=== PATIENT | male | born 1965 | race Caucasian/White ===

== ENCOUNTER 2020-01-21 08:07 | Outpatient (RCR) | payer BC, OTHER, SELFPAY | END 2020-02-27 13:03 | disposition home or self-care (01) | LOC: HO.WCC 08:07 | PROVIDERS: PCP Emergency Medicine; Visit Provider Physician Assistant Surgical | DX: E11.621 Type 2 diabetes mellitus with foot ulcer (principal); L97.525 Non-pressure chronic ulcer of other part of left foot with muscle involvement without evidence of necrosis | CPT/HCPCS: 11042; 99212 ==

== ENCOUNTER 2020-04-28 10:30 | Outpatient (REF) | payer BC, OTHER, SELFPAY ==
[2020-04-29 07:32] LABS: HBS Num1 9.38 mIU/mL (0-7.99)
[2020-04-29 09:02] LABS: Rubella IgG Antibody 4.78 Index; Rubeola IgG (Measles) >300.00 AU/mL
[2020-04-29 09:52] LABS: HBS Num2 9.52 mIU/mL (0-7.99); HBS Num3 8.88 mIU/mL (0-7.99)
[2020-04-29 09:53] LABS: ~Hepatitis B Surface Antibody GRAYZONE (Nonreactive)
[2020-05-01 20:47] LABS: TS Negative Control Passed; TS Panel A 0; TS Panel B 0; TS Positive Control Passed; TSpotTB Negative (SeeBelow)
[2020-05-03 06:46] LABS: Tetanus Antitoxiod Antibody 0.85 IU/mL
== END 2020-04-28 10:31 | disposition home or self-care (01) ==
LOC: HO.LAB 10:30
PROVIDERS: PCP Internal Medicine Medical Oncology; Visit Provider Internal Medicine Medical Oncology
DX: Z78.9 Other specified health status (principal)
CPT/HCPCS: 36415; 86481; 86706; 86735; 86762; 86765; 86774; 86787

== ENCOUNTER 2021-11-01 07:32 | Emergency (ER) | payer BC, OTHER, SELFPAY ==
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
[2021-11-01 07:36] VITALS: BP 161/104; PULSE 88; RESP 18; TEMP 36.9; O2SAT 95; BMI 43.0
--- NOTE | 2021-11-01 09:07 | ED.EXTPRO ---
HPI - Extremity Problem General Chief complaint: Extremity Problem Stated complaint: right shoulder pain Time Seen by Provider: 11/01/21 09:07 Related Data Allergies Allergy/AdvReac Type Severity Reaction Status Date / Time erythromycin base Allergy Unknown UNKNOWN Unverified 01/02/20 16:19 [ERYTHROMYCIN BASE] Physical Exam Vital Signs: Vital Signs: Last Vital Signs Temp 98.4 F 11/01/21 07:36 Pulse 88 11/01/21 07:36 Resp 18 11/01/21 07:36 BP 161/104 H 11/01/21 07:36 Pulse Ox 95 11/01/21 07:36 O2 Del Method 11/01/21 07:36 BMI result Body Mass Index 43.0 Discharge Plan Discharge Clinical Impression: Right shoulder strain Patient Disposition: Home, Self-Care Instructions: Muscle Strain (ED), Cold Compress or Soak (ED), Rotator Cuff Injury Exercises (DC) Additional Instructions: Please call to follow up with your doctor. If you have any other concerns please return to the ED.
[2021-11-01] MEDS: Ibuprofen 400 MG TABLET PO (09:40)
== END 2021-11-01 09:44 | disposition home or self-care (01) ==
PROVIDERS: Emergency Provider Student in an Organized Health Care Education/Training Program; PCP Internal Medicine Medical Oncology
DX: S46.911A Strain of unspecified muscle, fascia and tendon at shoulder and upper arm level, right arm, initial encounter (principal); X58.XXXA Exposure to other specified factors, initial encounter; Y93.9 Activity, unspecified; Y92.9 Unspecified place or not applicable; Y99.9 Unspecified external cause status
CPT/HCPCS: 73030; 99283; 99284

== ENCOUNTER 2021-12-22 11:06 | Emergency (ER) | payer BC, OTHER, SELFPAY ==
--- NOTE | ~2021-12-22 | XR_ITS ---
EXAMINATION: XR TOES, LEFT CLINICAL INFORMATION: Left great toe wound. COMPARISON: Left foot 12/10/2019 TECHNIQUE: 3 views of the left toes were obtained. FINDINGS: there is no gas or foreign body seen in the left great toe. Minimal soft tissue swelling. No bony erosive changes. There is mild left foot dorsal and plantar soft tissue swelling. Punctate calcifications suspected along first 3 digits. There is mild loss of first MTP joint space with periarticular spurring. No visible acute fracture or dislocation seen. XR/XR toe LT min 2V IMPRESSION: Mild soft tissue swelling along the plantar and dorsal distal foot. No foreign body, fracture or bony erosive changes involving the left great toe. Suspect scattered vascular calcifications along the first 3 digits Mild degenerative changes first MTP joint.
[2021-12-22 14:32] VITALS: BP 145/98; PULSE 82; RESP 16; TEMP 36.6; O2SAT 98; BMI 45.1
--- NOTE | 2021-12-22 20:05 | ED_ITS ---
HPI - Wound/Laceration General Chief Complaint: Wound/Laceration Stated Complaint: L toe wound Time Seen by Provider: 12/22/21 19:58 Source: patient Mode of arrival: ambulatory Limitations: no limitations History of Present Illness HPI narrative: 56-year-old male with no pertinent past medical history presenting today with complaint of left great toe wound. patient states that he had a large callus on the bottom of his great toe, which peeled off and bled when he took his shoes off after work yesterday. 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 Patient reports he put Neosporin on the wound and wrapped it. 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 Reports he can feel pressure when applied to his feet however no sensation of pain. denies any fever, chills, headache, dizziness nausea, vomiting, diarrhea, shortness of breath, chest pain. Patient has been seen by wound clinic in the past for same issue. Onset (ago): day(s) Extremity Location: left: foot Related Data Previous Rx's Medication Instructions Recorded amoxicillin 875 mg-potassium 1 tab PO BID #14 tabs 12/22/21 clavulanate 125 mg tablet Allergies Allergy/AdvReac Type Severity Reaction Status Date / Time erythromycin base Allergy Unknown UNKNOWN Verified 12/22/21 14:31 [ERYTHROMYCIN BASE] Review of Systems Review of Systems: Constitutional: No Fever, No Chills ENT/Mouth: No sore throat, No Rhinorrhea, No Swallowing Difficulty Eyes: No Eye Pain, No Swelling, No Redness Cardiovascular: No Chest Pain, No SOB, No Orthopnea, No Edema Respiratory: No Cough, No Sputum, No Wheezing, No dyspnea Gastrointestinal: No Nausea, No Vomiting, No Diarrhea, No abdominal Pain, No Hematochezia, No Melena Genitourinary: No Dysuria, No Urinary Frequency, No Hematuria Musculoskeletal: No joint pain, No Myalgias Skin: + Skin Lesion bottom of left great toe, No rash Neuro: No Weakness, + Numbness bilateral lower legs, No Dizziness, No Headache Psych: No Anxiety/Panic, No Depression Heme/Lymph: No Bruising, No Lymphadenopathy Endocrine: No Polyuria, No Polydipsia PMFSH Social History Social History Advance Directives: No Advance Directives Information Provided: No Physical Exam Vital Signs: Vital Signs: Last Vital Signs Temp 98 F 12/22/21 14:32 Pulse 82 12/22/21 14:32 Resp 16 12/22/21 14:32 BP 145/98 H 12/22/21 14:32 Pulse Ox 98 12/22/21 14:32 O2 Del Method 12/22/21 14:32 BMI result Body Mass Index 45.1 Const: Other: Appearance: Alert. Oriented X3. No acute distress. HEENT: normal inspection CVS: Normal heart rate and rhythm. Pulses normal. Respiratory: No respiratory distress. Skin: + circular wound on plantar aspect of great toe 3 cm in diameter, surrounded by macerated skin. Callus on plantar aspect of 2nd left metatarsal. Skin pink and warm Extremities: decreased sensation of bilateral lower extremities, mild swelling of left foot Neuro: Oriented X 3. No motor deficit. No sensory deficit. Course Course Course Narrative: 56-year-old male presenting with wound on his left great toe after a callus was accidentally removed yesterday. Patient has nondiabetic peripheral neuropathy at baseline and does not have sensation to the area. On exam, large circular a wound approximately 3 cm in diameter to the plantar aspect of the left great toe, surrounded by macerated skin. No drainage. no systemic signs of infection. Patient to be referred to wound care and started on empiric antibiotics. XR toe left min and 2V Impression: Mild soft tissue swelling along the plantar and dorsal distal foot. No foreign body, fracture, or bony erosive changes involving the great toe. Suspect scattered vascular calcifications along the first 3 digits. Discharge Plan Discharge Clinical Impression: Open toe wound Patient Disposition: Home, Self-Care Instructions: Acute Wounds (ED) Additional Instructions: Keep wound clean and dry. Wash area gently with antimicrobial soap and warm water daily, air dry the area. If you need to wear closed toe shoe, wear cotton sock. Please take antibiotics as prescribed. Please follow-up with wound care for further management. If you develop new or worsening symptoms call 911 or come back to the ER for further evaluation. Prescriptions: New amoxicillin-pot clavulanate 875-125 mg tablet 1 tab PO BID Qty: 14 0RF Referrals: [facility] [Provider Group]
== END 2021-12-22 20:51 | disposition home or self-care (01) ==
PROVIDERS: Emergency Provider Emergency Medicine; PCP Internal Medicine Medical Oncology
DX: L84 Corns and callosities (principal); S91.102A Unspecified open wound of left great toe without damage to nail, initial encounter; X58.XXXA Exposure to other specified factors, initial encounter; Y93.9 Activity, unspecified; Y92.9 Unspecified place or not applicable; Y99.9 Unspecified external cause status
CPT/HCPCS: 73660; 99282; 99283

== ENCOUNTER 2022-01-04 14:00 | Outpatient (RCR) | payer BC, OTHER, SELFPAY | END 2022-04-05 11:51 | disposition home or self-care (01) | LOC: HO.WCC 14:00 | PROVIDERS: PCP Internal Medicine Medical Oncology; Visit Provider Physician Assistant | DX: Z09 Encounter for follow-up examination after completed treatment for conditions other than malignant neoplasm (principal); L84 Corns and callosities; R73.03 Prediabetes; G60.8 Other hereditary and idiopathic neuropathies; I10 Essential (primary) hypertension; Z87.2 Personal history of diseases of the skin and subcutaneous tissue | CPT/HCPCS: 11042; 11055; 29445; 99212 ==

== ENCOUNTER 2022-09-20 09:17 | Outpatient (RCR) | payer BC, OTHER, SELFPAY ==
--- NOTE | ~2022-09-20 | XR_ITS ---
EXAMINATION: XR FOOT, RIGHT CLINICAL INFORMATION: Nonhealing wound right great toe COMPARISON: Previous x-ray May 2019 aortic MRI from 2018 TECHNIQUE: AP, lateral, and oblique views of the right foot. FINDINGS: Bone alignment is normal. No acute fracture or dislocation. Old deformity of the second metatarsal head unchanged. 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 Mild arthritis at the IP joint of the great toe. Adjacent soft tissue swelling. No x-ray evidence of osteomyelitis. Mild degenerative changes of the midfoot. Small calcaneal spurs. No abnormal air collection or soft tissue foreign body seen. XR/XR foot RT min 3V IMPRESSION: Soft tissue swelling of the great toe. No x-ray evidence of osteomyelitis.
--- NOTE | ~2022-09-20 | XR_ITS ---
EXAMINATION: XR FOOT, LEFT CLINICAL INFORMATION: Nonhealing wound, attention left great toe COMPARISON: Left great toe 12/22/2021 TECHNIQUE: AP, lateral, and oblique views of the left foot. FINDINGS: There is marked soft tissue swelling of the forefoot. There is no evidence of bony erosions. No fracture. Alignment is anatomic. There is moderate degenerative change of the first metatarsophalangeal joint with marginal osteophytes including a dorsal osteophyte. Posterior plantar calcaneal spur and Achilles enthesophyte are noted. There is partially imaged deformity of the distal tibia. XR/XR foot LT min 3V IMPRESSION: No acute bony abnormality.
[2022-09-20 11:33] LABS: MANUAL DIFF FLAG NO
[2022-09-20 12:09] LABS: Basophils Percent Auto 0.5 % (0-2); Eosinophils Absolute Auto 0.2 X10*3/uL (0.0-0.4); Eosinophils Percent Auto 2.4 % (0-4); Hematocrit 43.8 % (42.0-52.0); Hemoglobin 14.9 g/dl (14.0-18.0); Imm Gran Abs Auto 0.07 X10*3/uL (0.00-0.03); Imm Gran Pct Auto 0.9 % (0.0-0.4); Lymphocytes Absolute Auto 1.8 X10*3/uL (1.2-4.9); Lymphocytes Percent Auto 21.9 % (20-40); Mean Corpuscular Hemoglobin 30.2 pg (27.0-33.0); Mean Corpuscular Volume 88.7 fL (80.0-98.0); Mean Platelet Volume 9.4 fL (9.4-12.4); Monocytes Absolute Auto 0.9 X10*3/uL (0.1-1.2); Monocytes Percent Auto 10.8 % (2-11); Neutrophils Absolute Auto 5.1 x10*3/uL (2.0-8.3); Neutrophils Percent Auto 63.5 % (45-73); Platelet Count 284 X10*3/uL (160-400); Red Blood Count 4.94 X10*6/uL (4.60-5.80); Red Cell Distribution Width 13.2 % (11.0-16.0); White Blood Count 8.1 X10*3/uL (4.8-10.8)
[2022-09-20 12:26] LABS: Estimated Average Glucose 237 mg/dL; Hemoglobin A1c % 9.9 %
[2022-09-20 12:31] LABS: Anion Gap 12 (12-20); Blood Urea Nitrogen 14 mg/dL (9-16); C Reactive Protein 1.87 mg/dL (< or = 0.50); Calcium 9.6 mg/dL (8.4-10.2); Carbon Dioxide 27 mmol/L (22-29); Chloride 103 mmol/L (96-108); Estimated Glomerular Filt Rate > 60; Glucose Random 257 mg/dL (60-115); Potassium 4.4 mmol/L (3.3-5.1); Sodium 138 mmol/L (135-145)
[2022-09-20 12:48] LABS: Erythrocyte Sedimentation Rate 14 MM/HR (0-15)
== END 2023-07-24 12:04 | disposition home or self-care (01) ==
LOC: HO.WCC 09:17
PROVIDERS: PCP Internal Medicine Medical Oncology; Visit Provider Physician Assistant
DX: L97.522 Non-pressure chronic ulcer of other part of left foot with fat layer exposed (principal); L84 Corns and callosities; Z79.2 Long term (current) use of antibiotics; Z79.899 Other long term (current) drug therapy
CPT/HCPCS: 11042; 11044; 36415; 73630; 80048; 83036; 84134; 85025; 85652; 86140; 97597; 99213

== ENCOUNTER 2022-10-16 08:08 | Emergency (ER) | payer BC, OTHER, SELFPAY ==
[2022-10-16 08:11] VITALS: BP 145/110; PULSE 99; RESP 18; TEMP 36.7; O2SAT 99; BMI 47.2
--- NOTE | 2022-10-16 09:02 | ED.GENADULT ---
HPI - General Adult General Chief complaint: Extremity Injury, Lower Stated complaint: L toe callous Time Seen by Provider: 10/16/22 09:00 Source: patient Mode of arrival: ambulatory Limitations: no limitations History of Present Illness HPI narrative: Patient is a 57-year-old male with history of nondiabetic peripheral neuropathy and chronic great toe calluses presenting to the emergency department with blood blister adjacent to callus of left great toe since yesterday. Patient states that he is seen regularly by the [facility] for debridement of his chronic calluses. Does not typically developed blood blisters. Yesterday noted bright red blood under the blister adjacent to the callus on his left great toe. Today noted that the blood was darker in color in became concerned. Denies pain. Denies any numbness or tingling. Denies recent fevers. Denies any drainage of blood from the area. complaint: blood blister of toe Onset (ago): day(s) Location: lower extremity Radiation: non-radiation Associated symptoms: denies other symptoms Treatments prior to arrival: none Related Data Previous Rx's Medication Instructions Recorded amoxicillin 875 mg-potassium 1 tab PO BID #14 tabs 12/22/21 clavulanate 125 mg tablet Allergies Allergy/AdvReac Type Severity Reaction Status Date / Time erythromycin base Allergy Unknown UNKNOWN Verified 10/16/22 08:11 [ERYTHROMYCIN BASE] Review of Systems Review of Systems: As per HPI. Yes all other systems are reviewed and are negative Constitutional: Constitutional: Reports as per HPI Physical Exam ED Vital Signs: Vital Signs - 24 hr 10/16/22 08:11 Temperature 98.1 F Pulse Rate 99 Respiratory Rate 18 Blood Pressure 145/110 H Pulse Oximetry 99 Oxygen Delivery Method Room Air BMI result Body Mass Index 47.2 Vital signs have been reviewed and appear to be correct. Blood pressure elevated. Heart rate normal. Respiratory rate normal. Temperature normal. Oxygen saturation normal. Const General: cooperative and no acute distress Orientation/consciousness: oriented to person, oriented to place, oriented to time and patient oriented x3 Limitations: no limitations HENMT Head: Yes normocephalic and Yes atraumatic Ears: external ears normal General nose exam: Normal external nose present Face and sinus: Yes face symmetric Mouth: oropharynx normal and moist mucous membranes Throat: Yes uvula midline Eyes Pupils: Equal, round and reactive pupils present Neck Neck: Yes normal visual inspection and Yes supple Resp Effort & Inspection: normal respiratory effort and able to speak in complete sentences Auscultation: clear to auscultation bilaterally Cardio Rate: regular rate Rhythm: regular rhythm Heart sounds: S1 normal heart sound present and S2 normal heart sound present GI Palpation (GI): Soft to palpation and nontender Auscultation: normoactive bowel sounds General: Yes no CVA tenderness Back/Spine/Pelvis Back: no CVA tenderness Skin General skin exam: elasticity normal and turgor normal Neuro General: oriented to person, oriented to place, oriented to time, patient oriented x3, moves all extremities, no focal motor deficits and CN's II-XI intact bilaterally Cranial nerves: Yes Equal, round and reactive pupils present Cognition (Neuro): normal cognition Extrem General: Yes full ROM, Yes no pedal edema and Yes no calf tenderness Left lower extremity: foot Details: normal capillary refill, toes with normal ROM, vascular exam Details: dorsalis pedis pulse present, posterior tibial pulse present and normal capillary refill and other (callous to volar aspect of great toe with adjacent blood blister 1x1.5cm, no fluctuance, no surrounding erythema or calor); no tenderness Psych Mental Status: mental status grossly normal Affect: normal affect Thought process: Normal thought process present Medical Decision Making Medical Decision Making MDM Narrative: Patient is a 57-year-old male with history of nondiabetic peripheral neuropathy and chronic great toe calluses presenting to the emergency department with blood blister adjacent to callus of left great toe since yesterday. On exam patient is awake, A+Ox3, VS WNL except for mildly elevated BP, afebrile, normal neurological exam without focal deficits, callous to volar aspect of left great toe with adjacent blood blister without fluctuance, without surrounding erythema or calor, no discharge or drainage. Given reported symptoms and physical exam findings, differential includes blood blister, cellulitis, abscess. Low suspicion for osteomyelitis as patient is afebrile, has full ROM, and no erythema or calor. Feel patient is stable for discharge home with follow-up at wound care clinic later this week. Do not feel drainage is indicated at this time as area is not fluctuant. Patient states he has already called to request a sooner appointment with wound care. Instructed patient to return for any new erythema, swelling, warmth, purulent drainage or fevers. Patient verbalized understanding of and agreement with plan. Differential Diagnosis Differential Diagnoses: The differential diagnosis associated with the presentation includes As above. External Record Review External record reviewed: Inpatient record, Office record and Outpatient record Chronic Conditions Patient?s care impacted by: Other (Peripheral neuropathy) Discharge Plan Discharge Clinical Impression: Callus of toe, Blood blister Patient Disposition: Home, Self-Care Additional Instructions: You were evaluated in the emergency department today for blood blister adjacent to a chronic callous of your left great toe. You evaluation did not reveal any conditions requiring emergent treatment at this time. Please keep your appointment with the wound clinic for later this week. Please assess the area daily for any new changes. Return if you develop new redness, swelling, uncontrolled bleeding, fever 100.4 or greater, or any other concerning symptoms. Prescriptions: No Action amoxicillin-pot clavulanate 875-125 mg tablet 1 tab PO BID Qty: 14 0RF
== END 2022-10-16 09:36 | disposition home or self-care (01) ==
PROVIDERS: Emergency Provider Emergency Medicine Emergency Medical Services; PCP Internal Medicine Medical Oncology
DX: L84 Corns and callosities (principal); G62.9 Polyneuropathy, unspecified; S90.422A Blister (nonthermal), left great toe, initial encounter; X58.XXXA Exposure to other specified factors, initial encounter; Y93.9 Activity, unspecified; Y92.9 Unspecified place or not applicable
CPT/HCPCS: 99282; 99283

== ENCOUNTER 2023-02-08 09:05 | Emergency (ER) | payer OTHER, SELFPAY ==
--- NOTE | 2023-02-08 | ECG_ITS ---
Test Reason : neuro symptoms Blood Pressure : / mmHG Vent. Rate : 086 BPM Atrial Rate : 086 BPM P-R Int : 162 ms QRS Dur : 088 ms QT Int : 344 ms P-R-T Axes : 047 -48 028 degrees QTc Int : 411 ms Normal sinus rhythm Left anterior fascicular block Possible Anterior infarct , age undetermined Abnormal ECG No previous ECGs available Referred By: Generic ED Physician Electronically Signed By:KORINA ZAVALA MD
--- NOTE | ~2023-02-08 | CT_ITS ---
EXAMINATION: CT HEAD WITHOUT CONTRAST CLINICAL INFORMATION: Right leg numbness. COMPARISON: None available. TECHNIQUE: Contiguous axial imaging was performed from the skull base to vertex without intravenous administration of contrast. This CT examination was performed using dose optimization techniques as appropriate, variously including the following: *Automated exposure control *Adjustment of mA and/or kV according to patient size (this includes techniques or standardized protocols for targeted exams where dose is matched to indication/reason for exam; i.e. extremities or head) *Use of iterative reconstruction technique DLP: 849 mGy-cm FINDINGS: There is no acute intra-axial, extra-axial bleed, masses or midline shift. There is no acute infarction evolution. There is no edema the pandey to white matter differentiation is maintained normal. The lateral ventricles are symmetrical in size and configuration without enlargement. Bone windows reveal no calvarial abnormality. Bilateral paranasal sinuses and mastoid air cells are well-aerated. No scalp soft tissue swelling. CT/CT head/brain wo IV con IMPRESSION: No acute intracranial process seen.
[2023-02-08 10:01] VITALS: BP 138/89; PULSE 87; RESP 18; TEMP 37.1; O2SAT 97; BMI 45.7
[2023-02-08 10:35] LABS: MANUAL DIFF FLAG NO
[2023-02-08 10:37] LABS: Basophils Percent Auto 0.6 % (0-2); Eosinophils Absolute Auto 0.1 X10*3/uL (0.0-0.4); Eosinophils Percent Auto 0.7 % (0-4); Hematocrit 40.8 % (42.0-52.0); Hemoglobin 14.1 g/dl (14.0-18.0); Imm Gran Abs Auto 0.02 X10*3/uL (0.00-0.03); Imm Gran Pct Auto 0.3 % (0.0-0.4); Lymphocytes Absolute Auto 1.1 X10*3/uL (1.2-4.9); Lymphocytes Percent Auto 15.4 % (20-40); Mean Corpuscular HGB Conc 34.6 g/dl (31.0-36.0); Mean Corpuscular Hemoglobin 29.7 pg (27.0-33.0); Mean Corpuscular Volume 86.1 fL (80.0-98.0); Mean Platelet Volume 8.6 fL (9.4-12.4); Monocytes Percent Auto 14.5 % (2-11); Neutrophils Absolute Auto 4.9 x10*3/uL (2.0-8.3); Neutrophils Percent Auto 68.5 % (45-73); Platelet Count 200 X10*3/uL (160-400); Red Blood Count 4.74 X10*6/uL (4.60-5.80); Red Cell Distribution Width 13.8 % (11.0-16.0); White Blood Count 7.1 X10*3/uL (4.8-10.8)
[2023-02-08 10:55] LABS: Alanine Aminotransferase 24 U/L (0-40); Alkaline Phosphatase 63 U/L (39-117); Anion Gap 11 (12-20); Aspartate Amino Transferase 19 U/L (5-37); Blood Urea Nitrogen 10 mg/dL (9-16); Calcium 9.2 mg/dL (8.4-10.2); Carbon Dioxide 26 mmol/L (22-29); Chloride 104 mmol/L (96-108); Creatinine Clr Calc Pharmacy 87.4; Estimated Glomerular Filt Rate > 60; Glucose Random 196 mg/dL (60-115); Potassium 3.9 mmol/L (3.3-5.1); Sodium 137 mmol/L (135-145); Total Protein 7.1 g/dL (6.5-8.0)
[2023-02-08 11:02] LABS: Troponin-I High Sensitivity < 2.7 ng/L (<3.5-35.0)
[2023-02-08 15:21] VITALS: BP 138/86; PULSE 85; RESP 18; TEMP 37.4; O2SAT 99
--- NOTE | 2023-02-08 15:32 | ED_ITS ---
HPI - Neuro Symptoms/Deficit General Chief Complaint: Neuro Symptoms/Deficit Stated Complaint: R Side Numbness Time Seen by Provider: 02/08/23 16:45 Source: patient Mode of arrival: ambulatory Limitations: no limitations History of Present Illness HPI Narrative: Patient 57 years old with history of nondiabetic peripheral neuropathy comes here for increased numbness in the right leg and right arm started last night after waking for work at 23:00 patient feels this is different than his usual neuropathy feels tingling sensations which is constant ambulatory no weakness no headache NIHSS score was 0 at the time of triage as per the neuropathy patient does have sensory never had full workup done in the past does have fluctuating blood sugar but not been diagnosed as diabetic today POC was 196 Related Data Previous Rx's Medication Instructions Recorded amoxicillin 875 mg-potassium 1 tab PO BID #14 tabs 12/22/21 clavulanate 125 mg tablet gabapentin 300 mg capsule 300 mg PO BID #60 caps 02/08/23 Allergies Allergy/AdvReac Type Severity Reaction Status Date / Time erythromycin base Allergy Unknown UNKNOWN Verified 02/08/23 10:00 [ERYTHROMYCIN BASE] Review of Systems 2 Review of Systems: Yes all other systems are reviewed and are negative [facility] Past Medical History Medical History Hypertension Neuropathy Social History Social History Smoked in Last 30 Days: No Use of substances other than those prescribed or required for medical reasons: No Advance Directives: No Advance Directives Information Provided: No Physical Exam 2 Vital Signs: Vital Signs: Last Vital Signs Temp 98.3 F 02/08/23 19:03 Pulse 79 02/08/23 19:03 Resp 16 02/08/23 19:03 BP 130/78 02/08/23 19:03 Pulse Ox 97 02/08/23 19:03 O2 Del Method Room Air 02/08/23 19:03 BMI result Body Mass Index 45.7 Appearance: Alert. Oriented X3. No acute distress. Eyes: PERRLA, No Nystagmus ENT: Pharynx normal. Oral Mucosa moist Neck: Normal inspection. Neck supple. CVS: Normal heart rate and rhythm. Pulses normal. Respiratory: No respiratory distress. Equal air entry bilateral, no wheezing/rales/rhonchi Abdomen: Soft and nontender. Bowel sounds are present, no mass palpable, no CVA tenderness Skin: Skin warm and dry. Normal skin color. Normal skin turgor. Extremities: No lower extremity edema. No calf tenderness Neuro: Oriented X 3. No motor deficit. Decreased sensation to light touch and pin prick in lower extremity below mid felder.No cerebellar signs , cranial nerves II-XII intact Course Course Course Narrative: RME: 57 yold male presents to the ED for right leg numbness since last night. patient denies any trauma or swelling or redness. patient states no calf pain. Right lower extremity negative for swelling, pitting edema, or calf pain. pedal pulses intact. motor AND NUERO EXAM OF RIGHT LOWER EXTREMITE AND REST OF EXTREMITIES INTACT. NIH 0. patient states no back pain and still complaints of right leg numbness. no urinary/bowel incontinence. WIll order head CT scan although unlike stroke Medications Administered Discontinued Medications Generic Name Dose Route Start Last Admin Trade Name Freq PRN Reason Stop Dose Admin Gabapentin 300 mg 02/08/23 18:38 02/08/23 19:02 Gabapentin 300 Mg Capsule PO 02/08/23 18:39 300 mg ONCE ONE Administration Medical Decision Making Medical Decision Making [facility] Narrative: Patient with tingling sensation the right side likely worsening of his neuropathy CT scan is negative labs are stable patient started on gabapentin advised to follow with neurologist Differential Diagnosis Differential Diagnoses: The differential diagnosis associated with the presentation includes Peripheral neuropathy/CVA Admission/Observation Consideration of admission/observation: Escalation of care including admission/observation considered Lab Data [facility] Lab Attestation statement: I reviewed the patient's lab results. 02/08/23 10:29 02/08/23 10:29 Labs: Lab Results 02/08/23 Range/Units 10:29 WBC 7.1 (4.8-10.8) X10*3/uL RBC 4.74 (4.60-5.80) X10*6/uL Hgb 14.1 (14.0-18.0) g/dl Hct 40.8 L (42.0-52.0) % MCV 86.1 (80.0-98.0) fL MCH 29.7 (27.0-33.0) pg MCHC 34.6 (31.0-36.0) g/dl RDW 13.8 (11.0-16.0) % Plt Count 200 D (160-400) X10*3/uL MPV 8.6 L (9.4-12.4) fL Immature Gran % (Auto) 0.3 (0.0-0.4) % Neut % (Auto) 68.5 (45-73) % Lymph % (Auto) 15.4 L (20-40) % Beaufort % (Auto) 14.5 H (2-11) % Eos % (Auto) 0.7 (0-4) % Baso % (Auto) 0.6 (0-2) % Lymph # (Auto) 1.1 L (1.2-4.9) X10*3/uL [place] # (Auto) 1.0 (0.1-1.2) X10*3/uL Eos # (Auto) 0.1 (0.0-0.4) X10*3/uL Baso # (Auto) 0.0 (0.0-0.2) X10*3/uL Abs Immat Gran (auto) 0.02 (0.00-0.03) X10*3/uL Absolute Neuts (auto) 4.9 (2.0-8.3) x10*3/uL Absolute Nucleated RBC 0.000 (0.0-0.012) X10*3/uL Nucleated RBC % (auto) 0.0 (0.0-0.2) /100WBC Sodium 137 (135-145) mmol/L Potassium 3.9 (3.3-5.1) mmol/L Chloride 104 (96-108) mmol/L Carbon Dioxide 26 (22-29) mmol/L Anion Gap 11 L (12-20) BUN 10 (9-16) mg/dL Creatinine 1.17 (0.5-1.4) mg/dL Estim Creat Clear Calc 87.4 Estimated GFR > 60 Random Glucose 196 H (60-115) mg/dL Estimat Average Glucose 194 mg/dL Hemoglobin A1c % 8.4 H (<6.0) % Calcium 9.2 (8.4-10.2) mg/dL Magnesium 2.1 (1.6-2.6) mg/dL Total Bilirubin 1.0 (0.0-1.0) mg/dL AST 19 (5-37) U/L ALT 24 (0-40) U/L Alkaline Phosphatase 63 (39-117) U/L Troponin I High Sens < 2.7 (<3.5-35.0) ng/L Total Protein 7.1 (6.5-8.0) g/dL Albumin 4.0 (3.5-5.0) g/dL Radiology Impression Discussion of test interpretation with radiology: I have reviewed the radiologist's reading. Discharge Plan Discharge Clinical Impression: Peripheral neuropathy Patient Disposition: Home, Self-Care Instructions: Peripheral Neuropathy (ED) Additional Instructions: Follow-up with neurologist who need further workup for diagnosis and treatment Meanwhile start taking gabapentin 300 mg twice daily Prescriptions: New gabapentin 300 mg capsule 300 mg PO BID Qty: 60 0RF No Action amoxicillin-pot clavulanate 875-125 mg tablet 1 tab PO BID Qty: 14 0RF Referrals: Fiona Agustin MD [Physician] - 1 week Interventions: ED Discharge Assessment Last Done: 02/08/23 19:06 Discharge Date/Time: 02/08/23 19:07
[2023-02-08 16:38] VITALS: BP 134/80; PULSE 89; RESP 18; TEMP 36.8; O2SAT 96
[2023-02-08 18:03] LABS: Magnesium 2.1 mg/dL (1.6-2.6)
[2023-02-08 18:20] LABS: Estimated Average Glucose 194 mg/dL; Hemoglobin A1c % 8.4 % (<6.0)
[2023-02-08] MEDS: Gabapentin 300 MG CAPSULE PO (19:02)
[2023-02-08 19:03] VITALS: BP 130/78; PULSE 79; RESP 16; TEMP 36.8; O2SAT 97
== END 2023-02-08 19:07 | disposition home or self-care (01) ==
PROVIDERS: Emergency Provider Internal Medicine; PCP Internal Medicine Medical Oncology
DX: G62.9 Polyneuropathy, unspecified (principal); R73.9 Hyperglycemia, unspecified; I10 Essential (primary) hypertension
CPT/HCPCS: 36415; 70450; 80053; 83036; 83735; 84484; 85025; 93005; 99284

== ENCOUNTER 2024-07-26 08:42 | Outpatient (RCR) | payer OTHER, SELFPAY ==
--- NOTE | ~2024-07-26 | XR_ITS ---
EXAMINATION: XR FOOT, LEFT CLINICAL INFORMATION: Great toe. COMPARISON: None available. TECHNIQUE: AP, lateral, and oblique views of the left foot. FINDINGS: Bony alignment and mineralization are normal. No fracture, dislocation or joint effusion is seen. Boehler's angle is normal. There are moderately large posterior and plantar calcaneal spurs. There is moderate bunion formation. There is mild osteoarthritic change of the first metatarsophalangeal joint. A small exostosis is seen arising from the medial margin of the base of the distal phalanx of the left great toe. There is adjacent soft tissue ulceration, without gas or foreign body. No periosteal thickening is seen. XR/XR foot LT min 3V IMPRESSION: 1. No fracture, dislocation left ankle joint effusion is seen. 2. There are calcaneal spurs. 3. There is moderate bunion formation. 4. There is mild osteoarthritic change of the first and third metatarsophalangeal joints. 5. A soft tissue wound is seen of the medial aspect of the left great toe, without underlying bone erosion or periosteal thickening. No soft tissue gas is seen. Electronically signed by: Isaias Real MD 01/08/2024 08:48 PM EDT
== END 2024-09-04 14:13 | disposition home or self-care (01) ==
LOC: HO.WCC 08:42
PROVIDERS: PCP Internal Medicine Medical Oncology; Visit Provider Surgery
DX: E11.621 Type 2 diabetes mellitus with foot ulcer (principal); L97.522 Non-pressure chronic ulcer of other part of left foot with fat layer exposed; E11.42 Type 2 diabetes mellitus with diabetic polyneuropathy
CPT/HCPCS: 11042; 11043; 73630; 97597; 99211; 99213

== ENCOUNTER 2024-10-14 10:51 | Emergency (ER) | payer OTHER, SELFPAY ==
--- OUTSIDE RECORDS SUMMARY | 2024-02-08 05:25 | XMS_ITS ---
Author Organization Eugene Stover III, MD Address [address] [place] [address] Care Team Providers Care Grouter Helper Name Role Phone Eugene Stover Primary Care Provider REASON FOR VISIT 3 week Supply Linisopril Medications Medication SIG (Take, Route, Fr equency, Duration) Notes Start Date End Date Status Lisinopril 10 MG 1 tablet Orally Once a day for 30 days Active Social History Sex Assigned At : Social History Observation Description Sex Assigned At Male Encounters Encounter Location Date Provider Diagnosis Eugene Stover III, MD [address] [place] [address] [place] [address] 02/08/2024 Eugene Stover Plan Of Treatment Medication Medication Name Sig Start Date Stop Date Notes Lisinopril 10 MG 1 tablet Orally Once a day for 30 days Next Appt Details Provider Name:Eugene Stover, 02/25/2025 09:30:00 AM, [address] [place] [address] [place], [address], Progress Notes * Sachin CARDOSODOB:1965 ( 58 yo M)Acc No.[id number]:02/08/2024 Patient: Sachin PINTO :1965 A ge:58 Y S ex:Male Address:[address] [place] [address], [address] , [place] [address] * Refills Refill Lisinopril Tablet, 10 MG, Orally, 30, 1 tablet, Once a day, 30 days, Refills=0 * true * Date: Generated for Printi ng/Carline/Shay on: 0 10/14/2024 02:33 PM EDT
--- NOTE | ~2024-10-14 | XR_ITS ---
EXAMINATION: XR FOOT 3 OR MORE VIEWS RIGHT HISTORY: pain, concern for osteo COMPARISON: Comparison is made with the prior examination dated 09/20/2022. FINDINGS: Three views of the right foot are submitted. Osseous mineralization is normal. There is no fracture or dislocation. There is a chronic deformity of the head of the 2nd metatarsal with associated degenerative change of the MTP joint. There is mild to moderate narrowing of the interphalangeal joint of the great toe. The soft tissues are unremarkable. XR/XR foot RT min 3V IMPRESSION: No plain film evidence of osteomyelitis. If this remains a clinical concern, three-phase bone scan or MRI could be performed. Electronically signed by: Eugene Cross MD 10/14/2024 12:17 PM EDT
--- NOTE | 2024-10-14 11:47 | ED.GENADULT ---
HPI - General Adult General Chief complaint: General Medical Stated complaint: toe issues Time Seen by Provider: 10/14/24 13:20 History of Present Illness ED Provider: arias HPI narrative: 59-year-old male with chronic diabetes poorly controlled. New right medial big toe ulceration no weeping or discharge some redness of the foot. No injury. Denies subjective fever or swelling of the ankle or leg. Related Data Previous Rx's ?Medication ?Instructions ?Recorded amoxicillin 875 mg-potassium 1 tab PO BID #14 tabs 12/22/21 clavulanate 125 mg tablet gabapentin 300 mg capsule 300 mg PO BID #60 caps 02/08/23 cefadroxil 500 mg capsule 500 mg PO BID 7 days #14 caps 10/14/24 Allergies Allergy/AdvReac Type Severity Reaction Status Date / Time erythromycin base Allergy Unknown UNKNOWN Verified 10/14/24 11:54 (ERYTHROMYCIN BASE) [facility] Past Medical History Medical History Hypertension Neuropathy Social History Social History Advance Directives: No Advance Directives Information Provided: Yes Do you have a plan to hurt others: No Plan Physical Exam ED Vital Signs: Vital Signs - 24 hr 10/14/24 11:48 10/14/24 13:26 10/14/24 14:47 Temperature 98.7 F 98.5 F 98.5 F Pulse Rate 108 H 103 H 103 H Respiratory Rate 16 16 16 Blood Pressure 128/92 H 136/86 136/86 Pulse Oximetry 96 97 97 Oxygen Delivery Method Room Air Room Air Room Air BMI result Body Mass Index 41.5 Const Other: Above. First photo is of new Right medial great toe Second photo below is chronic L great toe ulcer. .. GENERAL: Well appearing. No apparent distress. Alert. HEAD/NECK: No visual trauma. EYES: Normal to inspection. No conjunctival erythema. No discharge. ENMT: Hearing grossly normal. External nose normal. RESPIRATORY: Respiratory effort normal. CARDIOVASCULAR: Additional details (Grossly well perfused). SKIN: No jaundice. See above NEUROLOGICAL: Alert. Moving all extremities x4. Additional details (No gross motor deficits. Normal tone. ). PSYCHIATRIC: Alert. Appearance appropriate for situation. Course Course Course Narrative: RME performed by Elizabeth Weber PA-C. Patient is a 59 year old assigned male at presenting to the emergency department with right toe issues. Patient states he has had a couple blisters rupture on his right foot. Patient states that he is a PRE-diabetic but not diabetic. Detailed physical exam and review of systems are deferred to the primary care nurse practitioner. Labs and imaging ordered. Patient placed back in the waiting room pending room availability and results. Medications Administered Discontinued Medications Generic Name Dose Route Start Last Admin Trade Name Freq PRN Reason Stop Dose Admin Cephalexin HCl 500 mg 10/14/24 14:05 10/14/24 14:46 Cephalexin 500 Mg Capsule PO 10/14/24 14:06 500 mg ONCE ONE Administration Medical Decision Making Medical Decision Making MDM Narrative: 59-year-old male with diabetes. Acute likely mild or stage II diabetic ulcer. Some mild erythema of the foot and toe no bony injury no signs of osteomyelitis. Lab Data 10/14/24 12:50 10/14/24 12:50 Labs: Lab Results 10/14/24 10/14/24 Range/Units 12:50 14:23 WBC 9.7 (4.8-10.8) X10*3/uL RBC 4.72 (4.60-5.80) X10*6/uL Hgb 13.9 L (14.0-18.0) g/dl Hct 39.9 L (42.0-52.0) % MCV 84.5 (80.0-98.0) fL MCH 29.4 (27.0-33.0) pg MCHC 34.8 (31.0-36.0) g/dl RDW 13.7 (11.0-16.0) % Plt Count 253 D (160-400) X10*3/uL MPV 9.2 L (9.4-12.4) fL Immature Gran % (Auto) 0.8 H (0.0-0.4) % Neut % (Auto) 74.1 H (45-73) % Lymph % (Auto) 11.4 L (20-40) % Yell % (Auto) 11.1 H (2-11) % Eos % (Auto) 2.3 (0-4) % Baso % (Auto) 0.3 (0-2) % Lymph # (Auto) 1.1 L (1.2-4.9) X10*3/uL Yell # (Auto) 1.1 (0.1-1.2) X10*3/uL Eos # (Auto) 0.2 (0.0-0.4) X10*3/uL Baso # (Auto) 0.0 (0.0-0.2) X10*3/uL Abs Immat Gran (auto) 0.08 H (0.00-0.03) X10*3/uL Absolute Neuts (auto) 7.2 (2.0-8.3) x10*3/uL Absolute Nucleated RBC 0.000 (0.0-0.012) X10*3/uL Nucleated RBC % (auto) 0.0 (0.0-0.2) /100WBC ESR 67 H (0-15) MM/HR Sodium 135 (135-145) mmol/L Potassium 4.1 (3.3-5.1) mmol/L Chloride 99 (96-108) mmol/L Carbon Dioxide 25 (22-29) mmol/L Anion Gap 15 (12-20) BUN 9 (9-16) mg/dL Creatinine 1.04 (0.5-1.4) mg/dL Estim Creat Clear Calc 94.1 Estimated GFR > 60 Random Glucose 364 H* (60-115) mg/dL Estimat Average Glucose 275 mg/dL Hemoglobin A1c % 11.2 H (<6.0) % Calcium 9.2 (8.4-10.2) mg/dL Total Bilirubin 0.7 (0.0-1.0) mg/dL AST 35 (5-37) U/L ALT 40 (0-40) U/L Alkaline Phosphatase 98 (39-117) U/L C-Reactive Protein 13.28 H (< or = 0.50) mg/dL Total Protein 7.3 (6.5-8.0) g/dL Albumin 4.1 (3.5-5.0) g/dL Discharge Plan Discharge Clinical Impression: Diabetic foot, Diabetic foot ulcer Patient Disposition: Home, Self-Care Instructions: Diabetes and Your Skin (ED), Chronic Wounds (ED) Additional Instructions: DISCHARGE DIAGNOSES: Diabetic ulcer HISTORY OF PRESENTATION: ?several days worsening L medial foot ulcer EMERGENCY DEPARTMENT COURSE,TESTS, TREATMENTS: While in the ED today you had labs, xray without severe signs of deep bone infection. you had a first dose of cephalexin antibiotic. DISCHARGE MEDICATIONS: ?[We have made no changes to your regular medication regimen] We added antibiotics. FOLLOW-UP: ?Call your primary or general physician soon as possible to discuss your symptoms, your ED visit and to discuss follow up plans Call the wound center. They are aware of your visit and will get you into the clinic soon INSTRUCTIONS ?& RETURN PRECAUTIONS: If any symptoms change first call your primary physician, if it is after-hours your primary doctors office should have a provider licensed nuclear control room operator you can speak with. If the symptoms are severe or very concerning to you then call 911 or return to the ED. Sang Echavarria MD Emergency Physician [facility] Prescriptions: New cefadroxil 500 mg capsule 500 mg PO BID 7 Days Qty: 14 0RF No Action amoxicillin-pot clavulanate 875-125 mg tablet 1 tab PO BID Qty: 14 0RF gabapentin 300 mg capsule 300 mg PO BID Qty: 60 0RF Interventions: ED Discharge Assessment Last Done: 10/14/24 14:47 Discharge Date/Time: 10/14/24 14:47 Print Language: Dutch
[2024-10-14 11:48] VITALS: BP 128/92; PULSE 108; RESP 16; TEMP 37.1; O2SAT 96; BMI 41.5
[2024-10-14 13:02] LABS: MANUAL DIFF FLAG NO
[2024-10-14 13:04] LABS: Basophils Percent Auto 0.3 % (0-2); Eosinophils Absolute Auto 0.2 X10*3/uL (0.0-0.4); Eosinophils Percent Auto 2.3 % (0-4); Hematocrit 39.9 % (42.0-52.0); Hemoglobin 13.9 g/dl (14.0-18.0); Imm Gran Abs Auto 0.08 X10*3/uL (0.00-0.03); Imm Gran Pct Auto 0.8 % (0.0-0.4); Lymphocytes Absolute Auto 1.1 X10*3/uL (1.2-4.9); Lymphocytes Percent Auto 11.4 % (20-40); Mean Corpuscular HGB Conc 34.8 g/dl (31.0-36.0); Mean Corpuscular Hemoglobin 29.4 pg (27.0-33.0); Mean Corpuscular Volume 84.5 fL (80.0-98.0); Mean Platelet Volume 9.2 fL (9.4-12.4); Monocytes Absolute Auto 1.1 X10*3/uL (0.1-1.2); Monocytes Percent Auto 11.1 % (2-11); Neutrophils Absolute Auto 7.2 x10*3/uL (2.0-8.3); Neutrophils Percent Auto 74.1 % (45-73); Platelet Count 253 X10*3/uL (160-400); Red Blood Count 4.72 X10*6/uL (4.60-5.80); Red Cell Distribution Width 13.7 % (11.0-16.0); White Blood Count 9.7 X10*3/uL (4.8-10.8)
[2024-10-14 13:24] LABS: Alanine Aminotransferase 40 U/L (0-40); Albumin Level 4.1 g/dL (3.5-5.0); Alkaline Phosphatase 98 U/L (39-117); Anion Gap 15 (12-20); Aspartate Amino Transferase 35 U/L (5-37); Bilirubin Total 0.7 mg/dL (0.0-1.0); Blood Urea Nitrogen 9 mg/dL (9-16); C Reactive Protein 13.28 mg/dL (< or = 0.50); Calcium 9.2 mg/dL (8.4-10.2); Carbon Dioxide 25 mmol/L (22-29); Chloride 99 mmol/L (96-108); Creatinine Clr Calc Pharmacy 94.1; Estimated Glomerular Filt Rate > 60; Glucose Random 364 mg/dL (60-115); Potassium 4.1 mmol/L (3.3-5.1); Sodium 135 mmol/L (135-145); Total Protein 7.3 g/dL (6.5-8.0)
[2024-10-14 13:26] VITALS: BP 136/86; PULSE 103; RESP 16; TEMP 36.9; O2SAT 97
[2024-10-14 13:52] LABS: Erythrocyte Sedimentation Rate 67 MM/HR (0-15)
--- OUTSIDE RECORDS SUMMARY | 2024-10-14 14:33 | XMS_ITS | Patient Health Record ---
[facility] Address [address] [place] [address] Care Team Providers Care Farm Equipment Operator Name Role Phone Eugene Stover MD Primary Care Provider Kasi Sood Unavailable [phone] Allergies Allergen (clinical drug ingredient) Drug/Non Drug Allergy documented on EMR Reaction Allergy Type Onset Date Status erythromycin Erythromycin Unknown Drug Allergy A ctive Reason For Referral No Information Medications Medication SIG (Take, Route, Frequency, Duration) Notes Start Date End Date Status Lisinopril Active Social History Tobacco Use: Social History Observation Description Date Details (start date - stop date) Never Smoker NA - NA Tobacco Use/Smoking Question Answer Notes Are you a: nonsmoker Additional Findings: Tobacco Non-User Current no n-smoker Alcohol Screen Question Answer Notes Did you have a drink containing alcohol in the p ast year? No Points 0 Interpretation Negative Tobacco use other than smoking: Question Answer Notes Are you an other tobacco user? No Problems Problem Type SNOMED Code ICD Code Onset Dates Problem Status W/U Status Risk Notes Problem Tinea unguium (B35.1) Active confirmed Problem Neuropathy (299244850) Neuropathy (G62.9) Active confirmed Plan Of Treatment Pending Test Test Name Order Date [id number] NAIL, 6 OR MORE 12/29/2017 [id number] NAIL, 6 OR MORE 08/17/2018 [id number] SKIN LESIONS, 2 TO 4 08/18/19 19 Insurance Providers Payer Name Payer Address Payer Phone Subscriber Number Group Number Insured Name Patient Relationship to Insured Coverage Start Date Coverage End Date [facility] All Others [address] [place] [address] [phone] [id number] Self - patient is the insured Medical (General) History Medical History History ICD Code Numbness - unknown origin HTN Surgical History Surgery Date(Month/Year) kidney stones x3 toe surgery Hospitalization History Reason Date(Month/Year) [facility]
--- OUTSIDE RECORDS SUMMARY | 2024-10-14 14:33 | XMS_ITS | Clinical Summary ---
Author Organization [facility] Address [address] [place] [address] Phone Care Team Providers Care Abrasive Water Jet Cutter Operator Name Role Phone Eugene Stover MD Primary Care Provider [phone] Allergies Active Allergy Reactions Criticality Noted Date Comments Erythromycin 03/04/2024 Medications No known medications Encounters Date Type Department Care Team Description 09/11/2024 1:15 PM EDT Office Visit Orthopedic Surgery [facility] [address] [facility] [address] [place] [address] Sung De La Paz, FRANKO Poorly controlled type 2 diabetes mellitus with neuropathy (CMS/HCC V24, CMS/HCC V28) (Primary Dx); Arthritis of both feet; Ulcer of toe of left foot, with necrosis of muscle (CMS/HCC V24, CMS/HCC V28); Lumbosacral radiculopathy; 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, left, with fat layer exposed (CMS/[facility] V24, CMS/[facility] V28) from Last 3 Months Social History Tobacco Use Types Packs/Day Years Used Date Smoking Tobacco: Never Assessed Sex and Gender Information Value Date Recorded Sex Assigned at Not on file Legal Sex Male 4:01 PM EST Gender Identity Not on file Sexual Orientation Not on file Last Filed Vital Signs Vital Sign Reading Time Taken Comments Blood Pressure 138/84 03/05/2024 12:16 AM EST Pulse 95 03/05/2024 12:16 AM EST Temperature 37 C (98.6 F) 03/05/2024 12:16 AM EST Respiratory Rate 18 03/05/2024 12:16 AM EST Oxygen Saturation 95% 03/05/2024 12:16 AM EST Inhaled Oxygen Concentration - - Weight 122 kg (270 lb) 05/21/2024 9:15 AM EST Height 170.2 cm (5' 7.01 ) 05/21/2024 9:15 AM ES T Body Mass Index 42.28 05/21/2024 9:15 AM EST Plan of Treatment Upcoming Encounters Date Type Department Care Team (Late st Contact Info) Description 11/12/2024 9:00 AM EDT Office Visit Orthopedic Surgery - [address] [facility] [address] [place] [id number] Sung De La Paz, FRANKO [address] [place] [address] Health Maintenance Due Date Last Done Comments Diabetes: Annual Foot Exam 1977 Diabetes: Annual Retina Eye Exam 1977 Pneumococcal Vaccine: 50+ Years (1 of 2 - PCV) 1986 Pneumococcal Vaccine: Pediatrics (0 to 5 Years) and At-Risk Patients (6 to 64 Years) (1 of 2 - PCV) 1986 Zoster Vaccines (1 of 2) 2017 Hepatitis B Vaccines (2 of 3 - 19+ 3-dose series) 06/09/2020 05/12/2020 Cholesterol Screening (Lipid Panel) 05/16/2023 Colorectal Cancer Screening: Colonoscopy 05/16/2023 Depression Screening 05/16/2023 HIV Screening 05/16/2023 Hepatitis C Screening 05/16/2023 Social Influencers of Health Screening 05/16/2023 COVID-19 Vaccine (2023-2 5 season) 2023 10/07/2020, 09/09/2020, 04/28/2020 Diabetes: Annual Urine Albumin-Creatinine Ratio (uACR) 09/11/2024 Diabetes: Blood Sugar Contro l Test (HGBA1C) 09/11/2024 Influenza Vaccine (Season Ended) 2024 05/12/2020 Diabetes: Annual GFR (Glomerular Filtration Rate) 03/04/2025 03/04/2024 Hypertension/CHF/CAD Annual BMP Blood Test 03/04/2025 03/04/2024 DTaP,Tdap,and Td Vaccines (2 - Td or Tdap) 05/12/2030 05/12/2020 HIB Vaccines Aged Out No longer eligi ble based on patient's age to complete this topic HPV Vaccines Aged Out No longer eligi ble based on patient's age to complete this topic Hepatitis A Vaccines Aged Out No long er eligible based on patient's age to complete this topic IPV Vaccines Aged Out No longer eligi ble based on patient's age to complete this topic MMR Vaccines Aged Out No longer eligi ble based on patient's age to complete this topic Meningococcal ACWY Vaccine Aged Out N o longer eligible based on patient's age to complete this topic Meningococcal B Vaccine Aged Out No l onger eligible based on patient's age to complete this topic RSV Immunization Patients Under 20 months Aged Out No longer eligible b ased on patient's age to complete this topic Varicella Vaccines Aged Out No longer eligible based on patient's age to complete this topic Procedures Procedure Name Priority Date/Time Associated Diagnosis Comments COMPREHENSIVE METABOLIC PANEL STAT 03/04/2024 8:27 PM EST from Last 3 Months or Most Recently Relevant to Health Maintenance Results * (ABNORMAL) Comprehensive metabolic panel (03/04/2024 8:27 PM EST) Sodium 132(L) 133 - 145 mmol/L LAB CHEMISTRY METHOD 03/04/2024 9:18 PM [facility] Potassium 4.7 3.5 - 5.5 mmol/L LAB CHEMISTRY METHOD 03/04/2024 9:18 PM [facility] Chloride 99 96 - 110 mmol/L LAB CHEMISTRY METHOD 03/04/2024 9:18 PM [facility] CO2 25 21 - 32 mmol/L LAB CHEMISTRY METHOD 03/04/2024 9:18 PM [facility] Anion Gap 8 3 - 11 LAB CHEMISTRY METHOD 03/04/2024 9:18 PM [facility] Glucose 475(HH) 70 - 100 mg/dL LAB CHEMISTRY METHOD 03/04/2024 9:18 PM [facility] BUN 16 5 - 25 mg/dL LAB CHEMISTRY METHOD 03/04/2024 9:18 PM [facility] Creatinine 1.43(H) 0.70 - 1.30 mg/dL LAB CHEMISTRY METHOD 03/04/2024 9:18 PM [facility] eGFR 58(L) >=60 mL/min/1. 73m2 LAB CHEMISTRY METHOD 03/04/2024 9:18 PM [facility] Comment:Calculation based on the Chronic Kidney Disease Epidemiology Collaboration (CKD-EPI) equation refit without adjustment for race. BUN/Creatinine Ratio 11.2 LAB CHEMISTRY METHOD 03/04/2024 9:18 PM [facility] Calcium 9.0 8.5 - 10.5 mg/dL LAB CHEMISTRY METHOD 03/04/2024 9:18 PM [facility] AST (SGOT) 26 10 - 42 unit/L LAB CHEMISTRY METHOD 03/04/2024 9:18 PM [facility] ALT (SGPT) 44 10 - 60 unit/L LAB CHEMISTRY METHOD 03/04/2024 9:18 PM [facility] Alkaline Phosphatase 153(H) 42 - 121 unit/L LAB CHEMISTRY METHOD 03/04/2024 9:18 PM [facility] Total Protein 7.0 6.0 - 8.0 g/dL LAB CHEMISTRY METHOD 03/04/2024 9:18 PM [facility] Albumin 3.7 3.2 - 5.0 g/dL LAB CHEMISTRY METHOD 03/04/2024 9:18 PM [facility] Total Bilirubin 0.4 0.0 - 1.4 mg/dL LAB CHEMISTRY METHOD 03/04/2024 9:18 PM [facility] Blood Venous blood specimen / Unknown 03/04/2024 8:27 PM EST 03/04/2024 8:35 PM EST us Klever Martin MD LAB BLOOD ORDERABLES Maddy mendez Result [facility] [address] [place] [address], from Last 3 Months or Most Recently Relevant to Health Maintenance Insurance [address] [place] [address] [employer] MD [place] [id number] Care Teams Abrasive Water Jet Cutter Operator Relationship Specialty Start Date End Date Eugene Stover MD [address] [address] PCP - General Oncology 08/10/17
[2024-10-14 14:36] LABS: Estimated Average Glucose 275 mg/dL; Hemoglobin A1c % 11.2 % (<6.0)
[2024-10-14] MEDS: cephALEXin 500 MG CAPSULE PO (14:46)
[2024-10-14 14:47] VITALS: BP 136/86; PULSE 103; RESP 16; TEMP 36.9; O2SAT 97
== END 2024-10-14 14:47 | disposition home or self-care (01) ==
PROVIDERS: Physician Assistant Medical; Emergency Provider Emergency Medicine; PCP Internal Medicine Medical Oncology
DX: E11.621 Type 2 diabetes mellitus with foot ulcer (principal); I10 Essential (primary) hypertension; Z79.899 Other long term (current) drug therapy
CPT/HCPCS: 36415; 73630; 80053; 83036; 85025; 85652; 86140; 99283

== ENCOUNTER → 2024-10-14 11:51 | Outpatient (BNV) | payer OTHER, SELFPAY | PROVIDERS: PCP Internal Medicine Medical Oncology; Visit Provider Radiology Diagnostic Radiology | DX: M79.671 Pain in right foot (principal) | CPT/HCPCS: 73630 ==

== ENCOUNTER 2024-12-12 15:57 | Inpatient (IN) | payer MEDICAID, SELFPAY ==
--- OUTSIDE RECORDS SUMMARY | 2024-02-23 05:15 | XMS_ITS ---
Author Organization Eugene Stover III, MD Address [address] [facility] [place] [address] Care Team Providers Care Worship Director Name Role Phone Eugene Stover Primary Care Provider [phone] Allergies Allergen (clinical drug ingredient) Drug/Non Drug [...] patient and left a message to contact [facility], Ivett Camarena 08/29/2024 [...] Date Provider Diagnosis Eugene Stover III, MD [address] [place] [address] [place] [address] 02/23/2024 Eugene Stover Hyperlipidemia E78.5 ; Type [...] on compliance. He was referred to a sergeant of corrections. He was referred to an furniture decals inspector. I recommended a statin drug. He will [...] wound Provider Name:Eugene Stover, 12/27/2024 02:30:00 PM, [address] [place] [address] [address], [address], [place], [address], Provider Name:Eugene Stover, 02/25/2025 09:30:00 AM, [address] [place] [address] [address], [place], [address], Progress Notes * Sachin CARDOSODOB:1965 ( 58 yo M)Acc No.[id number]:02/23/2024 Progress Notes Patient: Sachin PINTO Provider: Carey Stover MD :1965 A ge:58 Y S ex:Male Date:02/23/2024 Address:[address] [place] [address], [address] , [id number] Subjective: * Chief Complaints: * A nnual [...] some time and has been seeing a sergeant of corrections for treatment. The patient is scheduled to [...] He has an appointment next week at [facility] for his visual acuity and glasses. We have referred him to an furniture decals inspector for routine diabetic care. He has been referreed to a sergeant of corrections routine diabetic foot care as the sergeant of corrections to which he was going has retired. [...] dilation, right flexible ureteroscopy, right ureteral stent [id number] history * Hospitalization/Major Diagno stic Procedure: N [...] H popeye is single and lives in [place]. He is working. 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 He lives in a two-person condo with [...] on compliance. He was referred to a sergeant of corrections. He was referred to an furniture decals inspector. I recommended a statin drug. He will [...] needed, Inhalation, every 4 hrs. ? Referral To:[facility] Unknown Reason:Consult and Treat [...] 04/24/2023 Generated for Printi ng/Faamyg/eTransmitting on: 0 12/12/2024 08:53 PM EDT History and Physical Notes * [...]
--- OUTSIDE RECORDS SUMMARY | 2024-05-27 05:30 | XMS_ITS ---
Author Organization Eugene Stover III, MD Address [address] [place] [address] [place] [address] Care Team Providers Care Funeral Service Practitioner/Embalmer Name Role Phone Eugene Stover Primary Care Provider [phone] Allergies Allergen (clinical drug ingredient) Drug/Non Drug [...] Lisinopril 10 MG Take 1 tablet by once daily Active metFORMIN HCl Active Social History Tobacco Use: Social History Observation Description Date Details (start date - stop date) Never Smoker NA - NA Sex Assigned At : Social History Observation Description Sex Assigned At Male Tobacco Use/Smoking Question Answer Notes Patient is a nonsmoker Additional Findings: Tobacco Non-User Aggressive non-smoker Encounters Encounter Location Date Provider Diagnosis Eugene Stover III, MD [address] [place] [address] [place] [address] 05/27/2024 Eugene Stover Hyperlipidemia E78.5 Assessments Encounter [...] Lisinopril 10 MG Take 1 tablet by once daily metFORMIN HCl Next Appt Details Provider Name:Eugene Stover, 12/27/2024 02:30:00 PM, [address] [facility] [address], [place], [address], Provider Name:Eugene Stover, 02/25/2025 09:30:00 AM, [address] [facility] [address], [place], [address], Progress Notes * Sachin CARDOSODOB:1965 ( 59 yo M)Acc No.[id number]:05/27/2024 Progress Notes Patient: Sachin PINTO Provider: Carey Stover MD :1965 A ge:59 Y S ex:Male Date:05/27/2024 Address:[address] [place] [address], [address] , [id number] Subjective: * Chief Complaints: * 1 . [...] H popeye is single and lives in [place]. He is working. 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 He lives in a two-person condo with [...] 05/27/2024 Generated for Denny quiroga/Carline/Rudyitting on: 0 12/12/2024 08:52 PM EDT History and Physical Notes * [...]
--- OUTSIDE RECORDS SUMMARY | 2024-12-06 11:00 | XMS_ITS ---
Author Organization Eugene Stover III, MD Address [address] [place] [address] Care Team Providers Care Boots And Shoes Supervisor Name Role Phone Eugene Stover Primary Care Provider [phone] Allergies Allergen (clinical drug ingredient) Drug/Non [...] Provider Diagnosis Eugene Stover III, MD [address] [place] [address] DR N[place]ASCO, [place] [address] 12/06/2024 Eugene Stover Hyperlipidemia E78.5 ; Type [...] OV Provider Name:Eugene Stover, 12/27/2024 02:30:00 PM, [address] [place] [address] DR, [address], [place], [address], Provider Name:Eugene Stover, 02/25/2025 09:30:00 AM, [address] [place] [address] [address], [place], [address], Progress Notes * Sachin CARDOSODOB:1965 ( 59 yo M)Acc No.[id number]:12/06/2024 Progress Notes Patient: Sachin PINTO Provider: Carey Stover MD :1965 A ge:59 Y S ex:Male Date:12/06/2024 Address:[address] [place] [address], [address] , [id number] Subjective: * Chief Complaints: * D iabetic ulcer right first toeDiabetesPeripheral diabetic neuropathyUreterolithiasisSleep apneaHypertensionHyperlipidemiaObesityBenign prostatic hypertrophy * HPI: C OVID-19 Screening: Luca nye returns for medical management of diabetes and his other issues. He has been going to the wound care clinic at [facility] weekly for a large deep pressure [...] arranged. Repeat blood work was arranged. 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 * Social History: T obacco Use: T obacco Use/Smoking P atient is a n onsmoker A dditional Findings: Tobacco Non-User A ggressive non-smoker Luca nye is single and lives in [place]. He is working. 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 He lives in a two-person condo with [...] 0 12/06/2024 Generated for Denny quiroga/Carline/Magensmitting on: 12/12/2024 08:51 PM EDT History and Physical Notes * [...]
--- NOTE | ~2024-12-12 | US_ITS ---
CLINICAL HISTORY: osteomyelitis wound L + R Arterial duplex ultrasound bilateral lower extremity Comparison: None provided Findings: Peak systolic velocities of the right lower extremity range from 35 cm/sec to 103 cm/sec. Peak systolic velocities of the left lower extremity range from 32 cm/sec to 91 cm/sec. No occlusion of the imaged arteries. Mild relative increase of the bilateral posterior tibial artery is relative to popliteal arteries nonspecific and may reflect mild stenosis by ultrasound. Grayscale images demonstrate mild calcified and noncalcified plaque of the imaged arteries, particularly inferiorly. Essentially triphasic waveforms of the imaged arteries accounting for aliasing artifacts and sampling. IMPRESSION: No occlusion of the imaged arteries of the lower extremities by ultrasound. This document has been electronically signed by: Steven Llamas MD on 12/19/2024 22:42:48
--- NOTE | ~2024-12-12 | XR_ITS ---
EXAMINATION: XR FOOT, LEFT CLINICAL INFORMATION: wound, ?osteo COMPARISON: None available. TECHNIQUE: AP, lateral, and oblique views of the left foot. FINDINGS: There is aggressive destruction of the head and neck region of the fifth metatarsal with erosion in the lateral base of the proximal phalanx, extending into the metaphysis. Mild degenerative changes are present in the first MTP joint with marginal osteophytes and degenerative cystic change in the medial head and neck region of the first metatarsal. Moderate enthesophytes are present involving calcaneus. XR/XR foot LT min 3V IMPRESSION: Suspected septic arthritis with osteomyelitis involving the head and neck region of the fifth metatarsal and proximal half of the fifth proximal phalanx with aggressive bony destruction. Mild first MTP joint osteoarthritis. Electronically signed by: Erasmo Downs MD 12/12/2024 05:04 PM EDT
--- NOTE | ~2024-12-12 | MR_ITS ---
EXAM: MRI foot without and with IV contrast TECHNIQUE: Multiplanar multisequence MR imaging was performed through the left midfoot and forefoot without and with IV contrast. IV contrast: 10 mL Gadavist INDICATION: Osteomyelitis, septic arthritis involving the fifth ray PRIOR: X-ray on December 12, 2024 and January 08, 2024 FINDINGS: Lisfranc ligament: Intact Soft tissues: Edema reticulates the subcutaneous soft tissues. There is hyperenhancement of the skin to the dorsum and hyperenhancement of the deep and superficial soft tissues at the fourth webspace and fifth digit. There is also edema and mild hyperenhancement of the subcutaneous soft tissues as well as the musculature in the midfoot and forefoot. There is edema and hypoenhancement of the soft tissues plantar to the fourth and fifth metatarsals and in the soft tissues interposed between the 2 metatarsal. There is moderate to severe fatty replacement of the midfoot forefoot musculature. Metatarsophalangeal (MTP) joint and sesamoids of the great toe: There is no joint effusion. Joint capsule structures are intact. Sesamoids are intact and unremarkable aside from degenerative marrow signal in the medial sesamoid and a bipartite medial sesamoid. There are marginal osteophytes involving the MTP joint. Lesser MTP joints & Plantar plates: There is a deep soft tissue ulceration is lateral and plantar to the head and neck of the fifth metatarsal measuring 18 mm anterior-posterior extending into the fifth MTP joint. There are destructive changes noted in the metatarsal head and central and dorsal base of the proximal phalanx. There is replacement of marrow signal in the proximal phalanx, sparing the head, with decreased signal on T1 imaging, patchy increased signal on fluid sensitive sequences, and concordant enhancement after contrast. The fifth metatarsal demonstrates decreased signal on T1 imaging through the mid third and distal third diaphysis. There is minimal patchy decreased T1 signal involving the base of the fifth metatarsal. On fluid sensitive sequences, there is increased signal throughout the fifth metatarsal. With contrast, there is hyperenhancement throughout the fifth metatarsal, sparing the proximal tip of the fifth metatarsal tuberosity. There is no loculated fluid collection. Otherwise unremarkable. Bones/Marrow: Aside from changes noted above, but marrow signal is physiologic. MR/MR foot LT wo/w con IMPRESSION: Fifth MTP joint septic arthritis and osteomyelitis of the fifth proximal phalanx and metatarsal with adjacent soft tissue ulceration extending to the bone. There are erosive changes in the central and dorsal aspect of the proximal phalanx. The fifth proximal phalanx is involved with sparing the head. Extensive destructive erosive changes are present involving the head and neck of the fifth metatarsal osteomyelitis sparing the region of the fifth metatarsal tuberosity. There are changes consistent with cellulitis involving deep and superficial soft tissues of the midfoot extending into the fifth digit. There is hyperenhancement of the soft tissues plantar to the fourth and fifth metatarsals and in the soft tissues interposed between the fourth metatarsals of uncertain significance. This could be related to lack of cellulitis in this region but could also be related related to decreased blood flow to this region. Electronically signed by: Erasmo Downs MD 12/13/2024 12:54 PM EDT
[2024-12-12 16:28] VITALS: BP 156/87; PULSE 109; RESP 18; TEMP 37; O2SAT 98; BMI 38.5
--- NOTE | 2024-12-12 16:31 | ED.SKABFB ---
HPI - Skin/Abscess/Foreign Bdy General Chief complaint: Wound/Laceration Stated complaint: left foot infection Time Seen by Provider: 12/12/24 20:48 History of Present Illness ED Provider: Tamika DAVIS narrative: The patient is a 59-year-old male with a history of type 2 diabetes. He says that for a long time he has gone to the wound clinic intermittently for problems related to calluses on his big toes. He says that few weeks ago he developed blisters on the lateral aspect of the left foot. The blisters ruptured and the foot got very wet. He was seen at the wound clinic and was put on some antibiotics about 2 weeks ago. The antibiotics finished a few days ago. He says that the antibiotics were very helpful but since stopping the antibiotics he has had increasing redness to the lateral aspect of the left foot. Today he went to the Wound Care Clinic because of the worsening condition of his left foot and he was referred to the emergency room out of concern for significant diabetic foot infection. Related Data Home Medications ?Medication ?Instructions ?Recorded ?Confirmed atorvastatin 20 mg tablet 20 mg PO DAILY 12/12/24 12/12/24 collagen, hydrolyzed 1 1 tab PO BID 12/12/24 12/12/24 gram-ascorbate calcium 10 mg tablet lisinopril 10 mg tablet 10 mg PO DAILY 12/12/24 12/12/24 metformin 1,000 mg tablet 1,000 mg PO DAILY 12/12/24 12/12/24 Allergies Allergy/AdvReac Type Severity Reaction Status Date / Time erythromycin base Allergy Unknown UNKNOWN Verified 12/12/24 16:31 (ERYTHROMYCIN BASE) Review of Systems Review of Systems: Yes all other systems are reviewed and are negative [facility] Past Medical History Medical History (Updated 12/12/24 @ 22:41 by Rosa Eldridge PA-C) Class 3 obesity Type 2 diabetes mellitus Hypertension Neuropathy Social History Social History Patient Tobacco Use Status: Never used Tobacco Advance Directives: No Advance Directives Information Provided: No Nutrition Risks: No Nutritional Risk Physical Exam Vital Signs: Vital Signs: Last Vital Signs Temp 98.1 F 12/13/24 01:50 Pulse 89 12/13/24 01:50 Resp 16 12/13/24 01:50 BP 132/87 12/13/24 01:50 Pulse Ox 95 12/13/24 01:50 O2 Del Method Room Air 12/13/24 01:50 BMI result Body Mass Index 38.5 Const: Other: The patient is awake and alert, pleasant and cooperative. He does not appear in acute distress. Orientation/consciousness: patient oriented x3 HEENT: Other: The face is symmetrical. ?Mucous membranes moist. Eyes: Other: Pupils are round equal, conjunctivae are clear, extraocular movements intact Neck: Neck: Yes normal visual inspection, Yes full ROM and Yes no JVD Resp: Effort & Inspection: normal respiratory effort Auscultation: clear to auscultation bilaterally Cardio: Rate: regular rate Rhythm: regular rhythm Heart sounds: S1 normal heart sound present and S2 normal heart sound present GI: Other: Abdomen is soft and nontender Skin: Other: The patient has a large wound on the lateral aspect of the left foot at the region of the MTP joint of the 5th toe. There is a lot of tissue breakdown. There is erythema on the dorsum of the foot. There is also an ulcer on the plantar aspect of the left great toe. There is a small area of erythema to the skin of the right foot at the medial aspect of the foot near the 1st MTP joint. Neuro: General: patient oriented x3, moves all extremities, no focal motor deficits and CN's II-XI intact bilaterally Extrem: Other: There are good pulses in the feet. The patient has an impressive lesion on the lateral aspect of the left foot at the 5th MTP. There is significant skin breakdown and a large wound associated with some erythema on the dorsum of the foot. There was also an ulcer on the plantar aspect of the left great toe. On the right foot there is an area of erythema on the medial aspect of the 1st MTP. Course Course Course Narrative: This is an RME: Additional HPI, ROS, PE not included below will be deferred to primary provider. RME assessment and note performed by: Katherine Mackay PA-C This is a 89-pfem-hqf-male, with a hx of diabetes, HTN, and neuropathy, who presents to the emergency department with concerns of a left foot infection. Patient was seen at the Wound Care for routine care and was told to come to the emergency room as there is concern for worsening infection. Large wound noted along the lateral aspect with erythema and warmth, open. foul smelling. Plan: Labs, x-ray, further ER evaluation needed. Medications Administered Generic Name Dose Route Start Last Admin Trade Name Freq PRN Reason Stop Dose Admin Enoxaparin Sodium 40 mg 12/12/24 22:30 12/12/24 23:39 Enoxaparin Sodium 40 Mg/0.4 Ml Syringe SUBCUT 40 mg Q24H NELSON Administration Piperacillin Sod/Tazobactam 50 mls @ 100 mls/hr 12/13/24 03:00 12/13/24 04:01 Sod 3.375 gm/ Sodium Chloride IV Infused Q6H NELSON Infusion Sodium Chloride 3 ml 12/13/24 00:00 12/13/24 00:00 0.9 % Sodium Chloride Flush 3 Ml Syringe IVFLUSH 3 ml QSHIFT NELSON Administration Discontinued Medications Generic Name Dose Route Start Last Admin Trade Name Freq PRN Reason Stop Dose Admin Diphenhydramine HCl 25 mg 12/12/24 22:53 12/12/24 23:36 Diphenhydramine Hcl 50 Mg/Ml Vial IVPUSH 12/12/24 22:54 25 mg ONCE ONE Administration Piperacillin Sod/Tazobactam 50 mls @ 100 mls/hr 12/12/24 17:06 12/12/24 21:01 Sod 3.375 gm/ Sodium Chloride IV 12/12/24 17:35 Infused ONCE ONE Infusion Vancomycin HCl 2,000 mg in 500 mls @ 250 mls/hr 12/12/24 17:06 12/13/24 00:20 Vancomycin/Ns IV 12/12/24 19:05 Infused ONCE ONE Infusion Medical Decision Making Medical Decision Making [facility] Narrative: The patient is a type 2 diabetic with a rather severe looking diabetic foot infection associated with significant findings on x-ray with bony destruction of the distal portion of the 5th metatarsal bone. The patient was treated with IV piperacillin/tazobactam and vancomycin in the emergency department. The patient will be admitted to the hospitalist for further care. Lab Data 12/12/24 17:58 12/12/24 17:58 Labs: Lab Results 12/12/24 12/12/24 Range/Units 17:58 20:44 WBC 7.4 (4.8-10.8) X10*3/uL RBC 5.26 (4.60-5.80) X10*6/uL Hgb 14.6 (14.0-18.0) g/dl Hct 42.9 (42.0-52.0) % MCV 81.6 (80.0-98.0) fL MCH 27.8 (27.0-33.0) pg MCHC 34.0 (31.0-36.0) g/dl RDW 14.2 (11.0-16.0) % Plt Count 325 D (160-400) X10*3/uL MPV 8.4 L (9.4-12.4) fL Immature Gran % (Auto) 0.5 H (0.0-0.4) % Neut % (Auto) 65.2 (45-73) % Lymph % (Auto) 22.6 (20-40) % Mckean % (Auto) 8.6 (2-11) % Eos % (Auto) 2.6 (0-4) % Baso % (Auto) 0.5 (0-2) % Lymph # (Auto) 1.7 (1.2-4.9) X10*3/uL Mckean # (Auto) 0.6 (0.1-1.2) X10*3/uL Eos # (Auto) 0.2 (0.0-0.4) X10*3/uL Baso # (Auto) 0.0 (0.0-0.2) X10*3/uL Abs Immat Gran (auto) 0.04 H (0.00-0.03) X10*3/uL Absolute Neuts (auto) 4.8 (2.0-8.3) x10*3/uL Absolute Nucleated RBC 0.000 (0.0-0.012) X10*3/uL Nucleated RBC % (auto) 0.0 (0.0-0.2) /100WBC ESR 68 H (0-15) MM/HR Sodium 136 (135-145) mmol/L Potassium 4.4 (3.3-5.1) mmol/L Chloride 97 (96-108) mmol/L Carbon Dioxide 28 (22-29) mmol/L Anion Gap 15 (12-20) BUN 7 L (9-16) mg/dL Creatinine 0.95 (0.5-1.4) mg/dL Estim Creat Clear Calc 102.2 Estimated GFR > 60 POC Glucose 272 H (60-115) mg/dL Random Glucose 310 H (60-115) mg/dL Lactic Acid 1.5 (0.5-2.0) mmol/L Calcium 9.5 (8.4-10.2) mg/dL Total Bilirubin 0.7 (0.0-1.0) mg/dL Direct Bilirubin 0.3 (0.0-0.5) mg/dL AST 19 (5-37) U/L ALT 19 (0-40) U/L Alkaline Phosphatase 128 H (39-117) U/L C-Reactive Protein 3.09 H (< or = 0.50) mg/dL Total Protein 8.1 H (6.5-8.0) g/dL Albumin 4.1 (3.5-5.0) g/dL Discharge Plan Discharge Clinical Impression: Diabetic foot infection, Osteomyelitis of foot, left, acute Patient Disposition: Admitted As Inpatient
[2024-12-12 18:05] LABS: MANUAL DIFF FLAG NO
[2024-12-12 18:14] LABS: Hematocrit 42.9 % (42.0-52.0); Hemoglobin 14.6 g/dl (14.0-18.0); Imm Gran Abs Auto 0.04 X10*3/uL (0.00-0.03); Imm Gran Pct Auto 0.5 % (0.0-0.4); Lymphocytes Absolute Auto 1.7 X10*3/uL (1.2-4.9); Mean Corpuscular HGB Conc 34.0 g/dl (31.0-36.0); Mean Corpuscular Hemoglobin 27.8 pg (27.0-33.0); Mean Corpuscular Volume 81.6 fL (80.0-98.0); NRBC Abs Auto 0.000 X10*3/uL (0.0-0.012); NRBC Pct Auto 0.0 /100WBC (0.0-0.2); Platelet Count 325 X10*3/uL (160-400); Red Blood Count 5.26 X10*6/uL (4.60-5.80); White Blood Count 7.4 X10*3/uL (4.8-10.8)
[2024-12-12 18:20] LABS: Alanine Aminotransferase 19 U/L (0-40); Albumin Level 4.1 g/dL (3.5-5.0); Alkaline Phosphatase 128 U/L (39-117); Anion Gap 15 (12-20); Aspartate Amino Transferase 19 U/L (5-37); Blood Urea Nitrogen 7 mg/dL (9-16); Calcium 9.5 mg/dL (8.4-10.2); Carbon Dioxide 28 mmol/L (22-29); Chloride 97 mmol/L (96-108); Creatinine Clr Calc Pharmacy 102.2; Estimated Glomerular Filt Rate > 60; Potassium 4.4 mmol/L (3.3-5.1); Sodium 136 mmol/L (135-145); Total Protein 8.1 g/dL (6.5-8.0)
[2024-12-12 20:22] VITALS: BP 124/90; PULSE 101; RESP 20; TEMP 36.6; O2SAT 98
[2024-12-12 20:47] LABS: Glucose, Whole Blood 272 mg/dL (60-115)
--- OUTSIDE RECORDS SUMMARY | 2024-12-12 20:51 | XMS_ITS | Patient Health Record ---
Author Organization [facility] Address [address] [place] [address] Care Team Providers Care Cardiology Clinical Nurse Specialist Name Role Phone Eugene Stover MD Primary Care Provider Kasi Sood Unavailable [phone] Allergies Allergen (clinical drug ingredient) Drug/Non Drug [...] Tinea unguium (B35.1) Active confirmed Problem Neuropathy ([id number]) Neuropathy (G62.9) Active confirmed Plan Of Treatment Pending Test Test Name Order Date [id number] NAIL, 6 OR MORE 12/29/2017 [id number] NAIL, 6 OR MORE 08/17/2018 [id number] SKIN LESIONS, 2 TO 4 08/18/19 19 Insurance Providers Payer Name Payer Address Payer Phone Subscriber Number Group Number Insured Name Patient Relationship to Insured Coverage Start Date Coverage End Date [facility] All Others [address] [place] [address] [id number] Sachin Vides Self - patient is the insured Medical (General) History Medical History History ICD Code Numbness - unknown origin HTN Surgical History Surgery Date(Month/Year) kidney stones x3 toe surgery Hospitalization History Reason Date(Month/Year) [facility]
--- OUTSIDE RECORDS SUMMARY | 2024-12-12 20:52 | XMS_ITS | Clinical Summary ---
Author Organization [address] [facility] Address [address] [place] [address] Phone Care Team Providers Care Mobile Manager Name Role Phone Eugene Stover MD Primary Care Provider [phone] Allergies Active Allergy Reactions Criticality Noted Date Comments Erythromycin 03/04/2024 Medications No known medications Encounters Date Type Department Care Team Description 09/11/2024 1:15 PM EDT Office Visit Orthopedic Surgery [facility] [address] [facility] [place] [address] Sung De La Paz, FRANKO Poorly controlled type 2 diabetes mellitus with neuropathy (CMS/HCC V24, CMS/HCC V28) (Primary Dx); Arthritis of both feet; Ulcer of toe of left foot, with necrosis of muscle (CMS/HCC V24, CMS/HCC V28); Lumbosacral radiculopathy; 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, left, with fat layer exposed (CMS/[facility] V24, CMS/[facility] V28) from Last 3 Months Social History [...] 05/21/2024 9:15 AM EST Plan of Treatment Health Maintenance Due Date Last Done Comments Diabetes: Annual Foot Exam 1977 Diabetes: Annual Retina Eye Exam 1977 Pneumococcal Vaccine: 50+ Years (1 of 2 - PCV) 1986 Zoster Vaccines (1 of 2) 2017 Hepatitis B Vaccines (2 of 3 - 19+ 3-dose series) 06/09/2020 05/12/2020 Cholesterol Screening (Lipid Panel) 05/16/2023 Colorectal Cancer Screening: Colonoscopy 05/16/2023 HIV Screening 05/16/2023 Hepatitis C Screening 05/16/2023 Social Influencers of Health Screening 05/16/2023 COVID-19 Vaccine (4 - 2023-2 5 season) 2023 10/07/2020, 09/09/2020, 04/28/2020 Depression Screening 04/17/2024 Diabetes: Annual Urine Albumin-Creatinine Ratio (uACR) 09/11/2024 Diabetes: Blood Sugar Contro l Test (HGBA1C) 09/11/2024 Influenza Vaccine (#1) 2024 05/12/2020 Diabetes: Annual GFR (Glomerular Filtration [...] mmol/L LAB CHEMISTRY METHOD 03/04/2024 9:18 PM [facility] Potassium 4.7 3.5 - 5.5 mmol/L LAB CHEMISTRY METHOD 03/04/2024 9:18 PM [facility] Chloride 99 96 - 110 mmol/L LAB CHEMISTRY METHOD 03/04/2024 9:18 PM [facility] CO2 25 21 - 32 mmol/L LAB CHEMISTRY METHOD 03/04/2024 9:18 PM [facility] Anion Gap 8 3 - 11 LAB CHEMISTRY METHOD 03/04/2024 9:18 PM [facility] Glucose 475(HH) 70 - 100 mg/dL LAB CHEMISTRY METHOD 03/04/2024 9:18 PM [facility] BUN 16 5 - 25 mg/dL LAB CHEMISTRY METHOD 03/04/2024 9:18 PM [facility] Creatinine 1.43(H) 0.70 - 1.30 mg/dL LAB CHEMISTRY METHOD 03/04/2024 9:18 PM [facility] eGFR 58(L) >=60 mL/min/1. 73m2 LAB CHEMISTRY METHOD 03/04/2024 9:18 PM [facility] Comment:Calculation based on the Chronic Kidney Disease Epidemiology Collaboration (CKD-EPI) equation refit without adjustment for race. BUN/Creatinine Ratio 11.2 LAB CHEMISTRY METHOD 03/04/2024 9:18 PM [facility] Calcium 9.0 8.5 - 10.5 mg/dL LAB CHEMISTRY METHOD 03/04/2024 9:18 PM [facility] AST (SGOT) 26 10 - 42 unit/L LAB CHEMISTRY METHOD 03/04/2024 9:18 PM [facility] ALT (SGPT) 44 10 - 60 unit/L LAB CHEMISTRY METHOD 03/04/2024 9:18 PM [facility] Alkaline Phosphatase 153(H) 42 - 121 unit/L LAB CHEMISTRY METHOD 03/04/2024 9:18 PM [facility] Total Protein 7.0 6.0 - 8.0 g/dL LAB CHEMISTRY METHOD 03/04/2024 9:18 PM [facility] Albumin 3.7 3.2 - 5.0 g/dL LAB CHEMISTRY METHOD 03/04/2024 9:18 PM [facility] Total Bilirubin 0.4 0.0 - 1.4 mg/dL LAB CHEMISTRY METHOD 03/04/2024 9:18 PM [facility] Blood Venous blood specimen / Unknown 03/04/2024 8:27 PM EST 03/04/2024 8:35 PM EST Klever Martin MD LAB BLOOD ORDERABLES Maddy mendez Result [facility] [address] [place] [address], from Last 3 Months or Most Recently Relevant to Health Maintenance Insurance [address] [place] [address] [employer] MD TROY [id number] Care Teams Mobile Manager Relationship Specialty Start Date End Date Eugene Stoevr MD [address] [address] PCP - General Oncology 08/10/17
--- OUTSIDE RECORDS SUMMARY | 2024-12-12 20:52 | XMS_ITS | Patient Health Record ---
Author Organization Eugene Stover III, MD Address [address] [place] [address] Care Team Providers Care Security Flex Officer Name Role Phone Eugene Stover Primary Care Provider Allergies Allergen (clinical drug ingredient) Drug/Non Drug Allergy documented on EMR Reaction Allergy Type Onset Date Status No Known Drug Allergy Unknown Drug Allergy Active Results Component Value Reference Range Notes XR foot LT min 3V Reviewed date:01/10/2024 06:35:09 AM Interpretation: Performing Lab: Notes/Report: [facility] [address] [facility] [place] [address] XRay Report Signed Patient: Sachin Vides MR#: [id number] 8 : 1965 Acct:[id number] Age/Sex: 58 / M ADM Date: 11/27/23 Loc: [facility] Attending Dr: Nancy KEANE Ordering Physician: Thu Clement MD Date of Service: 01/08/24 Procedure(s): XR foot LT min 3V Accession Number(s): [id number] cc: Eugene Stover MD; Thu Clement MD EXAMINATION: XR FOOT, LEFT CLINICAL INFORMATION: Great toe. COMPARISON: None available. TECHNIQUE: AP, lateral, and oblique views of the left foot. FINDINGS: Bony alignment and mineralization are normal. No fracture, dislocation or joint effusion is seen. Boehler's angle is normal. There are moderately large posterior and plantar calcaneal spurs. There is moderate bunion formation. There is mild osteoarthritic change of the first metatarsophalangeal joint. A small exostosis is seen arising from the medial margin of the base of the distal phalanx of the left great toe. There is adjacent soft tissue ulceration, without gas or foreign body. No periosteal thickening is seen. XR/XR foot LT min 3V IMPRESSION: 1. No fracture, dislocation left ankle joint effusion is seen. 2. There are calcaneal spurs. 3. There is moderate bunion formation. 4. There is mild osteoarthritic change of the first and third metatarsophalangeal joints. 5. A soft tissue wound is seen of the medial aspect of the left great toe, without underlying bone erosion or periosteal thickening. No soft tissue gas is seen. Electronically signed by: Isaias Real MD 01/08/2024 08:48 PM EDT RP Dictated By: Isaias Real MD Signed By: <Electronically signed by Isaias Real MD in OV> 01/08/242047 DD/ 1005 TD/TT: 01/08/24 1010 Game Bird Farmer: [facility] [address] [place] [address] XRay Report Signed Patient: Sachin Vides MR#: [id number] 8 : 1965 Acct:[id number] Age/Sex: 58 / M ADM Date: 11/27/23 Loc: .[facility] Attending Dr: Susanne KEANE Ordering Physician: Thu Clement MD Date of Service: 01/08/24 Procedure(s): XR chele t LT min 3V Accession Number(s): [id number] cc: Eugene Stover MD; Thu Clement MD EXAMINATION: XR FOOT, LEFT CLINICAL INFORMATION: Great toe. COMPARISON: None available. TECHNIQUE: AP, lateral, and obl ique views of the left foot. FINDINGS: Bony alignment and mineralization are normal. No fracture, dislocation or joint effusion is seen. Boehler's angle is normal. There are moderately large posterior and plantar calcaneal spurs. There is moderate bunion formation. There is mild osteoarthritic change of the first metatarsophala ngeal joint. A small exostosis is seen arising from the medial margin of the base of the distal phalanx of the left great toe. There is adjace nt soft tissue ulceration, without gas or foreign body. No periosteal thickening is seen. X R/XR foot LT min 3V IMPRESSION: 1. No fracture, dislocation left ankle joint effusion is seen. 2. There are calcane al spurs. 3. There is moderate bunion formation. 4. There is mild osteoarthritic change of the first and third metatarsophalangeal joints. 5. A soft tissue wou nd is seen of the medial aspect of the left great toe, without underly ing bone erosion or periosteal thickening. No soft tissue gas is seen. Electronically ketan d by: Isaias Real MD 01/08/2024 08:48 PM EDT RP Dictated By: Hussain Real MD Signed By: <Electronically signed by Isaias Real MD in OV> 01/08/242047 DD/ 1005 TD/TT: 01/08/24 1010 Game Bird Farmer: JACQUIE Complete Blood Count Auto Di ff Reviewed date:10/18/2024 06:03:47 PM Interpretation: Performing Lab:[facility], [address] [place] [phone] Notes/Report: White Blood Count 9.7 4.8-10.8 X10*3/uL Red Blood Count 4.72 4.60-5.80 X10*6/uL Hemoglobin 13.9 14.0-18.0 g/dl Hematocrit 39.9 42.0-52.0 % Mean Corpuscular Volume 84.5 80.0-98.0 fL Mean Corpuscular Hemoglobin 29.4 27.0-33.0 pg Mean Corpuscular HGB Conc 34.8 31.0-36.0 g/dl Red Cell Distribution Width 13.7 11.0-16.0 % Platelet Count 253 160-400 X10*3/uL Mean Platelet Volume 9.2 9.4-12.4 fL Neutrophils Percent Auto 74.1 45-73 % Imm Gran Pct Auto 0.8 0.0-0.4 % Lymphocytes Percent Auto 11.4 20-40 % Monocytes Percent Auto 11.1 2-11 % Eosinophils Percent Auto 2.3 0-4 % Basophils Percent Auto 0.3 0-2 % NRBC Pct Auto 0.0 0.0-0.2 /100WBC Neutrophils Absolute Auto 7.2 2.0-8. 3 x10*3/uL Imm Gran Abs Auto 0.08 0.00-0.03 X10*3/uL Lymphocytes Absolute Auto 1.1 1.2-4. 9 X10*3/uL Monocytes Absolute Auto 1.1 0.1-1.2 X10*3/uL Eosinophils Absolute Auto 0.2 0.0-0. 4 X10*3/uL Basophils Absolute Auto 0.0 0.0-0.2 X10*3/uL NRBC Abs Auto 0.000 0.0-0.012 X10*3/uL Erythrocyte Sedimentation Ra te Reviewed date:10/18/2024 06:03:47 PM Interpretation: Performing Lab:[facility], [address] [place] [phone] Notes/Report: Erythrocyte Sedimentation Rate 67 0-15 MM/HR Patients with polycythemia and many hemoglobin abnormalities may have depressed sed rates whereas patients with anemia may have elevated sed rates. Comprehensive Met. Panel Reviewed date:10/18/2024 06:03:47 PM Interpretation: Performing Lab:[address] [phone] Notes/Report: Sodium 135 135-145 mmol/L Potassium 4.1 3.3-5.1 mmol/L Chloride 99 96-108 mmol/L Carbon Dioxide 25 22-29 mmol/L Anion Gap 15 12-20 Blood Urea Nitrogen 9 9-16 mg/dL Creatinine 1.04 0.5-1.4 mg/dL Creatinine Clr Calc Pharmacy 94.1 eGFR (calculated from the MDRD study equation) and eCrCl (calculated from the Cockcroft-Gault equation) are based on different parameters and may not yield comparable results. If eCrCl result is absurd, please check patient's height/weight. Estimated Glomerular Filt Rate > 60 Chronic Kidney Disease: Estimated GFR < 60 mL/min/1.73m2 Severe Kidney Disease: Estimated GFR < 15 mL/min/1.73m2 Glucose Random 364 60-115 mg/dL Critical value for GLU: Results called to and read back by:MARY Person calling: OSWALD Date: 10-14-24 Time: 1319 Calcium 9.2 8.4-10.2 mg/dL Bilirubin Total 0.7 0.0-1.0 mg/dL Aspartate Amino Transferase 35 5-37 U/L Alanine Aminotransferase 40 0-40 U/L Total Protein 7.3 6.5-8.0 g/dL Albumin Level 4.1 3.5-5.0 g/dL Alkaline Phosphatase 98 39-117 U/L C Reactive Protein Reviewed date:10/18/2024 06:03:47 PM Interpretation: Performing Lab:[facility], [address] [place] [phone] Notes/Report: C Reactive Protein 13.28 < or = 0.50 mg/dL Hemoglobin A1c Reviewed date:10/18/2024 06:03:47 PM Interpretation: Performing Lab:[facility], [address] [place] [phone] Notes/Report: Hemoglobin A1c % 11.2 <6.0 % Hemoglobin A1C Reference Range Adults: 4.8 - 6.0 % Non diabetic: < 6.0 % Goal: < 7.0 % Additional Action Suggested: > 8.0 % Note: Hemoglobin A1c results are invalid for patients with abnormal amounts of HbF. Blood transfusions may impact the HbA1c concentration in the patient sample. Estimated Average Glucose 275 eAG = Estimated average glucose which is %A1C expressed as average glucose, using the formula of the [id number] Average Glucose study (ADAG), Diabetes Care, Vol.31,#8, Nov. 2007 XR foot RT min 3V Reviewed date:10/18/2024 06:03:47 PM Interpretation: Performing Lab: Notes/Report: [address] [address] XRay Report Signed Patient: Sachin Vides MR#: [id number] 8 : 1965 Acct:[id number] Age/Sex: 59 / M ADM Date: 10/14/24 Loc: .ED Attending Dr: Ordering Physician: Elizabeth Weber Date of Service: 10/14/24 Procedure(s): XR foot RT min 3V Accession Number(s): [id number] cc: Eugene Stover MD; Elizabeth Weber EXAMINATION: XR FOOT 3 OR MORE VIEWS RIGHT HISTORY: pain, concern for osteo COMPARISON: Comparison is made with the prior examination dated 09/20/2022. FINDINGS: Three views of the right foot are submitted. Osseous mineralization is normal. There is no fracture or dislocation. There is a chronic deformity of the head of the 2nd metatarsal with associated degenerative change of the MTP joint. There is mild to moderate narrowing of the interphalangeal joint of the great toe. The soft tissues are unremarkable. XR/XR foot RT min 3V IMPRESSION: No plain film evidence of osteomyelitis. If this remains a clinical concern, three-phase bone scan or MRI could be performed. Electronically signed by: Eugene Cross MD 10/14/2024 12:17 PM EDT Dictated By: Eugene Cross MD Signed By: <Electronically signed by Eugene Cross MD in OV> 10/14/24 1217 DD/ 1150 TD/TT: 10/14/24 1207 Game Bird Farmer: [place] [address] XRay Report Signed Patient: Sachin Vides MR#: [id number] 8 : 1965 Acct:[id number] Age/Sex: 59 / M ADM Date: 10/14/24 Loc: [facility] Attending Dr: Ordering Physician: Elizabeth Weber Date of Service: 10/14/24 Procedure(s): XR chele t RT min 3V Accession Number(s): [id number] cc: Eugene Stover MD; Elizabeth Weber EXAMINATION: XR FOOT 3 OR MORE VIEWS RIGHT HISTORY: pain, martha rn for osteo COMPARISON: Comparis on is made with the prior examination dated 09/20/2022. FINDINGS: Three views of the r ight foot are submitted. Osseous mineralization is normal. There is no fracture or dislocation. There is a chronic deformity of the hea d of the 2nd metatarsal with associated degenerative change of the MTP joint. There is mild to moderate narrowing of the interphalangeal joint of the great toe. The soft tissues are unremarkable. X R/XR foot RT min 3V IMPRESSION: No plain film eviden ce of osteomyelitis. If this remains a clinical concern, three-phase bone scan or MRI could be performed. Electronically ketan d by: Eugene Cross MD 10/14/2024 12:17 PM EDT RP Dictated By: Eugene Cross MD Signed By: <Electronically signed by Eugene Cross MD in OV> 10/14/24 1217 DD/ 1150 TD/TT: 10/14/24 1207 Game Bird Farmer: Gram stain Reviewed date:12/08/2024 05:09:27 AM Interpretation: Performing Lab:[facility], [address] [place] [phone] Notes/Report: Gram stain Gram stain results: Gram stain No polys Gram stain 4+ red blood cells Gram stain 3+ Gram-positive cocci Gram stain 3+ Gram-negative rods Routine Culture Reviewed date:12/08/2024 05:09:27 AM Interpretation: Performing Lab:[facility], [address] [place] [phone] Notes/Report: Clindamycin <=0.25 Erythromycin <=0.25 Levofloxacin 0.25 Oxacillin 0.5 Penicillin-G >=0.5 Tetracycline <=1 Trimethoprim/Sulfamethoxaz ole <=10 Anaerobic Culture Reviewed date:12/08/2024 05:09:27 AM Interpretation: Performing Lab:[facility], [address] [place] [phone] Notes/Report: Anaerobic Culture Report Anaerobic Culture 4+ Mixed anaerobic missy. Anaerobic Culture No Bacteroides or Clostridium species isolated. Reason For Referral Reason Consult and Treat Diabetic Eye Exam Diagnosis 1 Type 2 diabetes jorge l itus with foot ulcer (E11.621) Referral Organization Eugene Stover III, MD Referring Provider First Name Eugene Referring Provider Last Name Jolanta Referring Provider Speciality Internal M edicine Referred Provider Eye and Sarai Holm Referred Provider Specialty Unknown General Notes Ivett Camarena 02/26/2024 12:34:38 PM > Referral faxed with progress noteNicol Amber 03/08/2024 10:08:17 AM > Office has reached out to patient numerous times. The patient is advised to reach out to office to schedule appointment., Ivett Camarena 07/25/2024 09:57:06 AM > Office has reached out to the patient numerous times with no success. Called patient and left a message to contact [facility] [place], NicolIvett 08/29/2024 02:43:21 PM > Office stated they were not able to schedule the patient and that if the patient wants to be seen a new referral would have to be sent over. Closing referral Referral Priority Routine Medications Medication SIG (Take, Route, Frequency, Duration) [...] for 30 days 12/06/2024 Active metFORMIN HCl Active Albuterol Sulfate HFA 108 (90 Base) MCG/ACT 1 puff as needed Inhalation every 4 hrs 05/30/2022 Active Lisinopril 10 MG Take 1 tablet by gloria th once daily Active Atorvastatin Calcium Active Social History Tobacco Use: Social History [...] ast year? No Points 0 Interpretation Negative Problems Problem Type SNOMED Code ICD Code Onset Dates Problem Status W/U Status Risk Notes Problem Hyperlipidemia (E78.5) Active confirmed Comprehensive blood work including a fasting lipid [...] which will be in the near future. Problem 575306134 Obesity (E66.9) Active confirmed He remains obese. He has lost 22 pounds since his last visit. His weight will be monitored carefully. Weight loss is likely partly from hyperglycemia Problem [id number] Type 2 diabetes mellitus with foot ulcer (E11.621) Active confirmed He reports he has not been taking [...] will be adjusted for aggressive glycemic control. 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 The surface is flat with brownish discoloration. No infection is noted. A new area is present on the bottom surface of the right foot close to the lateral border on the plantar surface behind the fifth and fourth toes. Problem 88046489 Ureterolithiasis (N20.1) Active confirmed He is had renal colic and no kidney stone since his last visit. He was advised to stay well hydrated. Problem Benign prostatic hyperplasia ([id number]) BPH (benign prostatic hyperplasia) (N40.0) Active confirmed He rises from sleep once or twice a night to urinate. We discussed lifestyyle modifications he could make to reduce nocturia. Problem 36729129 Essential hypertension (I10) Active confirmed His blood pressure was elevated at 144/79. We discussed his diet and sodium restriction. I recommended aggressive weight loss. He was given a follow-up appointment in the near future to check his blood pressure again. He will be treated if necessary. He will continue on the lisinopril. Problem 27091951 Obstructive slee p apnea (G47.33) Active confirmed I strongly recommend that he continue to use his CPAP. Problem 77528173 Peripheral neuropathy (G62.9) Active confirmed He continues to have a moderate diabetic neuropathy.He has a new ulcer on the volar surface of his left toe which is being treated in the wound clinic. He will have better control of his diabetes. Problem 975471049 Type 2 diabetes mellitus without complication, without long-term current use of insulin (E11.9) Active confirmed He will resu me the metformin and his medications will be adjusted after blood work is available. He was counseled on compliance. He was referred to a capping machine operator. He was referred to an ophthalmologis t. I recommended a statin drug. He will continue the lisinopril. We will try to reach a target A1c. He will have comprehensive blood work with fasting lipids, microalbumin, A1c and fasting glucose. He will be seen in the office frequently. Vital Signs Heart Rate 82 /min 12/06/2024 Temperature 98.2 degrees Fahrenheit 02/23/2024 Blood pressure diastolic 79 mm Hg 12/06/2024 Height 67 in 12/06/2024 Blood pressure systolic 139 mm Hg 12/06/2024 Weight 247 lbs 12/06/2024 BMI 38.68 kg/m2 12/06/2024 Encounters Encounter Location Date Provider Diagnosis Eugene Stover III, MD [address] [place] [address] [place] [address] 02/23/2024 Eugene Stover Hyperlipidemia E78.5 ; Type 2 diabetes mellitus without complication, without long-term current use of insulin E11.9 ; BPH (benign prostatic hyperplasia) N40.0 ; Essential hypertension I10 ; Obstructive sleep apnea G47.33 ; Ureterolithiasis N20.1 ; Peripheral neuropathy G62.9 and Ulcer of toe L97.509 Eugene Stover III, MD [address] [place] [address] [place] [address] 12/06/2024 Eugene Stover Hyperlipidemia E78.5 ; Type 2 diabetes mellitus with foot ulcer E11.621 ; Obesity E66.9 ; Peripheral neuropathy G62.9 ; Ureterolithiasis N20.1 ; Obstructive sleep apnea G47.33 ; Essential hypertension I10 ; 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 and BPH (benign prostatic hyperplasia) N40.0 Eugene Stover III, MD [address] [place] [address] [place] [address] 02/08/2024 Eugene Stover Assessments Encounter Date Diagnosis (ICD Code) Assessment [...] on compliance. He was referred to a capping machine operator. He was referred to an maintenance associate. I recommended a statin drug. He will continue the lisinopril. We will try to reach a target A1c. He will have comprehensive blood work with fasting lipids, microalbumin, A1c and fasting glucose. He will be seen in the office frequently. 12/06/2024 Hyperlipidemia (ICD- 10 - E78.5) Comprehensive [...] will be adjusted for aggressive glycemic control. 02/23/2024 BPH (benign prostati c hyperplasia) (ICD-10 - N40.0) He rises from sleep once or twice a night to urinate. We discussed lifestyyle modifications he could make to reduce nocturia. 12/06/2024 Obesity (ICD-10 - E66.9) He remains obese. He has lost 22 pounds since his last visit. His weight will be monitored carefully. Weight loss is likely partly from hyperglycemia 02/23/2024 Essential hypertensi on (ICD-10 - I10) His blood pressure was elevated at 144/79. We discussed his diet and sodium restriction. I recommended aggressive weight loss. He was given a follow-up appointment in the near future to check his blood pressure again. He will be treated if necessary. He will continue on the lisinopril. 12/06/2024 Peripheral neuropath y (ICD-10 - G62.9) He continues to have a moderate diabetic neuropathy.He has a new ulcer on the volar surface of his left toe which is being treated in the wound clinic. He will have better control of his diabetes. 02/23/2024 Obstructive sleep apnea (ICD-10 - G47.33) I strongly recommend that he continue to use his CPAP. 12/06/2024 Ureterolithiasis (ICD-10 - N20.1) He is had renal colic and no kidney stone since his last visit. He was advised to stay well hydrated. 02/23/2024 Ureterolithiasis (ICD-10 - N20.1) He is had renal colic and no kidney stone since his last visit. He was advised to stay well hydrated. 12/06/2024 Obstructive sleep apnea (ICD-10 - G47.33) I strongly recommend that he continue to use his CPAP. 02/23/2024 Peripheral neuropath y (ICD-10 - G62.9) He continues to have a moderate diabetic neuropathy.He has a new ulcer on the volar surface of his left toe which is being treated in the wound clinic. He will have better control of his diabetes. 12/06/2024 Essential hypertensi on (ICD-10 - I10) His blood pressure was elevated at 144/79. We discussed his diet and sodium restriction. I recommended aggressive weight loss. He was given a follow-up appointment in the near future to check his blood pressure again. He will be treated if necessary. He will continue on the lisinopril. 02/23/2024 Ulcer of toe (ICD-10 - L97.509) He continues to go to the wound clinic. I recommended that he exercise but avoid anything that which she reports on his foot such as climbing stairs or running. 12/06/2024 Non-pressure chronic ulcer of other part [...] make to reduce nocturia. Plan Of Treatment Pending Test Test Name Order Date PROFILE, FASTING (COMPREHENSIVE METABOLI C) 04/18/2018 PROFILE, FASTING (COMPREHENSIVE METABOLI C) 09/05/2017 PROFILE, FASTING (COMPREHENSIVE METABOLI C) 02/23/2024 PROFILE, FASTING (COMPREHENSIVE METABOLI C) 12/06/2024 LIPID PANEL 04/18/2018 LIPID PANEL 09/05/2017 PSA, TOTAL 02/23/2024 PSA, TOTAL 04/18/2018 PSA, TOTAL 09/05/2017 CBC w DIFF 12/06/2024 CBC w DIFF 04/18/2018 CBC w DIFF 09/05/2017 CBC WITH AUTO DIFF 02/23/2024 Lipid Panel 12/06/2024 Lipid Panel 02/23/2024 Microalbumin, Random 12/06/2024 Microalbumin, Random 02/23/2024 Hemoglobin A1c 12/06/2024 Hemoglobin A1c 02/23/2024 Next Appt Details Provider Name:Eugene Stover, 12/27/2024 02:30:00 PM, [address] [place] [address] [address], [place], [phone], Provider Name:Eugene Stover, 02/25/2025 09:30:00 AM, [address] [place] [address] [address], [place], [phone], Insurance Providers Payer Name Payer Address Payer Phone Subscriber Number Group Number Insured Name Patient Relationship to Insured Coverage Start Date Coverage End Date [place] Plan Administrators [place] [id number] MD [place] [id number] [id number] Sachin Vides Self - patient is the insured Medical (General) History Medical History History ICD Code diabetic ulcer right first toe ureterolithiasis obstructive sleep apnea morbid obesity peripheral neuropathy The patient has been diagnos ed as pre-diabetic, with a hemoglobin A1C of 8.4. He has neuropathy in both feet and has a recurring infection in his left big toe. He also has allergies which cause him to cough. Surgical History Surgery Date(Month/Year) Debridement diabetic pressure ulcer righ t first toe Cytoscopy, right retrograde pyelogram, rught ureteral dilation, right flexible ureteroscopy, right ureteral stent 2017-05-31 Hospitalization History Reason Date(Month/Year) No history
[2024-12-12] MEDS: vancomycin/NS 2,000 MG/500 ML PLAST..BAG 250 MG IV (20:56)
--- NOTE | 2024-12-12 21:58 | PHA.MEDREC ---
Addendum entered by Henry Lovelace PharmD 12/12/24 22:01: reviewed Original Note: Pharmacy Consult ? Medication Reconciliation Pharmacy has completed the medication reconciliation. Spoke with pt and he confirmed his medications.
[2024-12-12 22:26] VITALS: BP 119/95; PULSE 93; RESP 12; TEMP 36.6; O2SAT 97
[2024-12-12 22:35] VITALS: BP 136/81; PULSE 94; RESP 16; TEMP 36.8; O2SAT 94
--- NOTE | 2024-12-12 22:35 | PM.IMHP ---
History of Present Illness Date of Service: 12/12/24 Attending physician on admission: Silvestre Morse Chief Complaint: Left foot ulcer Patient is a 59-year-old male with a past medical history significant for type 2 diabetes on metformin with peripheral neuropathy, hypertension, class 3 obesity and hyperlipidemia, who presented to the ED by recommendation of Wound Care due to worsening wound on the left lateral foot. The patient reports that he is having with for quite awhile but has peripheral neuropathy and is unable to feel for any changes or increased pain. Consult Wound Care earlier today who suggested that there may be deeper infection, osteomyelitis, therefore he was recommended to come to the emergency department. The patient denies any pain, fever, chills, nausea or vomiting. He does report some drainage, mostly bloody but possibly purulent with a foul odor. He reports that he lives to the oral antibiotics but has not had any improvement. He recently had blisters on his feet that burst and caused his feet to get very wet. Review of Systems Constitutional: Constitutional: Denies chills, Denies fatigue, Denies fever(s) and Denies headache(s) Eyes: Eyes: Denies change in vision ENT: Denies dizziness, Denies headache(s) and Denies sore throat Cardiovascular: Cardiovascular: Denies chest pain, Denies rapid heart rate, Denies leg edema, Denies lightheadedness and Denies dyspnea Respiratory: Respiratory: Denies chest congestion, Denies cough, Denies dyspnea and Denies wheezing Gastrointestinal: Gastrointestinal: Denies abdominal pain, Denies nausea and Denies vomiting Genitourinary: Genitourinary: Denies dysuria and Denies urinary urgency Musculoskeletal: Musculoskeletal: Denies back pain Integumentary/Breasts: Skin/Breast: Reports as per HPI Neurologic: Denies confusion, Denies dizziness and Denies headache(s) Psychiatric: Psychiatric: Denies confusion Endocrine: Endocrine: Denies fatigue Hematologic/Lymphatic: Hematologic/Lymphatic: Denies easy bleeding and Denies easy bruising Allergic/Immunologic: Allergic/Immunologic: Denies wheezing [facility] Medical History (Updated 12/12/24 @ 22:41 by Rosa Eldridge PA-C) Class 3 obesity Type 2 diabetes mellitus Hypertension Neuropathy Functional capacity: independent ambulation Social History Advance Directives: No Advance Directives Information Provided: No Narrative: No smoking, alcohol or drug use Meds Allergies Allergy/AdvReac Type Severity Reaction Status Date / Time erythromycin base Allergy Unknown UNKNOWN Verified 12/12/24 16:31 (ERYTHROMYCIN BASE) Active Medications: Current Medications Acetaminophen (Acetaminophen 325 Mg Tablet) 975 mg PO Q6H PRN PRN Reason: Pain, Mild 1-3,fever,headache Atorvastatin Calcium (Atorvastatin Calcium 20 Mg Tablet) 20 mg PO DAILY [facility] Calcium Carbonate (Calcium Carbonate 750 Mg Tab.Chew) 750 mg PO Q4H PRN PRN Reason: Heartburn Dextrose (Dextrose 50 % 25 Gm/50 Ml Syringe) 25 gm IVPUSH Q15M PRN; Protocol PRN Reason: per Hypoglycemia Standing Ord. Enoxaparin Sodium (Enoxaparin Sodium 40 Mg/0.4 Ml Syringe) 40 mg SUBCUT Q24H [facility] Glucose (Glucose Gel 15 Gm Gel..Gram.) 15 gm PO Q15M PRN; Protocol PRN Reason: per Hypoglycemia Standing Ord. Piperacillin Sod/Tazobactam (Sod 3.375 gm/ Sodium Chloride) 50 mls @ 100 mls/hr IV Q6H [facility] Insulin Human Lispro (Insulin Lispro 100 Unit/Ml 3 Ml Vial) 0 unit SUBCUT QIDACHS [facility]; Protocol Magnesium Hydroxide (Milk Of Magnesia 30 Ml Oral.Susp) 30 ml PO DAILY PRN PRN Reason: Constipation Melatonin (Melatonin 3 Mg Tablet) 6 mg PO BEDTIME PRN PRN Reason: Insomnia Oxycodone HCl (Oxycodone Hcl Immed Release 5 Mg Tablet) 5 mg PO Q6H PRN PRN Reason: Pain, Severe (Pain Scale 7-10) Pharmacy Consult (Consult Rx Vancomycin Dosing) 1 each MISCELLANE DAILY PRN PRN Reason: Consult order Sodium Chloride (0.9 % Sodium Chloride Flush 3 Ml Syringe) 3 ml IVFLUSH QSHIFT [facility] Home Medications ?Medication ?Instructions ?Recorded ?Confirmed ?Last Taken ?Type atorvastatin 20 mg tablet 20 mg PO DAILY 12/12/24 12/12/24 12/12/24 History collagen, hydrolyzed 1 1 tab PO BID 12/12/24 12/12/24 12/12/24 History gram-ascorbate calcium 10 mg tablet lisinopril 10 mg tablet 10 mg PO DAILY 12/12/24 12/12/24 12/12/24 History metformin 1,000 mg tablet 1,000 mg PO DAILY 12/12/24 12/12/24 12/12/24 History Physical Exam Vital Signs and Narrative: Vital Signs: Last Vital Signs Temp 97.9 F 12/12/24 22:26 Pulse 93 12/12/24 22:26 Resp 12 12/12/24 22:26 BP 119/95 H 12/12/24 22:26 Pulse Ox 97 12/12/24 22:26 O2 Del Method Room Air 12/12/24 22:26 BMI result Body Mass Index 38.5 General: AOx3, no acute distress Resp: CTA bilaterally CVS: S1, S2, RRR GI: +BS, NT, no distention Skin: Warm, dry. wounds on bilateral feet. Deeper larger wound on left lateral foot, see ED note for photos Neuro: Cranial nerves II-XII grossly intact bilaterally. Motor grossly intact bilaterally Extremities: No LE edema Psych: Appropriate affect Const: General: No confusion Orientation/consciousness: No confusion Neuro: General: No confusion Results Labs 12/12/24 17:58 12/12/24 17:58 Labs: Laboratory Results - last 24 hr 12/12/24 12/12/24 17:58 20:44 MCV 81.6 MCH 27.8 MCHC 34.0 RDW 14.2 Plt Count 325 D MPV 8.4 L Immature Gran % (Auto) 0.5 H Neut % (Auto) 65.2 Lymph % (Auto) 22.6 [place] % (Auto) 8.6 Eos % (Auto) 2.6 Baso % (Auto) 0.5 Lymph # (Auto) 1.7 [place] # (Auto) 0.6 Eos # (Auto) 0.2 Baso # (Auto) 0.0 Abs Immat Gran (auto) 0.04 H Absolute Neuts (auto) 4.8 Absolute Nucleated RBC 0.000 Nucleated RBC % (auto) 0.0 ESR 68 H Anion Gap 15 Estim Creat Clear Calc 102.2 Estimated GFR > 60 POC Glucose 272 H Random Glucose 310 H Lactic Acid 1.5 Calcium 9.5 Total Bilirubin 0.7 Direct Bilirubin 0.3 AST 19 ALT 19 Alkaline Phosphatase 128 H C-Reactive Protein 3.09 H Total Protein 8.1 H Albumin 4.1 Imaging Radiologist's Impressions: Impressions Foot X-Ray 12/12/24 16:51 IMPRESSION: Suspected septic arthritis with osteomyelitis involving the head and neck region of the fifth metatarsal and proximal half of the fifth proximal phalanx with aggressive bony destruction. Mild first MTP joint osteoarthritis. Electronically signed by: Erasmo Downs MD 12/12/2024 05:04 PM EDT RP Assessment and Plan (1) Osteomyelitis of foot, left, acute: Status: Acute (2) Diabetic foot infection: Status: Acute (3) Type 2 diabetes mellitus: Status: Acute (4) Class 3 obesity: Status: Acute Plan Patient is a 59-year-old male with a past medical history significant for type 2 diabetes on metformin with peripheral neuropathy, hypertension, class 3 obesity and hyperlipidemia, who presented to the ED by recommendation of Wound Care due to worsening wound on the left lateral foot. Osteomyelitis left foot, possible septic arthritis, diabetic foot infection - no leukocytosis on labs, vital signs stable, lactic acid normal, blood cultures x2 pending, no sepsis - x-ray left foot with Suspected septic arthritis with osteomyelitis involving the head and neck region of the fifth metatarsal and proximal half of the fifth proximal phalanx with aggressive bony destruction. Mild first MTP joint osteoarthritis. - CRP and ESR elevated - started on vancomycin and Zosyn in ED, continue - general surgery consult and ortho - MRI ordered - wound care consult - follow CBC and BMP Type 2 diabetes - sliding scale insulin - diabetic diet - hold metformin - check A1c Hypertension - continue lisinopril Hyperlipidemia - continue statin Class 3 obesity - BMI 38.5 - weight loss encouraged Patient with acute osteomyelitis left foot with possible septic arthritis, requiring admission for at least 2 midnight stay for IV antibiotics and specialist consultation. Quality Stroke Does the patient have a stroke diagnosis?: No VTE Prior VTE?: No VTE Risk Level:: Medical - moderate - high VTE Device Contraindication: Treatment Not Indicated VTE Drug Contraindication: N/A - Med Ordered
--- NOTE | 2024-12-12 22:40 | PC.NURSE ---
pt reports itching to the back of his head and neck area at this time, pt noted to be red around the neck and face, provider Steve Lundberg made aware and at the bedside, plan to hod the vanco and restart at a lower rate
[2024-12-13] VITALS (8 sets, daily range): BP systolic 120–153; BP diastolic 70–90; PULSE 89–103; RESP 15–20; TEMP 36.1–36.8; O2SAT 91–98; BMI 38.7
--- NOTE | 2024-12-13 00:20 | PC.NURSE ---
Vanco completely infused at this time, pt denies itchiness, redness noted to dissipate from neck and head area
[2024-12-13 06:28] LABS: MANUAL DIFF FLAG NO
[2024-12-13 06:41] LABS: Hemoglobin A1C 362.3597 umol/L; Total Hemoglobin (HGBA1C) 3385.9151 umol/L
[2024-12-13 06:53] LABS: Anion Gap 12 (12-20); Blood Urea Nitrogen 9 mg/dL (9-16); Calcium 8.8 mg/dL (8.4-10.2); Carbon Dioxide 30 mmol/L (22-29); Chloride 101 mmol/L (96-108); Creatinine Clr Calc Pharmacy 101.1; Estimated Glomerular Filt Rate > 60; Potassium 4.2 mmol/L (3.3-5.1); Sodium 139 mmol/L (135-145)
[2024-12-13 07:01] LABS: Hematocrit 40.4 % (42.0-52.0); Hemoglobin 13.2 g/dl (14.0-18.0); Imm Gran Abs Auto 0.05 X10*3/uL (0.00-0.03); Imm Gran Pct Auto 0.7 % (0.0-0.4); Lymphocytes Absolute Auto 1.8 X10*3/uL (1.2-4.9); Mean Corpuscular HGB Conc 32.7 g/dl (31.0-36.0); Mean Corpuscular Hemoglobin 27.2 pg (27.0-33.0); Mean Corpuscular Volume 83.3 fL (80.0-98.0); NRBC Abs Auto 0.000 X10*3/uL (0.0-0.012); NRBC Pct Auto 0.0 /100WBC (0.0-0.2); Platelet Count 297 X10*3/uL (160-400); Red Blood Count 4.85 X10*6/uL (4.60-5.80); White Blood Count 7.0 X10*3/uL (4.8-10.8)
[2024-12-13 07:07] LABS: Glucose, Whole Blood 226 mg/dL (60-115)
[2024-12-13] MEDS: 0.9 % Sodium Chloride Flush 3 ML SYRINGE IVFLUSH ×4 (07:28→20:34)
--- NOTE | 2024-12-13 08:06 | PM.CNOR ---
History of Present Illness HPI Consult date: 12/13/24 Chief complaint: Foot ulcer Narrative: 59-year-old male with a history of type 2 diabetes with what appears to be chronic osteo on the left foot admitted to the medical service for iv abx. He says that for a long time he has gone to the wound clinic intermittently for problems related to calluses on his big toes. He says that few weeks ago he developed blisters on the lateral aspect of the left foot. The blisters ruptured and the foot got very wet. He was seen at the wound clinic and was put on some antibiotics about 2 weeks ago. The antibiotics finished a few days ago. He says that the antibiotics were very helpful but since stopping the antibiotics he has had increasing redness to the lateral aspect of the left foot. Yesterday, he was seen at the [facility] because of the worsening condition of his left foot and he was referred to the emergency room out of concern for significant diabetic foot infection. Orthopedics was consulted for concern of septic joint. Review of Systems Review of Systems: Yes all other systems are reviewed and are negative [facility] Past Medical History Medical History (Updated 12/12/24 @ 22:41 by Rosa Eldridge PA-C) Class 3 obesity Type 2 diabetes mellitus Hypertension Neuropathy Social History Social History Patient Tobacco Use Status: Never used Tobacco Smoked in Last 30 Days: No Use of substances other than those prescribed or required for medical reasons: No Advance Directives: No Advance Directives Information Provided: No Nutrition Risks: No Nutritional Risk Meds Allergies Allergy/AdvReac Type Severity Reaction Status Date / Time erythromycin base Allergy Unknown UNKNOWN Verified 12/12/24 16:31 (ERYTHROMYCIN BASE) Active Medications: Current Medications Acetaminophen (Acetaminophen 325 Mg Tablet) 975 mg PO Q6H PRN PRN Reason: Pain, Mild 1-3,fever,headache Atorvastatin Calcium (Atorvastatin Calcium 20 Mg Tablet) 20 mg PO DAILY [facility] Calcium Carbonate (Calcium Carbonate 750 Mg Tab.Chew) 750 mg PO Q4H PRN PRN Reason: Heartburn Dextrose (Dextrose 50 % 25 Gm/50 Ml Syringe) 25 gm IVPUSH Q15M PRN; Protocol PRN Reason: per Hypoglycemia Standing Ord. Enoxaparin Sodium (Enoxaparin Sodium 40 Mg/0.4 Ml Syringe) 40 mg SUBCUT Q24H [facility] Last Admin: 12/12/24 23:39 Dose: 40 mg Glucose (Glucose Gel 15 Gm Gel..Gram.) 15 gm PO Q15M PRN; Protocol PRN Reason: per Hypoglycemia Standing Ord. Piperacillin Sod/Tazobactam (Sod 3.375 gm/ Sodium Chloride) 50 mls @ 100 mls/hr IV Q6H [facility] Last Infusion: 12/13/24 04:01 Dose: Infused Vancomycin HCl 1,250 mg/ (Sodium Chloride) 250 mls @ 166.667 mls/hr IV Q12H [facility] Insulin Human Lispro (Insulin Lispro 100 Unit/Ml 3 Ml Vial) 0 unit SUBCUT QIDACHS [facility]; Protocol Last Admin: 12/13/24 07:11 Dose: 4 unit Magnesium Hydroxide (Milk Of Magnesia 30 Ml Oral.Susp) 30 ml PO DAILY PRN PRN Reason: Constipation Melatonin (Melatonin 3 Mg Tablet) 6 mg PO BEDTIME PRN PRN Reason: Insomnia Oxycodone HCl (Oxycodone Hcl Immed Release 5 Mg Tablet) 5 mg PO Q6H PRN PRN Reason: Pain, Severe (Pain Scale 7-10) Pharmacy Consult (Consult Rx Vancomycin Dosing) 1 each MISCELLANE DAILY PRN PRN Reason: Consult order Sodium Chloride (0.9 % Sodium Chloride Flush 3 Ml Syringe) 3 ml IVFLUSH QSHIFT [facility] Last Admin: 12/13/24 07:28 Dose: 3 ml Home Medications ?Medication ?Instructions ?Recorded ?Confirmed ?Last Taken ?Type atorvastatin 20 mg tablet 20 mg PO DAILY 12/12/24 12/12/24 12/12/24 History collagen, hydrolyzed 1 1 tab PO BID 12/12/24 12/12/24 12/12/24 History gram-ascorbate calcium 10 mg tablet lisinopril 10 mg tablet 10 mg PO DAILY 12/12/24 12/12/24 12/12/24 History metformin 1,000 mg tablet 1,000 mg PO DAILY 12/12/24 12/12/24 12/12/24 History Physical Exam Vital Signs: Vital Signs: Last Vital Signs Temp 98.3 F 12/13/24 07:50 Pulse 99 12/13/24 07:50 Resp 20 12/13/24 07:50 BP 120/70 12/13/24 07:50 Pulse Ox 98 12/13/24 07:58 O2 Del Method Room Air 12/13/24 07:58 BMI result Body Mass Index 38.5 Const: General: cooperative and no acute distress Orientation/consciousness: patient oriented x3 Resp: Effort & Inspection: normal respiratory effort and able to speak in complete sentences Cardio: Peripheral pulses: Peripheral pulses 2+ throughout Neuro: General: patient oriented x3 Extrem: Other: left: Patient has a wound over the lateral aspect of the base of the small toe. There is some surrounding erythema and swelling. No swelling or redness over the ankle and he has no pain with range of motion of the ankle. Results Labs 12/13/24 06:10 12/13/24 06:10 Labs: Abnormal lab results 12/12/24 12/12/24 12/13/24 Range/Units 17:58 20:44 06:10 Hgb 13.2 L (14.0-18.0) g/dl Hct 40.4 L (42.0-52.0) % MPV 8.4 L 9.1 L (9.4-12.4) fL Immature Gran % (Auto) 0.5 H 0.7 H (0.0-0.4) % [place] % (Auto) 11.2 H (2-11) % Abs Immat Gran (auto) 0.04 H 0.05 H (0.00-0.03) X10*3/uL ESR 68 H (0-15) MM/HR Carbon Dioxide 30 H (22-29) mmol/L BUN 7 L (9-16) mg/dL POC Glucose 272 H (60-115) mg/dL Random Glucose 310 H 222 H (60-115) mg/dL Hemoglobin A1c % 11.9 H (<6.0) % Alkaline Phosphatase 128 H (39-117) U/L C-Reactive Protein 3.09 H (< or = 0.50) mg/dL Total Protein 8.1 H (6.5-8.0) g/dL 12/13/24 Range/Units 06:59 Hgb (14.0-18.0) g/dl Hct (42.0-52.0) % MPV (9.4-12.4) fL Immature Gran % (Auto) (0.0-0.4) % [place] % (Auto) (2-11) % Abs Immat Gran (auto) (0.00-0.03) X10*3/uL ESR (0-15) MM/HR Carbon Dioxide (22-29) mmol/L BUN (9-16) mg/dL POC Glucose 226 H (60-115) mg/dL Random Glucose (60-115) mg/dL Hemoglobin A1c % (<6.0) % Alkaline Phosphatase (39-117) U/L C-Reactive Protein (< or = 0.50) mg/dL Total Protein (6.5-8.0) g/dL H & H 12/12/24 12/13/24 Range/Units 17:58 06:10 Hgb 14.6 13.2 L (14.0-18.0) g/dl Hct 42.9 40.4 L (42.0-52.0) % All other labs normal. Diagnostic results Ankle/Foot x-ray: image reviewed (XR foot LT min 3V IMPRESSION: Suspected septic arthritis with osteomyelitis involving the head and neck region of the fifth metatarsal and proximal half of the fifth proximal phalanx with aggressive bony destruction. Mild first MTP joint osteoarthritis.) Assessment and Plan (1) Diabetic foot infection: Status: Acute (2) Type 2 diabetes mellitus: Status: Acute Plan No evidence of septic arthritis or septic joint in the left ankle Patient does appear to have osteomyelitis of the left small toe in the setting of diabetes No orthopedic intervention warranted Procedures Date of Service Date of Service: 12/13/24
--- NOTE | 2024-12-13 08:11 | PC.NURSE ---
changed wound dressings on left foot and put on protective allevyn on right foot necrotic area on right great toe hole. MRI screening form done and faxed.
[2024-12-13 11:25] LABS: Glucose, Whole Blood 241 mg/dL (60-115)
--- NOTE | 2024-12-13 11:27 | PM.CNGS ---
History of Present Illness Consult details Consult date: 12/13/24 <Federico Amezquita PA-C - Last Filed: 12/13/24 11:51> Reason for consult: other (diabetic foot wound, osteomyelitis left fifth metatarsal) <Federico Amezquita PA-C - Last Filed: 12/13/24 11:51> Narrative: 59-year-old male with a past medical history significant for type 2 diabetes on metformin with peripheral neuropathy, hypertension, class 3 obesity and hyperlipidemia, who presented to the ED by recommendation of Wound Care due to worsening wound on the left lateral foot. Additionally there is a smaller more superficial wound on the right great toe that is also draining. Reports that the wound was healing well on most recent course of abx, however was at [facility] and the foot got wet and the wound began to get worse after. There is a good amount of purulent bloody drainage. Imaging showing suggestive septic arthritis, osteomyelitis of the left fifth metatarsal. Denies pain, he has minimal to no sensation in the foot <Federico Amezquita PA-C - Last Filed: 12/13/24 11:51> [facility] Past Medical History Medical History: Medical History Class 3 obesity Type 2 diabetes mellitus Hypertension Neuropathy <Federico Amezquita PA-C - Last Filed: 12/13/24 11:51> Social History Social History: Social History Household Members: Significant Other [facility]: [facility] Do you presently have visiting nurse or other home services: No Patient Tobacco Use Status: Never used Tobacco service: No <Federico Amezquita PA-C - Last Filed: 12/13/24 11:51> Meds Allergies/Adverse reactions: Allergies Allergy/AdvReac Type Severity Reaction Status Date / Time erythromycin base Allergy Unknown UNKNOWN Verified 12/12/24 16:31 (ERYTHROMYCIN BASE) <HAL Ley Last Filed: 12/13/24 11:51> Active Medications: Current Medications Acetaminophen (Acetaminophen 325 Mg Tablet) 975 mg PO Q6H PRN PRN Reason: Pain, Mild 1-3,fever,headache Atorvastatin Calcium (Atorvastatin Calcium 20 Mg Tablet) 20 mg PO DAILY [facility] Last Admin: 12/13/24 09:01 Dose: 20 mg Calcium Carbonate (Calcium Carbonate 750 Mg Tab.Chew) 750 mg PO Q4H PRN PRN Reason: Heartburn Dextrose (Dextrose 50 % 25 Gm/50 Ml Syringe) 25 gm IVPUSH Q15M PRN; Protocol PRN Reason: per Hypoglycemia Standing Ord. Enoxaparin Sodium (Enoxaparin Sodium 40 Mg/0.4 Ml Syringe) 40 mg SUBCUT Q24H [facility] Last Admin: 12/12/24 23:39 Dose: 40 mg Glucose (Glucose Gel 15 Gm Gel..Gram.) 15 gm PO Q15M PRN; Protocol PRN Reason: per Hypoglycemia Standing Ord. Piperacillin Sod/Tazobactam (Sod 3.375 gm/ Sodium Chloride) 50 mls @ 100 mls/hr IV Q6H [facility] Last Infusion: 12/13/24 09:28 Dose: Infused Vancomycin HCl 1,250 mg/ (Sodium Chloride) 250 mls @ 166.667 mls/hr IV Q12H [facility] Last Infusion: 12/13/24 11:03 Dose: Infused Insulin Human Lispro (Insulin Lispro 100 Unit/Ml 3 Ml Vial) 0 unit SUBCUT QIDACHS [facility]; Protocol Last Admin: 12/13/24 07:11 Dose: 4 unit Magnesium Hydroxide (Milk Of Magnesia 30 Ml Oral.Susp) 30 ml PO DAILY PRN PRN Reason: Constipation Melatonin (Melatonin 3 Mg Tablet) 6 mg PO BEDTIME PRN PRN Reason: Insomnia Oxycodone HCl (Oxycodone Hcl Immed Release 5 Mg Tablet) 5 mg PO Q6H PRN PRN Reason: Pain, Severe (Pain Scale 7-10) Pharmacy Consult (Consult Rx Vancomycin Dosing) 1 each MISCELLANE DAILY PRN PRN Reason: Consult order Sodium Chloride (0.9 % Sodium Chloride Flush 3 Ml Syringe) 3 ml IVFLUSH QSHIFT [facility] Last Admin: 12/13/24 07:28 Dose: 3 ml <Federico Amezquita PA-C - Last Filed: 12/13/24 11:51> Home medications: Home Medications ?Medication ?Instructions ?Recorded ?Confirmed ?Last Taken ?Type atorvastatin 20 mg tablet 20 mg PO DAILY 12/12/24 12/12/24 12/12/24 History collagen, hydrolyzed 1 1 tab PO BID 12/12/24 12/12/24 12/12/24 History gram-ascorbate calcium 10 mg tablet lisinopril 10 mg tablet 10 mg PO DAILY 12/12/24 12/12/24 12/12/24 History metformin 1,000 mg tablet 1,000 mg PO DAILY 12/12/24 12/12/24 12/12/24 History <Fedeirco Amezquita PA-C - Last Filed: 12/13/24 11:51> Physical Exam Vital Signs: Vital Signs: Last Vital Signs Temp 97.0 F 12/13/24 08:00 Pulse 97 12/13/24 08:00 Resp 16 12/13/24 08:00 BP 153/90 H 12/13/24 08:00 Pulse Ox 93 12/13/24 08:00 O2 Del Method Room Air 12/13/24 08:00 BMI result Body Mass Index 38.5 <Federico Amezquita PA-C - Last Filed: 12/13/24 11:51> Extrem: Other: left foot: 4x3 cm wound with about 0.8 cm of tunneling along the 5th metatarsal. moderate purulent drainage, necrotic tissue able to palpate bone right great toe: 1.5x1.5 cm wound about 0.5 cm deep without tracking, with small amounts of bloody drainage . <Federico Amezquita PA-C - Last Filed: 12/13/24 11:51> Results Labs Result diagrams: 12/15/24 06:18 12/15/24 06:18 <HAL Ley Last Filed: 12/13/24 11:51> Labs: Abnormal lab results 12/12/24 12/12/24 12/13/24 Range/Units 17:58 20:44 06:10 Hgb 13.2 L (14.0-18.0) g/dl Hct 40.4 L (42.0-52.0) % MPV 8.4 L 9.1 L (9.4-12.4) fL Immature Gran % (Auto) 0.5 H 0.7 H (0.0-0.4) % [place] % (Auto) 11.2 H (2-11) % Abs Immat Gran (auto) 0.04 H 0.05 H (0.00-0.03) X10*3/uL ESR 68 H (0-15) MM/HR Carbon Dioxide 30 H (22-29) mmol/L BUN 7 L (9-16) mg/dL POC Glucose 272 H (60-115) mg/dL Random Glucose 310 H 222 H (60-115) mg/dL Hemoglobin A1c % 11.9 H (<6.0) % Alkaline Phosphatase 128 H (39-117) U/L C-Reactive Protein 3.09 H (< or = 0.50) mg/dL Total Protein 8.1 H (6.5-8.0) g/dL 12/13/24 12/13/24 Range/Units 06:59 11:21 Hgb (14.0-18.0) g/dl Hct (42.0-52.0) % MPV (9.4-12.4) fL Immature Gran % (Auto) (0.0-0.4) % [place] % (Auto) (2-11) % Abs Immat Gran (auto) (0.00-0.03) X10*3/uL ESR (0-15) MM/HR Carbon Dioxide (22-29) mmol/L BUN (9-16) mg/dL POC Glucose 226 H 241 H (60-115) mg/dL Random Glucose (60-115) mg/dL Hemoglobin A1c % (<6.0) % Alkaline Phosphatase (39-117) U/L C-Reactive Protein (< or = 0.50) mg/dL Total Protein (6.5-8.0) g/dL Short CBC 12/12/24 12/13/24 Range/Units 17:58 06:10 WBC 7.4 7.0 (4.8-10.8) X10*3/uL Hgb 14.6 13.2 L (14.0-18.0) g/dl Hct 42.9 40.4 L (42.0-52.0) % Plt Count 325 D 297 (160-400) X10*3/uL BMP 12/12/24 12/13/24 17:58 06:10 Sodium 136 139 Potassium 4.4 4.2 Chloride 97 101 Carbon Dioxide 28 30 H BUN 7 L 9 Creatinine 0.95 0.96 Calcium 9.5 8.8 D Liver Function 12/12/24 Range/Units 17:58 Total Bilirubin 0.7 (0.0-1.0) mg/dL Direct Bilirubin 0.3 (0.0-0.5) mg/dL AST 19 (5-37) U/L ALT 19 (0-40) U/L Alkaline Phosphatase 128 H (39-117) U/L Albumin 4.1 (3.5-5.0) g/dL All other labs normal. <Federico Amezquita PA-C - Last Filed: 12/13/24 11:51> Assessment and Plan (1) Osteomyelitis of foot, left, acute: Status: Acute <Federico Amezquita PA-C - Last Filed: 12/13/24 11:51> (2) Diabetic foot infection: Status: Acute <Federico Amezquita PA-C - Last Filed: 12/13/24 11:51> 59-year-old male with a past medical history significant for type 2 diabetes on metformin with peripheral neuropathy, hypertension, class 3 obesity and hyperlipidemia, who presented to the ED by recommendation of Wound Care due to worsening wound on the left lateral foot. Additionally there is a smaller more superficial wound on the right great toe that is also draining. The wounds are as described above in the physical exam section of the note. The patient verbally consented to a bedside sharp debridement of these wounds. No local anesthetic was required due to the patients lack of sensation secondary to diabetic neuropathy. We obtained specimines of bone from the left foot wound and these were sent to culture. The wounds were sharply debrided using forceps and cayetano scissors to remove most of the necrotic tissue until there was granulation tissue. This was also performed on the right, with a curette until there was adequate granulation tissue. the wounds were packed with saline soaked gauze, covered with fluff gauze and wrapped. This patient does have a very poor hemoglobin A1C, 11.9, which will make wound healing more difficult. BID dressing changes. Starting tonight, can use dakins soaked gauze to pack the wounds, gauze, wrap. diabetic diet continue ABX per medicine, cultures pending. ID consult? for targeted abx treatment. optimize glucose control per medicine He is having MRI today to confirm osteomyelitis. <Federico Amezquita PA-C - Last Filed: 12/13/24 11:51> 59-year-old male with a past medical history significant for type 2 diabetes on metformin with peripheral neuropathy, hypertension, class 3 obesity and hyperlipidemia, who presented to the ED by recommendation of Wound Care due to worsening wound on the left lateral foot. Additionally there is a smaller more superficial wound on the right great toe that is also draining. The wounds are as described above in the physical exam section of the note. The patient verbally consented to a bedside sharp debridement of these wounds. No local anesthetic was required due to the patients lack of sensation secondary to diabetic neuropathy. We obtained specimines of bone from the left foot wound and these were sent to culture. The wounds were sharply debrided using forceps and cayetano scissors to remove most of the necrotic tissue until there was granulation tissue. This was also performed on the right, with a curette until there was adequate granulation tissue. the wounds were packed with saline soaked gauze, covered with fluff gauze and wrapped. This patient does have a very poor hemoglobin A1C, 11.9, which will make wound healing more difficult. BID dressing changes. Starting tonight, can use dakins soaked gauze to pack the wounds, gauze, wrap. diabetic diet continue ABX per medicine, cultures pending. ID consult? for targeted abx treatment. optimize glucose control per medicine He is having MRI today to confirm osteomyelitis. Patient is seen and examined independently and agree with assessment as above. Patient is well known to wound care center for repeated diabetic foot wounds and a hemoglobin A1c that is elevated up to 11.9. This is a significant problem since nothing we will heal if this blood sugar issue was not addressed and improved drastically. In the meantime wounds of significance are on his left lateral foot measuring 4.2 by 3.7 cm by 0.9 cm deep. The wound goes into fat tendon and bone with necrosis. Sample of bone material was sent for culture as clinically he does have osteomyelitis as well as radiologically. Hopefully this will help with tailoring an antibiotic regimen for 6 weeks of IV antibiotics or as per Infectious Disease. In the meantime dressing changes to be carried out with Dakin's solution. Wet-to-dry twice a day . Follow up on cultures. Right foot great toe has a clean ulcerated wound 0.9 x 0.9 and 0.3 cm deep. Nice granulation base with debridement. Plan to carry out same wet-to-dry dressing changes daily while he is here. Patient understands and agrees with the above plan <Thu Clement MD - Last Filed: 12/15/24 21:14> Procedures Date of Service Date of Service: 12/13/24 <Federico Amezquita PA-C - Last Filed: 12/13/24 11:51> 12/15/24 <Thu Clement MD - Last Filed: 12/15/24 21:14>
--- NOTE | 2024-12-13 11:43 | P.PNIM_ITS ---
Subjective Subjective Date of Service: 12/13/24 Interval History: seen and examined this morning follow up for foot infection, possible osteomyelitis no fever or chills no overnight events Review of Systems Review of Systems: Yes all other systems are reviewed and are negative Constitutional Constitutional: Denies chills and Denies fever(s) Physical Exam 2 Vital Signs: Vital Signs: Last Vital Signs Temp 97.0 F 12/13/24 08:00 Pulse 97 12/13/24 08:00 Resp 16 12/13/24 08:00 BP 153/90 H 12/13/24 08:00 Pulse Ox 93 12/13/24 08:00 O2 Del Method Room Air 12/13/24 08:00 BMI result Body Mass Index 38.5 Const: General: cooperative, comfortable, no acute distress, alert and awake Nutritional Appearance: obese Orientation/consciousness: patient oriented x3 Resp: Effort & Inspection: normal respiratory effort, able to speak in complete sentences, no respiratory distress and no use of accessory muscles Cardio: Rate: regular rate GI: Inspection: No distended Palpation (GI): Soft to palpation Skin: Other: left foot just wrapped Neuro: General: patient oriented x3, moves all extremities and CN's II-XI intact bilaterally Objective Data Active Medications Acetaminophen (Acetaminophen 325 Mg Tablet) 975 mg PO Q6H PRN PRN Reason: Pain, Mild 1-3,fever,headache Atorvastatin Calcium (Atorvastatin Calcium 20 Mg Tablet) 20 mg PO DAILY COUNTS INCLUDE 234 BEDS AT THE [facility] Last Admin: 12/13/24 09:01 Dose: 20 mg Documented By: PRAKASH Calcium Carbonate (Calcium Carbonate 750 Mg Tab.Chew) 750 mg PO Q4H PRN PRN Reason: Heartburn Dextrose (Dextrose 50 % 25 Gm/50 Ml Syringe) 25 gm IVPUSH Q15M PRN; Protocol PRN Reason: per Hypoglycemia Standing Ord. Enoxaparin Sodium (Enoxaparin Sodium 40 Mg/0.4 Ml Syringe) 40 mg SUBCUT Q24H COUNTS INCLUDE 234 BEDS AT THE [facility] Last Admin: 12/12/24 23:39 Dose: 40 mg Documented By: ELVIN Glucose (Glucose Gel 15 Gm Gel..Gram.) 15 gm PO Q15M PRN; Protocol PRN Reason: per Hypoglycemia Standing Ord. Piperacillin Sod/Tazobactam (Sod 3.375 gm/ Sodium Chloride) 50 mls @ 100 mls/hr IV Q6H COUNTS INCLUDE 234 BEDS AT THE [facility] Last Infusion: 12/13/24 09:28 Dose: Infused Documented By: ENRRIQUE Vancomycin HCl 1,250 mg/ (Sodium Chloride) 250 mls @ 166.667 mls/hr IV Q12H COUNTS INCLUDE 234 BEDS AT THE [facility] Last Infusion: 12/13/24 11:03 Dose: Infused Documented By: PRAKASH Insulin Human Lispro (Insulin Lispro 100 Unit/Ml 3 Ml Vial) 0 unit SUBCUT QIDACHS COUNTS INCLUDE 234 BEDS AT THE [facility]; Protocol Last Admin: 12/13/24 07:11 Dose: 4 unit Documented By: KOKI Magnesium Hydroxide (Milk Of Magnesia 30 Ml Oral.Susp) 30 ml PO DAILY PRN PRN Reason: Constipation Melatonin (Melatonin 3 Mg Tablet) 6 mg PO BEDTIME PRN PRN Reason: Insomnia Oxycodone HCl (Oxycodone Hcl Immed Release 5 Mg Tablet) 5 mg PO Q6H PRN PRN Reason: Pain, Severe (Pain Scale 7-10) Pharmacy Consult (Consult Rx Vancomycin Dosing) 1 each MISCELLANE DAILY PRN PRN Reason: Consult order Sodium Chloride (0.9 % Sodium Chloride Flush 3 Ml Syringe) 3 ml IVFLUSH QSHIFT COUNTS INCLUDE 234 BEDS AT THE [facility] Last Admin: 12/13/24 07:28 Dose: 3 ml Documented By: KOKI Sodium Hypochlorite (Sodium Hypochlorite 0.125% 473 Ml Solution) 1 appl TOPICAL BID COUNTS INCLUDE 234 BEDS AT THE [facility] Labs 12/13/24 06:10 12/13/24 06:10 Labs: Laboratory Results - last 24 hr 12/12/24 12/12/24 12/13/24 17:58 20:44 06:10 MCV 81.6 83.3 MCH 27.8 27.2 MCHC 34.0 32.7 RDW 14.2 14.2 Plt Count 325 D 297 MPV 8.4 L 9.1 L Immature Gran % (Auto) 0.5 H 0.7 H Neut % (Auto) 65.2 59.2 Lymph % (Auto) 22.6 25.0 Maries % (Auto) 8.6 11.2 H Eos % (Auto) 2.6 3.3 Baso % (Auto) 0.5 0.6 Lymph # (Auto) 1.7 1.8 Maries # (Auto) 0.6 0.8 Eos # (Auto) 0.2 0.2 Baso # (Auto) 0.0 0.0 Abs Immat Gran (auto) 0.04 H 0.05 H Absolute Neuts (auto) 4.8 4.2 Absolute Nucleated RBC 0.000 0.000 Nucleated RBC % (auto) 0.0 0.0 ESR 68 H Anion Gap 15 12 Estim Creat Clear Calc 102.2 101.1 Estimated GFR > 60 > 60 POC Glucose 272 H Random Glucose 310 H 222 H Estimat Average Glucose 295 Hemoglobin A1c % 11.9 H Lactic Acid 1.5 Calcium 9.5 8.8 D Total Bilirubin 0.7 Direct Bilirubin 0.3 AST 19 ALT 19 Alkaline Phosphatase 128 H C-Reactive Protein 3.09 H Total Protein 8.1 H Albumin 4.1 12/13/24 12/13/24 06:59 11:21 MCV MCH MCHC RDW Plt Count MPV Immature Gran % (Auto) Neut % (Auto) Lymph % (Auto) Maries % (Auto) Eos % (Auto) Baso % (Auto) Lymph # (Auto) Maries # (Auto) Eos # (Auto) Baso # (Auto) Abs Immat Gran (auto) Absolute Neuts (auto) Absolute Nucleated RBC Nucleated RBC % (auto) ESR Anion Gap Estim Creat Clear Calc Estimated GFR POC Glucose 226 H 241 H Random Glucose Estimat Average Glucose Hemoglobin A1c % Lactic Acid Calcium Total Bilirubin Direct Bilirubin AST ALT Alkaline Phosphatase C-Reactive Protein Total Protein Albumin Assessment and Plan (1) Diabetic foot infection: Status: Acute (2) Type 2 diabetes mellitus: Status: Acute Plan This is a 59-year-old male with a past medical history significant for type 2 diabetes on metformin with peripheral neuropathy, hypertension, class 3 obesity and hyperlipidemia, who presented to the ED by recommendation of Wound Care due to worsening wound on the left lateral foot. Diabetic foot wound with possible Osteomyelitis left foot no sepsis x-ray left foot with Suspected septic arthritis with osteomyelitis - MRI pending continue IV vancomycin and Zosyn seen by ortho - no orthopedic intervention warrented seen by general surgery - s/p bedside debridement 12/13 follow wound culture results follow blood culture results wound care consult Right diabetic foot wound general surgery following - s/p bedside debridement 12/13 follow culture results Type 2 diabetes Hba1c 11.9 - only on metformin at baseline; hba1c persistently elevated will start lantus 10U, titrate up prn hold metformin while inpatient SSI, follow POCs, continue ADA diet Hypertension continue lisinopril Hyperlipidemia continue statin Class 3 obesity BMI 38.5 weight loss encouraged Requires ongoing inpatient stay for management of bilateral diabetic foot wounds with concern for osteomyelitis of the left foot, need for IV antibiotics, MRI and specialist evaluation Quality Stroke Does the patient have a stroke diagnosis?: No VTE Prior VTE?: No VTE Risk Level:: Medical - moderate - high VTE Device Contraindication: Treatment Not Indicated VTE Drug Contraindication: N/A - Med Ordered
[2024-12-13] MEDS: Insulin Glargine,Hum.rec.anlog 100 UNIT/ML 10 ML VIAL 10 UNIT SUBCUT (12:38)
--- NOTE | 2024-12-13 13:39 | MHC.CM.PN ---
Addendum entered by Kathia Blankenship RN 12/13/24 13:42: Patient is followed by the wound clinic for bilat foot wounds. He reports he manages dressing changes independently. Original Note: Patient lives in an apartment w/ his girlfriend, Melissa. Independent. Uses CPAP and purchases supplies online, as he says his insurance doesn't cover them. PCP Eugene Stover MD No HCP. CM provided education and offered education. Patient declined. DP: Pending ID eval for osteo, likely home w/ IV abx. Referral to [facility]. Car in [facility] lot for self transport. CM will continue to follow.
[2024-12-13 16:03] LABS: Glucose, Whole Blood 299 mg/dL (60-115)
[2024-12-13 20:15] LABS: Glucose, Whole Blood 308 mg/dL (60-115)
[2024-12-14 02:59] VITALS: BP 130/91; PULSE 96; RESP 18; TEMP 36.4; O2SAT 95
[2024-12-14 06:41] LABS: MANUAL DIFF FLAG NO
[2024-12-14 06:58] LABS: Hematocrit 39.7 % (42.0-52.0); Hemoglobin 13.3 g/dl (14.0-18.0); Imm Gran Abs Auto 0.04 X10*3/uL (0.00-0.03); Imm Gran Pct Auto 0.6 % (0.0-0.4); Lymphocytes Absolute Auto 1.9 X10*3/uL (1.2-4.9); Mean Corpuscular HGB Conc 33.5 g/dl (31.0-36.0); Mean Corpuscular Hemoglobin 27.1 pg (27.0-33.0); Mean Corpuscular Volume 81.0 fL (80.0-98.0); NRBC Abs Auto 0.000 X10*3/uL (0.0-0.012); NRBC Pct Auto 0.0 /100WBC (0.0-0.2); Platelet Count 279 X10*3/uL (160-400); Red Blood Count 4.90 X10*6/uL (4.60-5.80); White Blood Count 6.2 X10*3/uL (4.8-10.8)
[2024-12-14 07:11] LABS: Anion Gap 16 (12-20); Blood Urea Nitrogen 13 mg/dL (9-16); Calcium 8.6 mg/dL (8.4-10.2); Carbon Dioxide 24 mmol/L (22-29); Chloride 102 mmol/L (96-108); Creatinine Clr Calc Pharmacy 92.7; Estimated Glomerular Filt Rate > 60; Potassium 4.1 mmol/L (3.3-5.1); Sodium 138 mmol/L (135-145)
[2024-12-14 07:30] VITALS: BP 143/78; PULSE 96; RESP 16; TEMP 36.1; O2SAT 94
[2024-12-14 07:42] LABS: Glucose, Whole Blood 259 mg/dL (60-115)
[2024-12-14] MEDS: Insulin Glargine,Hum.rec.anlog 100 UNIT/ML 10 ML VIAL 10 UNIT SUBCUT (08:14)
[2024-12-14] MEDS: 0.9 % Sodium Chloride Flush 3 ML SYRINGE IVFLUSH ×3 (08:19→21:55)
--- NOTE | 2024-12-14 08:55 | HO.PM.IMPN ---
Subjective Subjective Date of Service: 12/14/24 Interval History: seen and examined this morning follow up for foot infection, osteomyelitis no fever or chills no overnight events Review of Systems Review of Systems: Yes all other systems are reviewed and are negative Constitutional Constitutional: Denies chills and Denies fever(s) Physical Exam Exam: Exam: Appearing in no acute distress lung sounds are clear to auscultation heart regular rate rhythm, clear S1, S2 positive bowel sounds, abdomen is soft, nontender neuro patient is alert x3, no focal deficits Vital Signs: Vital Signs: Last Vital Signs Temp 96.9 F 12/14/24 07:30 Pulse 96 12/14/24 07:30 Resp 16 12/14/24 07:30 BP 143/78 H 12/14/24 07:30 Pulse Ox 94 12/14/24 07:30 O2 Del Method Room Air 12/14/24 07:30 BMI result Body Mass Index 38.7 Objective Data Active Medications Acetaminophen (Acetaminophen 325 Mg Tablet) 975 mg PO Q6H PRN PRN Reason: Pain, Mild 1-3,fever,headache Atorvastatin Calcium (Atorvastatin Calcium 20 Mg Tablet) 20 mg PO DAILY [facility] Last Admin: 12/14/24 08:13 Dose: 20 mg Documented By: PRAKASH Calcium Carbonate (Calcium Carbonate 750 Mg Tab.Chew) 750 mg PO Q4H PRN PRN Reason: Heartburn Dextrose (Dextrose 50 % 25 Gm/50 Ml Syringe) 25 gm IVPUSH Q15M PRN; Protocol PRN Reason: per Hypoglycemia Standing Ord. Enoxaparin Sodium (Enoxaparin Sodium 40 Mg/0.4 Ml Syringe) 40 mg SUBCUT Q24H [facility] Last Admin: 12/13/24 21:44 Dose: 40 mg Documented By: STACEY Glucose (Glucose Gel 15 Gm Gel..Gram.) 15 gm PO Q15M PRN; Protocol PRN Reason: per Hypoglycemia Standing Ord. Piperacillin Sod/Tazobactam (Sod 3.375 gm/ Sodium Chloride) 50 mls @ 100 mls/hr IV Q6H [facility] Last Admin: 12/14/24 08:12 Dose: 100 mls/hr Documented By: PRAKASH Vancomycin HCl 1,250 mg/ (Sodium Chloride) 250 mls @ 166.667 mls/hr IV Q12H [facility] Last Infusion: 12/13/24 23:18 Dose: Infused Documented By: SANDY Insulin Glargine (Insulin Glargine,Hum.Rec.Anlog 100 Unit/Ml 10 Ml Vial) 10 unit SUBCUT DAILY [facility] Last Admin: 12/14/24 08:14 Dose: 10 unit Documented By: PRAKASH Insulin Human Lispro (Insulin Lispro 100 Unit/Ml 3 Ml Vial) 0 unit SUBCUT QIDACHS [facility]; Protocol Last Admin: 12/14/24 08:13 Dose: 6 unit Documented By: PRAKASH Lisinopril (Lisinopril 10 Mg Tablet) 10 mg PO DAILY [facility]; Protocol Last Admin: 12/14/24 08:13 Dose: 10 mg Documented By: PRAKASH Magnesium Hydroxide (Milk Of Magnesia 30 Ml Oral.Susp) 30 ml PO DAILY PRN PRN Reason: Constipation Melatonin (Melatonin 3 Mg Tablet) 6 mg PO BEDTIME PRN PRN Reason: Insomnia Oxycodone HCl (Oxycodone Hcl Immed Release 5 Mg Tablet) 5 mg PO Q6H PRN PRN Reason: Pain, Severe (Pain Scale 7-10) Pharmacy Consult (Consult Rx Vancomycin Dosing) 1 each MISCELLANE DAILY PRN PRN Reason: Consult order Sodium Chloride (0.9 % Sodium Chloride Flush 3 Ml Syringe) 3 ml IVFLUSH QSHIFT [facility] Last Admin: 12/14/24 08:19 Dose: 3 ml Documented By: PRAKASH Sodium Hypochlorite (Sodium Hypochlorite 0.125% 473 Ml Solution) 1 appl TOPICAL BID [facility] Last Admin: 12/13/24 21:46 Dose: 1 appl Documented By: STACEY Labs 12/14/24 06:17 12/14/24 06:17 Labs: Laboratory Results - last 24 hr 12/13/24 12/13/24 12/13/24 11:21 15:58 18:53 MCV MCH MCHC RDW Plt Count MPV Immature Gran % (Auto) Neut % (Auto) Lymph % (Auto) [place] % (Auto) Eos % (Auto) Baso % (Auto) Lymph # (Auto) [place] # (Auto) Eos # (Auto) Baso # (Auto) Abs Immat Gran (auto) Absolute Neuts (auto) Absolute Nucleated RBC Nucleated RBC % (auto) Anion Gap Estim Creat Clear Calc Estimated GFR POC Glucose 241 H 299 H Random Glucose Calcium Hold Yellow Top Random Vancomycin 12.7 L 12/13/24 12/14/24 12/14/24 20:11 06:17 07:32 MCV 81.0 MCH 27.1 MCHC 33.5 RDW 14.2 Plt Count 279 MPV 8.7 L Immature Gran % (Auto) 0.6 H Neut % (Auto) 55.8 Lymph % (Auto) 30.0 [place] % (Auto) 9.5 Eos % (Auto) 3.6 Baso % (Auto) 0.5 Lymph # (Auto) 1.9 [place] # (Auto) 0.6 Eos # (Auto) 0.2 Baso # (Auto) 0.0 Abs Immat Gran (auto) 0.04 H Absolute Neuts (auto) 3.5 Absolute Nucleated RBC 0.000 Nucleated RBC % (auto) 0.0 Anion Gap 16 Estim Creat Clear Calc 92.7 Estimated GFR > 60 POC Glucose 308 H 259 H Random Glucose 268 H Calcium 8.6 Hold Yellow Top See Note Random Vancomycin Microbiology Microbiology Results: Microbiology 12/12/24 17:58 Blood Culture - Preliminary Blood - Venous Prelim: GPC Gram Stain only 12/12/24 17:58 Blood Culture - Preliminary Blood - Venous No growth after 24 hours. 12/13/24 11:00 Gram Stain - Final Bone Assessment and Plan (1) Diabetic foot infection: Status: Acute (2) Type 2 diabetes mellitus: Status: Acute Plan 59-year-old male with a past medical history significant for type 2 diabetes on metformin with peripheral neuropathy, hypertension, class 3 obesity and hyperlipidemia, who presented to the ED by recommendation of Wound Care due to worsening wound on the left lateral foot. Diabetic right foot wound with Osteomyelitis left foot no sepsis MRI and x-ray showing left foot with bseptic arthritis with osteomyelitis continue IV vancomycin and Zosyn seen by ortho>no orthopedic intervention warranted seen by general surgery >s/p bedside debridement 12/13 follow wound culture results follow blood culture results wound care consult pending Order PICC line when blood cultures finalize GPC bacteremia 1/2 continue Vancomycin Follow final cx Type 2 diabetes Hba1c 11.9 lantus started at 10U, titrate up prn hold metformin while inpatient SSI, follow POCs, continue ADA diet Hypertension continue lisinopril Hyperlipidemia continue statin Class 3 obesity BMI 38.7 Discussed importance of weight management as this may be contributing to worsening of other comorbidities DVT prophylaxis with Lovenox Full code Quality Stroke Does the patient have a stroke diagnosis?: No VTE Prior VTE?: No VTE Risk Level:: Medical - moderate - high VTE Device Contraindication: Treatment Not Indicated VTE Drug Contraindication: N/A - Med Ordered
[2024-12-14 11:34] LABS: Glucose, Whole Blood 309 mg/dL (60-115)
[2024-12-14 15:52] VITALS: BP 139/78; PULSE 93; RESP 16; TEMP 36.6; O2SAT 95
[2024-12-14 16:26] LABS: Glucose, Whole Blood 322 mg/dL (60-115)
--- NOTE | 2024-12-14 18:59 | HE.PHANOTE ---
re [facility] patients level came back this evening at 15.6. This is within therapeutic range, patients scr did experience a slight bump, today its 1.05 from 0.96. Will get another level tomorrow 12/15 to ensure safety vs efficacy.
[2024-12-14 19:35] VITALS: BP 130/77; PULSE 95; RESP 20; TEMP 37.2; O2SAT 96
[2024-12-14 20:20] LABS: Glucose, Whole Blood 296 mg/dL (60-115)
[2024-12-15 03:41] VITALS: BP 134/84; PULSE 86; RESP 20; TEMP 36.4; O2SAT 96
[2024-12-15 06:47] LABS: MANUAL DIFF FLAG NO
[2024-12-15 07:02] LABS: Hematocrit 38.8 % (42.0-52.0); Hemoglobin 13.0 g/dl (14.0-18.0); Imm Gran Abs Auto 0.04 X10*3/uL (0.00-0.03); Imm Gran Pct Auto 0.6 % (0.0-0.4); Lymphocytes Absolute Auto 1.8 X10*3/uL (1.2-4.9); Mean Corpuscular HGB Conc 33.5 g/dl (31.0-36.0); Mean Corpuscular Hemoglobin 27.4 pg (27.0-33.0); Mean Corpuscular Volume 81.7 fL (80.0-98.0); NRBC Abs Auto 0.000 X10*3/uL (0.0-0.012); NRBC Pct Auto 0.0 /100WBC (0.0-0.2); Platelet Count 288 X10*3/uL (160-400); Red Blood Count 4.75 X10*6/uL (4.60-5.80); White Blood Count 6.4 X10*3/uL (4.8-10.8)
[2024-12-15 07:09] VITALS: BP 143/74; PULSE 82; RESP 18; TEMP 36.6; O2SAT 97
[2024-12-15 07:09] LABS: Anion Gap 15 (12-20); Blood Urea Nitrogen 11 mg/dL (9-16); Calcium 8.6 mg/dL (8.4-10.2); Carbon Dioxide 24 mmol/L (22-29); Chloride 104 mmol/L (96-108); Creatinine Clr Calc Pharmacy 111.9; Estimated Glomerular Filt Rate > 60; Potassium 3.7 mmol/L (3.3-5.1); Sodium 139 mmol/L (135-145)
[2024-12-15 07:34] LABS: Glucose, Whole Blood 181 mg/dL (60-115)
[2024-12-15] MEDS: 0.9 % Sodium Chloride Flush 3 ML SYRINGE IVFLUSH ×3 (07:57→20:39)
--- NOTE | 2024-12-15 08:25 | P.PNIM_ITS ---
Subjective Subjective Date of Service: 12/15/24 Interval History: seen and examined this morning follow up for foot infection, osteomyelitis no fever or chills no overnight events waiting for picc line Review of Systems Review of Systems: Yes all other systems are reviewed and are negative Constitutional Constitutional: Denies chills and Denies fever(s) Physical Exam 2 Exam: Exam: Appearing in no acute distress lung sounds are clear to auscultation heart regular rate rhythm, clear S1, S2 positive bowel sounds, abdomen is soft, nontender neuro patient is alert x3, no focal deficits Vital Signs: Vital Signs: Last Vital Signs Temp 97.9 F 12/15/24 07:09 Pulse 82 12/15/24 07:09 Resp 18 12/15/24 07:09 BP 143/74 H 12/15/24 07:09 Pulse Ox 97 12/15/24 07:09 O2 Del Method Room Air 12/15/24 07:09 BMI result Body Mass Index 38.7 Objective Data Active Medications Acetaminophen (Acetaminophen 325 Mg Tablet) 975 mg PO Q6H PRN PRN Reason: Pain, Mild 1-3,fever,headache Atorvastatin Calcium (Atorvastatin Calcium 20 Mg Tablet) 20 mg PO DAILY [facility] Last Admin: 12/15/24 07:54 Dose: 20 mg Documented By: PRAKASH Benzonatate (Benzonatate 100 Mg Capsule) 100 mg PO TID PRN PRN Reason: Cough Last Admin: 12/14/24 23:16 Dose: 100 mg Documented By: STACEY Calcium Carbonate (Calcium Carbonate 750 Mg Tab.Chew) 750 mg PO Q4H PRN PRN Reason: Heartburn Dextrose (Dextrose 50 % 25 Gm/50 Ml Syringe) 25 gm IVPUSH Q15M PRN; Protocol PRN Reason: per Hypoglycemia Standing Ord. Enoxaparin Sodium (Enoxaparin Sodium 40 Mg/0.4 Ml Syringe) 40 mg SUBCUT Q24H [facility] Last Admin: 12/14/24 21:52 Dose: 40 mg Documented By: STACEY Glucose (Glucose Gel 15 Gm Gel..Gram.) 15 gm PO Q15M PRN; Protocol PRN Reason: per Hypoglycemia Standing Ord. Piperacillin Sod/Tazobactam (Sod 3.375 gm/ Sodium Chloride) 50 mls @ 100 mls/hr IV Q6H [facility] Last Infusion: 12/15/24 03:20 Dose: Infused Documented By: STACEY Vancomycin HCl 1,250 mg/ (Sodium Chloride) 250 mls @ 166.667 mls/hr IV Q12H [facility] Last Infusion: 12/14/24 23:20 Dose: Infused Documented By: STACEY Insulin Glargine (Insulin Glargine,Hum.Rec.Anlog 100 Unit/Ml 10 Ml Vial) 10 unit SUBCUT DAILY [facility] Last Admin: 12/14/24 08:14 Dose: 10 unit Documented By: PRAKASH Insulin Human Lispro (Insulin Lispro 100 Unit/Ml 3 Ml Vial) 0 unit SUBCUT QIDACHS [facility]; Protocol Last Admin: 12/15/24 07:55 Dose: 2 unit Documented By: PRAKASH Lisinopril (Lisinopril 10 Mg Tablet) 10 mg PO DAILY [facility]; Protocol Last Admin: 12/15/24 07:54 Dose: 10 mg Documented By: PRAKASH Magnesium Hydroxide (Milk Of Magnesia 30 Ml Oral.Susp) 30 ml PO DAILY PRN PRN Reason: Constipation Melatonin (Melatonin 3 Mg Tablet) 6 mg PO BEDTIME PRN PRN Reason: Insomnia Oxycodone HCl (Oxycodone Hcl Immed Release 5 Mg Tablet) 5 mg PO Q6H PRN PRN Reason: Pain, Severe (Pain Scale 7-10) Pharmacy Consult (Consult Rx Vancomycin Dosing) 1 each MISCELLANE DAILY PRN PRN Reason: Consult order Sodium Chloride (0.9 % Sodium Chloride Flush 3 Ml Syringe) 3 ml IVFLUSH QSHIFT [facility] Last Admin: 12/15/24 07:57 Dose: 3 ml Documented By: PRAKASH Sodium Hypochlorite (Sodium Hypochlorite 0.125% 473 Ml Solution) 1 appl TOPICAL BID [facility] Last Admin: 12/14/24 16:48 Dose: 1 appl Documented By: PRAKASH Comments: Dressing change completed early per provider. Labs 12/15/24 06:18 12/15/24 06:18 Labs: Laboratory Results - last 24 hr 12/14/24 12/14/24 12/14/24 11:28 16:16 18:22 MCV MCH MCHC RDW Plt Count MPV Immature Gran % (Auto) Neut % (Auto) Lymph % (Auto) [place] % (Auto) Eos % (Auto) Baso % (Auto) Lymph # (Auto) [place] # (Auto) Eos # (Auto) Baso # (Auto) Abs Immat Gran (auto) Absolute Neuts (auto) Absolute Nucleated RBC Nucleated RBC % (auto) Anion Gap Estim Creat Clear Calc Estimated GFR POC Glucose 309 H 322 H Random Glucose Calcium Random Vancomycin 15.6 12/14/24 12/15/24 12/15/24 20:10 06:18 07:13 MCV 81.7 MCH 27.4 MCHC 33.5 RDW 14.1 Plt Count 288 MPV 8.8 L Immature Gran % (Auto) 0.6 H Neut % (Auto) 56.7 Lymph % (Auto) 28.7 [place] % (Auto) 9.0 Eos % (Auto) 4.4 H Baso % (Auto) 0.6 Lymph # (Auto) 1.8 [place] # (Auto) 0.6 Eos # (Auto) 0.3 Baso # (Auto) 0.0 Abs Immat Gran (auto) 0.04 H Absolute Neuts (auto) 3.6 Absolute Nucleated RBC 0.000 Nucleated RBC % (auto) 0.0 Anion Gap 15 Estim Creat Clear Calc 111.9 Estimated GFR > 60 POC Glucose 296 H 181 H Random Glucose 184 H Calcium 8.6 Random Vancomycin Microbiology Microbiology Results: Microbiology 12/12/24 17:58 Blood Culture - Preliminary Blood - Venous 12/13/24 11:00 Gram Stain - Final Bone Routine Culture - Preliminary Strep agalactiae (Grp B) Anaerobic Culture - Preliminary Culture in progress. 12/12/24 17:58 Blood Culture - Preliminary Blood - Venous Prelim: GPC Gram Stain only Assessment and Plan (1) Diabetic foot infection: Status: Acute (2) Type 2 diabetes mellitus: Status: Acute Plan 59-year-old male with a past medical history significant for type 2 diabetes on metformin with peripheral neuropathy, hypertension, class 3 obesity and hyperlipidemia, who presented to the ED by recommendation of Wound Care due to worsening wound on the left lateral foot. Diabetic right foot wound with Osteomyelitis left foot no sepsis MRI and x-ray showing left foot with bseptic arthritis with osteomyelitis continue IV vancomycin and Zosyn seen by ortho>no orthopedic intervention warranted seen by general surgery >s/p bedside debridement 12/13 wound culture results>grp B strep blood culture results>GPC wound care consult pending Order PICC line when blood cultures finalize GPC bacteremia 1/2 continue Vancomycin Follow final cx Type 2 diabetes Hba1c 11.9 lantus started at 10U, titrate up prn hold metformin while inpatient SSI, follow POCs, continue ADA diet Hypertension continue lisinopril Hyperlipidemia continue statin Class 3 obesity BMI 38.7 Discussed importance of weight management as this may be contributing to worsening of other comorbidities DVT prophylaxis with Lovenox Full code Quality Stroke Does the patient have a stroke diagnosis?: No VTE Prior VTE?: No VTE Risk Level:: Medical - moderate - high VTE Device Contraindication: Treatment Not Indicated VTE Drug Contraindication: N/A - Med Ordered
[2024-12-15] MEDS: Insulin Glargine,Hum.rec.anlog 100 UNIT/ML 10 ML VIAL 10 UNIT SUBCUT (08:37)
[2024-12-15 09:26] VITALS: BP 139/91; PULSE 95; O2SAT 95
[2024-12-15 11:22] LABS: Glucose, Whole Blood 288 mg/dL (60-115)
[2024-12-15 15:28] VITALS: BP 148/82; PULSE 88; RESP 18; TEMP 36.7; O2SAT 94
[2024-12-15 16:31] LABS: Glucose, Whole Blood 301 mg/dL (60-115)
[2024-12-15 19:23] VITALS: BP 139/84; PULSE 93; RESP 18; TEMP 36.4; O2SAT 96
--- NOTE | 2024-12-15 20:02 | PHA.MEDREC ---
Pharmacy Consult ? Medication Reconciliation Pharmacy has completed the medication reconciliation.
--- NOTE | 2024-12-15 20:03 | HE.PHANOTE ---
RE [facility] patients level came back this evening at 16. will continue with current dose of 1250 mg Q12H. patients level is within therapeutic range at this time. Scr has improved. [employer] was predicting a trough of 13, trough was 16, will continue with dose as this seems like the best option at this time. will get another level tomorrow to make sure the renal improvement does not bring down vanco level to sub therapeutic. next level to be 12/16 @1900
[2024-12-15 20:45] LABS: Glucose, Whole Blood 276 mg/dL (60-115)
--- NOTE | 2024-12-15 21:15 | P.PNGS_ITS ---
Subjective Subjective Date of Service: 12/15/24 Interval history: Patient feeling okay but nervous about the potential for having a PICC line. Physical Exam 2 Vital Signs: Vital Signs: Last Vital Signs Temp 97.5 F 12/15/24 19:23 Pulse 93 12/15/24 19:23 Resp 18 12/15/24 19:23 BP 139/84 12/15/24 19:23 Pulse Ox 96 12/15/24 19:23 O2 Del Method Room Air 12/15/24 19:23 BMI result Body Mass Index 38.7 Extrem: Other: Right great toe wound looks very well nicely healing clean edges nice pink base palpable pedal pulse. The left lateral wound still has a little bit of necrotic tendon that was debrided but overall the tissue looks healthier. With deep probing a little segment of bone material was removed. Definitely less erythema of the foot Objective Data Active Medications Acetaminophen (Acetaminophen 325 Mg Tablet) 975 mg PO Q6H PRN PRN Reason: Pain, Mild 1-3,fever,headache Atorvastatin Calcium (Atorvastatin Calcium 20 Mg Tablet) 20 mg PO DAILY [facility] Last Admin: 12/15/24 07:54 Dose: 20 mg Documented By: PRAKASH Benzonatate (Benzonatate 100 Mg Capsule) 100 mg PO TID PRN PRN Reason: Cough Last Admin: 12/14/24 23:16 Dose: 100 mg Documented By: STACEY Calcium Carbonate (Calcium Carbonate 750 Mg Tab.Chew) 750 mg PO Q4H PRN PRN Reason: Heartburn Dextrose (Dextrose 50 % 25 Gm/50 Ml Syringe) 25 gm IVPUSH Q15M PRN; Protocol PRN Reason: per Hypoglycemia Standing Ord. Enoxaparin Sodium (Enoxaparin Sodium 40 Mg/0.4 Ml Syringe) 40 mg SUBCUT Q24H [facility] Last Admin: 12/14/24 21:52 Dose: 40 mg Documented By: STACEY Glucose (Glucose Gel 15 Gm Gel..Gram.) 15 gm PO Q15M PRN; Protocol PRN Reason: per Hypoglycemia Standing Ord. Piperacillin Sod/Tazobactam (Sod 3.375 gm/ Sodium Chloride) 50 mls @ 100 mls/hr IV Q6H [facility] Last Admin: 12/15/24 20:40 Dose: 100 mls/hr Documented By: SHAN Vancomycin HCl 1,250 mg/ (Sodium Chloride) 250 mls @ 166.667 mls/hr IV Q12H [facility] Last Infusion: 12/15/24 12:03 Dose: Infused Documented By: PRAKASH Insulin Glargine (Insulin Glargine,Hum.Rec.Anlog 100 Unit/Ml 10 Ml Vial) 10 unit SUBCUT DAILY [facility] Last Admin: 12/15/24 08:37 Dose: 10 unit Documented By: PRAKASH Insulin Human Lispro (Insulin Lispro 100 Unit/Ml 3 Ml Vial) 0 unit SUBCUT QIDACHS [facility]; Protocol Last Admin: 12/15/24 20:48 Dose: 6 unit Documented By: SHAN Lisinopril (Lisinopril 10 Mg Tablet) 10 mg PO DAILY [facility]; Protocol Last Admin: 12/15/24 07:54 Dose: 10 mg Documented By: PRAKASH Magnesium Hydroxide (Milk Of Magnesia 30 Ml Oral.Susp) 30 ml PO DAILY PRN PRN Reason: Constipation Melatonin (Melatonin 3 Mg Tablet) 6 mg PO BEDTIME PRN PRN Reason: Insomnia Oxycodone HCl (Oxycodone Hcl Immed Release 5 Mg Tablet) 5 mg PO Q6H PRN PRN Reason: Pain, Severe (Pain Scale 7-10) Pharmacy Consult (Consult Rx Vancomycin Dosing) 1 each MISCELLANE DAILY PRN PRN Reason: Consult order Sodium Chloride (0.9 % Sodium Chloride Flush 3 Ml Syringe) 3 ml IVFLUSH QSHIFT [facility] Last Admin: 12/15/24 20:39 Dose: 3 ml Documented By: SHAN Sodium Hypochlorite (Sodium Hypochlorite 0.125% 473 Ml Solution) 1 appl TOPICAL BID [facility] Last Admin: 12/15/24 20:35 Dose: 1 appl Documented By: SHAN Labs 12/15/24 06:18 12/15/24 06:18 Labs: Laboratory Results - last 24 hr 12/15/24 12/15/24 12/15/24 06:18 07:13 11:05 MCV 81.7 MCH 27.4 MCHC 33.5 RDW 14.1 Plt Count 288 MPV 8.8 L Immature Gran % (Auto) 0.6 H Neut % (Auto) 56.7 Lymph % (Auto) 28.7 [place] % (Auto) 9.0 Eos % (Auto) 4.4 H Baso % (Auto) 0.6 Lymph # (Auto) 1.8 [place] # (Auto) 0.6 Eos # (Auto) 0.3 Baso # (Auto) 0.0 Abs Immat Gran (auto) 0.04 H Absolute Neuts (auto) 3.6 Absolute Nucleated RBC 0.000 Nucleated RBC % (auto) 0.0 Anion Gap 15 Estim Creat Clear Calc 111.9 Estimated GFR > 60 POC Glucose 181 H 288 H Random Glucose 184 H Calcium 8.6 Random Vancomycin 12/15/24 12/15/24 12/15/24 16:24 19:21 20:41 MCV MCH MCHC RDW Plt Count MPV Immature Gran % (Auto) Neut % (Auto) Lymph % (Auto) [place] % (Auto) Eos % (Auto) Baso % (Auto) Lymph # (Auto) [place] # (Auto) Eos # (Auto) Baso # (Auto) Abs Immat Gran (auto) Absolute Neuts (auto) Absolute Nucleated RBC Nucleated RBC % (auto) Anion Gap Estim Creat Clear Calc Estimated GFR POC Glucose 301 H 276 H Random Glucose Calcium Random Vancomycin 16.0 RUN: 12/15/242113 PAGE 1 [facility] [address] [place] [id number] Boiler Setter: Binu Barker M.D. Specimen Inquiry Name: MahoganySachin nye Sean Age/Sex: 59/M : 1965 Unit#: [id number] Attend Dr: Elaina Riley [employer] Re12/12/24 Status: ADM IN Location: [facility] 378-1 D isch: Specimen: [id number] Collected: 12/13/24-1099 Status: RES Req#: [id number] Received: 12/13/24-1149 Source: Bone Sp Desc: Subm Dr: Federico Amezquita PA-C Ordered: Anaerobic Cult, Routine Cult GS Procedure Result Verified Gram stain Final 12/13/24-1441 Gram stain results: 1+ polys 4+ Gram-positive cocci 3+ Gram-negative rods 2+ Gram-positive rods Routine Culture Preliminary 12/15/24-0937 Organism 1 Strep agalactiae (Grp B) Quantity 3+ Susc N/A Susceptibility not routinely performed on this isolate. Organism 2 Gram negative nick Quantity 3+ Result: 3+ Mixed missy Anaerobic Culture Preliminary 12/15/24-09 Culture in progress. END OF REPORT Microbiology Microbiology Results: Microbiology 12/12/24 17:58 Blood Culture - Preliminary Blood - Venous Streptococcus viridans group 12/13/24 11:00 Gram Stain - Final Bone Routine Culture - Preliminary Strep agalactiae (Grp B) Gram negative nick Anaerobic Culture - Preliminary Culture in progress. 12/12/24 17:58 Blood Culture - Preliminary Blood - Venous Streptococcus viridans group Procedures Date of Service Date of Service: 12/15/24 Progress Note: A&P Assessment and plan (1) Osteomyelitis due to secondary diabetes: Status: Acute (2) Osteomyelitis of foot, left, acute: Status: Acute Plan 59-year-old male diabetic poorly controlled with diabetic foot wounds now progressing to osteomyelitis is in the left foot right foot looking better. Culture showing Streptococcus varieties. Plan to continue with topical dressings of [place] solution twice a day on the left side and once a day on the right. Patient most likely will need 6 weeks of IV antibiotics but plan to follow up with Infectious Disease recommendations and now we have bone culture back to help guide that plan Time Spent With Patient Time: Total time managing care of this patient today ____ minutes. Quality Stroke Does the patient have a stroke diagnosis?: No VTE Prior VTE?: No VTE Risk Level:: Medical - moderate - high VTE Device Contraindication: Treatment Not Indicated VTE Drug Contraindication: N/A - Med Ordered
[2024-12-16 02:56] VITALS: BP 118/74; PULSE 88; RESP 18; TEMP 36.3; O2SAT 96
--- NOTE | 2024-12-16 07:00 | CA_ITS ---
Transthoracic Echocardiogram Patient (Last, First, Middle): Sachin Vides P Gender: Male Date of : 1965 Age: 59 Procedure Date: 12/16/2024 Procedure Type: Transthoracic Echocardiogram Location: S3W Height: 170.18 cm Weight: 111.59 kg BSA: 2.21 m2 Heart Rate: bpm BP: 160 / 96 mmHg Marbleizing Machine Tender: TO Referring MD: Elaina Riley NP Rn Telephonic: Emanuel Dasilva MD Symptoms: bacteremia Study Quality: Fair/No iv access ECG Rhythm: Sinus Conclusions: - 1. Normal LV ejection fraction 55-60% with grade 1 diastolic dysfunction 2. Normal cardiac valvular Dopplers 3. No obvious evidence of vegetations, but can not be entirely ruled out 4. Mildly dilated ascending aorta at 4.2 cm 5. No gross pericardial effusion Findings Left Ventricle Normal left ventricular size, thickness, and systolic function. The visually estimated ejection fraction is between 55-60%. Spectral Doppler is indicative of an impaired relaxation filling pattern. E/E prime ratio is <8, consistent with normal filling pressures. Evidence suggests grade I (mild) diastolic dysfunction. Right Ventricle Normal right ventricular cavity size and systolic function. Atria Both atria are normal in size. There is lipomatous hypertrophy of the interatrial septum. Interatrial shunt cannot be excluded. Aortic Valve The aortic valve structure and function is likely normal. There is no aortic valve stenosis. There is no aortic valve regurgitation. Mitral Valve Likely normal mitral valve structure and function. There is trace mitral valve regurgitation. There is no mitral valve stenosis. Pulmonic Valve The pulmonic valve is likely normal. There is trace pulmonic valve regurgitation. Tricuspid Valve Likely normal tricuspid valve structure and function. Tricuspid regurgitation envelope is inadequate for calculation of right ventricular systolic pressure. Normal right atrial pressure. Great Vessels The pulmonary artery was not well visualized. There is mild dilatation of the ascending aorta measuring 4.20 cm. Venous The inferior vena cava is normal in size and collapses greater than 50% with inspiration. Pericardium/Pleural There is no evidence of pericardial effusion. Prior Study Comparison No prior study available for comparison. Recommendations, Care & Conclusions Consider a LINDA if clinically appropriate. Measurements 2D Linear Measurements IVSd: 1.10 0.6-0.9/0.6-1.0 cm LVIDd: 5.08 3.9-5.3/4.2-5.9 cm LVIDd Index: 2.30 2.4-3.2/2.2-3.1 cm/m2 LVIDs: 3.60 2.0-3.6 cm LVPWd: 1.00 0.7-1.1 cm LA Diam: 3.80 2.7-3.8/3.0-4.0 cm LAIDs Index: 1.72 1.5-2.3 cm/m2 LV Mass: 248.61 67-162/88-224 g LV Mass Index: 112.49 43-95/49-115 g/m2 LVOT Diam: 2.40 3.0+(-)1.3 cm Mitral Valve MV Pk E: 0.57 MV PK A: 0.74 MV Decel Time: 211.00 E/A: 0.80 E'Lateral: 9.03 E'Medial: 5.55 E/E' Med: 10.30 E/E' Lat: 6.40 PHT: 62.00 MVA PHT: 3.55 Decel [place]: 2.72 Aortic Valve AoV Pk [place]: 1.41 AoV Mn [place]: 1.00 AoV VTI: 0.26 AoV Pk Grad: 8.00 Aov Mn Grad: 5.00 SOHEILA Cont.VTI: 2.80 LVOT LVOT Pk [place]: 0.91 LVOT Mn [place]: 0.61 LVOT VTI: 0.16 LVOT Pk Grad: 3.00 LVOT Mn Grad: 2.00 LVOT Diam: 2.40 LVOT Area: 4.52 Diastolic Function MV Pk E: 0.57 MV Pk A: 0.74 E/A: 0.80 E'Medial: 5.55 E/E' Med: 10.30 E' Laterial: 9.03 E/E' Lat: 6.40 Right Ventricle TAPSE (mm): 20.30 TVS' [place]: 17.20 Tricuspid Valve RA Press: 3.00 Great Vessels Aorta Sinus of Valsalva: 4.33 2.0-3.5 cm Ao Asc: 4.20 2.1-3.4 cm Updated in Other Vendor System with Status of Final Emanuel Dasilva MD electronically signed on 12/17/2024 12:33:26 PM with status of Final
[2024-12-16 07:31] LABS: Creatinine Clr Calc Pharmacy 94.5; Estimated Glomerular Filt Rate > 60
[2024-12-16] MEDS: 0.9 % Sodium Chloride Flush 3 ML SYRINGE IVFLUSH ×3 (07:52→21:20)
[2024-12-16] MEDS: Insulin Glargine,Hum.rec.anlog 100 UNIT/ML 10 ML VIAL 10 UNIT SUBCUT (07:52)
[2024-12-16 08:00] VITALS: BP 160/96; PULSE 88; RESP 16; TEMP 36.5; O2SAT 96
[2024-12-16 08:07] LABS: Glucose, Whole Blood 201 mg/dL (60-115)
--- NOTE | 2024-12-16 08:34 | P.PNIM_ITS ---
Subjective Subjective Date of Service: 12/16/24 Interval History: seen and examined this morning follow up for foot infection, osteomyelitis no fever or chills no overnight events waiting for picc line Review of Systems Review of Systems: Yes all other systems are reviewed and are negative Constitutional Constitutional: Denies chills and Denies fever(s) Physical Exam 2 Exam: Exam: Appearing in no acute distress lung sounds are clear to auscultation heart regular rate rhythm, clear S1, S2 positive bowel sounds, abdomen is soft, nontender neuro patient is alert x3, no focal deficits Vital Signs: Vital Signs: Last Vital Signs Temp 97.7 F 12/16/24 08:00 Pulse 88 12/16/24 08:00 Resp 16 12/16/24 08:00 BP 160/96 H 12/16/24 08:00 Pulse Ox 96 12/16/24 08:00 O2 Del Method Room Air 12/16/24 08:00 BMI result Body Mass Index 38.7 Objective Data Active Medications Acetaminophen (Acetaminophen 325 Mg Tablet) 975 mg PO Q6H PRN PRN Reason: Pain, Mild 1-3,fever,headache Last Admin: 12/16/24 00:29 Dose: 975 mg Documented By: SHAN Atorvastatin Calcium (Atorvastatin Calcium 20 Mg Tablet) 20 mg PO DAILY [facility] Last Admin: 12/16/24 07:52 Dose: 20 mg Documented By: LIGIA Benzonatate (Benzonatate 100 Mg Capsule) 100 mg PO TID PRN PRN Reason: Cough Last Admin: 12/14/24 23:16 Dose: 100 mg Documented By: STACEY Calcium Carbonate (Calcium Carbonate 750 Mg Tab.Chew) 750 mg PO Q4H PRN PRN Reason: Heartburn Dextrose (Dextrose 50 % 25 Gm/50 Ml Syringe) 25 gm IVPUSH Q15M PRN; Protocol PRN Reason: per Hypoglycemia Standing Ord. Enoxaparin Sodium (Enoxaparin Sodium 40 Mg/0.4 Ml Syringe) 40 mg SUBCUT Q24H [facility] Last Admin: 12/15/24 21:27 Dose: 40 mg Documented By: SHAN Glucose (Glucose Gel 15 Gm Gel..Gram.) 15 gm PO Q15M PRN; Protocol PRN Reason: per Hypoglycemia Standing Ord. Piperacillin Sod/Tazobactam (Sod 3.375 gm/ Sodium Chloride) 50 mls @ 100 mls/hr IV Q6H [facility] Last Infusion: 12/16/24 08:25 Dose: Infused Documented By: LIGIA Vancomycin HCl 1,250 mg/ (Sodium Chloride) 250 mls @ 166.667 mls/hr IV Q12H [facility] Last Infusion: 12/15/24 22:55 Dose: Infused Documented By: SHAN Insulin Glargine (Insulin Glargine,Hum.Rec.Anlog 100 Unit/Ml 10 Ml Vial) 10 unit SUBCUT DAILY [facility] Last Admin: 12/16/24 07:52 Dose: 10 unit Documented By: LIGIA Insulin Human Lispro (Insulin Lispro 100 Unit/Ml 3 Ml Vial) 0 unit SUBCUT QIDACHS [facility]; Protocol Last Admin: 12/16/24 07:52 Dose: 4 unit Documented By: LIGIA Lisinopril (Lisinopril 10 Mg Tablet) 10 mg PO DAILY [facility]; Protocol Last Admin: 12/16/24 07:52 Dose: 10 mg Documented By: LIGIA Magnesium Hydroxide (Milk Of Magnesia 30 Ml Oral.Susp) 30 ml PO DAILY PRN PRN Reason: Constipation Melatonin (Melatonin 3 Mg Tablet) 6 mg PO BEDTIME PRN PRN Reason: Insomnia Oxycodone HCl (Oxycodone Hcl Immed Release 5 Mg Tablet) 5 mg PO Q6H PRN PRN Reason: Pain, Severe (Pain Scale 7-10) Pharmacy Consult (Consult Rx Vancomycin Dosing) 1 each MISCELLANE DAILY PRN PRN Reason: Consult order Sodium Chloride (0.9 % Sodium Chloride Flush 3 Ml Syringe) 3 ml IVFLUSH QSHIFT [facility] Last Admin: 12/16/24 07:52 Dose: 3 ml Documented By: LIGIA Sodium Hypochlorite (Sodium Hypochlorite 0.125% 473 Ml Solution) 1 appl TOPICAL BID [facility] Last Admin: 12/15/24 20:35 Dose: 1 appl Documented By: SHAN Labs 12/15/24 06:18 12/16/24 06:29 Labs: Laboratory Results - last 24 hr 12/15/24 12/15/24 12/15/24 11:05 16:24 19:21 Hold Purple Top Estim Creat Clear Calc Estimated GFR POC Glucose 288 H 301 H Random Vancomycin 16.0 12/15/24 12/16/24 12/16/24 20:41 06:29 07:28 Hold Purple Top SEE NOTE Estim Creat Clear Calc 94.5 Estimated GFR > 60 POC Glucose 276 H 201 H Random Vancomycin Microbiology Microbiology Results: Microbiology 12/13/24 11:00 Gram Stain - Final Bone Routine Culture - Final Strep agalactiae (Grp B) Pseudomonas aeruginosa Anaerobic Culture - Preliminary Culture in progress. 12/12/24 17:58 Blood Culture - Preliminary Blood - Venous Streptococcus viridans group 12/12/24 17:58 Blood Culture - Preliminary Blood - Venous Streptococcus viridans group Assessment and Plan (1) Diabetic foot infection: Status: Acute (2) Type 2 diabetes mellitus: Status: Acute Plan 59-year-old male with a past medical history significant for type 2 diabetes on metformin with peripheral neuropathy, hypertension, class 3 obesity and hyperlipidemia, who presented to the ED by recommendation of Wound Care due to worsening wound on the left lateral foot. Diabetic right foot wound with Osteomyelitis left foot no sepsis MRI and x-ray showing left foot with septic arthritis with osteomyelitis continue IV vancomycin, zosyn stopped seen by ortho>no orthopedic intervention warranted seen by general surgery >s/p bedside debridement 12/13 wound care consult pending Order PICC line when blood cultures finalize Streptococcus viridans bacteremia Strep algalactiae, pseudomonas in wound continue Vancomycin echo ordered ID consult repeat cx pending Type 2 diabetes Hba1c 11.9 lantus started at 10U, titrate up prn hold metformin while inpatient SSI, follow POCs, continue ADA diet Hypertension continue lisinopril Hyperlipidemia continue statin Class 3 obesity BMI 38.7 Discussed importance of weight management as this may be contributing to worsening of other comorbidities DVT prophylaxis with Lovenox Full code Quality Stroke Does the patient have a stroke diagnosis?: No VTE Prior VTE?: No VTE Risk Level:: Medical - moderate - high VTE Device Contraindication: Treatment Not Indicated VTE Drug Contraindication: N/A - Med Ordered
--- NOTE | 2024-12-16 10:36 | PM.PNGS ---
Subjective Subjective Date of Service: 12/16/24 Interval history: Patient is doing well no new issues wounds looking stable Physical Exam Vital Signs: Vital Signs: Last Vital Signs Temp 97.7 F 12/16/24 08:00 Pulse 88 12/16/24 08:00 Resp 16 12/16/24 08:00 BP 160/96 H 12/16/24 08:00 Pulse Ox 96 12/16/24 08:00 O2 Del Method Room Air 12/16/24 08:00 BMI result Body Mass Index 38.7 Skin: Other: Dressings were done just earlier wounds are stable. Objective Data Active Medications Acetaminophen (Acetaminophen 325 Mg Tablet) 975 mg PO Q6H PRN PRN Reason: Pain, Mild 1-3,fever,headache Last Admin: 12/16/24 00:29 Dose: 975 mg Documented By: SHAN Atorvastatin Calcium (Atorvastatin Calcium 20 Mg Tablet) 20 mg PO DAILY [facility] Last Admin: 12/16/24 07:52 Dose: 20 mg Documented By: LIGIA Benzonatate (Benzonatate 100 Mg Capsule) 100 mg PO TID PRN PRN Reason: Cough Last Admin: 12/14/24 23:16 Dose: 100 mg Documented By: STACEY Calcium Carbonate (Calcium Carbonate 750 Mg Tab.Chew) 750 mg PO Q4H PRN PRN Reason: Heartburn Dextrose (Dextrose 50 % 25 Gm/50 Ml Syringe) 25 gm IVPUSH Q15M PRN; Protocol PRN Reason: per Hypoglycemia Standing Ord. Enoxaparin Sodium (Enoxaparin Sodium 40 Mg/0.4 Ml Syringe) 40 mg SUBCUT Q24H [facility] Last Admin: 12/15/24 21:27 Dose: 40 mg Documented By: SHAN Glucose (Glucose Gel 15 Gm Gel..Gram.) 15 gm PO Q15M PRN; Protocol PRN Reason: per Hypoglycemia Standing Ord. Piperacillin Sod/Tazobactam (Sod 3.375 gm/ Sodium Chloride) 50 mls @ 100 mls/hr IV Q6H [facility] Last Infusion: 12/16/24 08:25 Dose: Infused Documented By: LIGIA Vancomycin HCl 1,250 mg/ (Sodium Chloride) 250 mls @ 166.667 mls/hr IV Q12H [facility] Last Infusion: 12/16/24 10:36 Dose: Infused Documented By: LIGIA Insulin Glargine (Insulin Glargine,Hum.Rec.Anlog 100 Unit/Ml 10 Ml Vial) 10 unit SUBCUT DAILY [facility] Last Admin: 12/16/24 07:52 Dose: 10 unit Documented By: LIGIA Insulin Human Lispro (Insulin Lispro 100 Unit/Ml 3 Ml Vial) 0 unit SUBCUT QIDACHS [facility]; Protocol Last Admin: 12/16/24 07:52 Dose: 4 unit Documented By: LIGIA Lisinopril (Lisinopril 10 Mg Tablet) 10 mg PO DAILY [facility]; Protocol Last Admin: 12/16/24 07:52 Dose: 10 mg Documented By: LIGIA Magnesium Hydroxide (Milk Of Magnesia 30 Ml Oral.Susp) 30 ml PO DAILY PRN PRN Reason: Constipation Melatonin (Melatonin 3 Mg Tablet) 6 mg PO BEDTIME PRN PRN Reason: Insomnia Metformin HCl (Metformin Hcl 1,000 Mg Tablet) 1,000 mg PO DAILY [facility] Last Admin: 12/16/24 08:58 Dose: 1,000 mg Documented By: LIGIA Oxycodone HCl (Oxycodone Hcl Immed Release 5 Mg Tablet) 5 mg PO Q6H PRN PRN Reason: Pain, Severe (Pain Scale 7-10) Pharmacy Consult (Consult Rx Vancomycin Dosing) 1 each MISCELLANE DAILY PRN PRN Reason: Consult order Sodium Chloride (0.9 % Sodium Chloride Flush 3 Ml Syringe) 3 ml IVFLUSH QSHIFT [facility] Last Admin: 12/16/24 07:52 Dose: 3 ml Documented By: LIGIA Sodium Hypochlorite (Sodium Hypochlorite 0.125% 473 Ml Solution) 1 appl TOPICAL BID [facility] Last Admin: 12/16/24 09:03 Dose: 1 appl Documented By: LIGIA Labs 12/15/24 06:18 12/16/24 06:29 Labs: Laboratory Results - last 24 hr 12/15/24 12/15/24 12/15/24 11:05 16:24 19:21 Hold Purple Top Estim Creat Clear Calc Estimated GFR POC Glucose 288 H 301 H Random Vancomycin 16.0 12/15/24 12/16/24 12/16/24 20:41 06:29 07:28 Hold Purple Top SEE NOTE Estim Creat Clear Calc 94.5 Estimated GFR > 60 POC Glucose 276 H 201 H Random Vancomycin Microbiology Microbiology Results: Microbiology 12/13/24 11:00 Gram Stain - Final Bone Routine Culture - Final Strep agalactiae (Grp B) Pseudomonas aeruginosa Anaerobic Culture - Preliminary Culture in progress. 12/12/24 17:58 Blood Culture - Preliminary Blood - Venous Streptococcus viridans group 12/12/24 17:58 Blood Culture - Preliminary Blood - Venous Streptococcus viridans group Procedures Date of Service Date of Service: 12/16/24 Progress Note: A&P Assessment and plan (1) Diabetic foot infection: Status: Acute (2) Osteomyelitis of foot, left, acute: Status: Acute Assessment and Plan: 59-year-old male with left diabetic foot wounds and osteomyelitis patient clinically a Taveras 3 diabetic foot wound. Would benefit from continuing with the wet-to-dry dressings with Dakin solution on the left foot and bone cultures grew out strep varieties. Infectious Disease consultation to determine possible 6 week course of IV antibiotics and then PICC line placement. Technically has a [place] 3 he could qualify for hyperbaric oxygen therapy as well. He also needs tight glucose control as his hemoglobin a and are other courses of therapy wound not able to work as sufficiently he understands and agrees with the above plan Time Spent With Patient Time: Total time managing care of this patient today ____ minutes. Quality Stroke Does the patient have a stroke diagnosis?: No VTE Prior VTE?: No VTE Risk Level:: Medical - moderate - high VTE Device Contraindication: Treatment Not Indicated VTE Drug Contraindication: N/A - Med Ordered
[2024-12-16 11:46] LABS: Glucose, Whole Blood 269 mg/dL (60-115)
[2024-12-16 15:36] VITALS: BP 140/75; PULSE 88; RESP 18; TEMP 36.8; O2SAT 95
[2024-12-16 16:12] LABS: Glucose, Whole Blood 219 mg/dL (60-115)
[2024-12-16 19:54] VITALS: BP 140/82; PULSE 87; RESP 18; TEMP 36.1; O2SAT 96
[2024-12-16 21:02] LABS: Glucose, Whole Blood 240 mg/dL (60-115)
--- NOTE | 2024-12-17 00:51 | P.CNID_ITS ---
History of Present Illness Data of Consult Service Date: 12/16/24 Requesting physician: Elaina Riley Primary Care Provider: Diogo Stover MD HPI Reason for consult: OM left foot He presents with leaking serosanguinous fluid after walking left foot. He has no fever or chills. MRI shows OM left 5th metatarsal and proximal phalanx. Bone shows Group B strep and pseudomonas aldridge sensitive. Review of Systems 2 Review of Systems: Yes all other systems are reviewed and are negative PMFSH Past Medical History Medical History Class 3 obesity Type 2 diabetes mellitus Hypertension Neuropathy Family History Family history: reviewed and not pertinent Social History Social History Household Members: Significant [place] [facility] [place] presently have visiting nurse or other home services: No Patient Tobacco Use Status: Never used Tobacco service: No Meds Allergies Allergy/AdvReac Type Severity Reaction Status Date / Time erythromycin base Allergy Unknown UNKNOWN Verified 12/12/24 16:31 (ERYTHROMYCIN BASE) Active Medications: Current Medications Acetaminophen (Acetaminophen 325 Mg Tablet) 975 mg PO Q6H PRN PRN Reason: Pain, Mild 1-3,fever,headache Last Admin: 12/16/24 12:17 Dose: 975 mg Atorvastatin Calcium (Atorvastatin Calcium 20 Mg Tablet) 20 mg PO DAILY [facility] Last Admin: 12/16/24 07:52 Dose: 20 mg Benzonatate (Benzonatate 100 Mg Capsule) 100 mg PO TID PRN PRN Reason: Cough Last Admin: 12/14/24 23:16 Dose: 100 mg Calcium Carbonate (Calcium Carbonate 750 Mg Tab.Chew) 750 mg PO Q4H PRN PRN Reason: Heartburn Dextrose (Dextrose 50 % 25 Gm/50 Ml Syringe) 25 gm IVPUSH Q15M PRN; Protocol PRN Reason: per Hypoglycemia Standing Ord. Enoxaparin Sodium (Enoxaparin Sodium 40 Mg/0.4 Ml Syringe) 40 mg SUBCUT Q24H [facility] Last Admin: 12/16/24 22:33 Dose: 40 mg Glucose (Glucose Gel 15 Gm Gel..Gram.) 15 gm PO Q15M PRN; Protocol PRN Reason: per Hypoglycemia Standing Ord. Piperacillin Sod/Tazobactam (Sod 3.375 gm/ Sodium Chloride) 50 mls @ 100 mls/hr IV Q6H [facility] Last Infusion: 12/16/24 21:07 Dose: Infused Vancomycin HCl 1,250 mg/ (Sodium Chloride) 250 mls @ 166.667 mls/hr IV Q12H [facility] Last Infusion: 12/16/24 23:01 Dose: Infused Insulin Glargine (Insulin Glargine,Hum.Rec.Anlog 100 Unit/Ml 10 Ml Vial) 10 unit SUBCUT DAILY [facility] Last Admin: 12/16/24 07:52 Dose: 10 unit Insulin Human Lispro (Insulin Lispro 100 Unit/Ml 3 Ml Vial) 0 unit SUBCUT QIDACHS [facility]; Protocol Last Admin: 12/16/24 21:16 Dose: 4 unit Lisinopril (Lisinopril 10 Mg Tablet) 10 mg PO DAILY [facility]; Protocol Last Admin: 12/16/24 07:52 Dose: 10 mg Magnesium Hydroxide (Milk Of Magnesia 30 Ml Oral.Susp) 30 ml PO DAILY PRN PRN Reason: Constipation Melatonin (Melatonin 3 Mg Tablet) 6 mg PO BEDTIME PRN PRN Reason: Insomnia Metformin HCl (Metformin Hcl 1,000 Mg Tablet) 1,000 mg PO DAILY [facility] Last Admin: 12/16/24 08:58 Dose: 1,000 mg Oxycodone HCl (Oxycodone Hcl Immed Release 5 Mg Tablet) 5 mg PO Q6H PRN PRN Reason: Pain, Severe (Pain Scale 7-10) Pharmacy Consult (Consult Rx Vancomycin Dosing) 1 each MISCELLANE DAILY PRN PRN Reason: Consult order Sodium Chloride (0.9 % Sodium Chloride Flush 3 Ml Syringe) 3 ml IVFLUSH QSHIFT [facility] Last Admin: 12/16/24 21:20 Dose: 3 ml Sodium Hypochlorite (Sodium Hypochlorite 0.125% 473 Ml Solution) 1 appl TOPICAL BID [facility] Last Admin: 12/16/24 21:20 Dose: 1 appl Home Medications ?Medication ?Instructions ?Recorded ?Confirmed ?Last Taken ?Type atorvastatin 20 mg tablet 20 mg PO DAILY 12/12/24 08/2 12/0912/12/24 History collagen, hydrolyzed 1 1 tab PO BID 12/12/2412/12/24 History gram-ascorbate calcium 10 mg tablet lisinopril 10 mg tablet 10 mg PO DAILY 12/12/24 08/2 12/0912/12/24 History metformin 1,000 mg tablet 1,000 mg PO DAILY 12/12/24 0 12/12/24 12/12/24 History Physical Exam 2 Vital Signs: Vital Signs: Last Vital Signs Temp 96.9 F 12/16/24 19:54 Pulse 87 12/16/24 19:54 Resp 18 12/16/24 19:54 BP 140/82 H 12/16/24 19:54 Pulse Ox 96 12/16/24 19:54 O2 Del Method Room Air 12/16/24 19:54 BMI result Body Mass Index 38.7 Const: General: cooperative HEENT: Head: Yes normal to inspection Face and sinus: Yes normal facial exam Mouth: Normal oral and palatal mucosa present Teeth and gingiva: d entition normal Eyes: General: appearance normal, both eyes and all related structures P upils: Equal, round and reactive pupils present Resp: Effort & Inspection: normal respiratory effort Cardio: Rate: regular rate Rhythm: regular rhythm GI: Palpation (GI): Soft to palpation and nontender : General: Yes no CVA tenderness Back/Spine/Pelvis: Back: no CVA tenderness Skin: General skin exam: no rashes or lesions noted Neuro: General: moves all extremities Cranial nerves: Yes Equal, round and reactive pupils present Extrem: Other: heavily callused feet left foot leakage plantar area serosanguinous neuropathy Psych: Appearance: grossly normal Results Labs 12/15/24 06:18 12/16/24 06:29 Labs: BMP 12/16/24 06:29 Creatinine 1.03 Microbiology Microbiology Results: Microbiology 12/13/24 11:00 Bone Gram Stain - Final 12/13/24 11:00 Bone Routine Culture - Final Strep agalactiae (Grp B) Pseudomonas aeruginosa 12/13/24 11:00 Bone Anaerobic Culture - Preliminary 12/12/24 17:58 Blood - Venous Blood Culture - Preliminary Streptococcus viridans group 12/12/24 17:58 Blood - Venous Blood Culture - Preliminary Streptococcus mitis/oralis Assessment and Plan (1) Diabetic foot infection: Status: Acute (2) Osteomyelitis of foot, left, acute: Status: Acute Plan Bone biopsy sensitive Pseudomonas and Group B strep, There are likely anerobes involved as well. While in hospital Merem and Levaquin and outpatient Ertapenem and Levaquin. He needs better control of DM outpatient,getting new PCP as his is likely retiring.
[2024-12-17 03:44] VITALS: BP 143/84; PULSE 83; RESP 18; TEMP 36.3; O2SAT 97
[2024-12-17 07:08] VITALS: BP 152/93; PULSE 82; RESP 16; TEMP 36.8; O2SAT 99
[2024-12-17 07:11] LABS: Creatinine Clr Calc Pharmacy 111.9; Estimated Glomerular Filt Rate > 60
[2024-12-17 07:34] LABS: Glucose, Whole Blood 146 mg/dL (60-115)
--- NOTE | 2024-12-17 07:53 | PM.PNGS ---
Subjective Subjective Date of Service: 12/17/24 Interval history: No new complaints, denies foot pain due to neuropathy. Physical Exam Vital Signs: Vital Signs: Last Vital Signs Temp 98.3 F 12/17/24 07:08 Pulse 82 12/17/24 07:08 Resp 16 12/17/24 07:08 BP 152/93 H 12/17/24 07:08 Pulse Ox 99 12/17/24 07:08 O2 Del Method Room Air 12/17/24 07:08 BMI result Body Mass Index 38.7 Const: General: no acute distress Nutritional Appearance: well nourished Orientation/consciousness: patient oriented x3 Resp: Effort & Inspection: normal respiratory effort, no audible wheezes, no cough and no respiratory distress Skin: Other: warm and dry Neuro: General: patient oriented x3 Extrem: Other: Dressings changed to the left foot. Open wound noted to the plantar surface over the 5th distal metatarsal head. No necrotic tissue was noted. Heaped up skin noted surrounding the ulceration. Area of marked on dorsum of foot for previous margin of erythema. Current erythema level much less than previously marked. Wounds redressed with Dakin solution wet-to-dry followed by dry sterile dressings. Objective Data Active Medications Acetaminophen (Acetaminophen 325 Mg Tablet) 975 mg PO Q6H PRN PRN Reason: Pain, Mild 1-3,fever,headache Last Admin: 12/16/24 12:17 Dose: 975 mg Documented By: LIGIA Atorvastatin Calcium (Atorvastatin Calcium 20 Mg Tablet) 20 mg PO DAILY [facility] Last Admin: 12/16/24 07:52 Dose: 20 mg Documented By: LIGIA Benzonatate (Benzonatate 100 Mg Capsule) 100 mg PO TID PRN PRN Reason: Cough Last Admin: 12/14/24 23:16 Dose: 100 mg Documented By: STACEY Calcium Carbonate (Calcium Carbonate 750 Mg Tab.Chew) 750 mg PO Q4H PRN PRN Reason: Heartburn Dextrose (Dextrose 50 % 25 Gm/50 Ml Syringe) 25 gm IVPUSH Q15M PRN; Protocol PRN Reason: per Hypoglycemia Standing Ord. Enoxaparin Sodium (Enoxaparin Sodium 40 Mg/0.4 Ml Syringe) 40 mg SUBCUT Q24H [facility] Last Admin: 12/16/24 22:33 Dose: 40 mg Documented By: SHAN Glucose (Glucose Gel 15 Gm Gel..Gram.) 15 gm PO Q15M PRN; Protocol PRN Reason: per Hypoglycemia Standing Ord. Insulin Glargine (Insulin Glargine,Hum.Rec.Anlog 100 Unit/Ml 10 Ml Vial) 10 unit SUBCUT DAILY [facility] Last Admin: 12/16/24 07:52 Dose: 10 unit Documented By: LIGIA Insulin Human Lispro (Insulin Lispro 100 Unit/Ml 3 Ml Vial) 0 unit SUBCUT QIDACHS [facility]; Protocol Last Admin: 12/17/24 07:44 Dose: Not Given Documented By: LIGIA Non-Admin Reason: No Insulin Coverage Levofloxacin (Levofloxacin 750 Mg Tablet) 750 mg PO Q24H [facility] Last Admin: 12/17/24 01:16 Dose: 750 mg Documented By: SHAN Lisinopril (Lisinopril 10 Mg Tablet) 10 mg PO DAILY [facility]; Protocol Last Admin: 12/16/24 07:52 Dose: 10 mg Documented By: LIGIA Magnesium Hydroxide (Milk Of Magnesia 30 Ml Oral.Susp) 30 ml PO DAILY PRN PRN Reason: Constipation Melatonin (Melatonin 3 Mg Tablet) 6 mg PO BEDTIME PRN PRN Reason: Insomnia Meropenem (Meropenem 1 Gm Vial) 1 gm IVPUSH Q8H [facility] Last Admin: 12/17/24 01:16 Dose: 1 gm Documented By: SHAN Metformin HCl (Metformin Hcl 1,000 Mg Tablet) 1,000 mg PO DAILY [facility] Last Admin: 12/16/24 08:58 Dose: 1,000 mg Documented By: LIGIA Oxycodone HCl (Oxycodone Hcl Immed Release 5 Mg Tablet) 5 mg PO Q6H PRN PRN Reason: Pain, Severe (Pain Scale 7-10) Sodium Chloride (0.9 % Sodium Chloride Flush 3 Ml Syringe) 3 ml IVFLUSH QSHIFT [facility] Last Admin: 12/16/24 21:20 Dose: 3 ml Documented By: SHAN Sodium Hypochlorite (Sodium Hypochlorite 0.125% 473 Ml Solution) 1 appl TOPICAL BID [facility] Last Admin: 12/16/24 21:20 Dose: 1 appl Documented By: SHAN Labs 12/15/24 06:18 12/17/24 06:09 Labs: Laboratory Results - last 24 hr 12/16/24 12/16/24 12/16/24 07:28 11:34 16:07 Hold Purple Top Estim Creat Clear Calc Estimated GFR POC Glucose 201 H 269 H 219 H Random Vancomycin 12/16/24 12/16/24 12/17/24 18:58 20:44 06:09 Hold Purple Top SEE NOTE Estim Creat Clear Calc 111.9 Estimated GFR > 60 POC Glucose 240 H Random Vancomycin 16.2 12/17/24 07:30 Hold Purple Top Estim Creat Clear Calc Estimated GFR POC Glucose 146 H Random Vancomycin Microbiology Microbiology Results: Microbiology 12/13/24 11:00 Gram Stain - Final Bone Routine Culture - Final Strep agalactiae (Grp B) Pseudomonas aeruginosa Anaerobic Culture - Preliminary 12/12/24 17:58 Blood Culture - Preliminary Blood - Venous Streptococcus viridans group 12/12/24 17:58 Blood Culture - Preliminary Blood - Venous Streptococcus mitis/oralis Procedures Date of Service Date of Service: 12/17/24 Progress Note: A&P Assessment and plan (1) Diabetic foot infection: Status: Acute (2) Osteomyelitis of foot, left, acute: Status: Acute Plan 59-year-old male with left diabetic foot wounds and osteomyelitis, on wet-to-dry dressings with Dakin solution on the left foot. Bone cultures grew out strep varieties. Dressings changed and wounds showing improvement. Erythema is much improved as well. Continue local wound care and IV antibiotics. We will continue to monitor. Time Spent With Patient Time: Total time managing care of this patient today ____ minutes. Quality Stroke Does the patient have a stroke diagnosis?: No VTE Prior VTE?: No VTE Risk Level:: Medical - moderate - high VTE Device Contraindication: Treatment Not Indicated VTE Drug Contraindication: N/A - Med Ordered
--- NOTE | 2024-12-17 08:51 | P.PNIM_ITS ---
Subjective Subjective Date of Service: 12/17/24 Interval History: seen and examined this morning follow up for foot infection, osteomyelitis no fever or chills no overnight events waiting for picc line when cx clears Review of Systems Review of Systems: Yes all other systems are reviewed and are negative Constitutional Constitutional: Denies chills and Denies fever(s) Physical Exam 2 Exam: Exam: Appearing in no acute distress lung sounds are clear to auscultation heart regular rate rhythm, clear S1, S2 positive bowel sounds, abdomen is soft, nontender neuro patient is alert x3, no focal deficits Vital Signs: Vital Signs: Last Vital Signs Temp 98.3 F 12/17/24 07:08 Pulse 82 12/17/24 07:08 Resp 16 12/17/24 07:08 BP 152/93 H 12/17/24 07:08 Pulse Ox 99 12/17/24 07:08 O2 Del Method Room Air 12/17/24 07:08 BMI result Body Mass Index 38.7 Objective Data Active Medications Acetaminophen (Acetaminophen 325 Mg Tablet) 975 mg PO Q6H PRN PRN Reason: Pain, Mild 1-3,fever,headache Last Admin: 12/16/24 12:17 Dose: 975 mg Documented By: LIGIA Atorvastatin Calcium (Atorvastatin Calcium 20 Mg Tablet) 20 mg PO DAILY [facility] Last Admin: 12/16/24 07:52 Dose: 20 mg Documented By: LIGIA Benzonatate (Benzonatate 100 Mg Capsule) 100 mg PO TID PRN PRN Reason: Cough Last Admin: 12/14/24 23:16 Dose: 100 mg Documented By: STACEY Calcium Carbonate (Calcium Carbonate 750 Mg Tab.Chew) 750 mg PO Q4H PRN PRN Reason: Heartburn Dextrose (Dextrose 50 % 25 Gm/50 Ml Syringe) 25 gm IVPUSH Q15M PRN; Protocol PRN Reason: per Hypoglycemia Standing Ord. Enoxaparin Sodium (Enoxaparin Sodium 40 Mg/0.4 Ml Syringe) 40 mg SUBCUT Q24H [facility] Last Admin: 12/16/24 22:33 Dose: 40 mg Documented By: SHAN Glucose (Glucose Gel 15 Gm Gel..Gram.) 15 gm PO Q15M PRN; Protocol PRN Reason: per Hypoglycemia Standing Ord. Insulin Glargine (Insulin Glargine,Hum.Rec.Anlog 100 Unit/Ml 10 Ml Vial) 10 unit SUBCUT DAILY [facility] Last Admin: 12/16/24 07:52 Dose: 10 unit Documented By: LIGIA Insulin Human Lispro (Insulin Lispro 100 Unit/Ml 3 Ml Vial) 0 unit SUBCUT QIDACHS [facility]; Protocol Last Admin: 12/17/24 07:44 Dose: Not Given Documented By: LIGIA Non-Admin Reason: No Insulin Coverage Levofloxacin (Levofloxacin 750 Mg Tablet) 750 mg PO Q24H [facility] Last Admin: 12/17/24 01:16 Dose: 750 mg Documented By: SHAN Lisinopril (Lisinopril 10 Mg Tablet) 10 mg PO DAILY [facility]; Protocol Last Admin: 12/16/24 07:52 Dose: 10 mg Documented By: LIGIA Magnesium Hydroxide (Milk Of Magnesia 30 Ml Oral.Susp) 30 ml PO DAILY PRN PRN Reason: Constipation Melatonin (Melatonin 3 Mg Tablet) 6 mg PO BEDTIME PRN PRN Reason: Insomnia Meropenem (Meropenem 1 Gm Vial) 1 gm IVPUSH Q8H [facility] Last Admin: 12/17/24 01:16 Dose: 1 gm Documented By: SHAN Metformin HCl (Metformin Hcl 1,000 Mg Tablet) 1,000 mg PO DAILY [facility] Last Admin: 12/16/24 08:58 Dose: 1,000 mg Documented By: LIGIA Oxycodone HCl (Oxycodone Hcl Immed Release 5 Mg Tablet) 5 mg PO Q6H PRN PRN Reason: Pain, Severe (Pain Scale 7-10) Sodium Chloride (0.9 % Sodium Chloride Flush 3 Ml Syringe) 3 ml IVFLUSH QSHIFT [facility] Last Admin: 12/16/24 21:20 Dose: 3 ml Documented By: SHAN Sodium Hypochlorite (Sodium Hypochlorite 0.125% 473 Ml Solution) 1 appl TOPICAL BID [facility] Last Admin: 12/16/24 21:20 Dose: 1 appl Documented By: SHAN Labs 12/15/24 06:18 12/17/24 06:09 Labs: Laboratory Results - last 24 hr 12/16/24 12/16/24 12/16/24 11:34 16:07 18:58 Hold Purple Top Estim Creat Clear Calc Estimated GFR POC Glucose 269 H 219 H Random Vancomycin 16.2 12/16/24 12/17/24 12/17/24 20:44 06:09 07:30 Hold Purple Top SEE NOTE Estim Creat Clear Calc 111.9 Estimated GFR > 60 POC Glucose 240 H 146 H Random Vancomycin Microbiology Microbiology Results: Microbiology 12/13/24 11:00 Gram Stain - Final Bone Routine Culture - Final Strep agalactiae (Grp B) Pseudomonas aeruginosa Anaerobic Culture - Preliminary 12/12/24 17:58 Blood Culture - Preliminary Blood - Venous Streptococcus viridans group 12/12/24 17:58 Blood Culture - Preliminary Blood - Venous Streptococcus mitis/oralis Assessment and Plan (1) Diabetic foot infection: Status: Acute (2) Type 2 diabetes mellitus: Status: Acute Plan 59-year-old male with a past medical history significant for type 2 diabetes on metformin with peripheral neuropathy, hypertension, class 3 obesity and hyperlipidemia, who presented to the ED by recommendation of Wound Care due to worsening wound on the left lateral foot. Diabetic right foot wound with Osteomyelitis left foot no sepsis MRI and x-ray showing left foot with septic arthritis with osteomyelitis s/p IV vancomycin, zosyn seen by ortho>no orthopedic intervention warranted seen by general surgery >s/p bedside debridement 12/13 wound care consult pending Order PICC line when blood cultures finalize Streptococcus viridans bacteremia Strep algalactiae, pseudomonas in wound s/p Vancomycin echo ordered ID consult> switch abx to meropenem and levaquin repeat cx pending Type 2 diabetes Hba1c 11.9 lantus started at 10U, titrate up prn restarted metformin SSI, follow POCs, continue ADA diet Hypertension continue lisinopril Hyperlipidemia continue statin Class 3 obesity BMI 38.7 Discussed importance of weight management as this may be contributing to worsening of other comorbidities DVT prophylaxis with Lovenox Full code Quality Stroke Does the patient have a stroke diagnosis?: No VTE Prior VTE?: No VTE Risk Level:: Medical - moderate - high VTE Device Contraindication: Treatment Not Indicated VTE Drug Contraindication: N/A - Med Ordered
[2024-12-17] MEDS: Insulin Glargine,Hum.rec.anlog 100 UNIT/ML 10 ML VIAL 10 UNIT SUBCUT (09:12)
[2024-12-17] MEDS: 0.9 % Sodium Chloride Flush 3 ML SYRINGE IVFLUSH ×3 (09:13→20:24)
[2024-12-17] MEDS: Milk of Magnesia 30 ML ORAL.SUSP PO (09:31)
[2024-12-17 11:35] LABS: Glucose, Whole Blood 245 mg/dL (60-115)
--- NOTE | 2024-12-17 14:59 | HO.WOUND ---
Wound Consult: Deferred to General Surgery Team 59yr old male admitted 12/12/24 - see H&P for detailed history. Chart review reveals patient was seen and is followed by general surgery team with the following recommendations in place left diabetic foot wounds and osteomyelitis, on wet-to-dry dressings with Dakin solution on the left foot . will place order for direct care team to carry out when surgical team is not performing dressings. Left Foot - Cleanse and gently irrigate with NS, pat dry, apply skin barrier to wound edge apply Dakins moist gauze dressing to wound bed, cover with dry gauze, ABD pad and wrap. Change Daily.
[2024-12-17 15:40] VITALS: BP 131/85; PULSE 93; RESP 16; TEMP 36.3; O2SAT 96
[2024-12-17 16:09] LABS: Glucose, Whole Blood 234 mg/dL (60-115)
[2024-12-17 19:36] VITALS: BP 140/87; PULSE 89; RESP 18; TEMP 36.8; O2SAT 95
[2024-12-17 20:13] LABS: Glucose, Whole Blood 201 mg/dL (60-115)
[2024-12-18 03:18] VITALS: BP 144/83; PULSE 92; RESP 18; TEMP 36.9; O2SAT 95
[2024-12-18 06:58] LABS: Creatinine Clr Calc Pharmacy 100.3; Estimated Glomerular Filt Rate > 60
[2024-12-18 07:33] VITALS: BP 121/81; PULSE 93; RESP 18; TEMP 36.7; O2SAT 96
[2024-12-18 07:59] LABS: Glucose, Whole Blood 188 mg/dL (60-115)
--- NOTE | 2024-12-18 09:02 | HO.PM.IMPN ---
Subjective Subjective Date of Service: 12/18/24 Interval History: seen and examined this morning follow up for foot infection, osteomyelitis no fever or chills no overnight events waiting for picc line when cx clears Review of Systems Review of Systems: Yes all other systems are reviewed and are negative Constitutional Constitutional: Denies chills and Denies fever(s) Physical Exam Exam: Exam: Appearing in no acute distress lung sounds are clear to auscultation heart regular rate rhythm, clear S1, S2 positive bowel sounds, abdomen is soft, nontender neuro patient is alert x3, no focal deficits Vital Signs: Vital Signs: Last Vital Signs Temp 98.0 F 12/18/24 07:33 Pulse 93 12/18/24 07:33 Resp 18 12/18/24 07:33 BP 121/81 12/18/24 07:33 Pulse Ox 96 12/18/24 07:33 O2 Del Method Room Air 12/18/24 07:33 BMI result Body Mass Index 38.7 Objective Data Active Medications Acetaminophen (Acetaminophen 325 Mg Tablet) 975 mg PO Q6H PRN PRN Reason: Pain, Mild 1-3,fever,headache Last Admin: 12/16/24 12:17 Dose: 975 mg Documented By: LIGIA Atorvastatin Calcium (Atorvastatin Calcium 20 Mg Tablet) 20 mg PO DAILY [facility] Last Admin: 12/17/24 09:12 Dose: 20 mg Documented By: LIGIA Benzonatate (Benzonatate 100 Mg Capsule) 100 mg PO TID PRN PRN Reason: Cough Last Admin: 12/14/24 23:16 Dose: 100 mg Documented By: STACEY Calcium Carbonate (Calcium Carbonate 750 Mg Tab.Chew) 750 mg PO Q4H PRN PRN Reason: Heartburn Dextrose (Dextrose 50 % 25 Gm/50 Ml Syringe) 25 gm IVPUSH Q15M PRN; Protocol PRN Reason: per Hypoglycemia Standing Ord. Enoxaparin Sodium (Enoxaparin Sodium 40 Mg/0.4 Ml Syringe) 40 mg SUBCUT Q24H [facility] Last Admin: 12/17/24 22:26 Dose: Not Given Documented By: SIDNEY Non-Admin Reason: Patient Refused Glucose (Glucose Gel 15 Gm Gel..Gram.) 15 gm PO Q15M PRN; Protocol PRN Reason: per Hypoglycemia Standing Ord. Insulin Glargine (Insulin Glargine,Hum.Rec.Anlog 100 Unit/Ml 10 Ml Vial) 10 unit SUBCUT DAILY [facility] Last Admin: 12/17/24 09:12 Dose: 10 unit Documented By: LIGIA Insulin Human Lispro (Insulin Lispro 100 Unit/Ml 3 Ml Vial) 0 unit SUBCUT QIDACHS [facility]; Protocol Last Admin: 12/17/24 20:18 Dose: 4 unit Documented By: SIDNEY Levofloxacin (Levofloxacin 750 Mg Tablet) 750 mg PO Q24H [facility] Last Admin: 12/18/24 00:38 Dose: 750 mg Documented By: SIDNEY Lisinopril (Lisinopril 10 Mg Tablet) 10 mg PO DAILY [facility]; Protocol Last Admin: 12/17/24 09:13 Dose: 10 mg Documented By: LIGIA Magnesium Hydroxide (Milk Of Magnesia 30 Ml Oral.Susp) 30 ml PO DAILY PRN PRN Reason: Constipation Last Admin: 12/17/24 09:31 Dose: 30 ml Documented By: LIGIA Melatonin (Melatonin 3 Mg Tablet) 6 mg PO BEDTIME PRN PRN Reason: Insomnia Meropenem (Meropenem 1 Gm Vial) 1 gm IVPUSH Q8H [facility] Last Admin: 12/18/24 00:38 Dose: 1 gm Documented By: SIDNEY Metformin HCl (Metformin Hcl 1,000 Mg Tablet) 1,000 mg PO DAILY [facility] Last Admin: 12/17/24 09:12 Dose: 1,000 mg Documented By: LIGIA Sodium Chloride (0.9 % Sodium Chloride Flush 3 Ml Syringe) 3 ml IVFLUSH QSHIFT [facility] Last Admin: 12/17/24 20:24 Dose: 3 ml Documented By: SIDNEY Sodium Hypochlorite (Sodium Hypochlorite 0.125% 473 Ml Solution) 1 appl TOPICAL BID [facility] Last Admin: 12/17/24 20:20 Dose: 1 appl Documented By: SIDNEY Labs 12/15/24 06:18 12/18/24 06:06 Labs: Laboratory Results - last 24 hr 12/17/24 12/17/24 12/17/24 11:31 16:06 20:05 Estim Creat Clear Calc Estimated GFR POC Glucose 245 H 234 H 201 H 12/18/24 12/18/24 06:06 07:36 Estim Creat Clear Calc 100.3 Estimated GFR > 60 POC Glucose 188 H Microbiology Microbiology Results: Microbiology 12/12/24 17:58 Blood Culture - Preliminary Blood - Venous Streptococcus mitis/oralis 12/12/24 17:58 Blood Culture - Preliminary Blood - Venous Streptococcus viridans group 12/16/24 08:11 Blood Culture - Preliminary Blood - Venous No growth after 24 hours. 12/16/24 08:11 Blood Culture - Preliminary Blood - Venous No growth after 24 hours. 12/13/24 11:00 Gram Stain - Final Bone Routine Culture - Final Strep agalactiae (Grp B) Pseudomonas aeruginosa Anaerobic Culture - Preliminary Assessment and Plan (1) Diabetic foot infection: Status: Acute (2) Type 2 diabetes mellitus: Status: Acute Plan 59-year-old male with a past medical history significant for type 2 diabetes on metformin with peripheral neuropathy, hypertension, class 3 obesity and hyperlipidemia, who presented to the ED by recommendation of Wound Care due to worsening wound on the left lateral foot. Diabetic right foot wound with Osteomyelitis left foot no sepsis MRI and x-ray showing left foot with septic arthritis with osteomyelitis s/p IV vancomycin, zosyn seen by ortho>no orthopedic intervention warranted seen by general surgery >s/p bedside debridement 12/13 wound care following Order PICC line when blood cultures finalize Streptococcus viridans bacteremia Strep algalactiae, pseudomonas in wound s/p Vancomycin echo with no obvious vegetation ID consult> switch abx to meropenem and levaquin repeat cx pending Type 2 diabetes Hba1c 11.9 lantus started at 10U, titrate up prn restarted metformin SSI, follow POCs, continue ADA diet Hypertension continue lisinopril Hyperlipidemia continue statin Class 3 obesity BMI 38.7 Discussed importance of weight management as this may be contributing to worsening of other comorbidities DVT prophylaxis with Lovenox Full code Quality Stroke Does the patient have a stroke diagnosis?: No VTE Prior VTE?: No VTE Risk Level:: Medical - moderate - high VTE Device Contraindication: Treatment Not Indicated VTE Drug Contraindication: N/A - Med Ordered
[2024-12-18] MEDS: Insulin Glargine,Hum.rec.anlog 100 UNIT/ML 10 ML VIAL 10 UNIT SUBCUT (09:41)
[2024-12-18] MEDS: 0.9 % Sodium Chloride Flush 3 ML SYRINGE IVFLUSH ×2 (09:41→16:37)
[2024-12-18 11:20] LABS: Glucose, Whole Blood 279 mg/dL (60-115)
--- NOTE | 2024-12-18 12:33 | P.PNGS_ITS ---
Subjective Subjective Date of Service: 12/18/24 Interval history: doing well. denies pain due to neuropathy. denies fevers or chills Physical Exam 2 Vital Signs: Vital Signs: Last Vital Signs Temp 98.0 F 12/18/24 07:33 Pulse 93 12/18/24 07:33 Resp 18 12/18/24 07:33 BP 121/81 12/18/24 07:33 Pulse Ox 96 12/18/24 07:33 O2 Del Method Room Air 12/18/24 07:33 BMI result Body Mass Index 38.7 Const: General: comfortable and no acute distress O rientation/consciousness: patient oriented x3 Neuro: General: patient oriented x3 Extrem: Other: left foot cellulitis improved. Wound now 3x2 cm. wound bed has adequate granulation tissue, mild/mod output on dressing. scant slough right great toe: 1.5x1.5 cm wound, good granulation tissue, minimal discharge. Objective Data Active Medications Acetaminophen (Acetaminophen 325 Mg Tablet) 975 mg PO Q6H PRN PRN Reason: Pain, Mild 1-3,fever,headache Last Admin: 12/16/24 12:17 Dose: 975 mg Documented By: LIGIA Atorvastatin Calcium (Atorvastatin Calcium 20 Mg Tablet) 20 mg PO DAILY [facility] Last Admin: 12/18/24 09:40 Dose: 20 mg Documented By: PATTI Benzonatate (Benzonatate 100 Mg Capsule) 100 mg PO TID PRN PRN Reason: Cough Last Admin: 12/14/24 23:16 Dose: 100 mg Documented By: STACEY Calcium Carbonate (Calcium Carbonate 750 Mg Tab.Chew) 750 mg PO Q4H PRN PRN Reason: Heartburn Dextrose (Dextrose 50 % 25 Gm/50 Ml Syringe) 25 gm IVPUSH Q15M PRN; Protocol PRN Reason: per Hypoglycemia Standing Ord. Enoxaparin Sodium (Enoxaparin Sodium 40 Mg/0.4 Ml Syringe) 40 mg SUBCUT Q24H [facility] Last Admin: 12/17/24 22:26 Dose: Not Given Documented By: SIDNEY Non-Admin Reason: Patient Refused Ertapenem (Ertapenem Sodium 1 Gm Vial) 1 gm IVPUSH DAILY [facility] Stop: 12/19/24 09:01 Glucose (Glucose Gel 15 Gm Gel..Gram.) 15 gm PO Q15M PRN; Protocol PRN Reason: per Hypoglycemia Standing Ord. Insulin Glargine (Insulin Glargine,Hum.Rec.Anlog 100 Unit/Ml 10 Ml Vial) 10 unit SUBCUT DAILY [facility] Last Admin: 12/18/24 09:41 Dose: 10 unit Documented By: PATTI Insulin Human Lispro (Insulin Lispro 100 Unit/Ml 3 Ml Vial) 0 unit SUBCUT QIDACHS [facility]; Protocol Last Admin: 12/18/24 09:41 Dose: 2 unit Documented By: PATTI Levofloxacin (Levofloxacin 750 Mg Tablet) 750 mg PO Q24H [facility] Last Admin: 12/18/24 00:38 Dose: 750 mg Documented By: SIDNEY Lisinopril (Lisinopril 10 Mg Tablet) 10 mg PO DAILY [facility]; Protocol Last Admin: 12/18/24 09:40 Dose: 10 mg Documented By: PATTI Magnesium Hydroxide (Milk Of Magnesia 30 Ml Oral.Susp) 30 ml PO DAILY PRN PRN Reason: Constipation Last Admin: 12/17/24 09:31 Dose: 30 ml Documented By: LIGIA Melatonin (Melatonin 3 Mg Tablet) 6 mg PO BEDTIME PRN PRN Reason: Insomnia Meropenem (Meropenem 1 Gm Vial) 1 gm IVPUSH Q8H [facility] Stop: 12/18/24 23:59 Last Admin: 12/18/24 09:42 Dose: 1 gm Documented By: PATTI Metformin HCl (Metformin Hcl 1,000 Mg Tablet) 1,000 mg PO DAILY [facility] Last Admin: 12/18/24 09:40 Dose: 1,000 mg Documented By: PATTI Sodium Chloride (0.9 % Sodium Chloride Flush 3 Ml Syringe) 3 ml IVFLUSH QSHIFT [facility] Last Admin: 12/18/24 09:41 Dose: 3 ml Documented By: PATTI Sodium Hypochlorite (Sodium Hypochlorite 0.125% 473 Ml Solution) 1 appl TOPICAL BID [facility] Last Admin: 12/17/24 20:20 Dose: 1 appl Documented By: SIDNEY Labs 12/15/24 06:18 12/18/24 06:06 Labs: Laboratory Results - last 24 hr 12/17/24 12/17/24 12/18/24 16:06 20:05 06:06 Estim Creat Clear Calc 100.3 Estimated GFR > 60 POC Glucose 234 H 201 H 12/18/24 12/18/24 07:36 11:16 Estim Creat Clear Calc Estimated GFR POC Glucose 188 H 279 H Microbiology Microbiology Results: Microbiology 12/16/24 08:11 Blood Culture - Preliminary Blood - Venous No growth after 48 hours. 12/16/24 08:11 Blood Culture - Preliminary Blood - Venous No growth after 48 hours. 12/12/24 17:58 Blood Culture - Preliminary Blood - Venous Streptococcus mitis/oralis 12/12/24 17:58 Blood Culture - Preliminary Blood - Venous Streptococcus viridans group 12/13/24 11:00 Gram Stain - Final Bone Routine Culture - Final Strep agalactiae (Grp B) Pseudomonas aeruginosa Anaerobic Culture - Final Procedures Date of Service Date of Service: 12/18/24 Progress Note: A&P Assessment and plan (1) Diabetic foot infection: Status: Acute (2) Osteomyelitis of foot, left, acute: Status: Acute Assessment and Plan: 59-year-old male with left diabetic foot wounds and osteomyelitis patient clinically a [place] 3 diabetic foot wound. MRI shows OM left 5th metatarsal and proximal phalanx. Bone shows Group B strep and pseudomonas aldridge sensitive. Doing well overall. denying pain due to neuropathy, afebrile. ID recomending, while in hospital Merem and Levaquin and outpatient Ertapenem and Levaquin. he is having PICC line placed tomorrow, he is worried about pain due to a previous experience, would consider a consious sedation if unable to tolerate with local anesthetic. Wounds appear to be improving, the localized cellulitis has improved, the left foot wound appears clean, has good granulation tissue. Right great to is more superficial, also appears clean, appears to be healing well. Will continue with BID dakins soaked dressings while inpatient. Patient is well known to wound clinic. Can continue as an outpatient after DC. Time Spent With Patient Time: Total time managing care of this patient today ____ minutes. Quality Stroke Does the patient have a stroke diagnosis?: No VTE Prior VTE?: No VTE Risk Level:: Medical - moderate - high VTE Device Contraindication: Treatment Not Indicated VTE Drug Contraindication: N/A - Med Ordered
--- NOTE | 2024-12-18 12:43 | MHC.CM.PN ---
Not medically cleared for dc. Will need PICC once cultures are clear, likely tomorrow. 6 wks IV ertapenem. Per FS, patient eligible for [facility] and just needed to select a plan. Enrolled in [facility], will be active 24-48hrs. Patient will need to call for ID #. Phone number provided [phone]. [facility] to bedside. Teach and orders complete. Patient's S.O. is a nurse and was present for teach as well. Referral to [facility], per patient preference, for SN (wound care, IV abx). They have accepted. CM will continue to follow.
[2024-12-18 15:14] VITALS: BP 126/80; PULSE 94; RESP 17; TEMP 36.7; O2SAT 96
[2024-12-18 16:25] LABS: Glucose, Whole Blood 164 mg/dL (60-115)
[2024-12-18 19:19] VITALS: BP 127/81; PULSE 97; RESP 19; TEMP 36.9; O2SAT 91
[2024-12-18 20:40] LABS: Glucose, Whole Blood 171 mg/dL (60-115)
[2024-12-19] MEDS: 0.9 % Sodium Chloride Flush 3 ML SYRINGE IVFLUSH ×3 (00:30→16:21)
[2024-12-19 03:29] VITALS: BP 127/81; PULSE 72; RESP 18; TEMP 36.3; O2SAT 94
[2024-12-19 06:08] LABS: Creatinine Clr Calc Pharmacy 86.1; Estimated Glomerular Filt Rate > 60
[2024-12-19 07:26] VITALS: BP 121/77; PULSE 97; RESP 16; TEMP 36.4; O2SAT 92
[2024-12-19 07:35] LABS: Glucose, Whole Blood 170 mg/dL (60-115)
[2024-12-19] MEDS: Insulin Glargine,Hum.rec.anlog 100 UNIT/ML 10 ML VIAL 10 UNIT SUBCUT (08:56)
[2024-12-19 11:26] LABS: Glucose, Whole Blood 212 mg/dL (60-115)
[2024-12-19 15:33] VITALS: BP 123/75; PULSE 96; RESP 20; TEMP 36.6; O2SAT 93
--- NOTE | 2024-12-19 15:43 | P.PNIM_ITS ---
Subjective Subjective Date of Service: 12/19/24 Interval History: no fever/chills repeat blood cultures clear Review of Systems Review of Systems: Yes all other systems are reviewed and are negative Physical Exam 2 Vital Signs: Vital Signs: Last Vital Signs Temp 97.8 F 12/19/24 15:33 Pulse 96 12/19/24 15:33 Resp 20 12/19/24 15:33 BP 123/75 12/19/24 15:33 Pulse Ox 93 12/19/24 15:33 O2 Del Method Room Air 12/19/24 15:33 BMI result Body Mass Index 38.7 Gen: in no acute distress HEENT: sclera anicteric, moist mucus membranes Neck: supple Lungs: clear to auscultation bilaterally Heart: regular rate and rhythm, no murmurs Abd: soft, non-tender, non-distended Ext: no edema Skin: warm/well-perfused, L base of 5th toe with 3 cm granulated wound without any purulent discharge; also has 1.5 cm wound on R great toe Neuro: alert and oriented x3, no focal findings Psych: appropriate affect Objective Data Active Medications Acetaminophen (Acetaminophen 325 Mg Tablet) 975 mg PO Q6H PRN PRN Reason: Pain, Mild 1-3,fever,headache Last Admin: 12/16/24 12:17 Dose: 975 mg Documented By: LIGIA Atorvastatin Calcium (Atorvastatin Calcium 20 Mg Tablet) 20 mg PO DAILY [facility] Last Admin: 12/19/24 08:14 Dose: 20 mg Documented By: PARDEEP Benzonatate (Benzonatate 100 Mg Capsule) 100 mg PO TID PRN PRN Reason: Cough Last Admin: 12/14/24 23:16 Dose: 100 mg Documented By: STACEY Calcium Carbonate (Calcium Carbonate 750 Mg Tab.Chew) 750 mg PO Q4H PRN PRN Reason: Heartburn Dextrose (Dextrose 50 % 25 Gm/50 Ml Syringe) 25 gm IVPUSH Q15M PRN; Protocol PRN Reason: per Hypoglycemia Standing Ord. Enoxaparin Sodium (Enoxaparin Sodium 40 Mg/0.4 Ml Syringe) 40 mg SUBCUT Q24H [facility] Last Admin: 12/18/24 22:24 Dose: 40 mg Documented By: SANDY Glucose (Glucose Gel 15 Gm Gel..Gram.) 15 gm PO Q15M PRN; Protocol PRN Reason: per Hypoglycemia Standing Ord. Insulin Glargine (Insulin Glargine,Hum.Rec.Anlog 100 Unit/Ml 10 Ml Vial) 10 unit SUBCUT DAILY [facility] Last Admin: 12/19/24 08:56 Dose: 10 unit Documented By: PARDEEP Insulin Human Lispro (Insulin Lispro 100 Unit/Ml 3 Ml Vial) 0 unit SUBCUT QIDACHS [facility]; Protocol Last Admin: 12/19/24 12:08 Dose: 4 unit Documented By: PARDEEP Levofloxacin (Levofloxacin 750 Mg Tablet) 750 mg PO Q24H [facility] Last Admin: 12/19/24 00:29 Dose: 750 mg Documented By: SANDY Lisinopril (Lisinopril 10 Mg Tablet) 10 mg PO DAILY [facility]; Protocol Last Admin: 12/19/24 08:14 Dose: 10 mg Documented By: PARDEEP Magnesium Hydroxide (Milk Of Magnesia 30 Ml Oral.Susp) 30 ml PO DAILY PRN PRN Reason: Constipation Last Admin: 12/17/24 09:31 Dose: 30 ml Documented By: LIGIA Melatonin (Melatonin 3 Mg Tablet) 6 mg PO BEDTIME PRN PRN Reason: Insomnia Metformin HCl (Metformin Hcl 1,000 Mg Tablet) 1,000 mg PO DAILY [facility] Last Admin: 12/19/24 08:56 Dose: 1,000 mg Documented By: PARDEEP Sodium Chloride (0.9 % Sodium Chloride Flush 3 Ml Syringe) 3 ml IVFLUSH QSHIFT [facility] Last Admin: 12/19/24 08:14 Dose: 3 ml Documented By: PARDEEP Sodium Hypochlorite (Sodium Hypochlorite 0.125% 473 Ml Solution) 1 appl TOPICAL BID [facility] Last Admin: 12/19/24 12:08 Dose: 1 appl Documented By: PARDEEP Labs 12/15/24 06:18 12/19/24 05:09 Labs: Laboratory Results - last 24 hr 12/18/24 12/18/24 12/19/24 16:13 20:27 05:09 Hold Purple Top SEE NOTE Estim Creat Clear Calc 86.1 Estimated GFR > 60 POC Glucose 164 H 171 H 12/19/24 12/19/24 07:30 11:22 Hold Purple Top Estim Creat Clear Calc Estimated GFR POC Glucose 170 H 212 H Assessment and Plan (1) Diabetic foot infection: Status: Acute (2) Type 2 diabetes mellitus: Status: Acute Plan d8, 59yo M with DM2 with neuropathy, HTN, HLD [facility] due to L lateral foot wound DM osteomyelitis/septic arthritis + infected ulcer L foot [growing Pseudomons aeruginosa + Group B Streptococcus] Streptococcus mitis/oralis bacteremia - s/p bedside debridement by Gen Surg 12/13; s/p IV vancomycin + piperacillin- tazobactam; per ID, meropenem [ertapenem on discharge] plus levofloxacin x 6 wk 12/16-01/27, PICC pending, will also check arterial doppler; TTE without vegetation - wound care: Left Foot - Cleanse and gently irrigate with NS, pat dry, apply skin barrier to wound edge apply Dakins moist gauze dressing to wound bed, cover with dry gauze, ABD pad and wrap. Change Daily. - follow up with [facility] after discharge DM2 uncontrolled, A1c 11.9 - MTF, started Lantus HTN - lisinopril HLD - statin VTE prophylaxis - enoxaparin dispo - anticipate home with VNA In my clinical judgment, the patient requires continued inpatient hospitalization for the following reasons: awaiting PICC + arterial dopplers Total time managing care of this patient today: 35 minutes. Quality Stroke Does the patient have a stroke diagnosis?: No VTE Prior VTE?: No VTE Risk Level:: Medical - moderate - high VTE Device Contraindication: Treatment Not Indicated VTE Drug Contraindication: N/A - Med Ordered
[2024-12-19 16:10] LABS: Glucose, Whole Blood 183 mg/dL (60-115)
--- NOTE | 2024-12-19 19:20 | P.PICC_ITS ---
PICC Line Insertion NPICC Diagnosis: Osteomyelitis Indication: custodial ABT Pertinent Labs: reviewed Technique: Following informed consent including risks, benefits and alternatives and using sterile technique including cap and mask, sterile gown, glove and drape, the left arm was prepped and draped in the usual sterile fashion of full barrier technique with CHG. Following completion of [place] Protocol the skin and soft tissues were anesthetized with 1% Lidocaine plain. Using ultrasound guidance, right brachial vein access was obtained. Over an 0.018 wire through peel-away sheath, a 4fr single lumen PASV PICC line was positioned. Catheter length is 43cm internal length, 0cm external length, for a total trimmed length of 43cm. The procedure was performed in [facility]. Tip verification was performed by Raheem Benjamin with Sherlock 3CG. Tip located in SVC. Ultrasound was used to document vein patency and for needle entry. A formal ultrasound picture and cardiac rhythm strip was recorded. [facility] has released the line for use and it is currently dressed with a StatLock, Tegaderm, and CHG disc. Verification has been performed for blood return and line patency. Arm Circumference: 35cm Equipment: Aerospike POWERPICC SOLO catheter with sherlock 3CG Tip Catheter Type: 4fr single lumen PASV catheter Lot #: [id number]
[2024-12-19 20:00] VITALS: BP 117/75; PULSE 102; RESP 18; TEMP 36.4; O2SAT 96
[2024-12-19 20:21] LABS: Glucose, Whole Blood 177 mg/dL (60-115)
[2024-12-20 03:56] VITALS: BP 120/73; PULSE 92; RESP 18; TEMP 36.2; O2SAT 96
[2024-12-20 07:30] VITALS: BP 122/80; PULSE 90; RESP 16; TEMP 37; O2SAT 94
[2024-12-20 07:45] LABS: Glucose, Whole Blood 149 mg/dL (60-115)
--- NOTE | 2024-12-20 08:16 | P.PNGS_ITS ---
Subjective Subjective Date of Service: 12/20/24 Interval history: no actue changes overnight. Patient had PICC line inserted last night, it is patent. denies fevers, chills. denies pain in the feet. Physical Exam 2 Vital Signs: Vital Signs: Last Vital Signs Temp 98.6 F 12/20/24 07:30 Pulse 90 12/20/24 07:30 Resp 16 12/20/24 07:30 BP 122/80 12/20/24 07:30 Pulse Ox 94 12/20/24 07:30 O2 Del Method Room Air 12/20/24 07:30 BMI result Body Mass Index 38.7 Const: General: comfortable and no acute distress O rientation/consciousness: patient oriented x3 Neuro: General: patient oriented x3 Extrem: Other: foot dressings in place. no swelling of the extremities Objective Data Active Medications Acetaminophen (Acetaminophen 325 Mg Tablet) 975 mg PO Q6H PRN PRN Reason: Pain, Mild 1-3,fever,headache Last Admin: 12/19/24 19:36 Dose: 975 mg Documented By: SANDY Atorvastatin Calcium (Atorvastatin Calcium 20 Mg Tablet) 20 mg PO DAILY [facility] Last Admin: 12/19/24 08:14 Dose: 20 mg Documented By: PARDEEP Benzonatate (Benzonatate 100 Mg Capsule) 100 mg PO TID PRN PRN Reason: Cough Last Admin: 12/14/24 23:16 Dose: 100 mg Documented By: STACEY Calcium Carbonate (Calcium Carbonate 750 Mg Tab.Chew) 750 mg PO Q4H PRN PRN Reason: Heartburn Dextrose (Dextrose 50 % 25 Gm/50 Ml Syringe) 25 gm IVPUSH Q15M PRN; Protocol PRN Reason: per Hypoglycemia Standing Ord. Enoxaparin Sodium (Enoxaparin Sodium 40 Mg/0.4 Ml Syringe) 40 mg SUBCUT Q24H [facility]CLUD[facility] Last Admin: 12/19/24 21:27 Dose: 40 mg Documented By: MO Ertapenem (Ertapenem Sodium 1 Gm Vial) 1 gm IVPUSH ONCE ONE Stop: 12/20/24 10:01 Glucose (Glucose Gel 15 Gm Gel..Gram.) 15 gm PO Q15M PRN; Protocol PRN Reason: per Hypoglycemia Standing Ord. Insulin Glargine (Insulin Glargine,Hum.Rec.Anlog 100 Unit/Ml 10 Ml Vial) 10 unit SUBCUT DAILY [facility] Last Admin: 12/19/24 08:56 Dose: 10 unit Documented By: PARDEEP Insulin Human Lispro (Insulin Lispro 100 Unit/Ml 3 Ml Vial) 0 unit SUBCUT QIDACHS [facility]CLUD[facility]; Protocol Last Admin: 12/20/24 07:53 Dose: Not Given Documented By: PARDEEP Non-Admin Reason: No Insulin Coverage Levofloxacin (Levofloxacin 750 Mg Tablet) 750 mg PO Q24H [facility]CLUD[facility] Last Admin: 12/20/24 01:16 Dose: 750 mg Documented By: SANDY Lisinopril (Lisinopril 10 Mg Tablet) 10 mg PO DAILY [facility]; Protocol Last Admin: 12/19/24 08:14 Dose: 10 mg Documented By: PARDEEP Magnesium Hydroxide (Milk Of Magnesia 30 Ml Oral.Susp) 30 ml PO DAILY PRN PRN Reason: Constipation Last Admin: 12/17/24 09:31 Dose: 30 ml Documented By: LIGIA Melatonin (Melatonin 3 Mg Tablet) 6 mg PO BEDTIME PRN PRN Reason: Insomnia Metformin HCl (Metformin Hcl 1,000 Mg Tablet) 1,000 mg PO DAILY [facility] Last Admin: 12/19/24 08:56 Dose: 1,000 mg Documented By: PARDEEP Sodium Chloride (0.9 % Sodium Chloride Flush 3 Ml Syringe) 3 ml IVFLUSH QSTXFT COUNT INCLUDES THE [facility] Last Admin: 12/19/24 21:29 Dose: Not Given Documented By: MO Non-Admin Reason: flushed picc line with 5 ml Sodium Chloride (0.9 % Sodium Chloride Flush 10 Ml Syringe) [facility] Sodium Hypochlorite (Sodium Hypochlorite 0.125% 473 Ml Solution) 1 appl TOPICAL BID COUNT [facility]CLUDES [facility] Last Admin: 12/19/24 21:26 Dose: 1 appl Documented By: MO Labs 12/15/24 06:18 12/19/24 05:09 Labs: Laboratory Results - last 24 hr 12/19/24 12/19/24 12/19/24 11:22 16:01 20:17 POC Glucose 212 H 183 H 177 H 12/20/24 07:32 POC Glucose 149 H Procedures Date of Service Date of Service: 12/20/24 Progress Note: A&P Assessment and plan (1) Diabetic foot infection: Status: Acute (2) Osteomyelitis of foot, left, acute: Status: Acute Assessment and Plan: 59-year-old male with left diabetic foot wounds and osteomyelitis patient clinically a [place] 3 diabetic foot wound. MRI shows OM left 5th metatarsal and proximal phalanx. Bone shows Group B strep and pseudomonas aldridge sensitive. Doing well overall. denying pain due to neuropathy, afebrile. ID recomending, while in hospital Merem and Levaquin and outpatient Ertapenem and Levaquin. he is having PICC line placed tomorrow, he is worried about pain due to a previous experience, would consider a consious sedation if unable to tolerate with local anesthetic. Wounds appear to be improving, the localized cellulitis has improved, the left foot wound appears clean, has good granulation tissue. Right great to is more superficial, also appears clean, appears to be healing well. Will continue with BID dakins soaked dressings while inpatient. daily at home after DC. patient had picc line inserted yesterday and is patent. Patient will follow up as outpatient in wound care. General surgery will sign off at this time. please reconsult as needed glucose control BID dressing changes as above while inpatient continue abx per ID Time Spent With Patient Time: Total time managing care of this patient today ____ minutes. Quality Stroke Does the patient have a stroke diagnosis?: No VTE Prior VTE?: No VTE Risk Level:: Medical - moderate - high VTE Device Contraindication: Treatment Not Indicated VTE Drug Contraindication: N/A - Med Ordered
[2024-12-20] MEDS: Insulin Glargine,Hum.rec.anlog 100 UNIT/ML 10 ML VIAL 10 UNIT SUBCUT (08:51)
[2024-12-20] MEDS: 0.9 % Sodium Chloride Flush 10 ML SYRINGE IVFLUSH (08:52)
--- NOTE | 2024-12-20 10:44 | P.F2F_ITS ---
Service Date Service Date: 12/20/24 Encounter Date of encounter: 12/20/24 Reasons for Services Signs and symptoms assessed: hyperglycemia osteomyelitis Reason for nursing home: wound care, administration of IV, SQ, or IM injection, central line care, diabetic teaching and monitoring of unstable blood sugar Overseeing Care: Diogo Stover Homebound: Leaving the home is medically contraindicated at this time without the asist of a device and/or another person due th the listed conditions above and below. Reason homebound: immunosuppression / infection risk Certification: Based on the above findings, I certify that this patient is confined to the home and needs intermittent nursing home care, physical therapy and/or speech therapy, or continues to need occupational therapy. The patient is under my care, and I have initiated the establishment of the plan of care. The patient will be followed by a physician who will periodically review the plan of care. Time Spent With Patient Time: Total time managing care of this patient today ____ minutes.
--- NOTE | 2024-12-20 10:55 | PM.DS ---
DS: Providers Provider Date of Service: 12/20/24 Date of admission: 12/12/24 22:25 Date of discharge: 12/20/24 Primary care physician: Diogo Stover MD Consults: 12/12/24 22:25 Consult to General Surgery Routine Consulting Provider: [facility] Reason for consultation: Osteomyelitis left foot Consult to Wound Care Routine Reason for consultation: Bilateral feet ulcers 12/12/24 22:50 Consult to Orthopedics Routine Consulting Provider: [facility] Reason for consultation: ?septic arthtis on xray, osetomyelitis, MRI pending 12/13/24 15:19 Consult to Infectious Diseases Routine Consulting Provider: [facility] Reason for consultation: osteo left foot Has provider been notified: No DS: Diagnosis Discharge Diagnosis (1) Diabetic foot infection: Status: Acute (2) Osteomyelitis of foot, left, acute: Status: Acute (3) Type 2 diabetes mellitus with hyperglycemia: Status: Acute (4) Osteomyelitis due to secondary diabetes: Status: Acute DS: Summary Hospital Course Hospital Course: From the history and physical by the admitting hospitalist, Rosa Eldridge, 12/12/24: Patient is a 59-year-old male with a past medical history significant for type 2 diabetes on metformin with peripheral neuropathy, hypertension, class 3 obesity and hyperlipidemia, who presented to the ED by recommendation of Wound Care due to worsening wound on the left lateral foot. The patient reports that he is having with for quite awhile but has peripheral neuropathy and is unable to feel for any changes or increased pain. Consult Wound Care earlier today who suggested that there may be deeper infection, osteomyelitis, therefore he was recommended to come to the emergency department. The patient denies any pain, fever, chills, nausea or vomiting. He does report some drainage, mostly bloody but possibly purulent with a foul odor. He reports that he lives to the oral antibiotics but has not had any improvement. He recently had blisters on his feet that burst and caused his feet to get very wet. 59yo M with DM2 with neuropathy, HTN, HLD sent in by [facility] due to L lateral foot wound; admitted to the medical-surgical unit with General Surgery, Orthopedics, and Infecitous Disease consultation. Imaging showed DM osteomyelitis/septic arthritis associated with infected ulcer L footl, growing Pseudomons aeruginosa + Group B Streptococcus; also found to have Streptococcus mitis/oralis bacteremia that cleared on repeat culture. Underwent bedside debridement by surgery on 12/13. Initially treated with vancomycin and piperacillin-tazobactam, then changed to PO levofloxacin plus meropenem/ertapenem with planned 6 wk of therapy from 12/16 negative blood culture; thus, end date of 01/27/25. PICC placed. No arterial occlusions on duplex US. TTE without vegetation. Seen by wound care and instructions are: Left Foot - Cleanse and gently irrigate with NS, pat dry, apply skin barrier to wound edge apply Dakins moist gauze dressing to wound bed, cover with dry gauze, ABD pad and wrap. Change Daily. To follow up with ID and Wound Care upon discharge home with VNA services for home infusion and DM monitoring. Due to uncontrolled hyperglycemia with A1c of 11.9, Lantus started in addition to resumption of metformin. Time Attestation Discharge Coordination Time (in mins): 45 Quality: Safe Use of Opioids Does Pt have an Active Cancer Diagnosis on the Problem List?: No Quality: Stroke Does the patient have a stroke diagnosis?: No Physical Exam Vital Signs: Vital Signs: Last Vital Signs Temp 98.6 F 12/20/24 07:30 Pulse 90 12/20/24 07:30 Resp 16 12/20/24 07:30 BP 122/80 12/20/24 07:30 Pulse Ox 94 12/20/24 07:30 O2 Del Method Room Air 12/20/24 07:30 BMI result Body Mass Index 38.7 Gen: in no acute distress HEENT: sclera anicteric, moist mucus membranes Neck: supple Lungs: clear to auscultation bilaterally Heart: regular rate and rhythm, no murmurs Abd: soft, non-tender, non-distended Ext: no edema Skin: warm/well-perfused, L base of 5th toe with 3 cm granulated wound without any purulent discharge; also has 1.5 cm wound on R great toe Neuro: alert and oriented x3, no focal findings Psych: appropriate affect DS: Data Data Completed and Pending Completed studies during hospitalization [Text1]: Laboratory Results WBC 6.4 X10*3/uL (4.8-10.8) 12/15/24 06:18 RBC 4.75 X10*6/uL (4.60-5.80) 12/15/24 06:18 Hgb 13.0 g/dl (14.0-18.0) L 12/15/24 06:18 Hct 38.8 % (42.0-52.0) L 12/15/24 06:18 MCV 81.7 fL (80.0-98.0) 12/15/24 06:18 MCH 27.4 pg (27.0-33.0) 12/15/24 06:18 MCHC 33.5 g/dl (31.0-36.0) 12/15/24 06:18 RDW 14.1 % (11.0-16.0) 12/15/24 06:18 Plt Count 288 X10*3/uL (160-400) 12/15/24 06:18 MPV 8.8 fL (9.4-12.4) L 12/15/24 06:18 Immature Gran % (Auto) 0.6 % (0.0-0.4) H 12/15/24 06:18 Neut % (Auto) 56.7 % (45-73) 12/15/24 06:18 Lymph % (Auto) 28.7 % (20-40) 12/15/24 06:18 [place] % (Auto) 9.0 % (2-11) 12/15/24 06:18 Eos % (Auto) 4.4 % (0-4) H 12/15/24 06:18 Baso % (Auto) 0.6 % (0-2) 12/15/24 06:18 Lymph # (Auto) 1.8 X10*3/uL (1.2-4.9) 12/15/24 06:18 [place] # (Auto) 0.6 X10*3/uL (0.1-1.2) 12/15/24 06:18 Eos # (Auto) 0.3 X10*3/uL (0.0-0.4) 12/15/24 06:18 Baso # (Auto) 0.0 X10*3/uL (0.0-0.2) 12/15/24 06:18 Abs Immat Gran (auto) 0.04 X10*3/uL (0.00-0.03) H 12/15/24 06:18 Absolute Neuts (auto) 3.6 x10*3/uL (2.0-8.3) 12/15/24 06:18 Absolute Nucleated RBC 0.000 X10*3/uL (0.0-0.012) 12/15/24 06:18 Nucleated RBC % (auto) 0.0 /100WBC (0.0-0.2) 12/15/24 06:18 ESR 68 MM/HR (0-15) H 12/12/24 17:58 Hold Purple Top SEE NOTE 12/19/24 05:09 Sodium 139 mmol/L (135-145) 12/15/24 06:18 Potassium 3.7 mmol/L (3.3-5.1) 12/15/24 06:18 Chloride 104 mmol/L (96-108) 12/15/24 06:18 Carbon Dioxide 24 mmol/L (22-29) 12/15/24 06:18 Anion Gap 15 (12-20) 12/15/24 06:18 BUN 11 mg/dL (9-16) 12/15/24 06:18 Creatinine 1.13 mg/dL (0.5-1.4) 12/19/24 05:09 Estim Creat Clear Calc 86.1 12/19/24 05:09 Estimated GFR > 60 12/19/24 05:09 POC Glucose 149 mg/dL (60-115) H 12/20/24 07:32 Random Glucose 184 mg/dL (60-115) H 12/15/24 06:18 Estimat Average Glucose 295 mg/dL 12/13/24 06:10 Hemoglobin A1c % 11.9 % (<6.0) H 12/13/24 06:10 Lactic Acid 1.5 mmol/L (0.5-2.0) 12/12/24 17:58 Calcium 8.6 mg/dL (8.4-10.2) 12/15/24 06:18 Total Bilirubin 0.7 mg/dL (0.0-1.0) 12/12/24 17:58 Direct Bilirubin 0.3 mg/dL (0.0-0.5) 12/12/24 17:58 AST 19 U/L (5-37) 12/12/24 17:58 ALT 19 U/L (0-40) 12/12/24 17:58 Alkaline Phosphatase 128 U/L (39-117) H 12/12/24 17:58 C-Reactive Protein 3.09 mg/dL (< or = 0.50) H 12/12/24 17:58 Total Protein 8.1 g/dL (6.5-8.0) H 12/12/24 17:58 Albumin 4.1 g/dL (3.5-5.0) 12/12/24 17:58 Hold Yellow Top See Note 12/14/24 06:17 Random Vancomycin 16.2 mcg/mL (15-20) 12/16/24 18:58 Impressions Foot X-Ray 12/12/24 16:51 IMPRESSION: Suspected septic arthritis with osteomyelitis involving the head and neck region of the fifth metatarsal and proximal half of the fifth proximal phalanx with aggressive bony destruction. Mild first MTP joint osteoarthritis. Electronically signed by: Erasmo Downs MD 12/12/2024 05:04 PM EDT RP Foot MRI 12/13/24 11:50 IMPRESSION: Fifth MTP joint septic arthritis and osteomyelitis of the fifth proximal phalanx and metatarsal with adjacent soft tissue ulceration extending to the bone. There are erosive changes in the central and dorsal aspect of the proximal phalanx. The fifth proximal phalanx is involved with sparing the head. Extensive destructive erosive changes are present involving the head and neck of the fifth metatarsal osteomyelitis sparing the region of the fifth metatarsal tuberosity. There are changes consistent with cellulitis involving deep and superficial soft tissues of the midfoot extending into the fifth digit. There is hyperenhancement of the soft tissues plantar to the fourth and fifth metatarsals and in the soft tissues interposed between the fourth metatarsals of uncertain significance. This could be related to lack of cellulitis in this region but could also be related related to decreased blood flow to this region. Electronically signed by: Erasmo Downs MD 12/13/2024 12:54 PM EDT Discharge Plan Discharge Anticipated Discharge Date/Time: 12/20/24 10:46 Patient Disposition: Home Health Service Discharge Diagnosis: infected diabetic foot ulcer/osteomyelitis uncontrolled type 2 diabetes Ref[place]: [facility] [place] Group] - 1 Week Diogo Stover MD [Primary Care Provider, Emergency Medicine] - 1 Week Juana Patino MD [Physician, Infectious Disease] - 2 Weeks Discharge Medications: New levofloxacin 750 mg Tablet 750 mg PO Q24H Qty: 38 0RF Dakin's Solution 0.125 % Solution 1 appl topical BID Qty: 1000 0RF ertapenem 1 gram recon soln 1 g IV DAILY 38 Days insulin glargine [Lantus Solostar U-100 Insulin] 100 unit/mL (3 mL) insulin pen 12 unit SUBCUT DAILY Qty: 15 11RF (DME) pen needle, diabetic 32 gauge x 1/4 needle Qty: 100 11RF Rx Instructions: check twice daily Continued atorvastatin 20 mg tablet 20 mg PO DAILY metformin 1,000 mg tablet 1,000 mg PO DAILY lisinopril 10 mg tablet 10 mg PO DAILY Discontinued collagen,hydrolyz-ascorbate Ca 1 gram- 10 mg Tablet 1 tab PO BID Discharge Orders: Discharge Order (Routine); Ordered 12/20/24 Ordered By: Ashley Alanis Diet: Diabetic diet Activity on Discharge: As tolerated Stand Alone Forms: Patient Portal Discharge page, Work/School Release Print Language: Tamazight Care Plan Goals: cure infection Health Concerns: infected diabetic foot ulcer/osteomyelitis uncontrolled type 2 diabetes Plan of Treatment: levofloxacin 750 mg once daily; ertapenem 1 gram IV daily via PICC line; end date for both antibiotics 01/27/25 after which PICC should be discontinued wound care: Left Foot - Cleanse and gently irrigate with NS, pat dry, apply skin barrier to wound edge apply Dakins moist gauze dressing to wound bed, cover with dry gauze, ABD pad and wrap. Change Daily. follow up with [facility] [place] [facility] [place], [facility] [place] 2 weeks continue metformin; add Lantus pen 12 units daily check blood glucose before breakfast (goal 80-140) and 2 hours after largest meal of day (goal 80-200) diet/exercise Please follow up with your primary care doctor within 1 week. Return to the hospital if you experience recurrent or worsening symptoms. Assessment: See Discharge Summary.
[2024-12-20 11:34] LABS: Glucose, Whole Blood 259 mg/dL (60-115)
--- NOTE | 2024-12-20 13:07 | HO.PM.IMPN ---
Subjective Subjective Date of Service: 12/20/24 Interval History: awaiting infusion service, no new events Review of Systems Review of Systems: Yes all other systems are reviewed and are negative Physical Exam Vital Signs: Vital Signs: Last Vital Signs Temp 98.6 F 12/20/24 07:30 Pulse 90 12/20/24 07:30 Resp 16 12/20/24 07:30 BP 122/80 12/20/24 07:30 Pulse Ox 94 12/20/24 07:30 O2 Del Method Room Air 12/20/24 07:30 BMI result Body Mass Index 38.7 Gen: in no acute distress HEENT: sclera anicteric, moist mucus membranes Neck: supple Lungs: clear to auscultation bilaterally Heart: regular rate and rhythm, no murmurs Abd: soft, non-tender, non-distended Ext: no edema, LUE PICC Skin: warm/well-perfused, L base of 5th toe with 3 cm granulated wound without any purulent discharge; also has 1.5 cm wound on R great toe Neuro: alert and oriented x3, no focal findings Psych: appropriate affect Objective Data Active Medications Acetaminophen (Acetaminophen 325 Mg Tablet) 975 mg PO Q6H PRN PRN Reason: Pain, Mild 1-3,fever,headache Last Admin: 12/19/24 19:36 Dose: 975 mg Documented By: SANDY Atorvastatin Calcium (Atorvastatin Calcium 20 Mg Tablet) 20 mg PO DAILY [facility] Last Admin: 12/20/24 08:51 Dose: 20 mg Documented By: PARDEEP Benzonatate (Benzonatate 100 Mg Capsule) 100 mg PO TID PRN PRN Reason: Cough Last Admin: 12/14/24 23:16 Dose: 100 mg Documented By: STACEY Calcium Carbonate (Calcium Carbonate 750 Mg Tab.Chew) 750 mg PO Q4H PRN PRN Reason: Heartburn Dextrose (Dextrose 50 % 25 Gm/50 Ml Syringe) 25 gm IVPUSH Q15M PRN; Protocol PRN Reason: per Hypoglycemia Standing Ord. Enoxaparin Sodium (Enoxaparin Sodium 40 Mg/0.4 Ml Syringe) 40 mg SUBCUT Q24H [facility] Last Admin: 12/19/24 21:27 Dose: 40 mg Documented By: MO Glucose (Glucose Gel 15 Gm Gel..Gram.) 15 gm PO Q15M PRN; Protocol PRN Reason: per Hypoglycemia Standing Ord. Insulin Glargine (Insulin Glargine,Hum.Rec.Anlog 100 Unit/Ml 10 Ml Vial) 10 unit SUBCUT DAILY [facility] Last Admin: 12/20/24 08:51 Dose: 10 unit Documented By: PARDEEP Insulin Human Lispro (Insulin Lispro 100 Unit/Ml 3 Ml Vial) 0 unit SUBCUT QIDACHS [facility]; Protocol Last Admin: 12/20/24 11:47 Dose: 6 unit Documented By: PARDEEP Levofloxacin (Levofloxacin 750 Mg Tablet) 750 mg PO Q24H [facility] Last Admin: 12/20/24 01:16 Dose: 750 mg Documented By: SANDY Lisinopril (Lisinopril 10 Mg Tablet) 10 mg PO DAILY [facility]; Protocol Last Admin: 12/20/24 08:51 Dose: 10 mg Documented By: PARDEEP Magnesium Hydroxide (Milk Of Magnesia 30 Ml Oral.Susp) 30 ml PO DAILY PRN PRN Reason: Constipation Last Admin: 12/17/24 09:31 Dose: 30 ml Documented By: LIGIA Melatonin (Melatonin 3 Mg Tablet) 6 mg PO BEDTIME PRN PRN Reason: Insomnia Metformin HCl (Metformin Hcl 1,000 Mg Tablet) 1,000 mg PO DAILY [facility] Last Admin: 12/20/24 08:51 Dose: 1,000 mg Documented By: PARDEEP Sodium Chloride (0.9 % Sodium Chloride Flush 3 Ml Syringe) [facility] Last Admin: 12/20/24 08:56 Dose: Not Given Documented By: PARDEEP Non-Admin Reason: No Access Sodium Chloride (0.9 % Sodium Chloride Flush 10 Ml Syringe) [facility] Last Admin: 12/20/24 08:52 Dose: 10 ml Documented By: PARDEEP Sodium Hypochlorite (Sodium Hypochlorite 0.125% 473 Ml Solution) 1 appl TOPICAL BID [facility] Last Admin: 12/20/24 10:59 Dose: 1 appl Documented By: PARDEEP Labs 12/15/24 06:18 12/19/24 05:09 Labs: Laboratory Results - last 24 hr 12/19/24 12/19/24 12/20/24 16:01 20:17 07:32 POC Glucose 183 H 177 H 149 H 12/20/24 11:25 POC Glucose 259 H Assessment and Plan (1) Diabetic foot infection: Status: Acute (2) Type 2 diabetes mellitus: Status: Acute Plan d9, 59yo M with DM2 with neuropathy, HTN, HLD sent in by [facility] due to L lateral foot wound DM osteomyelitis/septic arthritis + infected ulcer L foot [growing Pseudomons aeruginosa + Group B Streptococcus] Streptococcus mitis/oralis bacteremia - s/p bedside debridement by Gen Surg 12/13; s/p IV vancomycin + piperacillin-tazobactam; per ID, meropenem [ertapenem on discharge] plus levofloxacin x 6 wk 12/16-01/27, PICC placed in E; TTE without vegetation; no arterial occlusion by Duplex - wound care: Left Foot - Cleanse and gently irrigate with NS, pat dry, apply skin barrier to wound edge apply Dakins moist gauze dressing to wound bed, cover with dry gauze, ABD pad and wrap. Change Daily. - follow up with [facility] after discharge DM2 uncontrolled, A1c 11.9 - MTF, started Lantus and will Rx upon discharge HTN - lisinopril HLD - statin VTE prophylaxis - enoxaparin dispo - anticipate home with VNA In my clinical judgment, the patient requires continued inpatient hospitalization for the following reasons: awaiting PICC + arterial dopplers Total time managing care of this patient today: 35 minutes. Quality Stroke Does the patient have a stroke diagnosis?: No VTE Prior VTE?: No VTE Risk Level:: Medical - moderate - high VTE Device Contraindication: Treatment Not Indicated VTE Drug Contraindication: N/A - Med Ordered
--- NOTE | 2024-12-20 13:58 | MHC.CM.PN ---
PATIENT WILL D/C HOME TODAY W/ IV ERTAPENUM UNTIL 01/27/2025. TO TRANSPORT. [facility] FOR [facility]F AND START DATE 12/21
[2024-12-20 15:14] VITALS: BP 130/85; RESP 16; TEMP 36.9; O2SAT 98
[2024-12-20 15:28] VITALS: BP 130/85; PULSE 100; RESP 18; TEMP 36.3; O2SAT 94
--- NOTE | 2025-01-08 12:03 | P.CDIM_ITS ---
PROVIDER RESPONSE TEXT: To clarify, the appropriate diagnosis supported by the clinical indicators: Excisional debridement QUERY TEXT: PHYSICIAN'S DOCUMENTATION REQUEST Date of Query: 01/08/2025 11:13 AM EDT Patient Name: Sahcin Vides Admit Date: 12/13/2024 Dear Federico Amezquita PA-C, RETROSPECTIVE QUERY A review of the medical record indicates additional documentation may be needed. Please review below and update the documentation accordingly. Clinical Indicators: Surgical note 12/13/24 - Left lateral foot Sharply debrided using forceps and cayetano scissors to remove move of the necrotic tissue until there was granulation tissue. Obtained specimens of bone from the left foot wound and sent to culture. Wound packed with saline soaked gauze, covered with fluff gauze and wrapped. Could you provide, in the Progress Notes, further clarification regarding the type of debridement performed? Excisional debridement Non-excisional debridement Other specifics to debridement Other (explain) Clinically unable to determine (explain) Thank you, Andreea Kang, CCS, CDIS Use of terms such as suspected, likely, concern for, or probable (associated with a specific diagnosis that is being evaluated, monitored, or treated as if it exists) are acceptable and can be coded in the inpatient setting, when documented at the time of discharge. Please use your independent medical judgment in providing your response. THIS QUERY IS PART OF THE PERMANENT MEDICAL RECORD
--- NOTE | 2025-01-08 12:06 | P.CDIM_ITS ---
PROVIDER RESPONSE TEXT: To clarify, the appropriate diagnosis supported by the clinical indicators: Excisional debridement: skin and subq, 0.3 cm deep probed with finger, able to palpate to bone QUERY TEXT: PHYSICIAN'S DOCUMENTATION REQUEST Date of Query: 01/08/2025 11:20 AM EDT Patient Name: Sachin Vides Admit Date: 12/13/2024 Dear Federico Amezquita PA-C, RETROSPECTIVE QUERY A review of the medical record indicates additional documentation may be needed. Please review below and update the documentation accordingly. Clinical Indicators: Surgical note dated 12/13/24 - Right foot great toe Ulceration wound 0.9 x 0.9 and 0.3 cm deep. Sharply debrided using forceps and cayetano scissors to remove most of the necrotic tissue. 1.5 x 1.5 cm wound about 0.5 deep without tracking, with small amounts of bloody drainage. This was performed on the right, with a curette until there was adequate granulation tissue. Wound were packed with saline soaked guaze. Could you provide, in the Progress Notes, further clarification regarding the type and depth of the debridement? Excisional debridement Please also address the Depth of debridement for ex. skin, subcutaneous, fascia, bone, tendons, bursa, ligaments, muscles etc. Non-excisional debridement Please also address the Depth of debridement for ex: skin, subcutaneous, fascia, bone, tendons, bursa, ligaments, muscles etc. Other (explain) Clinically unable to determine (explain) Thank you, Andreea Kang, CCS, CDIS Use of terms such as suspected, likely, concern for, or probable (associated with a specific diagnosis that is being evaluated, monitored, or treated as if it exists) are acceptable and can be coded in the inpatient setting, when documented at the time of discharge. Please use your independent medical judgment in providing your response. THIS QUERY IS PART OF THE PERMANENT MEDICAL RECORD
== END 2024-12-20 16:00 | disposition home health service (06) | DRG 314 ==
LOC: HO.ED 21:22 → HO.EDOVER 22:28 → HO.S3 12-13 07:45
PROVIDERS: Hospitalist; Nurse Practitioner Acute Care; Physician Assistant Medical; Admitting Provider Physician Assistant; Emergency Provider Emergency Medicine; PCP Emergency Medicine; Visit Provider Family Medicine
DX: E11.621 Type 2 diabetes mellitus with foot ulcer (principal); M86.172 Other acute osteomyelitis, left ankle and foot; R78.81 Bacteremia; E11.42 Type 2 diabetes mellitus with diabetic polyneuropathy; L97.519 Non-pressure chronic ulcer of other part of right foot with unspecified severity; B95.1 Streptococcus, group B, as the cause of diseases classified elsewhere; B95.4 Other streptococcus as the cause of diseases classified elsewhere; E11.69 Type 2 diabetes mellitus with other specified complication; L97.524 Non-pressure chronic ulcer of other part of left foot with necrosis of bone; E66.813 Obesity, class 3; I10 Essential (primary) hypertension; E11.65 Type 2 diabetes mellitus with hyperglycemia; E78.5 Hyperlipidemia, unspecified; Z71.3 Dietary counseling and surveillance; Z68.38 Body mass index [BMI] 38.0-38.9, adult; Z79.4 Long term (current) use of insulin; Z79.84 Long term (current) use of oral hypoglycemic drugs; Z79.899 Other long term (current) drug therapy
CPT/HCPCS: 36415; 36573; 73630; 73720; 80048; 80076; 80202; 82565; 82947; 83036; 83605; 85025; 85652; 86140; 87040; 87070; 87073; 87077; 87147; 87186; 87205; 93306; 93925; 99285; A9585; C1751; J1200; J1335; J1650; J2185; J2543; J3373; J3374; Q9957

== ENCOUNTER → 2024-12-12 16:33 | Outpatient (BNV) | payer OTHER, SELFPAY | PROVIDERS: PCP Emergency Medicine; Visit Provider Radiology Diagnostic Radiology | DX: M86.172 Other acute osteomyelitis, left ankle and foot (principal) | CPT/HCPCS: 73630 ==

== ENCOUNTER 2024-12-12 22:25 | Outpatient (BNV) | payer MEDICAID, SELFPAY | END 2024-12-19 21:00 | PROVIDERS: Admitting Provider Physician Assistant; Emergency Provider Emergency Medicine; PCP Emergency Medicine; Visit Provider Radiology Neuroradiology | DX: L97.528 Non-pressure chronic ulcer of other part of left foot with other specified severity (principal) | CPT/HCPCS: 93925 ==

== ENCOUNTER 2024-12-12 22:25 | Outpatient (BNV) | payer MEDICAID, SELFPAY | END 2024-12-13 11:50 | PROVIDERS: Admitting Provider Physician Assistant; Emergency Provider Emergency Medicine; PCP Emergency Medicine; Visit Provider Radiology Diagnostic Radiology | DX: M86.172 Other acute osteomyelitis, left ankle and foot (principal) | CPT/HCPCS: 73720 ==

== ENCOUNTER 2024-12-12 22:25 | Outpatient (BNV) | payer MEDICAID, SELFPAY | END 2024-12-16 07:00 | PROVIDERS: Admitting Provider Physician Assistant; Emergency Provider Emergency Medicine; PCP Emergency Medicine; Visit Provider Internal Medicine Cardiovascular Disease | DX: I51.89 Other ill-defined heart diseases (principal); I77.810 Thoracic aortic ectasia | CPT/HCPCS: 93306 ==

== ENCOUNTER → 2024-12-12 22:25 | Outpatient (BNV) | payer MEDICAID, SELFPAY | PROVIDERS: Admitting Provider Physician Assistant; Emergency Provider Emergency Medicine; PCP Emergency Medicine; Visit Provider Physician Assistant Medical | DX: E11.628 Type 2 diabetes mellitus with other skin complications (principal); L08.9 Local infection of the skin and subcutaneous tissue, unspecified; M86.172 Other acute osteomyelitis, left ankle and foot; E11.65 Type 2 diabetes mellitus with hyperglycemia; E13.69 Other specified diabetes mellitus with other specified complication; M86.9 Osteomyelitis, unspecified; E11.9 Type 2 diabetes mellitus without complications | CPT/HCPCS: 99223; 99232; 99233; 99239; 99499; G0180 ==

== ENCOUNTER → 2024-12-12 22:25 | Outpatient (BNV) | payer OTHER, SELFPAY | PROVIDERS: Admitting Provider Physician Assistant; Emergency Provider Emergency Medicine; PCP Emergency Medicine; Visit Provider Physician Assistant | DX: E11.628 Type 2 diabetes mellitus with other skin complications (principal); L08.9 Local infection of the skin and subcutaneous tissue, unspecified; E11.621 Type 2 diabetes mellitus with foot ulcer | CPT/HCPCS: 99222 ==

== ENCOUNTER → 2024-12-12 22:25 | Outpatient (BNV) | payer SELFPAY | PROVIDERS: Admitting Provider Physician Assistant; Emergency Provider Emergency Medicine; PCP Emergency Medicine | DX: E11.628 Type 2 diabetes mellitus with other skin complications (principal); L08.9 Local infection of the skin and subcutaneous tissue, unspecified; M86.172 Other acute osteomyelitis, left ankle and foot | CPT/HCPCS: 99222; 99232 ==

== ENCOUNTER → 2024-12-12 22:25 | Outpatient (BNV) | payer MEDICAID, SELFPAY | PROVIDERS: Admitting Provider Physician Assistant; Emergency Provider Emergency Medicine; PCP Emergency Medicine; Visit Provider Internal Medicine | DX: E11.628 Type 2 diabetes mellitus with other skin complications (principal); L08.9 Local infection of the skin and subcutaneous tissue, unspecified; M86.172 Other acute osteomyelitis, left ankle and foot | CPT/HCPCS: 99222 ==

== ENCOUNTER 2024-12-26 13:48 | Outpatient (REF) | payer OTHER, SELFPAY ==
--- OUTSIDE RECORDS SUMMARY | 2024-02-08 05:25 | XMS_ITS ---
Author Organization Eugene Stover III, MD Address [address] [place] [address] Care Team Providers Care Wire Annealer Name Role Phone Eugene Stover Primary Care [...] Date Provider Diagnosis Eugene Stover III, MD [address] [place] [address] [place] [address] 02/08/2024 Eugene Stover Plan Of Treatment Medication Medication Name Sig Start Date Stop Date Notes Lisinopril 10 MG 1 tablet Orally Once a day for 30 days Next Appt Details Provider Name:Eugene Stover, 12/27/2024 02:30:00 PM, [address] [place] [address] [place], [address], Provider Name:Eugene Stover, 02/25/2025 09:30:00 AM, [address] [place] [address] [place], [address], Progress Notes * Sachin CARDOSODOApoilnar:1965 ( 58 yo M)Acc No.[id number]:02/08/2024 Patient: Sachin PINTO :1965 A ge:58 Y S ex:Male Address:[address] [place] [address], [address] , [place] [address] * Refills Refill Lisinopril Tablet, 10 MG, Orally, 30, 1 tablet, Once a day, 30 days, Refills=0 * true * Date: Generated for Denny quiroga/Carline/Shay on: 0 12/26/2024 05:43 PM EDT
--- OUTSIDE RECORDS SUMMARY | 2024-02-23 05:15 | XMS_ITS ---
Author Organization Eugene Stover III, MD Address [address] [place] [address] Care Team Providers Care Pressurization Mechanic Name Role Phone Eugene Stover Primary Care Provider [phone] Allergies Allergen (clinical drug ingredient) Drug/Non Drug Allergy documented on EMR Reaction Allergy Type Onset Date Status No Known Drug Allergy Unknown Drug Allergy Active Reason For Referral Reason Consult and Treat Diabetic Eye Exam Diagnosis 1 Type 2 diabetes jorge l itus with foot ulcer (E11.621) Referral Organization Eugene Stover III, MD Referring Provider First Name Eugene Referring Provider Last Name Jolanta Referring Provider Speciality Internal M edicine Referred Provider Eye and LasSarai rodríguez Referred Provider Specialty Unknown General Notes Ivett Camarena 02/26/2024 12:34:38 PM > Referral faxed with progress note, Ivett Camarena 03/08/2024 10:08:17 AM > Office has reached out to patient numerous times. The patient is advised to reach out to office to schedule appointment., Ivett Camarena 07/25/2024 09:57:06 AM > Office has reached out to the patient numerous times with no success. Called patient and left a message to contact [facility], Ivett Camarena 08/29/2024 02:43:21 PM > Office stated they were not able to schedule the patient and that if the patient wants to be seen a new referral would have to be sent over. Closing referral Referral Priority Routine REASON FOR VISIT Annual Exam Medications Medication SIG (Take, Route, Frequency, Duration) Notes Start Date End Date Status metFORMIN HCl Active Atorvastatin Calcium Active Lisinopril 10 MG 1 tablet Orally Once a day Active Albuterol Sulfate HFA 108 (90 Base) MCG/ACT 1 puff as needed Inhalation every 4 hrs 05/30/2022 Active Social History Tobacco Use: Social History Observation Description Date Details (start date - stop date) Never Smoker NA - NA Sex Assigned At : Social History Observation Description Sex Assigned At Male Tobacco Use/Smoking Question Answer Notes Patient is a nonsmoker Additional Findings: Tobacco Non-User Aggressive non-smoker Alcohol Screen Question Answer Notes Did you have a drink containing alcohol in the p ast year? No Points 0 Interpretation Negative Vital Signs Temperature 98.2 degrees Fahrenheit 02/23/20 24 Blood pressure systolic 144 mm Hg 02/23/20 24 Blood pressure diastolic 79 mm Hg 024 Heart Rate 92 /min 02/23/2024 Height 5 ft 7 in in 02/23/2024 Weight 269 lbs 02/23/2024 BMI 42.13 kg/m2 02/23/2024 Encounters Encounter Location Date Provider Diagnosis Eugene Stover III, MD [address] [place] [address] [place] [address] 02/23/2024 Eugene Stover Hyperlipidemia E78.5 ; Type 2 diabetes mellitus without complication, without long-term current use of insulin E11.9 ; BPH (benign prostatic hyperplasia) N40.0 ; Essential hypertension I10 ; Obstructive sleep apnea G47.33 ; Ureterolithiasis N20.1 ; Peripheral neuropathy G62.9 and Ulcer of toe L97.509 Assessments Encounter Date Diagnosis (ICD Code) Assessment Notes Treat ment Notes Treatment Clinical Notes 02/23/2024 Hyperlipidemia (ICD- 10 - E78.5) Comprehensive blood work including a fasting lipid profile was ordered. He was counseled about weight loss and diet and nutrition. 02/23/2024 Type 2 diabetes mellitus without complication, without long-term current use of insulin (ICD-10 - E11.9) He will resume the metformin and his medications will be adjusted after blood work is available. He was counseled on compliance. He was referred to a beam house inspector. He was referred to an freight breaker. I recommended a statin drug. He will continue the lisinopril. We will try to reach a target A1c. He will have comprehensive blood work with fasting lipids, microalbumin, A1c and fasting glucose. He will be seen in the office frequently. 02/23/2024 BPH (benign prostati c hyperplasia) (ICD-10 - N40.0) He rises from sleep once or twice a night to urinate. We discussed lifestyyle modifications he could make to reduce nocturia. 02/23/2024 Essential hypertensi on (ICD-10 - I10) His blood pressure was elevated at 144/79. We discussed his diet and sodium restriction. I recommended aggressive weight loss. He was given a follow-up appointment in the near future to check his blood pressure again. He will be treated if necessary. He will continue on the lisinopril. 02/23/2024 Obstructive sleep apnea (ICD-10 - G47.33) I strongly recommend that he continue to use his CPAP. 02/23/2024 Ureterolithiasis (ICD-10 - N20.1) He is had renal colic and no kidney stone since his last visit. He was advised to stay well hydrated. 02/23/2024 Peripheral neuropath y (ICD-10 - G62.9) He continues to have a moderate diabetic neuropathy.He has a new ulcer on the volar surface of his left toe which is being treated in the wound clinic. He will have better control of his diabetes. 02/23/2024 Ulcer of toe (ICD-10 - L97.509) He continues to go to the wound clinic. I recommended that he exercise but avoid anything that which she reports on his foot such as climbing stairs or running. Plan Of Treatment Medication Medication Name Sig Start Date Stop Date Notes metFORMIN HCl Atorvastatin Calcium Lisinopril 10 MG 1 tablet Orally Once a day Albuterol Sulfate HFA 108 (9 0 Base) MCG/ACT 1 puff as needed Inhalation every 4 hrs 05/30/2022 Pending Test Test Name Order Date PROFILE, FASTING (COMPREHENSIVE METABOLI C) 02/23/2024 PSA, TOTAL 02/23/2024 CBC WITH AUTO DIFF 02/23/2024 Lipid Panel 02/23/2024 Microalbumin, Random 02/23/2024 Hemoglobin A1c 02/23/2024 Referrals Referral Date Details 02/23/2024 02/23/2024, Consult and Treat Diabetic Eye Exam, [facility] Next Appt Details Follow Up: 3 Months, In thre e months, Reason: OV, To manage diabetes and check on foot wound Provider Name:Eugene Stover, 12/27/2024 02:30:00 PM, [address] [place] [address] DR, [address], [place], [address], Provider Name:Eugene Stover, 02/25/2025 09:30:00 AM, [address] [place] [address] [address], [place], [address], Progress Notes * Sachin CARDOSODOB:1965 ( 58 yo M)Acc No.[id number]:02/23/2024 Progress Notes Patient: Sachin PINTO Provider: Carey Stover MD :1965 A ge:58 Y S ex:Male Date:02/23/2024 Address:[address] [place] [address], [address] , [id number] Subjective: * Chief Complaints: * A nnual Exam * HPI: D epression Screening: PHQ-9 L ittle interest or pleasure in doing things?Not at all F eeling down, depressed, or hopeless N ot at all T rouble falling or staying asleep, or sleeping too much N ot at all F eeling tired or having little energy N ot at all P oor appetite or overeating N ot at all F eeling bad about yourself or that you are a failure, or have let yourself or your family down N ot at all T rouble concentrating on things, such as reading the newspaper or watching television N ot at all M oving or speaking so slowly that other people could have noticed; or the opposite, being so fidgety or restless that you have been moving around a lot more than usual N ot at all T houghts that you would be better off or of hurting yourself in some way N ot at all T otal Score 0 C OVID-19 Screening: Questions H ave you experienced fever, chills, cough, sore throat, shortness of breath, difficulty breathing, muscle aches, loss of taste or smell? N o H ave you been exposed to the virus within the last 10 days? N o H ave you travelled internationally in the last 10 days? N o H ave you been exposed to COVID-19 in the past? N o S CARLITOS Questions: SDOH Questions I n the past year have you been worried about losing your housing? N o I n the past year have you or any family members you live with been unable to get any of the following when it was really needed? Check all that apply: N one * : The patient, a 58-year-old male, presented with a recurring infection in his left big toe. He has been dealing with this issue for some time and has been seeing a beam house inspector for treatment. The patient is scheduled to have a cast put on his foot either this week or next to aid in healing. He has neuropathy in both feet, which means he doesn't feel anything in them. He has been very diligent about foot care, including wearing diabetic shoes. He also has allergies which cause him to cough. He frequently gets up at night to urinate, about three or four times. He has lost a significant amount of weight, about 19 lbs, by cutting out unhealthy foods. He has been diagnosed as pre-diabetic, with a hemoglobin A1C of 8.4. He also has a high deductible insurance plan. He was last seen in the office for annual examination October 22, 2021. Since that time there were 2 telephone calls 1 on May 30, 2022 and February 08, 2024. He did not show for his October 28, 2022 annual exam. He has known diabetic neuropathy and a diabetic ulcer in his left big toe for which she has been going to the wound clinic. He says it is slowly healing. It is not painful unless he has no sensation. He is overdue for diabetic eye examination. He has an appointment next week at [facility] for his visual acuity and glasses. We have referred him to an freight breaker for routine diabetic care. He has been referreed to a beam house inspector routine diabetic foot care as the beam house inspector to which he was going has retired. He will be seen frequently if he is compliant. He says he has not been coming to the office regularly because of a large deductible on his insurance.He gave a history today that he is only taking lisinopril. He says he has not refilled his metformin. He was placed baack on appropriate medication.? I recommended he take a statin drug and he said he would consider this. Aggressive efforts to optimize his diabetic care are being put in place and to ensure his compliance and understanding. * ROS: G eneral/Constitutional: pain l eg neuropathy, only normal aches and pains. C hills d enies. F atigue a dmits. F ever d enies. E NT: Decreased hearing d enies. R espiratory: Cough n on-productive. C ardiovascular: Chest pain with exertion d enies. D yspnea on exertion?denies. S hortness of breath d enies. G astrointestinal: Constipation o ccasional. D ecreased appetite d enies. D iarrhea d enies. H eartburn d enies. N ausea d enies. R ectal bleeding d enies. V omiting d enies. H ematology: bruising d enies. p etechiae d enies. S wollen glands n one have been noted. G enitourinary: Frequent urination t wice a night. M usculoskeletal: Muscle aches d enies. P ainful joints d enies. S ciatica d enies. W eakness d enies. S kin: Itching d enies. R keena d enies. S kin lesion(s)?denies. N eurologic: Difficulty speaking d enies. D izziness d enies.?Headache d enies. L ow back pain d enies. P sychiatric: Depressed mood d enies. * Medical History: * Surgical History: C ytoscopy, right retrograde pyelogram, rught ureteral dilation, right flexible ureteroscopy, right ureteral stent [id number] history * Hospitalization/Major Diagno stic Procedure: N o history * Family History: Patient was adopted. * Social History: T obacco Use: T obacco Use/Smoking P atient is a n onsmoker A dditional Findings: Tobacco Non-User A ggressive non-smoker D rugs/Alcohol: D rugs H ave you used drugs other than those for medical reasons in the past 12 months? N o Alcohol Screen D id you have a drink containing alcohol in the past year? N o P oints 0 I nterpretation N egative H popeye is single and lives in [place]. He is working. 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 He lives in a two-person condo with seven people, including his girlfriend's son and his family. He has cut out unhealthy foods from his diet, leading to significant weight loss. * Medications: T akingLisinopril 10 MG Tablet 1 tablet Orally Once a day Taking Lisinopril 10 MG Tablet 1 tablet Orally Once a day Not-Taking/PRNAtorvastatin Calcium Medication List reviewed and reconciled with the patientNot-Taking/PRN Atorvastatin Calcium Medication List reviewed and reconciled with the patient * Allergies: N o Known Drug Allergyno[Allergies Verified] Objective: * Vitals: H t: 5 ft 7 in, Wt: 269, BMI:42.13, BP: 144/79, HR: 92, Temp: 98.2, Wt-k.02. * P ast Orders: I maging:XR foot LT min 3V (Order Date - 01/08/2024) (Performed Date - 01/08/2024) * Examination: G eneral Examination: GENERAL APPEARANCE: p leasant, well nourished, well developed, in no acute distress, calm and relaxed, morbidly obese, man. HEAD: a traumatic, normocephalic. EYES: e bennett, perrla, anicteric, conjugate. EARS: n ormal. NOSE: s eptum intact. ORAL CAVITY: n ormal, unremarkable. NECK/THYROID: n o jugular venous distention, no carotid bruit, thyroid normal. LYMPH NODES: n o enlarged lymph nodes,spleen normal. SKIN: n o suspicious lesions, anicteric. HEART: n o clicks, gallops, murmurs, or rubs, regular rhythm, S1, S2 normal, no s3, or vascular bruits. LUNGS: c lear to auscultation . BREASTS: no masses palpable bilaterally. ABDOMEN: b owel sounds normal, no ascites, no organomegaly, no mass, morbid obesity. RECTAL EXAM: , normal tone, no external hemorrhoids, no masses palpable, no melena, no red blood, prostate normal, stool guaiac negative. MUSCULOSKELETAL: e xtremities unremarkable, no clubbing, cyanosis or edema.The left first toe was bandaged. There was no smell. The ulcers healing.? The foot was clean and warm.. PERIPHERAL PULSES: n ormal. NEUROLOGIC: a lert and oriented, cranial nerves 2-12 grossly intact, deep tendon reflexes 2+ symmetrical, motor strength normal upper and lower extremities, sensory exam intact. PSYCH: a lert, oriented. - : E ars:Normal, Eyes: Normal, Prostate: Checked, Foot: Bandaged, Stool: No blood. Assessment: * Assessment: 1. T ype 2 diabetes mellitus without complication, without long-term current use of insulin - E11.9 (Primary) N otes :He will resume the metformin and his medications will be adjusted after blood work is available. He was counseled on compliance. He was referred to a beam house inspector. He was referred to an freight breaker. I recommended a statin drug. He will continue the lisinopril. We will try to reach a target A1c. He will have comprehensive blood work with fasting lipids, microalbumin, A1c and fasting glucose. He will be seen in the office frequently. 2 . H yperlipidemia - E78.5 N otes :Comprehensive blood work including a fasting lipid profile was ordered. He was counseled about weight loss and diet and nutrition. 3 . B PH (benign prostatic hyperplasia) - N40.0 N otes :He rises from sleep once or twice a night to urinate. We discussed lifestyyle modifications he could make to reduce nocturia. 4 . E ssential hypertension - I10 N otes :His blood pressure was elevated at 144/79. We discussed his diet and sodium restriction. I recommended aggressive weight loss. He was given a follow-up appointment in the near future to check his blood pressure again. He will be treated if necessary. He will continue on the lisinopril. 5 . O bstructive sleep apnea - G47.33 N otes :I strongly recommend that he continue to use his CPAP. 6 . U reterolithiasis - N20.1 N otes :He is had renal colic and no kidney stone since his last visit. He was advised to stay well hydrated. 7 . P eripheral neuropathy - G62.9 N otes :He continues to have a moderate diabetic neuropathy.He has a new ulcer on the volar surface of his left toe which is being treated in the wound clinic. He will have better control of his diabetes. 8 . U lcer of toe - L97.509 N otes :He continues to go to the wound clinic. I recommended that he exercise but avoid anything that which she reports on his foot such as climbing stairs or running. Plan: * Treatment: 2. H yperlipidemia Continue Atorvastatin Calcium; C ontinue metFORMIN HCl. L AB: PROFILE, FASTING (COMPREHENSIVE METABOLIC) L AB: PSA, TOTAL L AB: CBC WITH AUTO DIFF L AB: Lipid Panel L AB: Microalbumin, Random L AB: Hemoglobin A1c 3. B PH (benign prostatic hyperplasia) L AB: PROFILE, FASTING (COMPREHENSIVE METABOLIC) L AB: PSA, TOTAL L AB: CBC WITH AUTO DIFF L AB: Lipid Panel L AB: Microalbumin, Random L AB: Hemoglobin A1c 4. O thers Continue Lisinopril Tablet, 10 MG, 1 tablet, Orally, Once a day; C ontinue Albuterol Sulfate HFA Aerosol Solution, 108 (90 Base) MCG/ACT, 1 puff as needed, Inhalation, every 4 hrs. ? Referral To:[facility] Unknown Reason:Consult and Treat Diabetic Eye Exam * Procedure Codes: 8 2270 TEST FOR BLOOD, FECES * Preventive Medicine: Counseling: C are goal follow-up plan: Counseling for abnormal BMI given Y es Above Normal BMI Follow-up D ietary management education, guidance, and counseling, Dietary needs education, Exercise promotion: strength training, Exercise promotion: stretching, Feeding regime, Giving encouragement to exercise, Lifestyle education regarding diet, Nutrition / feeding management, Nutrition therapy, Prescribed activity/exercise education, Prescribed diet education, Prescribed dietary intake, Special diet education, Weight monitoring , Intervention, Order not done: Medical or Other reason not done DM Care Plan: P atient Lifestyle Goals P atient wants to be able to manage diabetes without too much effort. T reatment Goals B lood Sugars less than < 115, HbA1C < 7.0. B arriers L ack of understanding of condition - needs education on DM. S elf-Managment Goals W ork on weight loss, with a goal of losing 1 lb per week, Take blood sugars twice daily and keep a log. Bring log in to next appointment, Increase exercise to 3 times a week for 30 mins, Stop drinking juice and/or soda, replace with more water. * Follow Up: 3 Months, In three months (Reason: OV, To manage diabetes and check on foot wound) * Images: * Sign off status: Completed true * Provider: aCrey Stover MD Date: 04/24/2023 Generated for Printi ng/Faamyg/eTransmitting on: 0 12/26/2024 05:44 PM EDT History and Physical Notes * HPI (History of Present Illness) Category Sub-Category Detail Notes Depression Screening PHQ-9 Little inte rest or pleasure in doing things: Not at all Feeling down, depressed, or hopeless: No t at all Trouble falling or staying asleep, or sl eeping too much: Not at all Feeling tired or having little energy: N ot at all Poor appetite or overeating: Not at all Feeling bad about yourself o r that you are a failure, or have let yourself or your family down: Not at all Trouble concentrating on thi ngs, such as reading the newspaper or watching television: Not at all Moving or speaking so slowly that other people could have noticed; or the opposite, being so fidgety or restless that you have been moving around a lot more than usual: Not at all Thoughts that you would be b mariam off or of hurting yourself in some way: Not at all Total Score: 0 COVID-19 Screening Questions Have you had any new onset fever, chills, cough, congestion, sore throat, shortness of breath, muscle aches?: No Have you been exposed to the virus withi n the last 10 days?: No Have you travelled internationally in e last 10 days?: No Have you been exposed to COVID-19 in the past?: No SDOH Questions SDOH Questions In the past year have you been worried about losing your housing?: No In the past year have you or any family members you live with been unable to get any of the following when it was really needed? Check all that apply:: None Examination Category Sub-Category Detail Notes General Examination GENERAL APPEARANCE: pleasant , well nourished, well developed, in no acute distress, calm and relaxed, morbidly obese, man HEAD: atraumatic, normocep halic EYES: eomi, perrla, anicte mariano, conjugate EARS: normal NOSE: septum intact NECK/THYROID: no jugular venous di stention, no carotid bruit, thyroid normal HEART: no clicks, gallops, murmurs, or rubs, regular rhythm, S1, S2 normal, no s3, or vascular bruits LUNGS: clear to auscultatio n ABDOMEN: bowel sounds normal, no ascites, no organomegaly, no mass, morbid obesity NEUROLOGIC: alert and oriented, cranial nerves 2-12 grossly intact, deep tendon reflexes 2+ symmetrical, motor strength normal upper and lower extremities, sensory exam intact SKIN: no suspicious lesion s, anicteric PERIPHERAL PULSES: normal BREASTS: no masses palpable b ilaterally MUSCULOSKELETAL: extremities unremark able, no clubbing, cyanosis or edema.The left first toe was bandaged. There was no smell. The ulcers healing. The foot was clean and warm. LYMPH NODES: no enlarged lymph no sage,spleen normal RECTAL EXAM: , normal tone, no ex ternal hemorrhoids, no masses palpable, no melena, no red blood, prostate normal, stool guaiac negative PSYCH: alert, oriented ORAL CAVITY: normal, unremarkable Consultation Request Notes Referral Date Referring Provider Referred Provider Not es 02/23/2024 [facility] Consu lt and Treat Diabetic Eye Exam
--- OUTSIDE RECORDS SUMMARY | 2024-05-27 05:30 | XMS_ITS ---
Author Organization Eugene Stover III, MD Address [address] [place] [address] [place] [address] Care Team Providers Care Printed Products Assembler Name Role Phone Eugene Stover Primary Care Provider [phone] Allergies Allergen (clinical drug ingredient) Drug/Non Drug [...] Date Provider Diagnosis Eugene Stover III, MD [address] [place] [address] [place] [address] 05/27/2024 Eugene Stover Hyperlipidemia E78.5 Assessments Encounter [...] Provider Name:Eugene Stover, 12/27/2024 02:30:00 PM, [address] [facility] [address], [place], [address], Provider Name:Eugene Stover, 02/25/2025 09:30:00 AM, [address] [facility] [address], [place], [address], Progress Notes * Sachin CARDOSODOB:1965 ( 59 yo M)Acc No.[id number]:05/27/2024 Progress Notes Patient: Sachin PINTO Provider: Carey Stover MD :1965 A ge:59 Y S ex:Male Date:05/27/2024 Address:[address] [place] [address], [address] , [id number] Subjective: * Chief Complaints: * 1 . [...] H popeye is single and lives in [place]. He is working. 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 He lives in a two-person condo with [...] 05/27/2024 Generated for Denny quiroga/Carline/Rudyitting on: 0 12/26/2024 05:43 PM EDT History and Physical Notes * [...]
--- OUTSIDE RECORDS SUMMARY | 2024-12-06 11:00 | XMS_ITS ---
Author Organization Eugene Stover III, MD Address [address] [place] [place] [address] Care Team Providers Care Quarantine Officer Name Role Phone Eugene Stover Primary Care Provider [phone] Allergies Allergen (clinical drug ingredient) Drug/Non Drug Allergy documented on EMR Reaction Allergy Type Onset Date Status No Known Drug Allergy Unknown Drug Allergy Active REASON FOR VISIT Diabetic ulcer right first toe, Diabetes, Peripheral diabetic neuropathy, Ureterolithiasis, Sleep apnea, Hypertension, Hyperlipidemia, Obesity, Benign prostatic hypertrophy Medications Medication SIG (Take, Route, Frequency, Duration) Notes Start Date End Date Status Lisinopril 10 MG 1 tablet Orally Once a day for 30 days 12/06/2024 Active metFORMIN HCl 1000 MG 1 tablet with a me al Orally Once a day for 30 days 12/06/2024 Active Atorvastatin Calcium 20 MG 1 tablet Oral ly Once a day for 30 days 12/06/2024 Active Lisinopril 10 MG Take 1 tablet by gloria th once daily Active Atorvastatin Calcium Active metFORMIN HCl Active Albuterol Sulfate HFA 108 (90 Base) [...] nonsmoker Additional Findings: Tobacco Non-User Aggressive non-smoker Vital Signs Blood pressure systolic 139 mm Hg 12/07/19 25 Blood pressure diastolic 79 mm Hg 025 Heart Rate 82 /min 12/06/2024 Height 67 in 12/06/2024 Weight 247 lbs 12/06/2024 BMI 38.68 kg/m2 12/06/2024 Encounters Encounter Location Date Provider Diagnosis Eugene Stover III, MD [address] [place] [address] [address], [place] [address] 12/06/2024 Eugene Stover Hyperlipidemia E78.5 ; Type 2 diabetes mellitus with foot ulcer E11.621 ; Obesity E66.9 ; Peripheral neuropathy G62.9 ; Ureterolithiasis N20.1 ; Obstructive sleep apnea G47.33 ; Essential hypertension I10 ; 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 and BPH (benign prostatic hyperplasia) N40.0 Assessments Encounter Date Diagnosis (ICD Code) Assessment Notes Treat ment Notes Treatment Clinical Notes 12/06/2024 Hyperlipidemia (ICD- 10 - E78.5) Comprehensive blood work including a fasting lipid profile was ordered. He was counseled about weight loss and diet and nutrition.He reports he has not been taking his statin medication he could not give an explanation the medication was refilled and a written list of medications was given to him. We explained the reason for the atorvastatin. He was asked to bring his medications to his next visit which will be in the near future. 12/06/2024 Type 2 diabetes mellitus with foot ulcer (ICD-10 - E11.621) He reports he has not been taking his metformin. He could not give a reason why. Medication was refilled. He was given an appointment to return to the office in the near future after comprehensive blood work. This will be the same day next week he goes to the wound clinic to make on simpler. He will need close supervision in the future.In the past his hemoglobin A1c wass 9 point now and is now 11.1.Our goal will be 7.0.His medications will be adjusted for aggressive glycemic control. 12/06/2024 Obesity (ICD-10 - E66.9) He remains obese. He has lost 22 pounds since his last visit. His weight will be monitored carefully. Weight loss is likely partly from hyperglycemia 12/06/2024 Peripheral neuropath y (ICD-10 - G62.9) He continues to have a moderate diabetic neuropathy.He has a new ulcer on the volar surface of his left toe which is being treated in the wound clinic. He will have better control of his diabetes. 12/06/2024 Ureterolithiasis (ICD-10 - N20.1) He is had renal colic and no kidney stone since his last visit. He was advised to stay well hydrated. 12/06/2024 Obstructive sleep apnea (ICD-10 - G47.33) I strongly recommend that he continue to use his CPAP. 12/06/2024 Essential hypertensi on (ICD-10 - I10) His blood pressure was elevated at 144/79. We discussed his diet and sodium restriction. I recommended aggressive weight loss. He was given a follow-up appointment in the near future to check his blood pressure again. He will be treated if necessary. He will continue on the lisinopril. 12/06/2024 Non-pressure chronic ulcer of other part of right foot with necrosis of muscle (ICD-10 - L97.513) The wound on the bottom surface of his right first toe has healed. The surface is flat with brownish discoloration. No infection is noted. A new area is present on the bottom surface of the right foot close to the lateral border on the plantar surface behind the fifth and fourth toes. 12/06/2024 BPH (benign prostati c hyperplasia) (ICD-10 - N40.0) He rises from sleep once or twice a night to urinate. We discussed lifestyyle modifications he could make to reduce nocturia. Plan Of Treatment Medication Medication Name Sig Start Date Stop Date Notes Lisinopril 10 MG 1 tablet Orally Once a day for 30 days 12/06/2024 metFORMIN HCl 1000 MG 1 tablet with a me al Orally Once a day for 30 days 12/06/2024 Atorvastatin Calcium 20 MG 1 tablet Oral ly Once a day for 30 days 12/06/2024 Lisinopril 10 MG Take 1 tablet by gloria once daily Atorvastatin Calcium metFORMIN HCl Albuterol Sulfate HFA 108 (9 0 Base) MCG/ACT 1 puff as needed Inhalation every 4 hrs 05/30/2022 Pending Test Test Name Order Date PROFILE, FASTING (COMPREHENSIVE METABOLI C) 12/06/2024 CBC w DIFF 12/06/2024 Lipid Panel 12/06/2024 Microalbumin, Random 12/06/2024 Hemoglobin A1c 12/06/2024 Next Appt Details Follow Up: 3 Weeks, Reason: OV Provider Name:Eugene Stover, 12/27/2024 02:30:00 PM, [address] [place] [address] DR, [address], [place], [id number], Provider Name:Eugene Stover, 02/25/2025 09:30:00 AM, [address] [place] [address] [address], [place], [phone], Progress Notes * Sachin CARDOSODOB:1965 ( 59 yo M)Acc No.[id number]:12/06/2024 Progress Notes Patient: Sachin PINTO Provider: Carey Stover MD :1965 A ge:59 Y S ex:Male Date:12/06/2024 Address:[address] [place] [address], [address] , [id number] Subjective: * Chief Complaints: * D iabetic ulcer right first toeDiabetesPeripheral diabetic neuropathyUreterolithiasisSleep apneaHypertensionHyperlipidemiaObesityBenign prostatic hypertrophy * HPI: C OVID-19 Screening: Luca nye returns for medical management of diabetes and his other issues. He has been going to the wound care clinic at [facility] weekly for a large deep pressure ulcer on the ventral surface of his right first toe. He missed his appointment yesterday because he did not remember to discharge his phone which is how he remembers. He has an appointment next week. He reports that his feet are improving but still painful. He has a new blister on his left foot.His most recent blood work was from October 14, 2024. His hemoglobin A1c was 11.2. His blood work was reviewed with him in detail. He told me that he is no longer taking his metformin. He could not give me a good reason for this except that he forgot he also has not been taking his statin. We made a list of medications he should be on in their schedules. We discussed this at length today. He received it in writing. A close follow-up visit was arranged. Repeat blood work was arranged. His research biologist was identified and he was referred back for his annual visit. He was instructed on the importance of going to the wound clinic. The wound on his right first toe on examination was not infected but was very deep and circular and about an inch in diameter. The remainder of the toe is pink and warm. This patient will need close management and medical support taking his medications properly. Questions H ave you had any new [...] dilation, right flexible ureteroscopy, right ureteral stent [id number] diabetic pressure ulcer right first toe * Hospitalization/Major Diagno stic Procedure: N o history * Family History: Patient was adopted. * Social History: T obacco Use: T obacco Use/Smoking P atient is a n onsmoker A dditional Findings: Tobacco Non-User A ggressive non-smoker Luca nye is single and lives in [place]. He is working. 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 He lives in a two-person condo with seven people, including his girlfriend's son and his family. He has cut out unhealthy foods from his diet, leading to significant weight loss. * Medications: T akingLisinopril 10 MG Tablet Take 1 tablet by mouth once daily Atorvastatin Calcium metFORMIN HCl Albuterol Sulfate HFA 108 (90 Base) MCG/ACT Aerosol Solution 1 puff as needed Inhalation every 4 hrs Medication List reviewed and reconciled with the patientTaking Lisinopril 10 MG Tablet Take 1 tablet by mouth once daily Taking Atorvastatin Calcium Taking metFORMIN HCl Taking Albuterol Sulfate HFA 108 (90 Base) MCG/ACT Aerosol Solution 1 puff as needed Inhalation every 4 hrs Medication List reviewed and reconciled with the patient * Allergies: N o Known Drug Allergy Objective: * Vitals: H t: 67, Wt: 247, BMI:38.68, BP: 139/79, HR: 82, Ht-cm: 170.18, Wt-k.04. * P ast Orders: I maging:XR foot RT min 3V (Order Date - 10/14/2024) (Performed Date - 10/14/2024) Lab:C Reactive Protein * Collection Date 10/14/2024 09/20/2022 Collection Time 12:50 PM 11:30 AM Order Date 10/14/2024 09/20/2022 C Reactive Protein 13.28 H (Ref Range: < or = 0.50 mg/dL) 1.87 H (Ref Range: < or = 0.50 mg/dL) * Lab:Comprehensive Met. Panel * Collection Date 10/14/2024 02/08/2023 Collection Time 12:50 PM 10:29 AM Order Date 10/14/2024 02/08/2023 Sodium 135 (Ref Range: 135-145 mmol/L) 137 (Ref Range: 135-145 mmol/L) Bilirubin Total 0.7 (Ref Range: 0.0-1.0 mg/dL) 1.0 (Ref Range: 0.0-1.0 mg/dL) Aspartate Amino Transferase 35 (Ref Range: 5-37 U/L) 19 (Ref Range: 5-37 U/L) Alanine Aminotransferase 40 (Ref Range: 0-40 U/L) 24 (Ref Range: 0-40 U/L) Total Protein 7.3 (Ref Range: 6.5-8.0 g/dL) 7.1 (Ref Range: 6.5-8.0 g/dL) Albumin Level 4.1 (Ref Range: 3.5-5.0 g/dL) 4.0 (Ref Range: 3.5-5.0 g/dL) Alkaline Phosphatase 98 (Ref Range: 39-117 U/L) 63 (Ref Range: 39-117 U/L) Potassium 4.1 (Ref Range: 3.3-5.1 mmol/L) 3.9 (Ref Range: 3.3-5.1 mmol/L) Chloride 99 (Ref Range: 96-108 mmol/L) 104 (Ref Range: 96-108 mmol/L) Carbon Dioxide 25 (Ref Range: 22-29 mmol/L) 26 (Ref Range: 22-29 mmol/L) Anion Gap 15 (Ref Range: 12-20) 11 L (Ref Range: 12-20) Blood Urea Nitrogen 9 (Ref Range: 9-16 mg/dL) 10 (Ref Range: 9-16 mg/dL) Creatinine 1.04 (Ref Range: 0.5-1.4 mg/dL) 1.17 (Ref Range: 0.5-1.4 mg/dL) Estimated Glomerular Filt Rate > 60 > 60 Glucose Random 364 HH (Ref Range: 60-115 mg/dL) 196 H (Ref Range: 60-115 mg/dL) Calcium 9.2 (Ref Range: 8.4-10.2 mg/dL) 9.2 (Ref Range: 8.4-10.2 mg/dL) Creatinine Clr Calc Pharmacy 94.1 87.4 * Lab:Erythrocyte Sedimentatio n Rate * Collection Date 10/14/2024 09/20/2022 Collection Time 12:50 PM 11:30 AM Order Date 10/14/2024 09/20/2022 Erythrocyte Sedimentation Rate 67 H (Ref Range: 0-15 MM/HR) 14 (Ref Range: 0-15 MM/HR) * Lab:Complete Blood Count Aut o Diff * Collection Date 10/14/2024 02/08/2023 09/20/2022 Collection Time 12:50 PM 10:29 AM 11:30 AM Order Date 10/14/2024 02/08/2023 09/20/2022 White Blood Count 9.7 (Ref Range: 4.8-10.8 X10*3/uL) 7.1 (Ref Range: 4.8-10.8 X10*3/uL) 8.1 (Ref Range: 4.8-10.8 X10*3/uL) Red Blood Count 4.72 (Ref Range: 4.60-5.80 X10*6/uL) 4.74 (Ref Range: 4.60-5.80 X10*6/uL) 4.94 (Ref Range: 4.60-5.80 X10*6/uL) Hemoglobin 13.9 L (Ref Range: 14.0-18.0 g/dl) 14.1 (Ref Range: 14.0-18.0 g/dl) 14.9 (Ref Range: 14.0-18.0 g/dl) Hematocrit 39.9 L (Ref Range: 42.0-52.0 %) 40.8 L (Ref Range: 42.0-52.0 %) 43.8 (Ref Range: 42.0-52.0 %) Mean Corpuscular Volume 84.5 (Ref Range: 80.0-98.0 fL) 86.1 (Ref Range: 80.0-98.0 fL) 88.7 (Ref Range: 80.0-98.0 fL) Mean Corpuscular Hemoglobin 29.4 (Ref Range: 27.0-33.0 pg) 29.7 (Ref Range: 27.0-33.0 pg) 30.2 (Ref Range: 27.0-33.0 pg) Mean Corpuscular HGB Conc 34.8 (Ref Range: 31.0-36.0 g/dl) 34.6 (Ref Range: 31.0-36.0 g/dl) 34.0 (Ref Range: 31.0-36.0 g/dl) Red Cell Distribution Width 13.7 (Ref Range: 11.0-16.0 %) 13.8 (Ref Range: 11.0-16.0 %) 13.2 (Ref Range: 11.0-16.0 %) Platelet Count 253 (Ref Range: 160-400 X10*3/uL) 200 (Ref Range: 160-400 X10*3/uL) 284 (Ref Range: 160-400 X10*3/uL) Mean Platelet Volume 9.2 L (Ref Range: 9.4-12.4 fL) 8.6 L (Ref Range: 9.4-12.4 fL) 9.4 (Ref Range: 9.4-12.4 fL) Neutrophils Percent Auto 74.1 H (Ref Range: 45-73 %) 68.5 (Ref Range: 45-73 %) 63.5 (Ref Range: 45-73 %) Imm Gran Pct Auto 0.8 H (Ref Range: 0.0-0.4 %) 0.3 (Ref Range: 0.0-0.4 %) 0.9 H (Ref Range: 0.0-0.4 %) Lymphocytes Percent Auto 11.4 L (Ref Range: 20-40 %) 15.4 L (Ref Range: 20-40 %) 21.9 (Ref Range: 20-40 %) Monocytes Percent Auto 11.1 H (Ref Range: 2-11 %) 14.5 H (Ref Range: 2-11 %) 10.8 (Ref Range: 2-11 %) Eosinophils Percent Auto 2.3 (Ref Range: 0-4 %) 0.7 (Ref Range: 0-4 %) 2.4 (Ref Range: 0-4 %) Basophils Percent Auto 0.3 (Ref Range: 0-2 %) 0.6 (Ref Range: 0-2 %) 0.5 (Ref Range: 0-2 %) NRBC Pct Auto 0.0 (Ref Range: 0.0-0.2 /100WBC) 0.0 (Ref Range: 0.0-0.2 /100WBC) 0.0 (Ref Range: 0.0-0.2 /100WBC) Neutrophils Absolute Auto 7.2 (Ref Range: 2.0-8.3 x10*3/uL) 4.9 (Ref Range: 2.0-8.3 x10*3/uL) 5.1 (Ref Range: 2.0-8.3 x10*3/uL) Imm Gran Abs Auto 0.08 H (Ref Range: 0.00-0.03 X10*3/uL) 0.02 (Ref Range: 0.00-0.03 X10*3/uL) 0.07 H (Ref Range: 0.00-0.03 X10*3/uL) Lymphocytes Absolute Auto 1.1 L (Ref Range: 1.2-4.9 X10*3/uL) 1.1 L (Ref Range: 1.2-4.9 X10*3/uL) 1.8 (Ref Range: 1.2-4.9 X10*3/uL) Monocytes Absolute Auto 1.1 (Ref Range: 0.1-1.2 X10*3/uL) 1.0 (Ref Range: 0.1-1.2 X10*3/uL) 0.9 (Ref Range: 0.1-1.2 X10*3/uL) Eosinophils Absolute Auto 0.2 (Ref Range: 0.0-0.4 X10*3/uL) 0.1 (Ref Range: 0.0-0.4 X10*3/uL) 0.2 (Ref Range: 0.0-0.4 X10*3/uL) Basophils Absolute Auto 0.0 (Ref Range: 0.0-0.2 X10*3/uL) 0.0 (Ref Range: 0.0-0.2 X10*3/uL) 0.0 (Ref Range: 0.0-0.2 X10*3/uL) NRBC Abs Auto 0.000 (Ref Range: 0.0-0.012 X10*3/uL) 0.000 (Ref Range: 0.0-0.012 X10*3/uL) 0.000 (Ref Range: 0.0-0.012 X10*3/uL) * Lab:Hemoglobin A1c * Collection Date 10/14/2024 02/08/2023 09/20/2022 Collection Time 02:23 PM 10:29 AM 11:30 AM Order Date 10/14/2024 02/08/2023 09/20/2022 Hemoglobin A1c % 11.2 H (Ref Range: <6.0 %) 8.4 H (Ref Range: <6.0 %) 9.9 (Ref Range: %) Estimated Average Glucose 275 (Ref Range: mg/dL) 194 (Ref Range: mg/dL) 237 (Ref Range: mg/dL) ???Lab:Gram stain (Order Date - 11/27/2024) (Collection Date & Time - 11/27/2024 09:50 AM)?ValueReference Range?Gram stain3+ Gram-negative rods- ???Lab:Routine Culture (Order Date - 11/27/2024) (Collection Date & Time - 11/27/2024 09:50 AM)?ValueReference Range?Clindamycin<=0.25S- ?Erythromycin<=0.25S-?Levofloxacin0.25S-?Oxacillin0.5S- ?Penicillin-G>=0.5R-?Tetracycline<=1S- ?Trimethoprim/Sulfamethoxazole<=10S- ???Lab:Anaerobic Culture (Order Date - 11/27/2024) (Collection Date & Time - 11/27/2024 09:50 AM)?ValueReference Range?Anaerobic CultureNo Bacteroides or Clostridium species isolated.- * Examination: G eneral Examination: GENERAL APPEARANCE: p leasant, well nourished, well developed, in no acute distress, calm and relaxed: obese: man. HEAD: a traumatic, normocephalic. EYES: e [...] sounds normal, no ascites, no organomegaly, no mass: centripital obesity. RECTAL EXAM: n ot examined. MUSCULOSKELETAL: R ight leg below-knee has wound clinic wrappings. Left leg does not. Mild venous stasis changes. Both feet pink and warm.? Bandages wrapped around left foot loosely. Wearing sandals. 1.5 inch pressure decubitus ventral surface right first toe without sign of infection, large surrounding callus, no discharge,. PERIPHERAL PULSES: n ormal. NEUROLOGIC: a lert and oriented, cranial nerves 2-12 grossly intact, deep tendon reflexes 2+ symmetrical, motor strength normal upper and lower extremities, sensory exam severely diminished in the lower extremities. PSYCH: a lert, oriented. Assessment: * Assessment: 1. T ype 2 diabetes mellitus with foot ulcer - E11.621 (Primary) N otes :He reports he has not been taking his metformin. He could not give a reason why. Medication was refilled. He was given an appointment to return to the office in the near future after comprehensive blood work. This will be the same day next week he goes to the wound clinic to make on simpler. He will need close supervision in the future.In the past his hemoglobin A1c wass 9 point now and is now 11.1.Our goal will be 7.0.His medications will be adjusted for aggressive glycemic control. 2 . H yperlipidemia - E78.5 N otes :Comprehensive blood work including a fasting lipid profile was ordered. He was counseled about weight loss and diet and nutrition.He reports he has not been taking his statin medication he could not give an explanation the medication was refilled and a written list of medications was given to him.? We explained the reason for the atorvastatin. He was asked to bring his medications to his next visit which will be in the near future. 3 . O besity - E66.9 N otes :He remains obese. He has lost 22 pounds since his last visit. His weight will be monitored carefully. Weight loss is likely partly from hyperglycemia 4 . P eripheral neuropathy - G62.9 N otes :He continues to have a moderate diabetic neuropathy.He has a new ulcer on the volar surface of his left toe which is being treated in the wound clinic. He will have better control of his diabetes. 5 . U reterolithiasis - N20.1 N otes :He is had renal colic and no kidney stone since his last visit. He was advised to stay well hydrated. 6 . O bstructive sleep apnea - G47.33 N otes :I strongly recommend that he continue to use his CPAP. 7 . E ssential hypertension - I10 N otes :His blood pressure was elevated at 144/79. We discussed his diet and sodium restriction. I recommended aggressive weight loss. He was given a follow-up appointment in the near future to check his blood pressure again. He will be treated if necessary. He will continue on the lisinopril. 8 . N on-pressure chronic ulcer of other part of right foot with necrosis of muscle - L97.513 N otes :The wound on the bottom surface of his right first toe has healed. The surface is flat with brownish discoloration. No infection is noted. A new area is present on the bottom surface of the right foot close to the lateral border on the plantar surface behind the fifth and fourth toes. 9 . B PH (benign prostatic hyperplasia) - N40.0 N otes :He rises from sleep once or twice a night to urinate. We discussed lifestyyle modifications he could make to reduce nocturia. Plan: * Treatment: 2. H yperlipidemia Continue Atorvastatin Calcium; C ontinue metFORMIN HCl; S tart metFORMIN HCl Tablet, 1000 MG, 1 tablet with a meal, Orally, Once a day, 30 days, 30, Refills 11; S tart Atorvastatin Calcium Tablet, 20 MG, 1 tablet, Orally, Once a day, 30 days, 90, Refills 3; S tart Lisinopril Tablet, 10 MG, 1 tablet, Orally, Once a day, 30 days, 30, Refills 11. L AB: PROFILE, FASTING (COMPREHENSIVE METABOLIC) L AB: CBC w DIFF L AB: Lipid Panel L AB: Microalbumin, Random L AB: Hemoglobin A1c 3. O besity L AB: PROFILE, FASTING (COMPREHENSIVE METABOLIC) L AB: CBC w DIFF L AB: Lipid Panel L AB: Microalbumin, Random L AB: Hemoglobin A1c 4. O thers Continue Lisinopril Tablet, 10 MG, Take 1 tablet by mouth once daily; C ontinue Albuterol Sulfate HFA Aerosol Solution, 108 (90 Base) MCG/ACT, 1 puff as needed, Inhalation, every 4 hrs. ? * Procedure Codes: * Preventive Medicine: Counseling: C are goal [...] without too much effort. T reatment Goals H bA1C < 7.0, Blood Sugars less than < 115. B arriers L ack of understanding of [...] with more water. * Follow Up: 3 Weeks (Reason: OV) * Images: * Sign off status: Completed true * Provider: Carye Stvoer MD Date: 0 12/06/2024 Generated for Denny quiroga/Carline/Magensmitting on: 0 12/26/2024 05:44 PM EDT History and Physical Notes * HPI (History of Present Illness) Category Sub-Category Detail Notes COVID-19 Screening Questions Have you had any new onset fever, chills, cough, congestion, sore throat, shortness of breath, muscle aches?: No Examination Category Sub-Category Detail Notes General Examination GENERAL APPEARANCE: pleasant , well nourished, well developed, in no acute distress, calm and relaxed: obese: man HEAD: atraumatic, normocep halic EYES: eomi, perrla, anicte mariano, conjugate EARS: normal NOSE: septum intact NECK/THYROID: no jugular venous di stention, no carotid bruit, thyroid normal HEART: no clicks, gallops, murmurs, or rubs, regular rhythm, S1, S2 normal, no s3, or vascular bruits LUNGS: clear to auscultatio n ABDOMEN: bowel sounds normal, no ascites, no organomegaly, no mass: centripital obesity NEUROLOGIC: alert and oriented, cranial nerves 2-12 grossly intact, deep tendon reflexes 2+ symmetrical, motor strength normal upper and lower extremities, sensory exam severely diminished in the lower extremities SKIN: no suspicious lesion s, anicteric PERIPHERAL PULSES: normal BREASTS: no masses palpable b ilaterally MUSCULOSKELETAL: Right leg below-knee has wound clinic wrappings. Left leg does not. Mild venous stasis changes. Both feet pink and warm. Bandages wrapped around left foot loosely. Wearing sandals. 1.5 inch pressure decubitus ventral surface right first toe without sign of infection, large surrounding callus, no discharge, LYMPH NODES: no enlarged lymph no sage,spleen normal RECTAL EXAM: not examined PSYCH: alert, oriented ORAL CAVITY: normal, unremarkable
[2024-12-26 13:53] LABS: MANUAL DIFF FLAG NO
[2024-12-26 14:26] LABS: Hematocrit 40.2 % (42.0-52.0); Hemoglobin 13.4 g/dl (14.0-18.0); Imm Gran Abs Auto 0.04 X10*3/uL (0.00-0.03); Imm Gran Pct Auto 0.6 % (0.0-0.4); Lymphocytes Absolute Auto 1.8 X10*3/uL (1.2-4.9); Mean Corpuscular HGB Conc 33.3 g/dl (31.0-36.0); Mean Corpuscular Hemoglobin 27.6 pg (27.0-33.0); Mean Corpuscular Volume 82.9 fL (80.0-98.0); NRBC Abs Auto 0.000 X10*3/uL (0.0-0.012); NRBC Pct Auto 0.0 /100WBC (0.0-0.2); Platelet Count 322 X10*3/uL (160-400); Red Blood Count 4.85 X10*6/uL (4.60-5.80); White Blood Count 6.6 X10*3/uL (4.8-10.8)
[2024-12-26 15:03] LABS: Alanine Aminotransferase 28 U/L (0-40); Albumin Level 4.0 g/dL (3.5-5.0); Alkaline Phosphatase 137 U/L (39-117); Anion Gap 13 (12-20); Aspartate Amino Transferase 30 U/L (5-37); Blood Urea Nitrogen 11 mg/dL (9-16); Calcium 9.0 mg/dL (8.4-10.2); Carbon Dioxide 29 mmol/L (22-29); Chloride 102 mmol/L (96-108); Estimated Glomerular Filt Rate > 60; Potassium 3.9 mmol/L (3.3-5.1); Sodium 140 mmol/L (135-145); Total Protein 7.2 g/dL (6.5-8.0)
--- OUTSIDE RECORDS SUMMARY | 2024-12-26 17:44 | XMS_ITS | Patient Health Record ---
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 Name Role Phone Eugene Stover Primary Care Provider [phone] Allergies Allergen (clinical drug ingredient) Drug/Non Drug Allergy documented on EMR Reaction Allergy Type Onset Date Status No Known Drug Allergy Unknown Drug Allergy Active Results Component Value Reference Range Notes XR foot LT min 3V Reviewed date:01/10/2024 06:35:09 AM Interpretation: Performing Lab: Notes/Report: [facility] [address] [place] [address] XRay Report Signed Patient: Sachin Vides MR#: [id number] 8 : 1965 Acct:[id number] Age/Sex: 58 / M ADM Date: 11/27/23 Loc: [facility] Attending Dr: Nancy KEANE Ordering Physician: Thu Clement MD Date of Service: 01/08/24 Procedure(s): XR foot LT min 3V Accession Number(s): [id number] cc: Eugene Stover MD; Thu Clement MD [...] OV> 01/08/242047 DD/ 1005 TD/TT: 01/08/24 1010 Major Account Manager: [facility] [address] [place] [address] XRay Report Signed Patient: Sachin Vides MR#: [id number] 8 : 1965 Acct:[id number] Age/Sex: 58 / M ADM Date: 11/27/23 Loc: .[facility] Attending Dr: Susanne KEANE Ordering Physician: Thu Clement MD Date of Service: 01/08/24 Procedure(s): XR chele t LT min 3V Accession Number(s): [id number] cc: Eugene Stover MD; Thu Clement MD [...] OV> 01/08/242047 DD/ 1005 TD/TT: 01/08/24 1010 Major Account Manager: JACQUIE Complete Blood Count Auto Di ff Reviewed date:10/18/2024 06:03:47 PM Interpretation: Performing Lab:[facility], [address] [place] [phone] Notes/Report: White Blood Count 9.7 4.8-10.8 X10*3/uL [...] te Reviewed date:10/18/2024 06:03:47 PM Interpretation: Performing Lab:[facility], [address] [place] [phone] Notes/Report: Erythrocyte Sedimentation Rate 67 0-15 MM/HR Patients with polycythemia and many hemoglobin abnormalities may have depressed sed rates whereas patients with anemia may have elevated sed rates. Comprehensive Met. Panel Reviewed date:10/18/2024 06:03:47 PM Interpretation: Performing Lab:[address] [address] Notes/Report: Sodium 135 135-145 mmol/L Potassium 4.1 [...] Protein Reviewed date:10/18/2024 06:03:47 PM Interpretation: Performing Lab:[facility], [address] [place] [phone] Notes/Report: C Reactive Protein 13.28 < or = 0.50 mg/dL Hemoglobin A1c Reviewed date:10/18/2024 06:03:47 PM Interpretation: Performing Lab:[facility], [address] [place] [phone] Notes/Report: Hemoglobin A1c % 11.2 <6.0 % [...] average glucose, using the formula of the [id number] Average Glucose study (ADAG), Diabetes Care, Vol.31,#8, Nov. 2007 XR foot RT min 3V Reviewed date:10/18/2024 06:03:47 PM Interpretation: Performing Lab: Notes/Report: [address] [address] XRay Report Signed Patient: Sachin Vides MR#: [id number] 8 : 1965 Acct:[id number] Age/Sex: 59 / M ADM Date: 10/14/24 Loc: .[facility] Attending Dr: Ordering Physician: Elizabeth Weber Date of Service: 10/14/24 Procedure(s): XR foot RT min 3V Accession Number(s): [id number] cc: Eugene Stover MD; Elizabeth Weber EXAMINATION: [...] 10/14/24 1217 DD/ 1150 TD/TT: 10/14/24 1207 Major Account Manager: [place] [address] XRay Report Signed Patient: Sachin Vides MR#: [id number] 8 : 1965 Acct:[id number] Age/Sex: 59 / M ADM Date: 10/14/24 Loc: [facility].ED Attending Dr: Ordering Physician: Elizabeth Weber Date of Service: 10/14/24 Procedure(s): XR chele t RT min 3V Accession Number(s): [id number] cc: Eugene Stover MD; Elizabeth Weber EXAMINATION: [...] 10/14/24 1217 DD/ 1150 TD/TT: 10/14/24 1207 Major Account Manager: Gram stain Reviewed date:12/08/2024 05:09:27 AM Interpretation: Performing Lab:[facility], [address] [place] [phone] Notes/Report: Gram stain Gram stain results: Gram stain No polys Gram stain 4+ red blood cells Gram stain 3+ Gram-positive cocci Gram stain 3+ Gram-negative rods Routine Culture Reviewed date:12/08/2024 05:09:27 AM Interpretation: Performing Lab:[facility], [address] [place] [phone] Notes/Report: Clindamycin <=0.25 Erythromycin <=0.25 Levofloxacin 0.25 Oxacillin 0.5 Penicillin-G >=0.5 Tetracycline <=1 Trimethoprim/Sulfamethoxaz ole <=10 Anaerobic Culture Reviewed date:12/08/2024 05:09:27 AM Interpretation: Performing Lab:[facility], [address] [place] [phone] Notes/Report: Anaerobic Culture Report Anaerobic Culture 4+ [...] patient and left a message to contact [facility] [place], [place] 08/29/2024 02:43:21 PM > Office stated [...] Status W/U Status Risk Notes Problem Hyperlipidemia (80236967) Hyperlipidemia (E78.5) Active confirmed Comprehensive blood work [...] will be in the near future. Problem 261077727 Obesity (E66.9) Active confirmed He remains obese. He has lost 22 pounds since his last visit. His weight will be monitored carefully. Weight loss is likely partly from hyperglycemia Problem 802864084195473 Type 2 diabetes mellitus with foot ulcer [...] be adjusted for aggressive glycemic control. Problem 942965787 Non-pressure chronic ulcer of other part of [...] behind the fifth and fourth toes. Problem 20825171 Ureterolithiasis (N20.1) Active confirmed He is had renal colic and no kidney stone since his last visit. He was advised to stay well hydrated. Problem Benign prostatic hyperplasia (285920240) BPH (benign prostatic hyperplasia) (N40.0) Active confirmed He rises from sleep once or twice a night to urinate. We discussed lifestyyle modifications he could make to reduce nocturia. Problem 81212532 Essential hypertension (I10) Active confirmed His blood pressure was elevated at 144/79. We discussed his diet and sodium restriction. I recommended aggressive weight loss. He was given a follow-up appointment in the near future to check his blood pressure again. He will be treated if necessary. He will continue on the lisinopril. Problem 96506754 Obstructive slee p apnea (G47.33) Active confirmed I strongly recommend that he continue to use his CPAP. Problem 55831211 Peripheral neuropathy (G62.9) Active confirmed He continues to have a moderate diabetic neuropathy.He has a new ulcer on the volar surface of his left toe which is being treated in the wound clinic. He will have better control of his diabetes. Problem 934678189 Type 2 diabetes mellitus without complication, without long-term current use of insulin (E11.9) Active confirmed He will resu me the metformin and his medications will be adjusted after blood work is available. He was counseled on compliance. He was referred to a die sinker. He was referred to an ophthalmologis t. [...] Date Provider Diagnosis Eugene Stover III, MD [address] [place] [address] [place] [address] 02/23/2024 Eugene Stover Hyperlipidemia E78.5 ; Type 2 diabetes mellitus without complication, without long-term current use of insulin E11.9 ; BPH (benign prostatic hyperplasia) N40.0 ; Essential hypertension I10 ; Obstructive sleep apnea G47.33 ; Ureterolithiasis N20.1 ; Peripheral neuropathy G62.9 and Ulcer of toe L97.509 Eugene Stover III, MD [address] [place] [address] [place] [address] 12/06/2024 Eugene Stover Hyperlipidemia E78.5 ; Type 2 diabetes mellitus with foot ulcer E11.621 ; Obesity E66.9 ; Peripheral neuropathy G62.9 ; Ureterolithiasis N20.1 ; Obstructive sleep apnea G47.33 ; Essential hypertension I10 ; 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 He was referred to a die sinker. He was referred to an hydration plant operator. I recommended a statin drug. He will [...] Details Provider Name:Eugene Stover, 12/27/2024 02:30:00 PM, [address] [place] [address] [address], [place], [address], Provider Name:Eugene Stover, 02/25/2025 09:30:00 AM, [address] [place] [address] [address], [place], [address], Insurance Providers Payer Name Payer Address Payer Phone Subscriber Number Group Number Insured Name Patient Relationship to Insured Coverage Start Date Coverage End Date [place] Plan Administrators [place] [id number] MD TROY [id number] Mahogany Sachin Self - patient is the insured Medical [...]
--- OUTSIDE RECORDS SUMMARY | 2024-12-26 17:44 | XMS_ITS | Clinical Summary ---
Author Organization [facility] Address [address] [place] [phone] Phone Care Team Providers Care Girl Friday Name Role Phone Unavailable Primary Care Provider Unavailabl e Immunizations Immunization Administration Dates Next Due Hepatitis B Adult 05/12/2020,05/12/2020 Influenza, Unspecified Formulation 05/12/2020, Tdap 05/12/2020,05/12/2020 Social History Tobacco Use Types Packs/Day Years Used Date Smoking Tobacco: Never Assessed Education Answer Date Recorded Are you interested in more education? Not on geneva e 08/12/2022 Are you concerned about learning? Not on file 08/12/2022 No 08/12/2022 No 08/12/2022 Digital Access Answer Date Recorded No 09/10/2022 No 09/10/2022 No 09/10/2022 Reliable internet access at home? Not on file 09/10/2022 Device with a working camera? Not on file Sex and Gender Information Value Date Recorded Sex Assigned at Not on file Legal Sex Male 8:55 AM EST Gender Identity Not on file Sexual Orientation Not on file Plan of Treatment Health Maintenance Due Date Last Done Comments LIPID PANEL 1965 DEPRESSION SCREENING 1979 SMOKING Hx and SMOKELESS TOBACCO SCREENING 1980 HEPATITIS C SCREENING 1985 HIV ONE-TIME SCREENING (18-6 5 YEARS) 1985 COLOGUARD 2012 COLONOSCOPY 2012 COLORECTAL CANCER SCREENING 2012 FIT TEST 2012 FOBT 2012 SIGMOIDOSCOPY 2012 VIRTUAL COLONOSCOPY 2012 PNEUMOCOCCAL VACCINES (50+ years) (1 of 1 - PCV) 2017 ZOSTER VACCINES (1 of 2) 2017 INFLUENZA VACCINE (#1) 2024 , 05/12/2020 COVID-19 VACCINE (2 - 2024-2 6 season) 2024 04/28/2020 Adult Td,Tdap Booster 05/12/2030 05/12/2020 , 05/12/2020 HEPATITIS A VACCINES Aged Out No long er eligible based on patient's age to complete this topic HIB VACCINES Aged Out No longer eligi ble based on patient's age to complete this topic MENINGOCOCCAL VACCINES (ACWY) Aged Out No longer eligible based on patient's age to complete this topic MENINGOCOCCAL VACCINES (B) Aged Out N o longer eligible based on patient's age to complete this topic Medical Devices Not on file Additional Source Comments The information contained in this document represents components of the legal health record. It is not the complete legal health record.[facility]
--- OUTSIDE RECORDS SUMMARY | 2024-12-26 17:44 | XMS_ITS | Patient Health Record ---
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 Name Role Phone Eugene Stover MD Primary Care Provider Kasi Sood Unavailable [phone] Allergies Allergen (clinical drug ingredient) Drug/Non Drug [...] W/U Status Risk Notes Problem Tinea unguium (446826255) Tinea unguium (B35.1) Active confirmed Problem Neuropathy (292485778) Neuropathy (G62.9) Active confirmed Plan Of Treatment Pending Test Test Name Order Date [id number] NAIL, 6 OR MORE 12/29/2017 [id number] NAIL, 6 OR MORE 08/17/2018 [id number] SKIN LESIONS, 2 TO 4 08/18/19 19 Insurance Providers Payer Name Payer Address Payer Phone Subscriber Number Group Number Insured Name Patient Relationship to Insured Coverage Start Date Coverage End Date [facility] [address] [place] [address] [id number] Sachin Vides Self - patient is the insured Medical (General) History Medical History History ICD Code Numbness - unknown origin HTN Surgical History Surgery Date(Month/Year) kidney stones x3 toe surgery Hospitalization History Reason Date(Month/Year) [facility]
== END 2024-12-26 13:49 | disposition home or self-care (01) ==
LOC: HO.HVNA 13:48
PROVIDERS: Visit Provider Internal Medicine
DX: E11.621 Type 2 diabetes mellitus with foot ulcer (principal); L97.509 Non-pressure chronic ulcer of other part of unspecified foot with unspecified severity
CPT/HCPCS: 36415; 80053; 85025

== ENCOUNTER 2025-01-03 13:35 | Outpatient (AMB) | payer OTHER, SELFPAY ==
[2025-01-03 13:49] VITALS: PULSE 105; O2SAT 99; BMI 41.5
--- NOTE | 2025-01-03 13:49 | A.OFFVIS_ITS ---
Vital Signs 3 01/03/25 13:49 Height 5 ft 6 in Weight 257 lb BMI 41.5 Pulse 105 H Pulse Source Pulse Oximeter Pulse Oximetry (%) 99 Oxygen Delivery Method Room Air Intake Visit Reasons: Foot ulcer Allergies erythromycin base (ERYTHROMYCIN BASE) Allergy (Unknown, Verified 01/03/25 13:49) UNKNOWN HPI Comments Details: History of Present Illness The patient is a 59-year-old male presenting with osteomyelitis of the left foot, specifically affecting the fifth metatarsal and proximal phalanx. Initially, this condition was evaluated and managed during a hospital admission where cultures identified infections with Group B Streptococcus and Pseudomonas aeruginosa. The antibiotic regimen includes intravenous ertapenem and oral Levaquin, prescribed for a six-week course and scheduled to conclude on January 28. The patient exhibited significant redness and discomfort in the involved area, attributed in part to external pressure from footwear. Compliance with antimicrobial therapy is noted, with ongoing monitoring of symptoms and signs suggestive of improvement tracked systematically. Redness in the area remains a concern, focusing on its etiology and resolution over time due to the treatment. Review of Systems - General: Reports stable vital signs; No discomfort otherwise noted. - Lungs: Denies respiratory difficulties. - Cardiovascular: Denies palpitations or arrhythmias. - Gastrointestinal: Denies abdominal pain or tenderness. - Musculoskeletal: Reports redness and discomfort in the left distal foot. Physical Exam - Vitals- Stable. - Oropharynx- Clear. - Respiratory- Lungs clear on auscultation. - Cardiovascular- Regular heart rhythm. - Gastrointestinal- Abdomen soft, non-tender. - Musculoskeletal- Redness and packing observed around the left fifth metatarsal. Results - Labs: Group B Streptococcus and Pseudomonas aeruginosa identified in toe cultures. Plan Patient was informed and verbally consented to the use of an ambient scribe for clinic note documentation during this visit. 1. Other acute osteomyelitis, left ankle and foot M86.172 HCC 39 The patient's left foot osteomyelitis is being managed with a six-week course of ertapenem and Levaquin, targeting the identified pathogens. The focus is on ensuring comprehensive pathogen coverage, monitoring for treatment efficacy, and potential treatment course completion as scheduled on January 28. 2. Streptococcal infection, unspecified site A49.1 Management involves dual antibiotic therapy to effectively eradicate the Group B Streptococcus infection. Patient compliance and vigilance for antibiotic resistance are emphasized throughout the duration of therapy. 3. Other bacterial infections of unspecified site A49.8 Addressed with Levaquin within the antibiotic regimen. Monitoring for potential adverse effects is pursued in the context of ensuring optimal anti-Pseudomonal activity to support infection resolution. Discussion Notes During the visit, I discussed with the patient the nature of his osteomyelitis and the significance of the causative organisms, Group B Streptococcus and Pseudomonas aeruginosa. We reviewed his current management strategy involving ertapenem and Levaquin for a six-week duration, explaining the importance of completing this regimen to eradicate the infection. Potential side effects and the necessity of monitoring for any emerging symptoms were outlined. Follow-up in three weeks was recommended to assess treatment efficacy and address any persistent issues. The patient was fully informed of the therapeutic approach and agreed to the proposed plan, understanding the need for compliance. Medical Decision Making In managing this patient's osteomyelitis of the left foot, my primary goals are to resolve the infection effectively while preventing any complications from the pathogens isolated. The decision to use ertapenem and Levaquin was driven by the need for comprehensive coverage against the identified organisms, including Pseudomonas aeruginosa. The duration of therapy reflects the chronicity typical of osteomyelitis and the necessity for prolonged antimicrobial administration for definitive treatment. Regular monitoring and potential adjustments are informed by responsiveness to the antibiotics and clinical improvement noted. Patient Instructions - Continue taking prescribed antibiotics, ertapenem, and Levaquin until January 28. - Monitor for any increase in redness, swelling, pain, or other symptoms in the foot and inform immediately if these occur. - Avoid pressure on the left foot by selecting more comfortable footwear. - Visit the clinic for a follow-up appointment in three weeks as discussed. - Report any adverse reactions to medications such as stomach upset, joint pains, or rashes to medical staff as soon as possible. [facility] Medical History Class 3 obesity Type 2 diabetes mellitus Hypertension Neuropathy Social History Household Members: Significant Other Housing: Condominium Do you presently have visiting nurse or other home services: No Patient Tobacco Use Status: Never used Tobacco service: No Review of Systems Const Details: Physical Exam Vital Signs: Last Vital Signs Pulse 105 H 01/03/25 13:49 Pulse Ox 99 01/03/25 13:49 Oxygen Delivery Method Room Air 01/03/25 13:49 BMI result Body Mass Index 41.5 Assessment & Plan Assessment & Plan (1) Diabetic foot infection: Code(s): E11.628 - Type 2 diabetes mellitus with other skin complications; L08.9 - Local infection of the skin and subcutaneous tissue, unspecified Category: Medical Plan: na Coding Level of Care Code Est Pt Level 3 (28734) Diagnoses Diabetic foot infection E11.628; L08.9
--- OUTSIDE RECORDS SUMMARY | 2025-01-03 13:49 | XMS_ITS | Clinical Summary ---
Author Organization [facility] Address [address] [place] [address] Phone Care Team Providers Care Container Packer Operator Name Role Phone Unavailable Primary Care Provider [...] It is not the complete legal health record.[facility]
--- OUTSIDE RECORDS SUMMARY | 2025-01-03 13:49 | XMS_ITS | Clinical Summary ---
Author Organization [address] [facility] Address [address] [place] [address] Phone Care Team Providers Care Tree Surgeon Helper Name Role Phone Eugene Stover MD Primary Care Provider Allergies Active Allergy Reactions Criticality Noted Date Comments Erythromycin 03/04/2024 Medications No known medications Social History Tobacco Use Types Packs/Day Years [...] Health Maintenance Due Date Last Done Comments Pneumococcal Vaccine: 50+ Years (1 of 2 - PCV) 1986 Zoster Vaccines (1 of 2) 2017 Hepatitis B Vaccines (2 of 3 - 19+ 3-dose series) 06/09/2020 05/12/2020 Cholesterol Screening (Lipid Panel) 05/16/2023 Colorectal Cancer Screening: Colonoscopy 05/16/2023 HIV Screening 05/16/2023 Hepatitis C Screening 05/16/2023 Social Influencers of Health Screening 05/16/2023 Depression Screening 04/17/2024 COVID-19 Vaccine (4 - 2024-2 6 season) 2024 10/07/2020, 09/09/2020, 04/28/2020 Influenza Vaccine (#1) 2024 05/12/2020 Hypertension/CHF/CAD Annual BMP Blood Test 03/04/2025 03/04/2024 [...] mmol/L LAB CHEMISTRY METHOD 03/04/2024 9:18 PM EST [facility] Potassium 4.7 3.5 - 5.5 mmol/L LAB CHEMISTRY METHOD 03/04/2024 9:18 PM EST [facility] Chloride 99 96 - 110 mmol/L LAB CHEMISTRY METHOD 03/04/2024 9:18 PM [facility] CO2 25 21 - 32 mmol/L LAB CHEMISTRY METHOD 03/04/2024 9:18 PM [facility] Anion Gap 8 3 - 11 LAB CHEMISTRY METHOD 03/04/2024 9:18 PM [facility] Glucose 475(HH) 70 - 100 mg/dL LAB CHEMISTRY METHOD 03/04/2024 9:18 PM [facility] BUN 16 5 - 25 mg/dL LAB CHEMISTRY METHOD 03/04/2024 9:18 PM [facility] Creatinine 1.43(H) 0.70 - 1.30 mg/dL LAB CHEMISTRY METHOD 03/04/2024 9:18 PM [facility] eGFR 58(L) >=60 mL/min/1. 73m2 LAB CHEMISTRY METHOD 03/04/2024 9:18 PM [facility] Comment:Calculation based on the Chronic Kidney Disease Epidemiology Collaboration (CKD-EPI) equation refit without adjustment for race. BUN/Creatinine Ratio 11.2 LAB CHEMISTRY METHOD 03/04/2024 9:18 PM [facility] Calcium 9.0 8.5 - 10.5 mg/dL LAB CHEMISTRY METHOD 03/04/2024 9:18 PM [facility] AST (SGOT) 26 10 - 42 unit/L LAB CHEMISTRY METHOD 03/04/2024 9:18 PM [facility] ALT (SGPT) 44 10 - 60 unit/L LAB CHEMISTRY METHOD 03/04/2024 9:18 PM [facility] Alkaline Phosphatase 153(H) 42 - 121 unit/L LAB CHEMISTRY METHOD 03/04/2024 9:18 PM [facility] Total Protein 7.0 6.0 - 8.0 g/dL LAB CHEMISTRY METHOD 03/04/2024 9:18 PM [facility] Albumin 3.7 3.2 - 5.0 g/dL LAB CHEMISTRY METHOD 03/04/2024 9:18 PM EST [facility] Total Bilirubin 0.4 0.0 - 1.4 mg/dL LAB CHEMISTRY METHOD 03/04/2024 9:18 PM EST [facility] Blood Venous blood specimen / Unknown 03/04/2024 8:27 PM EST 03/04/2024 8:35 PM EST us Klever Martin MD LAB BLOOD ORDERABLES Maddy vanessa Result [facility] [address] [place] [address], from Last 3 Months or Most Recently Relevant to Health Maintenance Insurance [address] [place] [address] [employer] [place] [id number] Care Teams Tree Surgeon Helper Relationship Specialty Start Date End Date Eugene Stover MD [address] [facility] [address] [place] [address] PCP - General Oncology 08/10/17
== END 2025-01-03 14:22 | disposition home or self-care (01) ==
LOC: HO.HID 13:35
PROVIDERS: PCP Emergency Medicine; Visit Provider Internal Medicine
DX: E11.628 Type 2 diabetes mellitus with other skin complications (principal); L08.9 Local infection of the skin and subcutaneous tissue, unspecified
CPT/HCPCS: 99213

== ENCOUNTER 2025-01-03 13:36 | Outpatient (REF) | payer OTHER, SELFPAY ==
[2025-01-03 13:43] LABS: MANUAL DIFF FLAG NO
[2025-01-03 13:56] LABS: Hematocrit 39.6 % (42.0-52.0); Hemoglobin 13.1 g/dl (14.0-18.0); Imm Gran Abs Auto 0.05 X10*3/uL (0.00-0.03); Imm Gran Pct Auto 0.6 % (0.0-0.4); Lymphocytes Absolute Auto 1.7 X10*3/uL (1.2-4.9); Mean Corpuscular HGB Conc 33.1 g/dl (31.0-36.0); Mean Corpuscular Hemoglobin 27.3 pg (27.0-33.0); Mean Corpuscular Volume 82.5 fL (80.0-98.0); NRBC Abs Auto 0.000 X10*3/uL (0.0-0.012); NRBC Pct Auto 0.0 /100WBC (0.0-0.2); Platelet Count 297 X10*3/uL (160-400); Red Blood Count 4.80 X10*6/uL (4.60-5.80); White Blood Count 7.9 X10*3/uL (4.8-10.8)
[2025-01-03 14:31] LABS: Alanine Aminotransferase 17 U/L (0-40); Albumin Level 3.8 g/dL (3.5-5.0); Alkaline Phosphatase 108 U/L (39-117); Anion Gap 10 (12-20); Aspartate Amino Transferase 24 U/L (5-37); Blood Urea Nitrogen 14 mg/dL (9-16); Calcium 9.0 mg/dL (8.4-10.2); Carbon Dioxide 31 mmol/L (22-29); Chloride 105 mmol/L (96-108); Estimated Glomerular Filt Rate > 60; Potassium 4.1 mmol/L (3.3-5.1); Sodium 142 mmol/L (135-145); Total Protein 7.0 g/dL (6.5-8.0)
== END 2025-01-03 13:37 | disposition home or self-care (01) ==
LOC: HO.HVNA 13:36
PROVIDERS: PCP Emergency Medicine; Visit Provider Internal Medicine
DX: E11.69 Type 2 diabetes mellitus with other specified complication (principal); E11.621 Type 2 diabetes mellitus with foot ulcer; L97.529 Non-pressure chronic ulcer of other part of left foot with unspecified severity; M86.172 Other acute osteomyelitis, left ankle and foot; B95.1 Streptococcus, group B, as the cause of diseases classified elsewhere; B96.5 Pseudomonas (aeruginosa) (mallei) (pseudomallei) as the cause of diseases classified elsewhere; Z79.2 Long term (current) use of antibiotics; Z48.00 Encounter for change or removal of nonsurgical wound dressing
CPT/HCPCS: 36415; 80053; 85025; 85652; 86140; 99212

== ENCOUNTER 2025-01-10 14:18 | Outpatient (REF) | payer OTHER, SELFPAY ==
--- OUTSIDE RECORDS SUMMARY | 2024-02-23 05:15 | XMS_ITS ---
Author Organization Eugene Stover III, MD Address [address] [place] [address] Care Team Providers Care Net Developer Programmer Name Role Phone Dr. Eugene Stover III Primary Care Provider [phone] Allergies Allergen (clinical drug ingredient) Drug/Non Drug [...] Internal M edicine Referred Provider [facility] Referred Provider Specialty Unknown General Notes Ivett [...] patient and left a message to contact [facility], Ivett Camarena 08/29/2024 [...] Date Provider Diagnosis Eugene Stover III, MD [address] [place] [address] [place] [address] 02/23/2024 Eugene Stover Hyperlipidemia E78.5 ; Type [...] on compliance. He was referred to a scientific advisor. He was referred to an tear down matcher. I recommended a statin drug. He will [...] and check on foot wound Provider Name:Eugene Stover , 02/06/2025 09:00:00 AM, [address] [place] [address] [address], [place], [address], Provider Name:Eugene Stover , 02/25/2025 09:30:00 AM, [address] [facility] [address], [place], [address], Progress Notes * Sachin CARDOSODOB:1965 ( 58 yo M)Acc No.[id number]:02/23/2024 Progress Notes Patient: Sachin PINTO Provider: Carey Stover MD :1965 A ge:58 Y S ex:Male Date:02/23/2024 Address:[address] [place] [address], [address] , [id number] Subjective: * Chief Complaints: * A nnual [...] the past? N o S CARLITOS Questions: [facility] Questions I n the past year have [...] some time and has been seeing a scientific advisor for treatment. The patient is scheduled to [...] He has an appointment next week at [facility] for his visual acuity and glasses. We have referred him to an tear down matcher for routine diabetic care. He has been referreed to a scientific advisor routine diabetic foot care as the scientific advisor to which he was going has retired. [...] dilation, right flexible ureteroscopy, right ureteral stent [id number] history * Hospitalization/Major Diagno stic Procedure: N [...] oints 0 I nterpretation N egative H e is single and lives in [place]. He is working. 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 He lives in a two-person condo with [...] on compliance. He was referred to a scientific advisor. He was referred to an tear down matcher. I recommended a statin drug. He will [...] needed, Inhalation, every 4 hrs. ? Referral To:[facility] Unknown Reason:Consult and Treat [...] Sign off status: Completed true * Provider: Carey Stover MD Date: 04/24/2023 Generated for Printi ng/Faamyg/eTransmitting on: 0 01/10/2025 03:20 PM EDT History and Physical Notes * [...] Not es 02/23/2024 Eugene Stover Eye and [facility] [facility] and Treat Diabetic Eye Exam
--- OUTSIDE RECORDS SUMMARY | 2024-05-27 05:30 | XMS_ITS ---
Author Organization Eugene Stover III, MD Address [address] [place] [address] [place] [address] Care Team Providers Care Barrel Line Operator Name Role Phone Dr. Eugene Stover III Primary Care Provider Allergies Allergen (clinical drug ingredient) Drug/Non Drug Allergy documented on EMR Reaction Allergy Type Onset Date Status No Known Drug Allergy Unknown Drug Allergy Active REASON FOR VISIT Follow up Medications Medication SIG (Take, Route, Frequency, Duration) Notes Start Date End Date Status Albuterol Sulfate HFA 108 (90 Base) MCG/ACT 1 puff as needed Inhalation every 4 hrs 05/30/2022 Active Atorvastatin Calcium Active Lisinopril 10 MG Take 1 tablet by gloria th once daily Active metFORMIN HCl Active Social History Tobacco Use: Social History Observation Description Date Details (start date - stop date) Never Smoker NA - NA Sex Assigned At : Social History Observation Description Sex Assigned At Male Tobacco Use/Smoking Question Answer Notes Patient is a nonsmoker Additional Findings: Tobacco Non-User Aggressive non-smoker Encounters Encounter Location Date Provider Diagnosis Eugene Stover III, MD [address] [place] [address] [place] [address] 05/27/2024 Eugene Stover Hyperlipidemia E78.5 Assessments Encounter Date Diagnosis (ICD Code) Assessment Notes Treat ment Notes Treatment Clinical Notes 05/27/2024 Hyperlipidemia (ICD-10 - E78.5) Comprehensive blood work including a fasting lipid profile was ordered. He was counseled about weight loss and diet and nutrition. Plan Of Treatment Medication Medication Name Sig Start Date Stop Date Notes Albuterol Sulfate HFA 108 (9 0 Base) MCG/ACT 1 puff as needed Inhalation every 4 hrs 05/30/2022 Atorvastatin Calcium Lisinopril 10 MG Take 1 tablet by gloria once daily metFORMIN HCl Next Appt Details Provider Name:Eugene Stover , 02/06/2025 09:00:00 AM, [address] [facility] [address], [place], [address], Provider Name:Eugene Stover , 02/25/2025 09:30:00 AM, [address] [facility] [address], [place], [address], Progress Notes * Sachin CARDOSODOB:1965 ( 59 yo M)Acc No.[id number]:05/27/2024 Progress Notes Patient: Sachin PINTO Provider: Carey Stover MD :1965 A ge:59 Y S ex:Male Date:05/27/2024 Address:[address] [place] [address], [address] , [id number] Subjective: * Chief Complaints: * 1 . Follow up. * HPI: C OVID-19 Screening: Questions H ave you had any new onset fever, chills, cough, congestion, sore throat, shortness of breath, muscle aches? N o * ROS: G eneral/Constitutional: pain o nly normal aches and pains. C hills d enies.?Fatigue a dmits. F ever d enies. E NT: Decreased hearing d enies. R espiratory: Cough d enies. C ardiovascular: Chest pain with exertion d enies. D yspnea on exertion?denies. S hortness of breath d enies. G astrointestinal: Constipation d enies. D ecreased appetite d enies.?Diarrhea d enies. H eartburn d enies. N ausea d enies. R ectal bleeding?denies. V omiting d enies. H ematology: bruising d enies. p etechiae d enies. S wollen glands n one have been noted. G enitourinary: Frequent urination d enies. M usculoskeletal: Muscle aches d enies. P ainful joints d enies. S ciatica d enies. W eakness d enies. S kin: Itching d enies. R keena d enies. S kin lesion(s)?denies. N eurologic: Difficulty speaking d enies. D izziness d enies.?Headache d enies. L ow back pain d enies. P sychiatric: Depressed mood d enies. * Medical History: D iabetic ulcer right first toe, Ureterolithiasis, Obstructive sleep apnea, Morbid obesity, Peripheral neuropathy, The patient has been diagnosed as pre-diabetic, with a hemoglobin A1C of 8.4. He has neuropathy in both feet and has a recurring infection in his left big toe. He also has allergies which cause him to cough.. * Surgical History: C ytoscopy, right retrograde pyelogram, rught ureteral dilation, right flexible ureteroscopy, right ureteral stent 2017-05-31, No history . * Hospitalization/Major Diagno stic Procedure: N o history . * Family History: Patient was adopted. * Social History: T obacco Use: T obacco Use/Smoking P yamileth is a n onsmoker A dditional Findings: Tobacco Non-User A ggressive non-smoker H popeye is single and lives in [place]. He is working. 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 He lives in a two-person condo with seven people, including his girlfriend's son and his family. He has cut out unhealthy foods from his diet, leading to significant weight loss. * Medications: T aking Atorvastatin Calcium , Taking metFORMIN HCl , Taking Albuterol Sulfate HFA 108 (90 Base) MCG/ACT Aerosol Solution 1 puff as needed Inhalation every 4 hrs , Taking Lisinopril 10 MG Tablet Take 1 tablet by mouth once daily , Medication List reviewed and reconciled with the patient * Allergies: N o Known Drug Allergy. Objective: * Vitals: * Examination: G eneral Examination: GENERAL APPEARANCE: p leasant, well nourished, well developed, in no acute distress, calm and relaxed. HEAD: a traumatic, normocephalic. EYES: e bennett, [...] sounds normal, no ascites, no organomegaly, no mass. RECTAL EXAM: n ot examined. MUSCULOSKELETAL: e xtremities unremarkable, no clubbing, cyanosis or edema. PERIPHERAL PULSES: n ormal. NEUROLOGIC: a lert and oriented, cranial nerves 2-12 grossly intact, deep tendon reflexes 2+ symmetrical, motor strength normal upper and lower extremities, sensory exam intact. PSYCH: a lert, oriented. Assessment: * Assessment: 1. H yperlipidemia - E78.5 N otes :Comprehensive blood work including a fasting lipid profile was ordered. He was counseled about weight loss and diet and nutrition. Plan: * Treatment: 2. O thers Continue Lisinopril Tablet, 10 MG, Take 1 tablet by mouth once daily; C ontinue Albuterol Sulfate HFA Aerosol Solution, 108 (90 Base) MCG/ACT, 1 puff as needed, Inhalation, every 4 hrs. ? * Images: * The named appointment provid er may or may not be the originator of this progress note, and it is not deemed complete until electronically signed by the appointment provider. Sign off status: Pending * Provider: Carey Stover MD Date: 0 05/27/2024 Generated for Denny quiroga/Carline/Rudyitting on: 0 01/10/2025 03:20 PM EDT History and Physical Notes * HPI (History of Present Illness) Category Sub-Category Detail Notes COVID-19 Screening Questions Have you had any new onset fever, chills, cough, congestion, sore throat, shortness of breath, muscle aches?: No Examination Category Sub-Category Detail Notes General Examination GENERAL APPEARANCE: pleasant , well nourished, well developed, in no acute distress, calm and relaxed HEAD: atraumatic, normocep halic EYES: eomi, perrla, anicte mariano, conjugate EARS: normal NOSE: septum intact NECK/THYROID: no jugular venous di stention, no carotid bruit, thyroid normal HEART: no clicks, gallops, murmurs, or rubs, regular rhythm, S1, S2 normal, no s3, or vascular bruits LUNGS: clear to auscultatio n ABDOMEN: bowel sounds normal, no ascites, no organomegaly, no mass NEUROLOGIC: alert and oriented, cranial nerves 2-12 grossly intact, deep tendon reflexes 2+ symmetrical, motor strength normal upper and lower extremities, sensory exam intact SKIN: no suspicious lesion s, anicteric PERIPHERAL PULSES: normal BREASTS: no masses palpable b ilaterally MUSCULOSKELETAL: extremities unremark able, no clubbing, cyanosis or edema LYMPH NODES: no enlarged lymph no sage,spleen normal RECTAL EXAM: not examined PSYCH: alert, oriented ORAL CAVITY: normal, unremarkable
--- OUTSIDE RECORDS SUMMARY | 2024-12-06 11:00 | XMS_ITS ---
Author Organization Eugene Stover III, MD Address [address] [place] [address] Care Team Providers Care Silviculture Teacher Name Role Phone Dr. Eugene Stover III [...] Date Provider Diagnosis Eugene Stover III, MD [address] [place] [address] [address], [place] [address] 12/06/2024 Eugene Stover Hyperlipidemia E78.5 ; Type [...] 1 tablet by gloria th once daily Atorvastatin Calcium metFORMIN HCl Albuterol Sulfate HFA 108 (9 0 Base) MCG/ACT 1 puff as needed Inhalation every 4 hrs 05/30/2022 Pending Test Test Name Order Date PROFILE, FASTING (COMPREHENSIVE METABOLI C) 12/06/2024 CBC w DIFF 12/06/2024 Lipid Panel 12/06/2024 Microalbumin, Random 12/06/2024 Hemoglobin A1c 12/06/2024 Next Appt Details Follow Up: 3 Weeks, Reason: OV Provider Name:Eugene Stover , 02/06/2025 09:00:00 AM, [address] [place] [address] [address], [place], [address], Provider Name:Eugene Stover , 02/25/2025 09:30:00 AM, [address] [place] [address] [address], [place], [id number], Progress Notes * Sachin CARDOSODOB:1965 ( 59 yo M)Acc No.[id number]:12/06/2024 Progress Notes Patient: Sachin PINTO Provider: Carey Stover MD :1965 A ge:59 Y S ex:Male Date:12/06/2024 Address:[address] [place] [address], [address] , [id number] Subjective: * Chief Complaints: * D iabetic ulcer right first toeDiabetesPeripheral diabetic neuropathyUreterolithiasisSleep apneaHypertensionHyperlipidemiaObesityBenign prostatic hypertrophy * HPI: C OVID-19 Screening: Luca nye returns for medical management of diabetes and his other issues. He has been going to the wound care clinic at [facility] weekly for a large deep pressure ulcer [...] arranged. Repeat blood work was arranged. His supervising airplane pilot was identified and he was referred back [...] dilation, right flexible ureteroscopy, right ureteral stent [id number] diabetic pressure ulcer right first toe * Hospitalization/Major Diagno stic Procedure: N o history * Family History: Patient was adopted. * Social History: T obacco Use: T obacco Use/Smoking P atient is a n onsmoker A dditional Findings: Tobacco Non-User A ggressive non-smoker Luca nye is single and lives in [place]. He is working. 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 He lives in a two-person condo with [...] true * Provider: Carey Stover MD Date: 0 12/06/2024 Generated for Denny quiroga/Carline/eTransmitting on: 0 01/10/2025 03:20 PM EDT History [...]
--- OUTSIDE RECORDS SUMMARY | 2024-12-27 10:30 | XMS_ITS ---
Author Organization Eugene Stover III, MD Address [address] [place] [address] Care Team Providers Care Manga Artist Name Role Phone Dr. Eugene Stover III Primary Care Provider [phone] Allergies Allergen (clinical drug ingredient) Drug/Non Drug Allergy documented on EMR Reaction Allergy Type Onset Date Status No Known Drug Allergy Unknown Drug Allergy Active Reason For Referral Reason Consult and treat Needs Sleep Apnea Management Needs Cpap machine May need updated sleep study Diagnosis 1 Obstructive sleep ap shay (G47.33) Diagnosis 2 Obesity (E66.9) Referral Organization Eugene Stover III, MD Referring Provider First Name Eugene Referring Provider Last Name Jolanta Referring Provider Speciality Internal M edicine Referred Provider [facility] er, Pulmonology Referred Provider Specialty Pulmonary [facility] General Notes Ivett Camarena 12/30/2024 11:04:10 AM > Referral Faxed with Progress Note Referral Priority Routine REASON FOR VISIT Diabetes, Pressure ulcer fifth toe left foot, Osteomyelitis of the toe, Obesity, Neuropathy, Benignprostatic hypertrophy Medications Medication SIG (Take, Route, Frequency, Duration) Notes Start Date End Date Status Atorvastatin Calcium 20 MG 1 tablet Orally Once a day 12/06/2024 A ctive Lantus SoloStar 100 UNIT/ML INJECT 12 UNITS SUBCUTANEOUSLY ONCE DAILY Subcutaneous Active levoFLOXacin 750 MG Oral Active BD Pen Needle Micro Ultrafine 32G X 6 MM USE TWICE DAILY Acti ve Lisinopril 10 MG 1 tablet Orally Once a day 2024 Active Social History Tobacco Use: Social History Observation Description Date Details (start date - stop date) Never Smoker NA - NA Sex Assigned At : Social History Observation Description Sex Assigned At Male Tobacco Use/Smoking Question Answer Notes Patient is a nonsmoker Additional Findings: Tobacco Non-User Aggressive non-smoker Problems Problem Type SNOMED Code ICD Code Onset Dates Problem Status W/U Status Risk Notes Problem [id number] Subacute osteomyelitis of left foot (M86.272) Active confirmed There was an infection of the MTP joint and the phalanx and the metatarsal on the MRI of the foot. He is now on intravenous ertapenem and oral levofloxacin . This will continue for 6 weeks. He will be followed closely during that time by me in the wound clinic. Vital Signs Temperature 97.8 degrees Fahrenheit 12/28/19 25 Blood pressure systolic 130 mm Hg 12/28/19 25 Blood pressure diastolic 98 mm Hg 025 Heart Rate 101 /min 12/27/2024 Height 67 in 12/27/2024 Weight 250 lbs 12/27/2024 BMI 39.15 kg/m2 12/27/2024 Encounters Encounter Location Date Provider Diagnosis Eguene Stover III, MD [address] [place] [address] [place] [address] 12/27/2024 Eugene Stover Hyperlipidemia E78.5 ; Type 2 diabetes mellitus with foot ulcer E11.621 ; Obesity E66.9 ; Peripheral neuropathy G62.9 ; Ureterolithiasis N20.1 ; Essential hypertension I10 and Subacute osteomyelitis of left foot M86.272 Assessments Encounter Date Diagnosis (ICD Code) Assessment Notes Treat ment Notes Treatment Clinical Notes 12/27/2024 Hyperlipidemia (ICD- 10 - E78.5) Comprehensive blood [...] which will be in the near future. 12/27/2024 Type 2 diabetes mellitus with foot ulcer (ICD-10 - E11.621) He was begun on Lantus insulin in hospital. It is unclear if he is taking metformin not. He is going to bring all of his medications with him on his next visit 12/27/2024 Obesity (ICD-10 - E66.9) He remains obese. He has lost 22 pounds since his last visit. His weight will be monitored carefully. Weight loss is likely partly from hyperglycemia 12/27/2024 Peripheral neuropath y (ICD-10 - G62.9) He continues to have a moderate diabetic neuropathy.He has a new ulcer on the volar surface of his left toe which is being treated in the wound clinic. He will have better control of his diabetes. 12/27/2024 Ureterolithiasis (ICD-10 - N20.1) He is had renal colic and no kidney stone since his last visit. He was advised to stay well hydrated. 12/27/2024 Essential hypertensi on (ICD-10 - I10) His blood pressure was elevated at 144/79. We discussed his diet and sodium restriction. I recommended aggressive weight loss. He was given a follow-up appointment in the near future to check his blood pressure again. He will be treated if necessary. He will continue on the lisinopril. 12/27/2024 Subacute osteomyelit is of left foot (ICD-10 - M86.272) There was an infection of the MTP joint and the phalanx and the metatarsal on the MRI of the foot. He is now on intravenous ertapenem and oral levofloxacin. This will continue for 6 weeks. He will be followed closely during that time by me in the wound clinic. Plan Of Treatment Medication Medication Name Sig Start Date Stop Date Notes Atorvastatin Calcium 20 MG 1 tablet Orally Once a day 11/16 Lantus SoloStar 100 UNIT/ML INJECT 12 UN ITS SUBCUTANEOUSLY ONCE DAILY Subcutaneous levoFLOXacin 750 MG Oral BD Pen Needle Micro Ultrafine 32G X 6 MM USE TWICE DAILY Lisinopril 10 MG 1 tablet Orally Once a day 12/06/2024 Referrals Referral Date Details 12/27/2024 12/27/2024, Consult and treat Needs Sleep Apnea Management Needs Cpap machine May need updated sleep study, Pulmonology [facility] Next Appt Details Follow Up: 1 Week, Reason: o v Provider Name:Eugene Stover , 02/06/2025 09:00:00 AM, [address] [place] [address] [place], [address], Provider Name:Eugene Stover , 02/25/2025 09:30:00 AM, [address] [place] [address] [place], [address], Progress Notes * Sachin CARDOSODOB:1965 ( 59 yo M)Acc No.[id number]:12/27/2024 Progress Notes Patient: Sachin PINTO Provider: Carey Stover MD :1965 A ge:59 Y S ex:Male Date:12/27/2024 Address:[address] [place] [address], [address] , [id number] Subjective: * Chief Complaints: * D iabetesPressure ulcer fifth toe left footOsteomyelitis of the toeObesityNeuropathyBenign prostatic hypertrophy * HPI: C OVID-19 Screening: Luca nye has been going to the wound clinic because of a decubitus ulcer on the left fifth toe.? 2 weeks ago the infection had progressed and the wound clinic sent him to the emergency room where he was admitted to the hospital December 12, 2024. He was not discharged until December 20, 2024. An MRI of the left foot show septic arthritis of the left fifth met at tarsophalangeal joint and osteomyelitis of the left fifth proximal phalanx and metatarsal bone. A culture of that area grew Pseudomonas and group B streptococcus. A PICC line was inserted and he was treated with multiple antibiotics. He was discharged on 6 weeks of oral levofloxacin and intravenous ertapenem. He comes to the hospital daily for the antibiotic.His A1c was grossly elevated. He was begun on Lantus insulin in the hospital. He says he has been taking it. He was vague about whether he is taking metformin or not. Questions H ave you had any new onset fever, chills, cough, congestion, sore throat, shortness of breath, muscle aches? N o * ROS: G eneral/Constitutional: pain o nly normal aches and pains, Cannot feel his feet.?Chills d enies. F atigue a dmits. F [...] dilation, right flexible ureteroscopy, right ureteral stent [id number] diabetic pressure ulcer right first toe * Hospitalization/Major Diagno stic Procedure: N o history * Family History: Patient was adopted. * Social History: T obacco Use: T obacco Use/Smoking P atient is a n onsmoker A dditional Findings: Tobacco Non-User A ggressive non-smoker Luca nye is single and lives in [place]. He is working. 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 He lives in a two-person condo with seven people, including his girlfriend's son and his family. He has cut out unhealthy foods from his diet, leading to significant weight loss. * Medications: T akingAtorvastatin Calcium 20 MG Tablet 1 tablet Orally Once a day Lisinopril 10 MG Tablet 1 tablet Orally Once a day BD Pen Needle Micro Ultrafine 32G X 6 MM Miscellaneous USE TWICE DAILY levoFLOXacin 750 MG Tablet Oral Lantus SoloStar 100 UNIT/ML Solution Pen-injector INJECT 12 UNITS SUBCUTANEOUSLY ONCE DAILY Subcutaneous Taking Atorvastatin Calcium 20 MG Tablet 1 tablet Orally Once a day Taking Lisinopril 10 MG Tablet 1 tablet Orally Once a day Taking BD Pen Needle Micro Ultrafine 32G X 6 MM Miscellaneous USE TWICE DAILY Taking levoFLOXacin 750 MG Tablet Oral Taking Lantus SoloStar 100 UNIT/ML Solution Pen-injector INJECT 12 UNITS SUBCUTANEOUSLY ONCE DAILY Subcutaneous DiscontinuedAtorvastatin Calcium metFORMIN HCl Albuterol Sulfate HFA 108 (90 Base) MCG/ACT Aerosol Solution 1 puff as needed Inhalation every 4 hrs metFORMIN HCl 1000 MG Tablet 1 tablet with a meal Orally Once a day Lantus SoloStar 100 UNIT/ML Solution Pen-injector Subcutaneous BD Pen Needle Micro Ultrafine 32G X 6 MM Miscellaneous Lisinopril 10 MG Tablet Take 1 tablet by mouth once daily Medication List reviewed and reconciled with the patientDiscontinued Atorvastatin Calcium Discontinued metFORMIN HCl Discontinued Albuterol Sulfate HFA 108 (90 Base) MCG/ACT Aerosol Solution 1 puff as needed Inhalation every 4 hrs Discontinued metFORMIN HCl 1000 MG Tablet 1 tablet with a meal Orally Once a day Discontinued Lantus SoloStar 100 UNIT/ML Solution Pen-injector Subcutaneous Discontinued BD Pen Needle Micro Ultrafine 32G X 6 MM Miscellaneous Discontinued Lisinopril 10 MG Tablet Take 1 tablet by mouth once daily Medication List reviewed and reconciled with the patient * Allergies: N o Known Drug Allergyno[Allergies Verified] Objective: * Vitals: H t: 67, Wt: 250, BMI:39.15, BP: 130/98, HR: 101, Temp: 97.8, Ht-cm: 170.18, Wt- k.4. * P ast Orders: I maging:XR foot RT min 3V (Order Date - 10/14/2024) (Performed Date - 10/14/2024) L ab:Gram stain (Order Date - 11/27/2024) (Collection Date & Time - 11/27/2024 09:50 AM) Value Reference Range Gram stain 3+ Gram-negative rods - L ab:Routine Culture (Order Date - 11/27/2024) (Collection Date & Time - 11/27/2024 09:50 AM) Value Reference Range Clindamycin <=0.25 S - Erythromycin <=0.25 S - Levofloxacin 0.25 S - Oxacillin 0.5 S - Penicillin-G >=0.5 R - Tetracycline <=1 S - Trimethoprim/Sulfamethoxazole <=10 S - L ab:Anaerobic Culture (Order Date - 11/27/2024) (Collection Date & Time - 11/27/2024 09:50 AM) Value Reference Range Anaerobic Culture No Bacteroides or Clostridium species isolated. - Lab:C Reactive Protein * Collection Date 10/14/2024 [...] (Ref Range: mg/dL) 237 (Ref Range: mg/dL) * Examination: G eneral Examination: GENERAL APPEARANCE: [...] nodes,spleen normal. SKIN: n o suspicious lesions, anicteric, Left foot bandaged. HEART: n o clicks, gallops, murmurs, or rubs, regular rhythm, S1, S2 normal, no s3, or vascular bruits. LUNGS: c lear to auscultation . BREASTS: no masses palpable bilaterally. ABDOMEN: b owel sounds normal, no ascites, no organomegaly, no mass: centripital obesity. RECTAL EXAM: n ot examined. MUSCULOSKELETAL: e xtremities unremarkable, no clubbing, cyanosis or edemaBandaged left foot, visible foot pink and warm, PICC line left arm. PERIPHERAL PULSES: n ormal. NEUROLOGIC: a lert and oriented, cranial nerves 2-12 grossly intact, deep tendon reflexes 2+ symmetrical, motor strength normal upper and lower extremities, sensory exam iAbnormal lower extremities cannot feel free. PSYCH: a lert, oriented. Assessment: * Assessment: 1. T ype 2 diabetes mellitus with foot ulcer - E11.621 (Primary) N otes :He was begun on Lantus insulin in hospital. It is unclear if he is taking metformin not. He is going to bring all of his medications with him on his next visit 2 . H yperlipidemia - E78.5 N [...] advised to stay well hydrated. 6 . E ssential hypertension - I10 N otes :His blood pressure was elevated at 144/79. We discussed his diet and sodium restriction. I recommended aggressive weight loss. He was given a follow-up appointment in the near future to check his blood pressure again. He will be treated if necessary. He will continue on the lisinopril. 7 . S ubacute osteomyelitis of left foot - M86.272 N otes :There was an infection of the MTP joint and the phalanx and the metatarsal on the MRI of the foot.? He is now on intravenous ertapenem and oral levofloxacin. This will continue for 6 weeks. He will be followed closely during that time by me in the wound clinic. Plan: * Treatment: 2. O besity Referral To:Pulmonology [facility] Pulmonary Diseases Reason:Consult and treat Needs Sleep Apnea Management Needs Cpap machine May need updated sleep study 3. O thers Referral To:Pulmonology [facility] Pulmonary Diseases Reason:Consult and treat Needs Sleep Apnea Management Needs Cpap machine May need updated sleep study * Procedure Codes: 9 9496 TRANS CARE MGMT 7 DAY DISCH * Preventive Medicine: Counseling: C are goal [...] < 115, HbA1C < 7.0. B arriers n o barriers. S elf-Managment Goals W ork on weight loss, with a goal of losing 1 lb per week. * Follow Up: 1 Week (Reason: ov) * Images: * Sign off status: Completed true * Provider: Carey Stover MD Date: 0 12/27/2024 Generated for Denny quiroga/Carline/Rudyitting on: 0 01/10/2025 [...] normal upper and lower extremities, sensory exam iAbnormal lower extremities cannot feel free SKIN: no suspicious lesion s, anicteric, Left foot bandaged PERIPHERAL PULSES: normal BREASTS: no masses palpable b ilaterally MUSCULOSKELETAL: extremities unremark able, no clubbing, cyanosis or edemaBandaged left foot, visible foot pink and warm, PICC line left arm LYMPH NODES: no enlarged lymph no sage,spleen normal RECTAL EXAM: not examined PSYCH: alert, oriented ORAL CAVITY: normal, unremarkable Consultation Request Notes Referral Date Referring Provider Referred Provider Not naya 12/27/2024 Eugene Stover [facility], Pulmonology Consult and treat Needs Sleep Apnea Management Needs Cpap machine May need updated sleep study
--- OUTSIDE RECORDS SUMMARY | 2025-01-08 10:19 | XMS_ITS ---
Author Organization Eugene Stover III, MD Address [address] [place] [address] Care Team Providers Care Cream Separator Operator Name Role Phone Dr. Eugene Stover III Primary Care Provider [phone] REASON FOR VISIT FMLA Form Social History Sex Assigned At : Social History Observation Description Sex Assigned At Male Encounters Encounter Location Date Provider Diagnosis Eugene Stover III, MD [address] [place] [address] [place] [address] 01/08/2025 Eugene Stover Plan Of Treatment Next Appt Details Provider Name:Eugene Stover , 02/06/2025 09:00:00 AM, [address] [place] [address] [place], [address], Provider Name:Eugene Stover , 02/25/2025 09:30:00 AM, [address] [place] [address] [place], [address], Progress Notes * JANAEJg NyegonzalesDOB:1965 ( 59 yo M)Acc No.[id number]:01/08/2025 Patient: Sachin PINTO :1965 A ge:59 Y S ex:Male Address:[address] [place] [address], [address] , [place] [address] * true * Date: Generated for Printi ng/Faxing/eTransmitting on: 0 01/10/2025 03:20 PM EDT
[2025-01-10 14:21] LABS: MANUAL DIFF FLAG NO
[2025-01-10 15:01] LABS: Hematocrit 38.0 % (42.0-52.0); Hemoglobin 12.4 g/dl (14.0-18.0); Imm Gran Abs Auto 0.03 X10*3/uL (0.00-0.03); Imm Gran Pct Auto 0.6 % (0.0-0.4); Lymphocytes Absolute Auto 1.3 X10*3/uL (1.2-4.9); Mean Corpuscular HGB Conc 32.6 g/dl (31.0-36.0); Mean Corpuscular Hemoglobin 27.3 pg (27.0-33.0); Mean Corpuscular Volume 83.5 fL (80.0-98.0); NRBC Abs Auto 0.000 X10*3/uL (0.0-0.012); NRBC Pct Auto 0.0 /100WBC (0.0-0.2); Platelet Count 262 X10*3/uL (160-400); Red Blood Count 4.55 X10*6/uL (4.60-5.80); White Blood Count 5.4 X10*3/uL (4.8-10.8)
[2025-01-10 15:14] LABS: Alanine Aminotransferase 10 U/L (0-40); Albumin Level 2.7 g/dL (3.5-5.0); Alkaline Phosphatase 77 U/L (39-117); Anion Gap 8 (12-20); Aspartate Amino Transferase 26 U/L (5-37); Blood Urea Nitrogen 13 mg/dL (9-16); Calcium 6.6 mg/dL (8.4-10.2); Carbon Dioxide 23 mmol/L (22-29); Chloride 116 mmol/L (96-108); Estimated Glomerular Filt Rate > 60; Potassium 3.3 mmol/L (3.3-5.1); Sodium 144 mmol/L (135-145); Total Protein 4.7 g/dL (6.5-8.0)
--- OUTSIDE RECORDS SUMMARY | 2025-01-10 15:20 | XMS_ITS | Patient Health Record ---
Author Organization Eugene Stover III, MD Address [address] [place] [address] Care Team Providers Care Injection Molding Supervisor Name Role Phone Dr. Eugene Stover III Primary Care Provider [phone] Allergies Allergen (clinical drug ingredient) Drug/Non Drug Allergy documented on EMR Reaction Allergy Type Onset Date Status No Known Drug Allergy Unknown Drug Allergy Active Results Component Value Reference Range Notes Complete Blood Count Auto Di ff Reviewed date:10/18/2024 06:03:47 PM Interpretation: Performing Lab:[facility], [address] [place] [address] Notes/Report: White Blood Count 9.7 4.8-10.8 X10*3/uL [...] 0.0 0.0-0.2 /100WBC Neutrophils Absolute Auto 7.2 2.0-8.3 x10*3/uL Imm Gran Abs Auto 0.08 0.00-0.03 X10*3/uL Lymphocytes Absolute Auto 1.1 1.2-4.9 X10*3/uL Monocytes Absolute Auto 1.1 0.1-1.2 X10*3/uL Eosinophils Absolute Auto 0.2 0.0-0.4 X10*3/uL Basophils Absolute Auto 0.0 0.0-0.2 X10*3/uL NRBC Abs Auto 0.000 0.0-0.012 X10*3/uL Erythrocyte Sedimentation Ra te Reviewed date:10/18/2024 06:03:47 PM Interpretation: Performing Lab:[facility], [address] [place] [address] Notes/Report: Erythrocyte Sedimentation Rate 67 0-15 MM/HR Patients with polycythemia and many hemoglobin abnormalities may have depressed sed rates whereas patients with anemia may have elevated sed rates. Comprehensive Met. Panel Reviewed date:10/18/2024 06:03:47 PM Interpretation: Performing Lab:[facility], [address] [place] [address] Notes/Report: Sodium 135 135-145 mmol/L Potassium 4.1 [...] Protein Reviewed date:10/18/2024 06:03:47 PM Interpretation: Performing Lab:[address] [address] Notes/Report: C Reactive Protein 13.28 < or = 0.50 mg/dL Hemoglobin A1c Reviewed date:10/18/2024 06:03:47 PM Interpretation: Performing Lab:[facility], [address] [place] [address] Notes/Report: Hemoglobin A1c % 11.2 <6.0 % [...] average glucose, using the formula of the K6R-Iuqdfzp Average Glucose study (ADAG), Diabetes Care, Vol.31,#8, Nov. 2007 XR foot RT min 3V Reviewed date:10/18/2024 06:03:47 PM Interpretation: Performing Lab: Notes/Report: [address] [address] XRay Report Signed Patient: Sachin Vides MR#: [id number] 8 : 1965 Acct:[id number] Age/Sex: 59 / M ADM Date: 10/14/24 Loc: HO.ED Attending Dr: Ordering Physician: Elizabeth Weber Date of Service: 10/14/24 Procedure(s): XR foot RT min 3V Accession Number(s): [id number] cc: Eugene Stover MD; Elizabeth Weber EXAMINATION: [...] 10/14/24 1217 DD/ 1150 TD/TT: 10/14/24 1207 Roofer Apprentice: [place] [address] XRay Report Signed Patient: Sachin Vides MR#: [id number] 8 : 1965 Acct:[id number] Age/Sex: 59 / M ADM Date: 10/14/24 Loc: HO.ED Attending Dr: Ordering Physician: Elizabeth Weber Date of Service: 10/14/24 Procedure(s): XR chele t RT min 3V Accession Number(s): [id number] cc: Eugene Stover MD; Elizabeth Weber EXAMINATION: [...] 10/14/24 1217 DD/ 1150 TD/TT: 10/14/24 1207 Roofer Apprentice: Gram stain Reviewed date:12/08/2024 05:09:27 AM Interpretation: Performing Lab:[facility], [address] [place] [address] Notes/Report: Gram stain Gram stain results: Gram stain No polys Gram stain 4+ red blood cells Gram stain 3+ Gram-positive cocci Gram stain 3+ Gram-negative rods Routine Culture Reviewed date:12/08/2024 05:09:27 AM Interpretation: Performing Lab:[facility], [address] [place] [address] Notes/Report: Clindamycin <=0.25 Erythromycin <=0.25 Levofloxacin 0.25 Oxacillin 0.5 Penicillin-G >=0.5 Tetracycline <=1 Trimethoprim/Sulfamethox azole <=10 Anaerobic Culture Reviewed date:12/08/2024 05:09:27 AM Interpretation: Performing Lab:[facility], [address] [place] [address] Notes/Report: Anaerobic Culture Report Anaerobic Culture 4+ Mixed anaerobic missy. Anaerobic Culture No Bacteroides or Clostridium species isolated. Reason For Referral Reason Consult and Treat Diabetic Eye Exam Diagnosis 1 Type 2 diabetes jorge l itus with foot ulcer (E11.621) Referral Organization Eugene Stover III, MD Referring Provider First Name Eugene Referring Provider Last Name Jolnata Referring Provider Speciality Internal M edicine Referred Provider Eye and Sarai Holm Referred Provider Specialty Unknown General Notes Ivett Camarena 02/26/2024 12:34:38 PM > Referral faxed with progress noteNicol Amber 03/08/2024 10:08:17 AM > Office has reached out to patient numerous times. The patient is advised to reach out to office to schedule appointment.Nicol Amber 07/25/2024 09:57:06 AM > Office has reached out to the patient numerous times with no success. Called patient and left a message to contact [facility] and [facility], Ivett Camarena 08/29/2024 02:43:21 PM > Office stated they were not able to schedule the patient and that if the patient wants to be seen a new referral would have to be sent over. Closing referral Referral Priority Routine Reason Consult and treat Needs Sleep Apnea Management Needs Cpap machine May need updated sleep study Diagnosis 1 Obstructive sleep ap hsay (G47.33) Diagnosis 2 Obesity (E66.9) Referral Organization Eugene Stover III, MD Referring Provider First Name Eugene Referring Provider Last Name Jolanta Referring Provider Speciality Internal M edicine Referred Provider [facility] er, Pulmonology Referred Provider Specialty Pulmonary Di seas General Notes Ivett Camarena 12/30/2024 11:04:10 AM > Referral Faxed with Progress Note Referral Priority Routine Medications Medication SIG (Take, Route, Frequency, Duration) Notes Start Date End Date Status BD Pen Needle Micro Ultrafine 32G X 6 MM USE TWICE DAILY Acti ve Lisinopril 10 MG 1 tablet Orally Once a day 2024 Active Atorvastatin Calcium 20 MG 1 tablet Orally Once a day 12/06/2024 A ctive Lantus SoloStar 100 UNIT/ML INJECT 12 UNITS SUBCUTANEOUSLY ONCE DAILY Subcutaneous Active levoFLOXacin 750 MG Oral Active Social History Tobacco Use: Social History [...] Status W/U Status Risk Notes Problem Hyperlipidemia (50789570) Hyperlipidemia (E78.5) Active confirmed Comprehensive blood work [...] will be in the near future. Problem 549159242 Obesity (E66.9) Active confirmed He remains obese. He has lost 22 pounds since his last visit. His weight will be monitored carefully. Weight loss is likely partly from hyperglycemia Problem 806740505670274 Type 2 diabetes mellitus with foot ulcer (E11.621) Active confirmed He was begun on Lantus insulin in hospital. It is unclear if he is taking metformin not. He is going to bring all of his medications with him on his next visit Problem 971247482 Non-pressure chronic ulcer of other part of [...] behind the fifth and fourth toes. Problem 32351711 Ureterolithiasis (N20.1) Active confirmed He is had renal colic and no kidney stone since his last visit. He was advised to stay well hydrated. Problem Benign prostatic hyperplasia (468460070) BPH (benign prostatic hyperplasia) (N40.0) Active confirmed He rises from sleep once or twice a night to urinate. We discussed lifestyyle modifications he could make to reduce nocturia. Problem 89568803 Essential hypertension (I10) Active confirmed His blood pressure was elevated at 144/79. We discussed his diet and sodium restriction. I recommended aggressive weight loss. He was given a follow-up appointment in the near future to check his blood pressure again. He will be treated if necessary. He will continue on the lisinopril. Problem 77175728 Obstructive sleep apnea (G47.33) Active confirmed I strongly recommend that he continue to use his CPAP. Problem 70551799 Peripheral neuropathy (G62.9) Active confirmed He continues to have a moderate diabetic neuropathy.He has a new ulcer on the volar surface of his left toe which is being treated in the wound clinic. He will have better control of his diabetes. Problem 985610060 Type 2 diabetes mellitus without complication, without long-term current use of insulin (E11.9) Active confirmed He will resu me the metformin and his medications will be adjusted after blood work is available. He was counseled on compliance. He was referred to a cooking chef. He was referred to an ophthalmologis t. I recommended a statin drug. He will continue the lisinopril. We will try to reach a target A1c. He will have comprehensive blood work with fasting lipids, microalbumin, A1c and fasting glucose. He will be seen in the office frequently. 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 He is now on intravenous ertapenem and oral levofloxacin. This will continue for 6 weeks. He will be followed closely during that time by me in the wound clinic. Vital Signs Heart Rate 101 /min 12/27/2024 Temperature 97.8 degrees Fahrenheit 12/27/2024 Blood pressure diastolic 98 mm Hg 12/27/2024 Height 67 in 12/27/2024 Blood pressure systolic 130 mm Hg 12/27/2024 Weight 250 lbs 12/27/2024 BMI 39.15 kg/m2 12/27/2024 Encounters Encounter Location Date Provider Diagnosis Eugene Stover III, MD [address] [place] [address] [place] [address] 02/23/2024 Eugene Stover Hyperlipidemia E78.5 ; Type 2 diabetes mellitus without complication, without long-term current use of insulin E11.9 ; BPH (benign prostatic hyperplasia) N40.0 ; Essential hypertension I10 ; Obstructive sleep apnea G47.33 ; Ureterolithiasis N20.1 ; Peripheral neuropathy G62.9 and Ulcer of toe L97.509 Eugene Stover III, MD [address] [place] [address] [place] [address] 12/06/2024 Eugene Stover Hyperlipidemia E78.5 ; Type 2 diabetes mellitus with foot ulcer E11.621 ; Obesity E66.9 ; Peripheral neuropathy G62.9 ; Ureterolithiasis N20.1 ; Obstructive sleep apnea G47.33 ; Essential hypertension I10 ; 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 and BPH (benign prostatic hyperplasia) N40.0 Eugene Stover III, MD [address] [place] [address] [place] [address] 12/27/2024 Eugene Stover Hyperlipidemia E78.5 ; Type 2 diabetes mellitus with foot ulcer E11.621 ; Obesity E66.9 ; Peripheral neuropathy G62.9 ; Ureterolithiasis N20.1 ; Essential hypertension I10 and Subacute osteomyelitis of left foot M86.272 uEgene Stover III, MD [address] [place] [address] [address] [place] [address] 02/08/2024 Eugene Stover III, MD [address] [place] [address] [address] [place] [address] 01/08/2025 Eugene Stover Assessments Encounter Date Diagnosis (ICD [...] on compliance. He was referred to a cooking chef. He was referred to an vending route driver. I recommended a statin drug. He will [...] will be adjusted for aggressive glycemic control. 12/27/2024 Hyperlipidemia (ICD- 10 - E78.5) Comprehensive [...] medications with him on his next visit 02/23/2024 BPH (benign prostati c hyperplasia) (ICD-10 - N40.0) He rises from sleep once or twice a night to urinate. We discussed lifestyyle modifications he could make to reduce nocturia. 12/06/2024 Obesity (ICD-10 - E66.9) He remains obese. He has lost 22 pounds since his last visit. His weight will be monitored carefully. Weight loss is likely partly from hyperglycemia 12/27/2024 Obesity (ICD-10 - E66.9) He remains [...] have better control of his diabetes. 12/27/2024 Peripheral neuropath y (ICD-10 - G62.9) [...] was advised to stay well hydrated. 12/27/2024 Ureterolithiasis (ICD-10 - N20.1) He is [...] that he continue to use his CPAP. 12/27/2024 Essential hypertensi on (ICD-10 - I10) His blood pressure was elevated at 144/79. We discussed his diet and sodium restriction. I recommended aggressive weight loss. He was given a follow-up appointment in the near future to check his blood pressure again. He will be treated if necessary. He will continue on the lisinopril. 02/23/2024 Peripheral neuropath y (ICD-10 - G62.9) [...] time by me in the wound clinic. 02/23/2024 Ulcer of toe (ICD-10 - L97.509) [...] Order Date PROFILE, FASTING (COMPREHENSIVE METABOLI C) 09/05/2017 PROFILE, FASTING (COMPREHENSIVE METABOLI C) 02/23/2024 PROFILE, FASTING (COMPREHENSIVE METABOLI C) 12/06/2024 PROFILE, FASTING (COMPREHENSIVE METABOLI C) 04/18/2018 LIPID PANEL 04/18/2018 LIPID PANEL 09/05/2017 PSA, TOTAL 04/18/2018 PSA, TOTAL 09/05/2017 PSA, TOTAL 02/23/2024 CBC w DIFF 12/06/2024 CBC w DIFF 04/18/2018 CBC w DIFF 09/05/2017 CBC WITH AUTO DIFF 02/23/2024 Lipid Panel 12/06/2024 Lipid Panel 02/23/2024 Microalbumin, Random 12/06/2024 Microalbumin, Random 02/23/2024 Hemoglobin A1c 12/06/2024 Hemoglobin A1c 02/23/2024 Next Appt Details Provider Name:Eugene Stover , 02/06/2025 09:00:00 AM, [address] [place], [place], [address], Provider Name:Eugene Stover , 02/25/2025 09:30:00 AM, [address] [place], [place], [address], Insurance Providers Payer Name Payer Address Payer Phone Subscriber Number Group Number Insured Name Patient Relationship to Insured Coverage Start Date Coverage End Date [employer] [address] [address] [place] [address] [id number] Sachin Vides Self - patient is the [...]
--- OUTSIDE RECORDS SUMMARY | 2025-01-10 15:20 | XMS_ITS | Patient Health Record ---
Author Organization [facility] Address [address] [place] [address] Care Team Providers Care Saw Maker Name Role Phone Eugene Stover MD Primary Care Provider Kasi Sood Unavailable [phone] Allergies Allergen (clinical drug ingredient) Drug/Non Drug [...] W/U Status Risk Notes Problem Tinea unguium (430392653) Tinea unguium (B35.1) Active confirmed Problem Neuropathy (236358558) Neuropathy (G62.9) Active confirmed Plan Of Treatment Pending Test Test Name Order Date [id number] NAIL, 6 OR MORE 12/29/2017 [id number] NAIL, 6 OR MORE 08/17/2018 [id number] SKIN LESIONS, 2 TO 4 08/18/19 19 Insurance Providers Payer Name Payer Address Payer Phone Subscriber Number Group Number Insured Name Patient Relationship to Insured Coverage Start Date Coverage End Date [facility] [address] [place] [address] [phone] [id number] Sachin Vides Self - patient is the insured Medical (General) History Medical History History ICD Code Numbness - unknown origin HTN Surgical History Surgery Date(Month/Year) kidney stones x3 toe surgery Hospitalization History Reason Date(Month/Year) [facility] for Kidney Stones
--- OUTSIDE RECORDS SUMMARY | 2025-01-10 15:20 | XMS_ITS | Clinical Summary ---
Author Organization 175 [facility] Address [address] [place] [address] Phone Care Team Providers Care Counter Checker Name Role Phone Eugene Stover MD Primary Care Provider [phone] Allergies Active Allergy Reactions Criticality Noted Date [...] LAB CHEMISTRY METHOD 03/04/2024 9:18 PM EST [facility] Potassium 4.7 3.5 - 5.5 mmol/L LAB CHEMISTRY METHOD 03/04/2024 9:18 PM EST [facility] Chloride 99 96 - 110 mmol/L LAB CHEMISTRY METHOD 03/04/2024 9:18 PM [facility] CO2 25 21 - 32 mmol/L LAB CHEMISTRY METHOD 03/04/2024 9:18 PM [facility] Anion Gap 8 3 - 11 LAB CHEMISTRY METHOD 03/04/2024 9:18 PM [facility] Glucose 475(HH) 70 - 100 mg/dL LAB CHEMISTRY METHOD 03/04/2024 9:18 PM [facility] BUN 16 5 - 25 mg/dL LAB CHEMISTRY METHOD 03/04/2024 9:18 PM [facility] Creatinine 1.43(H) 0.70 - 1.30 mg/dL LAB CHEMISTRY METHOD 03/04/2024 9:18 PM [facility] eGFR 58(L) >=60 mL/min/1. 73m2 LAB CHEMISTRY METHOD 03/04/2024 9:18 PM [facility] Comment:Calculation based on the Chronic Kidney Disease Epidemiology Collaboration (CKD-EPI) equation refit without adjustment for race. BUN/Creatinine Ratio 11.2 LAB CHEMISTRY METHOD 03/04/2024 9:18 PM [facility] Calcium 9.0 8.5 - 10.5 mg/dL LAB CHEMISTRY METHOD 03/04/2024 9:18 PM [facility] AST (SGOT) 26 10 - 42 unit/L LAB CHEMISTRY METHOD 03/04/2024 9:18 PM [facility] ALT (SGPT) 44 10 - 60 unit/L LAB CHEMISTRY METHOD 03/04/2024 9:18 PM [facility] Alkaline Phosphatase 153(H) 42 - 121 unit/L LAB CHEMISTRY METHOD 03/04/2024 9:18 PM [facility] Total Protein 7.0 6.0 - 8.0 g/dL LAB CHEMISTRY METHOD 03/04/2024 9:18 PM [facility] Albumin 3.7 3.2 - 5.0 g/dL LAB CHEMISTRY METHOD 03/04/2024 9:18 PM EST [facility] Total Bilirubin 0.4 0.0 - 1.4 mg/dL LAB CHEMISTRY METHOD 03/04/2024 9:18 PM EST [facility] Blood Venous blood specimen / Unknown 03/04/2024 8:27 PM EST 03/04/2024 8:35 PM EST us Klever Martin MD LAB BLOOD ORDERABLES Maddy vanessa Result [facility] [address] [place] [address], from Last 3 Months or Most Recently Relevant to Health Maintenance Insurance [address] [place] [address] [employer] MD TROY [id number] Care Teams Counter Checker Relationship Specialty Start Date End Date Eugene Stover MD [address] [facility] [address] [place] [address] PCP - General Oncology 08/10/17
== END 2025-01-10 14:19 | disposition home or self-care (01) ==
LOC: HO.HVNA 14:18
PROVIDERS: Visit Provider Internal Medicine
DX: Z45.2 Encounter for adjustment and management of vascular access device (principal)
CPT/HCPCS: 36415; 80053; 85025

== ENCOUNTER 2025-01-31 12:56 | Outpatient (AMB) | payer OTHER, SELFPAY ==
--- OUTSIDE RECORDS SUMMARY | 2024-02-08 05:25 | XMS_ITS ---
Author Organization Eugene Stover III, MD Address [address] [place] [address] Care Team Providers Care Carpenter And Joiner Name Role Phone Dr. Eugene Stover III Primary Care Provider [phone] REASON FOR VISIT 3 week Supply Linisopril Medications Medication SIG (Take, Route, Fr equency, Duration) Notes Start Date End Date Status Lisinopril 10 MG 1 tablet Orally Once a day for 30 days Active Social History Sex Assigned At : Social History Observation Description Sex Assigned At Male Encounters Encounter Location Date Provider Diagnosis Eugene Stover III, MD [address] [place] [address] [place] [address] 02/08/2024 Eugene Stover Plan Of Treatment Medication Medication Name Sig Start Date Stop Date Notes Lisinopril 10 MG 1 tablet Orally Once a day for 30 days Next Appt Details Provider Name:Eugene Stover , 02/06/2025 09:00:00 AM, [address] [place] [address] [place], [address], Provider Name:Eugene Stover , 02/25/2025 09:30:00 AM, [address] [place] [address] [place], [address], Progress Notes * Sachin CARDOSODOB:1965 ( 58 yo M)Acc No.[id number]:02/08/2024 Patient: Sachin PINTO :1965 A ge:58 Y S ex:Male Address:[address] [place] [address], [address] , [place] [address] * Refills Refill Lisinopril Tablet, 10 MG, Orally, 30, 1 tablet, Once a day, 30 days, Refills=0 * true * Date: Generated for Denny quiroga/Carline/Shay on: 1 03:14 PM EDT
--- OUTSIDE RECORDS SUMMARY | 2024-02-23 05:15 | XMS_ITS ---
Author Organization Eugene Stover III, MD Address [address] [place] [address] Care Team Providers Care Director Of Corporate Sponsorships Name Role Phone Dr. Eugene Stover III Primary Care Provider Allergies Allergen (clinical drug ingredient) Drug/Non Drug [...] patient and left a message to contact [facility], Ivett Camarena 08/29/2024 [...] Date Provider Diagnosis Eugene Stover III, MD [address] [place] [address] [place] [address] 02/23/2024 Eugene Stover Hyperlipidemia E78.5 ; Type [...] on compliance. He was referred to a automotive parts counter person. He was referred to an cafeteria assistant. I recommended a statin drug. He will [...] Provider Name:Eugene Stover , 02/06/2025 09:00:00 AM, [address] [place] [address] [address], [place], [address], Provider Name:Eugene Stover , 02/25/2025 09:30:00 AM, [address] [facility] [address], [place], [address], Progress Notes * Sachin CARDOSODOB:1965 ( 58 yo M)Acc No.[id number]:02/23/2024 Progress Notes Patient: Sachin PINTO Provider: Carey Stover MD :1965 A ge:58 Y S ex:Male Date:02/23/2024 Address:[address] [place] [address], [address] , [id number] Subjective: * Chief Complaints: * A nnual [...] the past? N o S CARLITOS Questions: [facility] Questions I n the past year [...] some time and has been seeing a automotive parts counter person for treatment. The patient is scheduled to [...] He has an appointment next week at [facility] for his visual acuity and glasses. We have referred him to an cafeteria assistant for routine diabetic care. He has been referreed to a automotive parts counter person routine diabetic foot care as the automotive parts counter person to which he was going has retired. [...] dilation, right flexible ureteroscopy, right ureteral stent [id number] history * Hospitalization/Major Diagno stic Procedure: N [...] H e is single and lives in [place]. He is working. 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 He lives in a two-person condo with [...] on compliance. He was referred to a automotive parts counter person. He was referred to an cafeteria assistant. I recommended a statin drug. He will [...] needed, Inhalation, every 4 hrs. ? Referral To:[facility] Unknown Reason:Consult and Treat [...] Stover MD Date: 04/24/2023 Generated for Printi ng/Elizabethg/eTransmitting on: 03:15 PM EDT History and Physical Notes * [...] Not es 02/23/2024 Eugene [address] [facility] and Treat Diabetic Eye Exam
--- OUTSIDE RECORDS SUMMARY | 2024-05-27 05:30 | XMS_ITS ---
Author Organization Eugene Stover III, MD Address [address] [place] [address] [place] [address] Care Team Providers Care Spinal Surgeon Name Role Phone Dr. Eugene Stover III Primary Care Provider [phone] Allergies Allergen (clinical drug ingredient) Drug/Non Drug [...] Date Provider Diagnosis Eugene Stover III, MD [address] [place] [address] [place] [address] 05/27/2024 Eugene Stover Hyperlipidemia E78.5 Assessments Encounter [...] Name:Eugene Stover , 02/06/2025 09:00:00 AM, [address] [facility] [address], [place], [address], Provider Name:Eugene Stover , 02/25/2025 09:30:00 AM, [address] [facility] [address], [place], [address], Progress Notes * Sachin CARDOSODOB:1965 ( 59 yo M)Acc No.[id number]:05/27/2024 Progress Notes Patient: Sachin PINTO Provider: Carey Stover MD :1965 A ge:59 Y S ex:Male Date:05/27/2024 Address:[address] [place] [address], [address] , [place] Subjective: * Chief Complaints: * 1 . [...] H popeye is single and lives in [place]. He is working. 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 He lives in a two-person condo with [...] 0 05/27/2024 Generated for Denny quiroga/Carline/Rudyitting on: 1 03:15 PM EDT History and Physical Notes [...]
--- OUTSIDE RECORDS SUMMARY | 2024-12-06 11:00 | XMS_ITS ---
Author Organization Eugene Stover III, MD Address [address] [place] [address] Care Team Providers Care Clinical Pharmacist Name Role Phone Dr. Eugene Stover III [...] Date Provider Diagnosis Eugene Stover III, MD [address] [place] [address] DR N[address]AS[address], [place] [address] 12/06/2024 Eugene Stover Hyperlipidemia E78.5 ; Type [...] Provider Name:Eugene Stover , 02/06/2025 09:00:00 AM, [address] [place] [address] [address], [place], [address], Provider Name:Eugene Stover , 02/25/2025 09:30:00 AM, [address] [place] [address] [address], [place], [address], Progress Notes * Sachin CARDOSODOB:1965 ( 59 yo M)Acc No.[id number]:12/06/2024 Progress Notes Patient: Sachin PINTO Provider: Carey Stover MD :1965 A ge:59 Y S ex:Male Date:12/06/2024 Address:[address] [place] [address], [address] , [id number] Subjective: * Chief Complaints: * D iabetic ulcer right first toeDiabetesPeripheral diabetic neuropathyUreterolithiasisSleep apneaHypertensionHyperlipidemiaObesityBenign prostatic hypertrophy * HPI: C OVID-19 Screening: Luca nye returns for medical management of diabetes and his other issues. He has been going to the wound care clinic at [facility] weekly for a large deep pressure ulcer [...] arranged. Repeat blood work was arranged. His social worker psychiatric was identified and he was referred back [...] dilation, right flexible ureteroscopy, right ureteral stent [id number] diabetic pressure ulcer right first toe * Hospitalization/Major Diagno stic Procedure: N o history * Family History: Patient was adopted. * Social History: T obacco Use: T obacco Use/Smoking P atient is a n onsmoker A dditional Findings: Tobacco Non-User A ggressive non-smoker Luca nye is single and lives in [place]. He is working. 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 He lives in a two-person condo with [...] 0 12/06/2024 Generated for Denny quiroga/Carline/eTransmitting on: 1 03:15 PM EDT History and [...]
--- OUTSIDE RECORDS SUMMARY | 2024-12-27 10:30 | XMS_ITS ---
Author Organization Eugene Stover III, MD Address [address] [place] [address] Care Team Providers Care Elementary Art Teacher Name Role Phone Dr. Eugene Stover [...] Provider Speciality Internal M edicine Referred Provider [facility] er, Pulmonology Referred Provider Specialty Pulmonary [facility] General Notes Ivett Camarena 12/30/2024 11:04:10 AM [...] Problem Status W/U Status Risk Notes Problem [id number] Subacute osteomyelitis of left foot (M86.272) Active [...] 12/27/2024 Encounters Encounter Location Date Provider Diagnosis Eugene Stover III, MD [address] [place] [address] [place] [address] 12/27/2024 Eugene Stover Hyperlipidemia E78.5 ; Type [...] machine May need updated sleep study, Pulmonology [facility] Next Appt Details Follow Up: 1 Week, Reason: o v Provider Name:Eugene Stover , 02/06/2025 09:00:00 AM, [address] [place] [address] [place], [address], Provider Name:Eugene Stover , 02/25/2025 09:30:00 AM, [address] [place] [address] [place], [address], Progress Notes * Sachin CARDOSODOB:1965 ( 59 yo M)Acc No.[id number]:12/27/2024 Progress Notes Patient: Sachin PINTO Provider: Carey Stover MD :1965 A ge:59 Y S ex:Male Date:12/27/2024 Address:[address] [place] [address], [address] , [id number] Subjective: * Chief Complaints: * D iabetesPressure [...] dilation, right flexible ureteroscopy, right ureteral stent [id number] diabetic pressure ulcer right first toe * Hospitalization/Major Diagno stic Procedure: N o history * Family History: Patient was adopted. * Social History: T obacco Use: T obacco Use/Smoking P atient is a n onsmoker A dditional Findings: Tobacco Non-User A ggressive non-smoker Luca nye is single and lives in [place]. He is working. 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 He lives in a two-person condo with [...] * Treatment: 2. O besity Referral To:Pulmonology [facility] Pulmonary Diseases Reason:Consult and treat Needs Sleep Apnea Management Needs Cpap machine May need updated sleep study 3. O thers Referral To:Pulmonology [facility] Pulmonary Diseases Reason:Consult and treat Needs Sleep [...] MD Date: 0 12/27/2024 Generated for Denny quiroga/Carline/eTreresmitting on: 1 03:15 PM EDT History and [...] Referred Provider Not naya 12/27/2024 Eugene Stover [facility], Pulmonology Consult and treat Needs Sleep Apnea Management Needs Cpap machine May need updated sleep study
--- OUTSIDE RECORDS SUMMARY | 2025-01-08 10:19 | XMS_ITS ---
Author Organization Eugene Stover III, MD Address [address] [place] [address] Care Team Providers Care Legal Transcriptionist Name Role Phone Dr. Eugene Stover III Primary Care Provider [phone] REASON FOR VISIT FMLA Form Social History Sex Assigned At : Social History Observation Description Sex Assigned At Male Encounters Encounter Location Date Provider Diagnosis Eugene Stover III, MD [address] [place] [address] [place] [address] 01/08/2025 Eugene Stover Plan Of Treatment Next Appt Details Provider Name:Eugene Stover , 02/06/2025 09:00:00 AM, [address] [place] [address] [place], [address], Provider Name:Eugene Stover , 02/25/2025 09:30:00 AM, [address] [place] [address] [place], [address], Progress Notes * JANAEJg NyegonzalesDOB:1965 ( 59 yo M)Acc No.[id number]:01/08/2025 Patient: Sachin PINTO :1965 A ge:59 Y S ex:Male Address:[address] [place] [address], [address] , [place] [address] * true * Date: Generated for Printi ng/Faxing/eTransmitting on: 1 03:14 PM EDT
--- NOTE | 2025-01-31 13:06 | MHC.OFFVIS ---
Vital Signs 01/31/25 13:13 Height 5 ft 6 in Weight 260 lb BMI 42.0 Pulse 123 H Pulse Source Pulse Oximeter Pulse Oximetry (%) 97 Intake Visit Reasons: F/U Allergies erythromycin base (ERYTHROMYCIN BASE) Allergy (Unknown, Verified 01/31/25 13:13) UNKNOWN HPI Comments Details: History of Present Illness The patient is a 59-year-old male presenting for evaluation and consent to using [employer] and follow-up for osteomyelitis of the left lateral foot. Previously identified in the hospital, the foot infection with group B Streptococcus and Pseudomonas prompted concerns regarding potential complications involving the toe. Treatment consisted of intravenous ertapenem combined with oral levofloxacin, which was concluded on January 28. The completion of antimicrobial therapy has resulted in improved clinical stability, and there are no requirements for ongoing intervention. Current observations show healing of the foot, with no remaining symptoms. The patient's girlfriend, who has a medical background, assists with care. Review of Systems - Musculoskeletal: Reports tenderness in the extremities Physical Exam - Vitals- Stable - Oropharynx- Clear - Lungs- Clear - Cardiovascular- Rhythm regular - Abdomen- Soft - Musculoskeletal- Tenderness in extremities; left foot appears to be healing Results - Tests and Diagnostics: Culture results indicating infection with group B Streptococcus and Pseudomonas species Plan Patient was informed and verbally consented to the use of an ambient scribe for clinic note documentation during this visit. 1. Osteomyelitis Of The Left Lateral Foot After completing the regimen of intravenous ertapenem and oral levofloxacin, monitoring suggests healing of the affected foot. The patient is advised to watch for recurrence and return for evaluation if symptoms reappear. 2. Infection With Group B Streptococcus And Pseudomonas Species The infections with group B Streptococcus and Pseudomonas have been treated effectively with the antibiotic regimen. Observations confirm early-stage healing, necessitating no further treatment. The primary focus remains on monitoring for potential recurrence. Discussion Notes In our discussions today, we reviewed the completion of treatment for the patient's osteomyelitis and associated infections with group B Streptococcus and Pseudomonas. I confirmed that no further antibiotic therapy is necessary at this time and advised the patient to closely monitor for any signs suggestive of recurrence, given the chronic nature of osteomyelitis. We discussed that while currently stable, recurrence remains a possibility, and the patient should seek attention if symptoms return. Medical Decision Making The decision to conclude the antimicrobial therapy after the scheduled six-week course was based on the apparent clinical response and early signs of healing in the left foot. Comprehensive therapy included ertapenem and oral levofloxacin, effectively addressing two microbial pathogens, which contributed prominently to infection resolution. Moving forward, patient education focused on vigilance in detecting recurrence, as osteomyelitis posed ongoing risks without active symptoms. Clinical stability was noted, obviating immediate further interventions. Patient Instructions - Watch for and report any return of symptoms, like tenderness, swelling, or changes in the left foot. - Maintain foot hygiene and protective care to promote healing. - Seek medical care promptly if discomfort increases or new symptoms arise. - No additional antibiotics are needed unless advised by a healthcare provider. [facility] Medical History Class 3 obesity Type 2 diabetes mellitus Hypertension Neuropathy Social History Household Members: Significant Other [facility]: [facility] Do you presently have visiting nurse or other home services: No Patient Tobacco Use Status: Never used Tobacco service: No Physical Exam Vital Signs: Last Vital Signs Pulse 123 H 01/31/25 13:13 Pulse Ox 97 01/31/25 13:13 BMI result Body Mass Index 42.0 Const Other: Assessment & Plan Assessment & Plan (1) Diabetic foot infection: Code(s): E11.628 - Type 2 diabetes mellitus with other skin complications; L08.9 - Local infection of the skin and subcutaneous tissue, unspecified Category: Medical Plan as note Coding Level of Care Code Est Pt Level 3 (27672) Diagnoses Diabetic foot infection E11.628; L08.9
[2025-01-31 13:13] VITALS: PULSE 123; O2SAT 97; BMI 42.0
--- OUTSIDE RECORDS SUMMARY | 2025-01-31 15:15 | XMS_ITS | Patient Health Record ---
[facility] Address [address] [place] [address] Care Team Providers Care Dance Hall Host/Hostess Name Role Phone Eugene Stover MD Primary Care Provider Kasi Sood Unavailable [phone] Allergies Allergen (clinical drug ingredient) Drug/Non Drug [...] W/U Status Risk Notes Problem Tinea unguium (985873053) Tinea unguium (B35.1) Active confirmed Problem Neuropathy (791606869) Neuropathy (G62.9) Active confirmed Plan Of Treatment Pending Test Test Name Order Date [id number] NAIL, 6 OR MORE 12/29/2017 [id number] NAIL, 6 OR MORE 08/17/2018 [id number] SKIN LESIONS, 2 TO 4 08/18/19 19 Insurance Providers Payer Name Payer Address Payer Phone Subscriber Number Group Number Insured Name Patient Relationship to Insured Coverage Start Date Coverage End Date [facility] [employer] [address] [place] [address] [phone] [id number] Sachin Vides Self - patient is the insured Medical (General) History Medical History History ICD Code Numbness - unknown origin HTN Surgical History Surgery Date(Month/Year) kidney stones x3 toe surgery Hospitalization History Reason Date(Month/Year) [facility]
--- OUTSIDE RECORDS SUMMARY | 2025-01-31 15:15 | XMS_ITS | Clinical Summary ---
Author Organization [facility] Address [address] [facility] [address] [place] [address] Phone Care Team Providers Care Physician Practice Coordinator Name Role Phone Unavailable Primary Care Provider [...] Adult Td,Tdap Booster 05/12/2030 05/12/2020 , 05/12/2020 RSV VACCINE (1 - 1-dose 75+ series) 2042 HEPATITIS A VACCINES Aged Out No long [...] is not the complete legal health record.[facility]
--- OUTSIDE RECORDS SUMMARY | 2025-01-31 15:15 | XMS_ITS | Clinical Summary ---
Author Organization 175 [facility] Address [address] [place] [address] Phone Care Team Providers Care Wheel Press Clerk Name Role Phone Eugene Stover MD Primary Care Provider [phone] Allergies Active Allergy Reactions Criticality Noted Date [...] Health Maintenance Due Date Last Done Comments Colorectal Cancer Screening: Colonoscopy 1965 Pneumococcal Vaccine: 50+ Years (1 of 2 - PCV) 1986 RSV Immunization Adult Patients (1 - Risk 50-74 years 1-dose series) 2017 Zoster Vaccines (1 of 2) 2017 Hepatitis B Vaccines (2 of 3 - 19+ 3-dose series) 06/09/2020 05/12/2020 Cholesterol Screening (Lipid Panel) 05/16/2023 HIV Screening 05/16/2023 Hepatitis C Screening 05/16/2023 Social Influencers of Health Screening 05/16/2023 Depression Screening 04/17/2024 COVID-19 Vaccine (4 - 2024-2 6 season) 2024 10/07/2020, 09/09/2020, 04/28/2020 Influenza Vaccine (#1) 2024 05/12/2020 DTaP,Tdap,and Td Vaccines (2 - Td or [...] on patient's age to complete this topic Insurance [address] [place] [address] [employer] MD [place] [id number] Care Teams Wheel Press Clerk Relationship Specialty Start Date End Date Eugene Stover MD [address] [address] PCP - General Oncology 08/10/17
--- OUTSIDE RECORDS SUMMARY | 2025-01-31 15:15 | XMS_ITS | Patient Health Record ---
Author Organization Eugene Stover III, MD Address [address] [place] [address] Care Team Providers Care Lotus Notes Developer Name Role Phone Dr. Eugene tSover III Primary Care Provider Allergies Allergen (clinical drug ingredient) Drug/Non Drug Allergy documented on EMR Reaction Allergy Type Onset Date Status No Known Drug Allergy Unknown Drug Allergy Active Results Component Value Reference Range Notes Complete Blood Count Auto Di ff Reviewed date:10/18/2024 06:03:47 PM Interpretation: Performing Lab:[facility], [address] [place] [phone] Notes/Report: White Blood Count 9.7 4.8-10.8 X10*3/uL [...] te Reviewed date:10/18/2024 06:03:47 PM Interpretation: Performing Lab:[facility], [address] [place] [phone] Notes/Report: Erythrocyte Sedimentation Rate 67 0-15 MM/HR Patients with polycythemia and many hemoglobin abnormalities may have depressed sed rates whereas patients with anemia may have elevated sed rates. Comprehensive Met. Panel Reviewed date:10/18/2024 06:03:47 PM Interpretation: Performing Lab:[facility], [address] [place] [phone] Notes/Report: Sodium 135 135-145 mmol/L Potassium 4.1 [...] Protein Reviewed date:10/18/2024 06:03:47 PM Interpretation: Performing Lab:[address] [address] Notes/Report: C Reactive Protein 13.28 < or = 0.50 mg/dL Hemoglobin A1c Reviewed date:10/18/2024 06:03:47 PM Interpretation: Performing Lab:[facility], [address] [place] [phone] Notes/Report: Hemoglobin A1c % 11.2 <6.0 % [...] average glucose, using the formula of the D7N-Jhrgznw Average Glucose study (ADAG), Diabetes Care, Vol.31,#8, Nov. 2007 XR foot RT min 3V Reviewed date:10/18/2024 06:03:47 PM Interpretation: Performing Lab: Notes/Report: [address] [address] XRay Report Signed Patient: Sachin Vides MR#: [id number] 8 : 1965 Acct:[id number] Age/Sex: 59 / M ADM Date: 10/14/24 Loc: HO.ED Attending Dr: Ordering Physician: Elizabeth Weber Date of Service: 10/14/24 Procedure(s): XR foot RT min 3V Accession Number(s): [id number] cc: Eugene Stover MD; Elizabeth Weber EXAMINATION: [...] 10/14/24 1217 DD/ 1150 TD/TT: 10/14/24 1207 Chemical Lab Technician: [place] [address] XRay Report Signed Patient: Sachin Vides MR#: [id number] 8 : 1965 Acct:[id number] Age/Sex: 59 / M ADM Date: 10/14/24 Loc: HO.ED Attending Dr: Ordering Physician: Elizabeth Weber Date of Service: 10/14/24 Procedure(s): XR chele t RT min 3V Accession Number(s): [id number] cc: Eugene Stover MD; Elizabeth Weber EXAMINATION: XR FOOT 3 OR MORE VIEWS RIGHT HISTORY: pain, mratha rn for osteo COMPARISON: Comparis on is [...] 10/14/24 1217 DD/ 1150 TD/TT: 10/14/24 1207 Chemical Lab Technician: Gram stain Reviewed date:12/08/2024 05:09:27 AM Interpretation: Performing Lab:[facility], [address] [place] [phone] Notes/Report: Gram stain Gram stain results: Gram stain No polys Gram stain 4+ red blood cells Gram stain 3+ Gram-positive cocci Gram stain 3+ Gram-negative rods Routine Culture Reviewed date:12/08/2024 05:09:27 AM Interpretation: Performing Lab:[facility], [address] [place] [phone] Notes/Report: Clindamycin <=0.25 Erythromycin <=0.25 Levofloxacin 0.25 Oxacillin 0.5 Penicillin-G >=0.5 Tetracycline <=1 Trimethoprim/Sulfamethox azole <=10 Anaerobic Culture Reviewed date:12/08/2024 05:09:27 AM Interpretation: Performing Lab:[facility], [address] [place] [phone] Notes/Report: Anaerobic Culture Report Anaerobic Culture 4+ [...] patient and left a message to contact [facility] and [facility], Ivett Camarena 08/29/2024 02:43:21 PM > Office [...] (G47.33) Diagnosis 2 Obesity (E66.9) Referral Organization Euegne Stover III, MD Referring Provider First Name Eugene Referring Provider Last Name Jolanta Referring Provider Speciality Internal M edicine Referred Provider [facility] er, Pulmonology Referred Provider Specialty Pulmonary Di [...] Status W/U Status Risk Notes Problem Hyperlipidemia (21703682) Hyperlipidemia (E78.5) Active confirmed Comprehensive blood work [...] will be in the near future. Problem 258258126 Obesity (E66.9) Active confirmed He remains obese. He has lost 22 pounds since his last visit. His weight will be monitored carefully. Weight loss is likely partly from hyperglycemia Problem [id number] Type 2 diabetes mellitus with foot ulcer (E11.621) Active confirmed He was begun on Lantus insulin in hospital. It is unclear if he is taking metformin not. He is going to bring all of his medications with him on his next visit Problem 134084873 Non-pressure chronic ulcer of other part of [...] behind the fifth and fourth toes. Problem 23718177 Ureterolithiasis (N20.1) Active confirmed He is had renal colic and no kidney stone since his last visit. He was advised to stay well hydrated. Problem Benign prostatic hyperplasia (539935925) BPH (benign prostatic hyperplasia) (N40.0) Active confirmed He rises from sleep once or twice a night to urinate. We discussed lifestyyle modifications he could make to reduce nocturia. Problem 00417256 Essential hypertension (I10) Active confirmed His blood pressure was elevated at 144/79. We discussed his diet and sodium restriction. I recommended aggressive weight loss. He was given a follow-up appointment in the near future to check his blood pressure again. He will be treated if necessary. He will continue on the lisinopril. Problem 59345412 Obstructive sleep apnea (G47.33) Active confirmed I strongly recommend that he continue to use his CPAP. Problem 20682979 Peripheral neuropathy (G62.9) Active confirmed He continues to have a moderate diabetic neuropathy.He has a new ulcer on the volar surface of his left toe which is being treated in the wound clinic. He will have better control of his diabetes. Problem 400288853 Type 2 diabetes mellitus without complication, without long-term current use of insulin (E11.9) Active confirmed He will resu me the metformin and his medications will be adjusted after blood work is available. He was counseled on compliance. He was referred to a news production assistant. He was referred to an ophthalmologis t. I recommended a statin drug. He will continue the lisinopril. We will try to reach a target A1c. He will have comprehensive blood work with fasting lipids, microalbumin, A1c and fasting glucose. He will be seen in the office frequently. Problem [id number] Subacute osteomyelitis of left foot (M86.272) Active [...] Date Provider Diagnosis Eugene Stover III, MD [address] [place] [address] [place] [address] 02/23/2024 Eugene Stover Hyperlipidemia E78.5 ; Type 2 diabetes mellitus without complication, without long-term current use of insulin E11.9 ; BPH (benign prostatic hyperplasia) N40.0 ; Essential hypertension I10 ; Obstructive sleep apnea G47.33 ; Ureterolithiasis N20.1 ; Peripheral neuropathy G62.9 and Ulcer of toe L97.509 Eugene Stover III, MD [address] [place] [address] [place] [address] 12/06/2024 Eugene Stover Hyperlipidemia E78.5 ; Type 2 diabetes mellitus with foot ulcer E11.621 ; Obesity E66.9 ; Peripheral neuropathy G62.9 ; Ureterolithiasis N20.1 ; Obstructive sleep apnea G47.33 ; Essential hypertension I10 ; 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 and BPH (benign prostatic hyperplasia) N40.0 Eugene Stover III, MD [address] [place] [address] [place] [address] 12/27/2024 Eugene Stover Hyperlipidemia E78.5 ; Type 2 diabetes mellitus with foot ulcer E11.621 ; Obesity E66.9 ; Peripheral neuropathy G62.9 ; Ureterolithiasis N20.1 ; Essential hypertension I10 and Subacute osteomyelitis of left foot M86.272 Eugene Stover III, MD [address] [place] [address] [address] [place] [address] 02/08/2024 Eugene Stover III, MD [address] [place] [address] [address] [place] [address] 01/08/2025 Eugene Stover Assessments Encounter Date Diagnosis [...] on compliance. He was referred to a news production assistant. He was referred to an trencher driver. I recommended a statin drug. He [...] Name:Eugene Stover , 02/06/2025 09:00:00 AM, [address] [place], [place], [address], Provider Name:Eugene Stover , 02/25/2025 09:30:00 AM, [address] [place], [place], [address], Insurance Providers Payer Name Payer Address Payer Phone Subscriber Number Group Number Insured Name Patient Relationship to Insured Coverage Start Date Coverage End Date [employer] [address] [address] [place] [address] [id number] Sachin Vides Self - patient is the insured 2024 Medical (General) History Medical History History ICD [...]
== END 2025-01-31 13:36 | disposition home or self-care (01) ==
LOC: HO.HCC 12:56
PROVIDERS: PCP Emergency Medicine; Visit Provider Internal Medicine
DX: E11.628 Type 2 diabetes mellitus with other skin complications (principal); L08.9 Local infection of the skin and subcutaneous tissue, unspecified
CPT/HCPCS: 99213

== ENCOUNTER → 2025-01-31 12:56 | Outpatient (BNVA) | payer OTHER, SELFPAY | PROVIDERS: PCP Emergency Medicine; Visit Provider Internal Medicine | DX: E11.628 Type 2 diabetes mellitus with other skin complications (principal); L08.9 Local infection of the skin and subcutaneous tissue, unspecified | CPT/HCPCS: 99212 ==

== ENCOUNTER → 2025-02-25 11:59 | Outpatient (BNV) | payer OTHER, SELFPAY | PROVIDERS: PCP Internal Medicine Medical Oncology; Visit Provider Radiology Diagnostic Radiology | DX: E11.628 Type 2 diabetes mellitus with other skin complications (principal); M86.172 Other acute osteomyelitis, left ankle and foot | CPT/HCPCS: 73630 ==

== ENCOUNTER 2025-03-19 11:07 | Outpatient (AMB) | payer OTHER, SELFPAY ==
--- OUTSIDE RECORDS SUMMARY | 2025-02-17 08:00 | XMS_ITS ---
Author Organization Eugene Stover III, MD Address [address] [place] [address] Care Team Providers Care Looper Operator Name Role Phone Dr. Eugene Stover III Primary Care Provider [phone] Allergies Allergen (clinical drug ingredient) Drug/Non Drug Allergy documented on EMR Reaction Allergy Type Onset Date Status No Known Drug Allergy Unknown Drug Allergy Active Shellfish (FN) Shellfish Protein-containing Drug Products Unknown Drug Allergy Active Reason For Referral Reason insulin dependent di abetic evaluate and treatment Diagnosis 1 Type 2 diabetes jorge l itus with foot ulcer (E11.621) Referral Organization Eugene Stover III, MD Referring Provider First Name Eugene Referring Provider Last Name Jolanta Referring Provider Speciality Internal M edicine Referred Provider [facility] Referred Provider Specialty Endocrinolog y General Notes Dona Mccarthy CMA 02/19 09:12:37 AM > ref/demo/progress note /labs faxed to [place] [facility], Dona Mccarthy CMA 02/27/2025 03:10:07 PM >I called [place] [facility] they have pt scheduled for appt on 03/19/2025 at 11:15am Referral Priority Routine Referral Appointment Date 03/19/2025 REASON FOR VISIT Annual Exam Medications Medication SIG (Take, Route, Frequency, Duration) Notes Start Date End Date Status metFORMIN HCl 1000 MG 1 tablet with a me al Orally Once a day Active Atorvastatin Calcium 20 MG 1 tablet Orally Once a day 12/06/2024 A ctive Lisinopril 10 MG 1 tablet Orally Once a day 2024 Active BD Pen Needle Micro Ultrafine 32G X 6 MM USE TWICE DAILY Acti ve Lantus SoloStar 100 UNIT/ML INJECT 20 UNITS SUBCUTANEOUSLY ONCE DAILY Subcutaneous Active Lantus SoloStar 100 UNIT/ML 30 units Subcutaneous daily for 28 days 02/17/2025 Active Social History Tobacco Use: Social History Observation Description Date Details (start date - stop date) Never Smoker NA - NA Sex Assigned At : Social History Observation Description Sex Assigned At Male Tobacco Control (Standard) Question Answer Notes Tobacco use: Nonsmoker Additional Findings: Tobacco non-user Aggressive nonsmoker AUDIT-C (Standard) Question Answer Notes Did you have a drink containing alcohol in the p ast year? No Points 0 Interpretation Negative Vital Signs Temperature 97.5 degrees Fahrenheit 02/18/20 25 Blood pressure systolic 128 mm Hg 02/18/20 25 Blood pressure diastolic 96 mm Hg 025 Heart Rate 82 /min 02/17/2025 Height 67 in 02/17/2025 Weight 257 lbs 02/17/2025 BMI 40.25 kg/m2 02/17/2025 Encounters Encounter Location Date Provider Diagnosis Eugene Stover III, MD [address] [place] [address] [place] [address] 02/17/2025 Eugene Stover Hyperlipidemia E78.5 ; Immunization not carried out because of patient refusal Z28.21 ; Morbid obesity E66.01 ; Obstructive sleep apnea G47.33 ; Ureterolithiasis N20.1 ; Peripheral neuropathy G62.9 ; Essential hypertension I10 ; Type 2 diabetes mellitus with foot ulcer E11.621 ; 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 02/17/2025 Immunization not carried out because of patient refusal (ICD-10 - Z28.21) He declined influenza vaccine today. 02/17/2025 Morbid obesity (ICD- 10 - E66.01) He has gained 7 pounds since his last visit. We have discussed the importance of weight loss and diet and activity. His weight will be followed carefully. He is going to consider GLP-1 medication. 02/17/2025 Obstructive sleep apnea (ICD-10 - G47.33) I strongly recommend that he continue to use his CPAP. 02/17/2025 Ureterolithiasis (ICD-10 - N20.1) He is had renal colic and no kidney stone since his last visit. He was advised to stay well hydrated. 02/17/2025 Peripheral neuropath y (ICD-10 - G62.9) He continues to have a moderate diabetic neuropathy.He has a new ulcer on the volar surface of his left toe which is being treated in the wound clinic. He will have better control of his diabetes. 02/17/2025 Essential hypertensi on (ICD-10 - I10) His blood pressure was elevated at 144/79. We discussed his diet and sodium restriction. I recommended aggressive weight loss. He was given a follow-up appointment in the near future to check his blood pressure again. He will be treated if necessary. He will continue on the lisinopril. 02/17/2025 Type 2 diabetes mellitus with foot ulcer (ICD-10 - E11.621) I have increased his Lantus from 24-30 units daily with office visits every 14 days. I have referred him to endocrinology for aggressive diabetic teaching, Dexon sensor, And aggressive control of his diabetes. 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 He reports having no sensation in his feet. He was instructed on foot care today. He is seeing the wound clinic weekly. 02/17/2025 BPH (benign prostati c hyperplasia) (ICD-10 - N40.0) He rises from sleep once or twice a night to urinate. We discussed lifestyyle modifications he could make to reduce nocturia. Plan Of Treatment Medication Medication Name Sig Start Date Stop Date Notes metFORMIN HCl 1000 MG 1 tablet with a me al Orally Once a day Atorvastatin Calcium 20 MG 1 tablet Orally Once a day 11/16 Lisinopril 10 MG 1 tablet Orally Once a day 12/06/2024 BD Pen Needle Micro Ultrafine 32G X 6 MM USE TWICE DAILY Lantus SoloStar 100 UNIT/ML INJECT 20 UN ITS SUBCUTANEOUSLY ONCE DAILY Subcutaneous Lantus SoloStar 100 UNIT/ML 30 units Sub cutaneous daily for 28 days 02/17/2025 Referrals Referral Date Details 02/17/2025 02/17/2025, insulin dependent diabetic evaluate and treatment, [facility] Next Appt Details Follow Up: 14 days, Reason: ov no tests Provider Name:Eugene Stover , 03/25/2025 11:00:00 AM, [address] [place] [address] [address], [place], [address], Provider Name:Eugene Sotver , 02/20/2026 02:00:00 PM, [address] [place] [address] [address], [place], [address], Progress Notes * Jg CARDOSOgonzalesDOB:1965 ( 59 yo M)Acc No.[id number]:02/17/2025 Progress Notes Patient: Sachin PINTO Provider: Carey Stover MD :1965 A ge:59 Y S ex:Male Date:02/17/2025 Address:[address] [place] [address], [address] , [place], [id number] Subjective: * Chief Complaints: * A nnual Exam * HPI: D epression Screening: Luca nye returns to the office for his annual examination. He is due for his colonoscopy due for his annual diabetic ophthalmology visit. He has returned to the wound clinic because he has developed an open area on the lateral border of his left leg which has penetrated through the skin. The wound on the right first toe has healed but is still bandaged. He is wearing soft slippers today which have no sharp surfaces. He reports that his fasting glucose levels recently have been about 200. I reviewed his insulin dosing with him today. I have increased her Lantus from 24 units to 30 units. I have referred him to endocrinology for evaluation for diabetic teaching and combined long and short acting insulin and to obtain a Dexon sensor. He possesses a smart phone. He is going to be seen back in 2 weeks until we are satisfied he understands his diabetic therapy. He will be referred for diabetic eye exam and a colonoscopy. Comprehensive blood work has been ordered.This will include a fasting glucose hemoglobin A1c fasting lipids and microalbumin. Blood work done at [facility] on December 10, 2019 showed A1c was 6.9. On December 13, 2024 the hemoglobin A1c was 11.9. On January 17, 2025 glucose 150 BUN 17 creatinine 1.02 calcium 9.2 CRP 0.56 liver function tests normal white count 7.5 hematocrit 41.9 platelets 307. Comprehensive blood work with a repeat hemoglobin A1c has been ordered with a microalbumin fasting glucose and a lipid profile. PHQ-9 L ittle interest or pleasure in [...] ot at all T otal Score 0 Interpretation and Intervention D epression Screening Findings N egative C OVID-19 Screening: Questions H ave you had any new onset fever, chills, cough, congestion, sore throat, shortness of breath, muscle aches? N o S CARLITOS Questions: SDOH Questions I n the past year have you been worried about losing your housing? N o I n the past year have you or any family members you live with been unable to get any of the following when it was really needed? Check all that apply: N one * ROS: G eneral/Constitutional: pain N o feeling both lower legs. C hills d enies.?Fatigue a dmits. F [...] have been noted. G enitourinary: Frequent urination o nce a night. M usculoskeletal: Muscle aches d [...] dilation, right flexible ureteroscopy, right ureteral stent [id number] diabetic pressure ulcer right first toe * Hospitalization/Major Diagno stic Procedure: N o history * Family History: Patient was adopted. * Social History: T obacco Use: T obacco Control (Standard) T obacco use: N onsmoker A dditional Findings: Tobacco non-user A ggressive nonsmoker D rugs/Alcohol: D rugs H ave you used drugs other than those for medical reasons in the past 12 months? N o D rug/Alcohol: A UMAIR-C (Standard) D id you have a drink containing alcohol in the past year? N o P oints 0 I nterpretation N egyelena nye is single and lives in [place]. He is working. 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 He lives in a two-person condo with seven people, including his girlfriend's son and his family. He has cut out unhealthy foods from his diet, leading to significant weight loss. * Medications: T akingmetFORMIN HCl 1000 MG Tablet 1 tablet with a meal Orally Once a day Atorvastatin Calcium 20 MG Tablet 1 tablet Orally Once a day Lisinopril 10 MG Tablet 1 tablet Orally Once a day BD Pen Needle Micro Ultrafine 32G X 6 MM Miscellaneous USE TWICE DAILY Lantus SoloStar 100 UNIT/ML Solution Pen-injector INJECT 20 UNITS SUBCUTANEOUSLY ONCE DAILY Subcutaneous Taking metFORMIN HCl 1000 MG Tablet 1 tablet with a meal Orally Once a day Taking Atorvastatin Calcium 20 MG Tablet 1 tablet Orally Once a day Taking Lisinopril 10 MG Tablet 1 tablet Orally Once a day Taking BD Pen Needle Micro Ultrafine 32G X 6 MM Miscellaneous USE TWICE DAILY Taking Lantus SoloStar 100 UNIT/ML Solution Pen-injector INJECT 20 UNITS SUBCUTANEOUSLY ONCE DAILY Subcutaneous DiscontinuedlevoFLOXacin 750 MG Tablet Oral Medication List reviewed and reconciled with the patientDiscontinued levoFLOXacin 750 MG Tablet Oral Medication List reviewed and reconciled with the patient * Allergies: N o Known Drug AllergyShellfish Protein-containing Drug Productsno[Allergies Verified] Objective: * Vitals: H t: 67, Wt: 257, BMI:40.25, BP: 128/96, HR: 82, Temp: 97.5, Ht-cm: 170.18, Wt-k.57. * P ast Orders: L ab:Anaerobic Culture (Order Date - 11/27/2024) (Collection Date & Time - 11/27/2024 09:50 AM) Value Reference Range Anaerobic Culture No Bacteroides or Clostridium species isolated. - L ab:Routine Culture (Order Date - 11/27/2024) (Collection Date & Time - 11/27/2024 09:50 AM) Value Reference Range Clindamycin <=0.25 S - Erythromycin <=0.25 S - Levofloxacin 0.25 S - Oxacillin 0.5 S - Penicillin-G >=0.5 R - Tetracycline <=1 S - Trimethoprim/Sulfamethoxazole <=10 S - L ab:Gram stain (Order Date - 11/27/2024) (Collection Date & Time - 11/27/2024 09:50 AM) Value Reference Range Gram stain 3+ Gram-negative rods - * Examination: G eneral Examination: GENERAL APPEARANCE: p leasant, well nourished, well developed, in no acute distress, calm and relaxed: morbidly obese: man. HEAD: a traumatic, normocephalic. EYES: [...] normal, no ascites, no organomegaly, no mass: morbid obesity. RECTAL EXAM: n ot examined. MUSCULOSKELETAL: L arge callus with erosion of skin which is bandaged right foot first toe, large open area lateral border left foot at left fifth metatarsophalangeal joint extending posteriorly about 3 cm, no smell, no discharge, subcutaneous tissue exposed, bandaged, small lesion left first toe. PERIPHERAL PULSES: n ormal. NEUROLOGIC: a lert and oriented, cranial nerves 2-12 grossly intact, deep tendon reflexes 2+ symmetrical, motor strength normal upper and lower extremities, sensory exam intact. PSYCH: a lert, oriented. Assessment: * Assessment: 1. I mmunization not carried out because of patient refusal - Z28.21 (Primary) N otes :He declined influenza vaccine today. 2 . H yperlipidemia - E78.5 N [...] be in the near future. 3 . M orbid obesity - E66.01 N otes :He has gained 7 pounds since his last visit. We have discussed the importance of weight loss and diet and activity. His weight will be followed carefully. He is going to consider GLP-1 medication. 4 . O bstructive sleep apnea - G47.33 N otes :I strongly recommend that he continue to use his CPAP. 5 . U reterolithiasis - N20.1 N otes :He is had renal colic and no kidney stone since his last visit. He was advised to stay well hydrated. 6 . P eripheral neuropathy - G62.9 N otes :He continues to have a moderate diabetic neuropathy.He has a new ulcer on the volar surface of his left toe which is being treated in the wound clinic. He will have better control of his diabetes. 7 . E ssential hypertension - I10 N otes :His blood pressure was elevated at 144/79. We discussed his diet and sodium restriction. I recommended aggressive weight loss. He was given a follow-up appointment in the near future to check his blood pressure again. He will be treated if necessary. He will continue on the lisinopril. 8 . T ype 2 diabetes mellitus with foot ulcer - E11.621 N otes :I have increased his Lantus from 24-30 units daily with office visits every 14 days. I have referred him to endocrinology for aggressive diabetic teaching, Dexon sensor, And aggressive control of his diabetes. 9 . N on-pressure chronic ulcer of other part of right foot with necrosis of muscle - L97.513 N otes :He has developed diabetic foot ulcers on both feet and has a significant peripheral neuropathy.? He reports having no sensation in his feet. He was instructed on foot care today. He is seeing the wound clinic weekly. 1 0. B PH (benign prostatic hyperplasia) - N40.0 N otes :He rises from sleep once or twice a night to urinate. We discussed lifestyyle modifications he could make to reduce nocturia. Plan: * Treatment: 2. H yperlipidemia Continue metFORMIN HCl Tablet, 1000 MG, 1 tablet with a meal, Orally, Once a day; C ontinue Atorvastatin Calcium Tablet, 20 MG, 1 tablet, Orally, Once a day; C ontinue Lisinopril Tablet, 10 MG, 1 tablet, Orally, Once a day; C ontinue BD Pen Needle Micro Ultrafine Miscellaneous, 32G X 6 MM, USE TWICE DAILY; C ontinue Lantus SoloStar Solution Pen-injector, 100 UNIT/ML, INJECT 20 UNITS SUBCUTANEOUSLY ONCE DAILY, Subcutaneous. 3. T ype 2 diabetes mellitus with foot ulcer Referral To:[facility] Endocr[facility]ology Reason:insulin dependent diabetic evaluate and treatment * Procedure Codes: G 8483 FLU IMM NO ORD/ADMIN DOC GERMAN * Preventive Medicine: Counseling: C are goal [...] atient Lifestyle Goals P atient wants to have more education around DM, Patient wants to be able to manage diabetes without too much effort, Patient wants to get a glucose monitor to monitor at home, Patient wants to lose weight. T reatment Goals H bA1C < 7.0, Blood Sugars less than < 115. B arriers n o barriers. S elf-Managment Goals W ork on weight loss, with a goal of losing 1 lb per week, Take blood sugars twice daily and keep a log. Bring log in to next appointment, Increase exercise to 3 times a week for 30 mins, Stop drinking juice and/or soda, replace with more water. * Follow Up: 1 4 days (Reason: ov no tests) * Images: * Sign off status: Completed true * Provider: Carey Stover MD Date: 04/19/2024 Generated for Denny quiroga/Carline/eTransmitting on: 05/20/2024 01:18 PM EST History and Physical Notes * HPI (History [...] way: Not at all Total Score: 0 Interpretation and Intervention Depression Kuldip mejia Findings: Negative COVID-19 Screening Questions Have you had any new onset fever, chills, cough, congestion, sore throat, shortness of breath, muscle aches?: No SDOH Questions SDOH Questions In the [...] in no acute distress, calm and relaxed: morbidly obese: man HEAD: atraumatic, normocep halic EYES: eomi, perrla, anicte mariano, conjugate EARS: normal NOSE: septum intact NECK/THYROID: no jugular venous di stention, no carotid bruit, thyroid normal HEART: no clicks, gallops, murmurs, or rubs, regular rhythm, S1, S2 normal, no s3, or vascular bruits LUNGS: clear to auscultatio n ABDOMEN: bowel sounds normal, no ascites, no organomegaly, no mass: morbid obesity NEUROLOGIC: alert and oriented, cranial nerves 2-12 grossly intact, deep tendon reflexes 2+ symmetrical, motor strength normal upper and lower extremities, sensory exam intact SKIN: no suspicious lesion s, anicteric PERIPHERAL PULSES: normal BREASTS: no masses palpable b ilaterally MUSCULOSKELETAL: Large callus with er osion of skin which is bandaged right foot first toe, large open area lateral border left foot at left fifth metatarsophalangeal joint extending posteriorly about 3 cm, no smell, no discharge, subcutaneous tissue exposed, bandaged, small lesion left first toe LYMPH NODES: no enlarged lymph no sage,spleen normal RECTAL EXAM: not examined PSYCH: alert, oriented ORAL CAVITY: normal, unremarkable Consultation Request Notes Referral Date Referring Provider Referred Provider Not es 02/17/2025 Eugene Stover [facility] insulin dependent diabetic evaluate and treatment
--- OUTSIDE RECORDS SUMMARY | 2025-02-17 08:03 | XMS_ITS ---
Author Organization Eugene Stover III, MD Address [address] [place] [address] Care Team Providers Care Silk Crepe Machine Operator Name Role Phone Dr. Eugene Stover III Primary Care Provider REASON FOR VISIT Out of Work Note Social History Sex Assigned At : Social History Observation Description Sex Assigned At Male Encounters Encounter Location Date Provider Diagnosis Eugene Stover III, MD [address] [place] [address] [place] [address] 02/17/2025 Eugene Stover Plan Of Treatment Next Appt Details Provider Name:Eugene Stover , 03/25/2025 11:00:00 AM, [address] [place] [address] [place], [address], Provider Name:Eugene Stover , 02/20/2026 02:00:00 PM, [address] [place] [address] [place], [address], Progress Notes * JANAEJg NyegonzalesDOB:1965 ( 59 yo M)Acc No.[id number]:02/17/2025 Patient: Sachin PINTO :1965 A ge:59 Y S ex:Male Address:[address] [place] [address], [address] , [place] [address] * true * Date: Generated for Printi ng/Faamyg/eTransmitting on: 05/20/2024 01:16 PM EST
--- OUTSIDE RECORDS SUMMARY | 2025-02-25 12:00 | XMS_ITS ---
Author Organization Eugene Stover III, MD Address [address] [place] [place] [address] Care Team Providers Care Ems Helicopter Pilot Name Role Phone Dr. Eugene Stover III Primary Care Provider REASON FOR VISIT Annual Exam Social History Sex Assigned At : Social History Observation Description Sex Assigned At Male Encounters Encounter Location Date Provider Diagnosis Eugene Stover III, MD [address] [place] [address] [place] [address] 02/25/2025 Eugene Stover Plan Of Treatment Next Appt Details Provider Name:Eugene Stover , 03/25/2025 11:00:00 AM, [address] [place] [address] [place], [address], Provider Name:Eugene Stover , 02/20/2026 02:00:00 PM, [address] [place] [address] [place], [address], Progress Notes * Sachin CARDOSODOB:1965 ( 60 yo M)Acc No.[id number]:02/25/2025 Progress Notes Patient: Sachin PINTO Provider: Carey Stover MD :1965 A ge:59 Y S ex:Male Date:02/25/2025 Address:[address] [place] [address], [address] , [id number] Subjective: * Chief Complaints: * 1 . Annual Exam. * Medical History: Objective: * Vitals: Assessment: Plan: * Treatment: * Images: * The named appointment provid er may or may not be the originator of this progress note, and it is not deemed complete until electronically signed by the appointment provider. Sign off status: Pending * Provider: Carey Stover MD Date: 04/27/2024 Generated for Denny quiroga/Carline/Shay on: 05/20/2024 01:17 PM EST
--- OUTSIDE RECORDS SUMMARY | 2025-02-26 09:00 | XMS_ITS ---
Author Organization Eugene Stover III, MD Address [address] [place] [address] Care Team Providers Care Finance Admin Name Role Phone Dr. Eugene Stover III Primary Care Provider Allergies Allergen (clinical drug ingredient) Drug/Non Drug Allergy documented on EMR Reaction Allergy Type Onset Date Status No Known Drug Allergy Unknown Drug Allergy Active Shellfish (FN) Shellfish Protein-containing Drug Products Unknown Drug Allergy Active Results Component Value Reference Range Notes RBS/Hemocue glucose Reviewed date:02/26/2025 02:29:10 PM Interpretation: Performing Lab: Notes/Report: RBS 240 REASON FOR VISIT Active diabetic foot ulcers both feet, Insulin-dependent diabetes, Peripheral diabetic neuropathy, Hypertension, Benign prostatic hypertrophy, History of osteomyelitis of the foot Medications Medication SIG (Take, Route, Frequency, Duration) Notes Start Date End Date Status BD Pen Needle Micro Ultrafine 32G X 6 MM USE TWICE DAILY Acti ve metFORMIN HCl 1000 MG 1 tablet with a me al Orally twice a day for 30 days 02/26/2025 Active metFORMIN HCl 1000 MG 1 tablet with a me al Orally Once a day Active Lantus SoloStar 100 UNIT/ML 30 units Subcutaneous daily 02/17/2025 Active Lisinopril 10 MG 1 tablet Orally Once a day 2024 Active Atorvastatin Calcium 20 MG 1 tablet Orally Once a day 12/06/2024 Active Social History Tobacco Use: Social History Observation Description Date Details (start date - stop date) Never Smoker NA - NA Sex Assigned At : Social History Observation Description Sex Assigned At Male Tobacco Control (Standard) Question Answer Notes Tobacco use: Nonsmoker Additional Findings: Tobacco non-user Aggressive nonsmoker Problems Problem Type SNOMED Code ICD Code Onset Dates Problem Status W/U Status Risk Notes Problem DM - Diabetes mellitus (64495268) DM (diabetes mellitus) (E11.9) Active confirmed His diabetes will be controlled as quickly as possible. I have increased his Lantus dose to 40 units once a day. I have referred him to endocrinology. I have discussed GLP-1 drugs with him today. He has been compliant with his other oral medications that was started last visit.He has an appointment with endocrinology March 19, 2025. Problem 021268158 Morbid obesity (E66.01) Active confirmed He has gained 7 pounds since his last visit. We have discussed the importance of weight loss and diet and activity. His weight will be followed carefully. He is going to consider GLP-1 medication. 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 I have increased his Lantus dose to 40 units once a day. I have referred him to endocrinology. I have discussed GLP-1 drugs with him today. He has been compliant with his other oral medications that was started last visit. 02/26/2025 Non-pressure chronic ulcer of other part of right foot with necrosis of muscle (ICD-10 - L97.513) He has developed diabetic foot ulcers on both feet and has a significant peripheral neuropathy. He reports having no sensation in his feet. He was instructed on foot care today. He is seeing the wound clinic weekly. 02/26/2025 Hyperlipidemia (ICD- 10 - E78.5) Comprehensive blood [...] which will be in the near future. 02/26/2025 Immunization not carried out because of patient refusal (ICD-10 - Z28.21) He declined influenza vaccine today. 02/26/2025 Essential hypertensi on (ICD-10 - I10) His blood pressure was elevated at 144/79. We discussed his diet and sodium restriction. I recommended aggressive weight loss. He was given a follow-up appointment in the near future to check his blood pressure again. He will be treated if necessary. He will continue on the lisinopril. 02/26/2025 Obstructive sleep apnea (ICD-10 - G47.33) I strongly recommend that he continue to use his CPAP. 02/26/2025 Ureterolithiasis (ICD-10 - N20.1) He is had renal colic and no kidney stone since his last visit. He was advised to stay well hydrated. 02/26/2025 Morbid obesity (ICD- 10 - E66.01) He has gained 7 pounds since his last visit. We have discussed the importance of weight loss and diet and activity. His weight will be followed carefully. He is going to consider GLP-1 medication. Plan Of Treatment Medication Medication Name Sig Start Date Stop Date Notes BD Pen Needle Micro Ultrafin e 32G X 6 MM USE TWICE DAILY metFORMIN HCl 1000 MG 1 tablet with a me al Orally twice a day for 30 days 02/26/2025 metFORMIN HCl 1000 MG 1 tablet with a me al Orally Once a day Lantus SoloStar 100 UNIT/ML 30 units Subcutaneous daily Lisinopril 10 MG 1 tablet Orally Once a day 12/06/2024 Atorvastatin Calcium 20 MG 1 tablet Orally Once a day 11/16 Next Appt Details Follow Up: 1 Week, Reason: O V Provider Name:Eugene Stover , 03/25/2025 11:00:00 AM, [address] [facility] [address], [place], [address], Provider Name:Eugene Stover , 02/20/2026 02:00:00 PM, [address] [facility] [address], [place], [address], Progress Notes * Sachin CARDOSODOB:1965 ( 59 yo M)Acc No.[id number]:02/26/2025 Progress Notes Patient: Sachin PINTO Provider: Carey Stover MD :1965 A ge:59 Y S ex:Male Date:02/26/2025 Address:[address] [place] [address], [address] , [id number] Subjective: * Chief Complaints: * A ctive diabetic foot ulcers both feetInsulin-dependent diabetesPeripheral diabetic neuropathyHypertensionBenign prostatic hypertrophyHistory of osteomyelitis of the foot * HPI: C OVID-19 Screening: On his last visit I increased his Lantus to 30 units daily.? He is taking it in the afternoon. He has been compliant with the lisinopril and atorvastatin and metformin. He is taking his glucose levels twice a day and they are running around 200.? In the office today it was about 230. I have increased her Lantus to 40 units once a day. He has not yet received an appointment from endocrinology. We will call them again. I spoke to the surgeon at the wound care clinic today and we agreed that wound healing would be much improved if his glycemic control was much better. He is going to see me once a week and we will increase the insulin as much as possible. He is a candidate for Trulicity as well as short acting lispro insulin. This will be enacted as quickly as possible. Questions H ave you had any new onset fever, chills, cough, congestion, sore throat, shortness of breath, muscle aches? N o * ROS: G eneral/Constitutional: pain N o feeling in his feet. C hills d enies. F atigue a [...] dilation, right flexible ureteroscopy, right ureteral stent [id number] diabetic pressure ulcer right first toe * Hospitalization/Major Diagno stic Procedure: N o history * Family History: Patient was adopted. * Social History: T obacco Use: T obacco Control (Standard) T obacco use: N onsmoker A dditional Findings: Tobacco non-user A ggressive nonsmoker Luca nye is single and lives in [place]. He is working. 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 He lives in a two-person condo with [...] DAILY Lantus SoloStar 100 UNIT/ML Solution Pen-injector 30 units Subcutaneous daily , Notes to Pharmacist: 40Taking metFORMIN HCl 1000 MG Tablet 1 tablet with a meal Orally Once a day Taking Atorvastatin Calcium 20 MG Tablet 1 tablet Orally Once a day Taking Lisinopril 10 MG Tablet 1 tablet Orally Once a day Taking BD Pen Needle Micro Ultrafine 32G X 6 MM Miscellaneous USE TWICE DAILY Taking Lantus SoloStar 100 UNIT/ML Solution Pen-injector 30 units Subcutaneous daily , Notes to Pharmacist: 40DiscontinuedLantus SoloStar 100 UNIT/ML Solution Pen-injector INJECT 20 UNITS SUBCUTANEOUSLY ONCE DAILY Subcutaneous Medication List reviewed and reconciled with the patientDiscontinued Lantus SoloStar 100 UNIT/ML Solution Pen-injector INJECT 20 UNITS SUBCUTANEOUSLY ONCE DAILY Subcutaneous Medication List reviewed and reconciled with the patient * Allergies: N o Known Drug AllergyShellfish Protein-containing Drug Productsno[Allergies Verified] Objective: * Vitals: H t: 67, Wt: 260, BMI:40.72, BP: 104/71, HR: 111, Temp: 97.4, Ht-cm: 170.18, Wt- k.93. * Examination: G eneral Examination: GENERAL APPEARANCE: [...] no ascites, no organomegaly, no mass: morbid obesity: morbid obesity. RECTAL EXAM: n ot examined. MUSCULOSKELETAL: B ilateral venous stasis changes, decubitus ulcer lateral border left foot and fifth toe, ulceration base of left first toe, ulceration base of right first toe, both feet bandaged. PERIPHERAL PULSES: n ormal. NEUROLOGIC: a lert and oriented, cranial nerves 2-12 grossly intact, deep tendon reflexes 2+ symmetrical, motor strength normal upper and lower extremities, sensation absent below knees t . PSYCH: a lert, oriented. Assessment: * Assessment: 1. 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 He reports having no sensation in his feet. He was instructed on foot care today. He is seeing the wound clinic weekly. 2 . D M (diabetes mellitus) - E11.9 N otes :His diabetes will be controlled as quickly as possible. I have increased his Lantus dose to 40 units once a day. I have referred him to endocrinology. I have discussed GLP-1 drugs with him today. He has been compliant with his other oral medications that was started last visit. 3 . H yperlipidemia - E78.5 N otes [...] which will be in the near future. 4 . I mmunization not carried out because of patient refusal - Z28.21 ? N otes :He declined influenza vaccine today. 5 . E ssential hypertension - I10 N otes :His blood pressure was elevated at 144/79. We discussed his diet and sodium restriction. I recommended aggressive weight loss. He was given a follow-up appointment in the near future to check his blood pressure again. He will be treated if necessary. He will continue on the lisinopril. 6 . O bstructive sleep apnea - G47.33 N otes :I strongly recommend that he continue to use his CPAP. 7 . U reterolithiasis - N20.1 N otes :He is had renal colic and no kidney stone since his last visit. He was advised to stay well hydrated. 8 . M orbid obesity - E66.01 N otes :He has gained 7 pounds since his last visit. We have discussed the importance of weight loss and diet and activity. His weight will be followed carefully. He is going to consider GLP-1 medication. Plan: * Treatment: Value Reference Range R BS 240 2.?Hyperlipidemia? Continue Atorvastatin Calcium Tablet, 20 MG, 1 tablet, Orally, Once a day;?Continue LisinoprilTablet, 10 MG, 1 tablet, Orally, Once a day;?Continue BD Pen Needle Micro Ultrafine Miscellaneous, 32G X 6 MM, USE TWICE DAILY;?Start metFORMIN HCl Tablet, 1000 MG, 1 tablet with a meal, Orally, twice a day, 30 days, 60 Tablet, Refills 11.??3.?Immunization not carried out because of patient refusal? Continue Lantus SoloStar Solution Pen-injector, 100 UNIT/ML, 30 units, Subcutaneous, daily.? * Procedure Codes: 8 2947 ASSAY, GLUCOSE, BLOOD QUANT * Preventive Medicine: Counseling: C are goal [...] week. * Follow Up: 1 Week (Reason: OV) * Images: * Sign off status: Completed true * Provider: Craey Stover MD Date: 04/28/2024 Generated for Tariki kimber/Carline/eTreresmitting on: 05/20/2024 01:16 PM EST History and Physical Notes * [...] no ascites, no organomegaly, no mass: morbid obesity: morbid obesity NEUROLOGIC: alert and oriented, cranial nerves 2-12 grossly intact, deep tendon reflexes 2+ symmetrical, motor strength normal upper and lower extremities, sensation absent below knees t SKIN: no suspicious lesion s, anicteric PERIPHERAL PULSES: normal BREASTS: no masses palpable b ilaterally MUSCULOSKELETAL: Bilateral venous sta sis changes, decubitus ulcer lateral border left foot and fifth toe, ulceration base of left first toe, ulceration base of right first toe, both feet bandaged LYMPH NODES: no enlarged lymph no sage,spleen normal RECTAL EXAM: not examined PSYCH: alert, oriented ORAL CAVITY: normal, unremarkable
--- OUTSIDE RECORDS SUMMARY | 2025-02-27 11:20 | XMS_ITS ---
Author Organization Eugene Stover III, MD Address [address] [place] [address] Care Team Providers Care Merchandise Associate Name Role Phone Dr. Eugene Stover III Primary Care Provider REASON FOR VISIT Message Social History Sex Assigned At : Social History Observation Description Sex Assigned At Male Encounters Encounter Location Date Provider Diagnosis Eugene Stover III, MD [address] [place] [address] [place] [address] 02/27/2025 Eugene Stover Plan Of Treatment Next Appt Details Provider Name:Eugene Stover , 03/25/2025 11:00:00 AM, [address] [place] [address] [place], [address], Provider Name:Eugene Stover , 02/20/2026 02:00:00 PM, [address] [place] [address] [place], [address], Progress Notes * JANAEJg NyegonzalesDOB:1965 ( 59 yo M)Acc No.[id number]:02/27/2025 Patient: Sachin PINTO :1965 A ge:59 Y S ex:Male Address:[address] [place] [address], [address] , [facility] [place] [address] * true * Date: Generated for Printi ng/Faxing/eTransmitting on: 05/20/2024 01:17 PM EST
--- OUTSIDE RECORDS SUMMARY | 2025-03-04 06:30 | XMS_ITS ---
Author Organization Eugene Stover III, MD Address [address] [place] [address] Care Team Providers Care Rubber Goods Supervisor Name Role Phone Dr. Eugene Stover III Primary Care Provider Allergies Allergen (clinical drug ingredient) Drug/Non Drug Allergy documented on EMR Reaction Allergy Type Onset Date Status No Known Drug Allergy Unknown Drug Allergy Active Shellfish (FN) Shellfish Protein-containing Drug Products Unknown Drug Allergy Active REASON FOR VISIT Bilateral diabetic foot ulcers, Ongoing bariatric chamber therapy, Insulin- dependent diabetes, Bilateral lower extremity peripheral neuropathy, Sleep apnea, Hypertension, Obesity, History of osteomyelitis of the left foot, Benign prostatic Medications Medication SIG (Take, Route, Frequency, Duration) Notes Start Date End Date Status metFORMIN HCl 1000 MG 1 tablet with a me al Orally Once a day Active Lantus SoloStar 100 UNIT/ML 30 units Subcutaneous daily 02/17/2025 Active Atorvastatin Calcium 20 MG 1 tablet Orally Once a day 12/06/2024 Active metFORMIN HCl 1000 MG 1 tablet with a me al Orally twice a day 02/26/2025 Active BD Pen Needle Micro Ultrafine 32G [...] Nonsmoker Additional Findings: Tobacco non-user Aggressive nonsmoker Vital Signs Temperature 97.2 degrees Fahrenheit 03/04/20 25 Blood pressure systolic 125 mm Hg 03/04/20 25 Blood pressure diastolic 85 mm Hg 025 Heart Rate 104 /min 03/04/2025 Height 67 in 03/04/2025 Weight 262 lbs 03/04/2025 BMI 41.03 kg/m2 03/04/2025 Encounters Encounter Location Date Provider Diagnosis Eugene Stover III, MD [address] [place] [address] [address] [place], [place] [address] 03/04/2025 Eugene Stover Hyperlipidemia E78.5 ; 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 ; Immunization not carried out because of patient refusal Z28.21 ; DM (diabetes mellitus) E11.9 ; Peripheral neuropathy G62.9 ; Ureterolithiasis N20.1 ; Obstructive sleep apnea G47.33 ; Essential hypertension I10 and Obesity E66.9 Assessments Encounter Date Diagnosis (ICD Code) Assessment Notes Treat ment Notes Treatment Clinical Notes 03/04/2025 Hyperlipidemia (ICD- 10 - E78.5) Comprehensive blood [...] which will be in the near future. 03/04/2025 Non-pressure chronic ulcer of other part of right foot with necrosis of muscle (ICD-10 - L97.513) He has developed diabetic foot ulcers on both feet and has a significant peripheral neuropathy. He reports having no sensation in his feet. He was instructed on foot care today. He is seeing the wound clinic weekly. 03/04/2025 Immunization not carried out because of patient refusal (ICD-10 - Z28.21) He declined influenza vaccine today. 03/04/2025 DM (diabetes mellitu s) (ICD-10 - E11.9) [...] an appointment with endocrinology March 19, 2025. 03/04/2025 Peripheral neuropath y (ICD-10 - G62.9) He continues to have a moderate diabetic neuropathy.He has a new ulcer on the volar surface of his left toe which is being treated in the wound clinic. He will have better control of his diabetes. 03/04/2025 Ureterolithiasis (ICD-10 - N20.1) He is had renal colic and no kidney stone since his last visit. He was advised to stay well hydrated. 03/04/2025 Obstructive sleep apnea (ICD-10 - G47.33) I strongly recommend that he continue to use his CPAP. 03/04/2025 Essential hypertensi on (ICD-10 - I10) His blood pressure was elevated . We discussed his diet and sodium restriction. I recommended aggressive weight loss. He was given a follow-up appointment in the near future to check his blood pressure again. He will be treated if necessary. He will continue on the lisinopril. 03/04/2025 Obesity (ICD-10 - E66.9) He remains obese. He has lost 22 pounds since his last visit. His weight will be monitored carefully. Weight loss is likely partly from hyperglycemia Plan Of Treatment Medication Medication Name Sig Start Date Stop Date Notes metFORMIN HCl 1000 MG 1 tablet with a me al Orally Once a day Lantus SoloStar 100 UNIT/ML 30 units Subcutaneous daily Atorvastatin Calcium 20 MG 1 tablet Orally Once a day 11/16 metFORMIN HCl 1000 MG 1 tablet with a me al Orally twice a day 02/26/2025 BD Pen Needle Micro Ultrafin e 32G X 6 MM USE TWICE DAILY Lisinopril 10 MG 1 tablet Orally Once a day 12/06/2024 Next Appt Details Provider Name:Eugene Stover , 03/25/2025 11:00:00 AM, [address] [place] [address] [address], [place], [address], Provider Name:Eugene Stover , 02/20/2026 02:00:00 PM, [address] [place] [address] [address], [place], [address], Progress Notes * Sachin CARDOSODOB:1965 ( 59 yo M)Acc No.[id number]:03/04/2025 Progress Notes Patient: Nicol CHULABaldo Sachin Provider: Carey Stover MD :1965 A ge:59 Y S ex:Male Date:03/04/2025 Address:[address] [place] [address], [address] , [id number] Subjective: * Chief Complaints: * B ilateral diabetic foot ulcersOngoing bariatric chamber therapyInsulin-dependent diabetesBilateral lower extremity peripheral neuropathySleep apneaHypertensionObesityHistory of osteomyelitis of the left footBenign prostatic * HPI: C OVID-19 Screening: Luca nye has been compliant with using the Lantus 30 unit dose every day. His fasting glucose this morning was 160 and after his Hyperbaric chamber therapy was 116. These glucose values were obtained by wound clinic personnel and reported to me by the patient. He has no pain. He has acquired, with [employer] to supply him with diabetic meals.He has an appointment with endocrinology March 19, 2025. I hope he will be able to get a Dexon sensor And aggressive anti-diabetic therapy and education and dietary guidance. Questions H ave you had any new [...] enies. R keena d enies. S kin lesion(s)?Bilateral foot ulcers. N eurologic: Difficulty speaking d enies. D izziness d enies.?Headache d enies. L ow back pain d enies. P sychiatric: Depressed mood d enies. * Medical History: * Surgical History: C ytoscopy, right retrograde pyelogram, rught ureteral dilation, right flexible ureteroscopy, right ureteral stent [id number] diabetic pressure ulcer right first toe * Hospitalization/Major Diagno stic Procedure: N o history * Family History: Patient was adopted. * Social History: T obacco Use: T obacco Control (Standard) T obacco use: N onsmoker A dditional Findings: Tobacco non-user A ggressive nonsmoker Luca nye is single and lives in [place]. He is working. 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 He lives in a two-person condo with [...] UNIT/ML Solution Pen-injector 30 units Subcutaneous daily metFORMIN HCl 1000 MG Tablet 1 tablet with a meal Orally twice a day Taking Atorvastatin Calcium 20 MG Tablet 1 tablet Orally Once a day Taking Lisinopril 10 MG Tablet 1 tablet Orally Once a day Taking BD Pen Needle Micro Ultrafine 32G X 6 MM Miscellaneous USE TWICE DAILY Taking Lantus SoloStar 100 UNIT/ML Solution Pen-injector 30 units Subcutaneous daily Taking metFORMIN HCl 1000 MG Tablet 1 tablet with a meal Orally twice a day DiscontinuedmetFORMIN HCl 1000 MG Tablet 1 tablet with a meal Orally Once a day Medication List reviewed and reconciled with the patientDiscontinued metFORMIN HCl 1000 MG Tablet 1 tablet with a meal Orally Once a day Medication List reviewed and reconciled with the patient * Allergies: N o Known Drug AllergyShellfish Protein-containing Drug Productsno[Allergies Verified] Objective: * Vitals: H t: 67, Wt: 262, BMI:41.03, BP: 125/85, HR: 104, Temp: 97.2, Ht-cm: 170.18, Wt- k.84. * P ast Orders: L ab:RBS/Hemocue glucose (Order Date - 02/26/2025) (Collection Date & Time - 02/26/2025) Value Reference Range RBS 240 Imaging:XR foot LT min 3V * Performed Date 02/25/2025 01/08/2024 12:20 PM 10:05 AM Order Date 02/25/2025 01/08/2024 * Examination: G eneral Examination: GENERAL APPEARANCE: [...] obesity. RECTAL EXAM: n ot examined. MUSCULOSKELETAL: H er wound involving the lateral edge of the left foot and the left toe is healing nicely without sign of infection. The decubitus ulcer in the right foot involving the first toe is stable. PERIPHERAL PULSES: n ormal. NEUROLOGIC: a lert and oriented, cranial nerves 2-12 grossly intact, deep tendon reflexes 2+ symmetrical, motor strength normal upper and lower extremities, sensory exam Shows no sensation below the knees. PSYCH: a lert, oriented. Assessment: * Assessment: [...] seeing the wound clinic weekly. 2 . H yperlipidemia - E78.5 N [...] be in the near future. 3 . I mmunization not carried out because of patient refusal - Z28.21 ? N otes :He declined influenza vaccine today. 4 . D M (diabetes mellitus) - E11.9 [...] an appointment with endocrinology March 19, 2025. 5 . P eripheral neuropathy - G62.9 N otes :He continues to have a moderate diabetic neuropathy.He has a new ulcer on the volar surface of his left toe which is being treated in the wound clinic. He will have better control of his diabetes. 6 . U reterolithiasis - N20.1 N otes :He is had renal colic and no kidney stone since his last visit. He was advised to stay well hydrated. 7 . O bstructive sleep apnea - G47.33 N otes :I strongly recommend that he continue to use his CPAP. 8 . E ssential hypertension - I10 N otes :His blood pressure was elevated . We discussed his diet and sodium restriction. I recommended aggressive weight loss. He was given a follow-up appointment in the near future to check his blood pressure again. He will be treated if necessary. He will continue on the lisinopril. 9 . O besity - E66.9 N otes :He remains obese. He has lost 22 pounds since his last visit. His weight will be monitored carefully. Weight loss is likely partly from hyperglycemia Plan: * Treatment: 2. H yperlipidemia Continue Atorvastatin Calcium Tablet, 20 MG, 1 tablet, Orally, Once a day; C ontinue Lisinopril Tablet, 10 MG, 1 tablet, Orally, Once a day; C ontinue BD Pen Needle Micro Ultrafine Miscellaneous, 32G X 6 MM, USE TWICE DAILY; C ontinue metFORMIN HCl Tablet, 1000 MG, 1 tablet with a meal, Orally, twice a day. 3. I mmunization not carried out because of patient refusal Continue Lantus SoloStar Solution Pen-injector, 100 UNIT/ML, 30 units, Subcutaneous, daily. ? * Procedure Codes: * Preventive Medicine: Counseling: C are goal follow-up plan: Counseling for abnormal BMI given Y es Above Normal BMI Follow-up D ietary management education, guidance, and counseling DM Care Plan: P atient Lifestyle Goals [...] and/or soda, replace with more water. * Images: * Sign off status: Completed true * Provider: Carey Stover MD Date: 05/04/2024 Generated for Denny quiroga/Carline/Rudyitting on: 05/20/2024 01:16 PM EST History and [...] normal upper and lower extremities, sensory exam Shows no sensation below the knees SKIN: no suspicious lesion s, anicteric PERIPHERAL PULSES: normal BREASTS: no masses palpable b ilaterally MUSCULOSKELETAL: Her wound involving the lateral edge of the left foot and the left toe is healing nicely without sign of infection. The decubitus ulcer in the right foot involving the first toe is stable LYMPH NODES: no enlarged lymph no sage,spleen normal RECTAL EXAM: not examined PSYCH: alert, oriented ORAL CAVITY: normal, unremarkable
--- OUTSIDE RECORDS SUMMARY | 2025-03-04 12:00 | XMS_ITS ---
Author Organization Eugene Stover III, MD Address [address] [place] [address] Care Team Providers Care Geriatric Aide Name Role Phone Dr. Eugene Stover III Primary Care Provider [phone] Allergies Allergen (clinical drug ingredient) Drug/Non Drug [...] UNIT/ML 30 units Subcutaneous daily 02/17/2025 Active BD Pen Needle Micro Ultrafine 32G X 6 MM USE TWICE DAILY Acti ve metFORMIN HCl 1000 MG 1 tablet with a me al Orally twice a day 02/26/2025 Active Atorvastatin Calcium 20 MG 1 tablet Orally Once a day 12/06/2024 Active Lisinopril 10 MG 1 tablet Orally Once a day 2024 Active Social History Tobacco Use: Social History Observation Description Date Details (start date - stop date) Never Smoker NA - NA Sex Assigned At : Social History Observation Description Sex Assigned At Male Tobacco Control (Standard) Question Answer Notes Tobacco use: Nonsmoker Additional Findings: Tobacco non-user Aggressive nonsmoker Encounters Encounter Location Date Provider Diagnosis Eugene Stover III, MD [address] [place] [address] [place] [address] 03/04/2025 Eugene Stover Hyperlipidemia E78.5 ; Immunization not carried out because of patient refusal Z28.21 and DM (diabetes mellitus) E11.9 Assessments Encounter Date Diagnosis (ICD Code) Assessment Notes Treat ment Notes Treatment Clinical Notes 03/04/2025 Hyperlipidemia (ICD-10 - E78.5) Comprehensive blood work [...] will be in the near future. 03/04/2025 Immunization not carried out because of patient refusal (ICD-10 - Z28.21) He declined influenza vaccine today. 03/04/2025 DM (diabetes mellitus) (ICD-10 - E11.9) His diabetes will be controlled as quickly as possible. I have increased his Lantus dose to 40 units once a day. I have referred him to endocrinology. I have discussed GLP-1 drugs with him today. He has been compliant with his other oral medications that was started last visit. Plan Of Treatment Medication Medication Name Sig Start Date Stop Date Notes metFORMIN HCl 1000 MG 1 tablet with a me al Orally Once a day Lantus SoloStar 100 UNIT/ML 30 units Subcutaneous daily BD Pen Needle Micro Ultrafin e 32G X 6 MM USE TWICE DAILY metFORMIN HCl 1000 MG 1 tablet with a me al Orally twice a day 02/26/2025 Atorvastatin Calcium 20 MG 1 tablet Orally Once a day 11/16 Lisinopril 10 MG 1 tablet Orally Once a day 12/06/2024 Next Appt Details Provider Name:Eugene Stover , 03/25/2025 11:00:00 AM, [address] [place] [address] [address], [place], [address], Provider Name:Eugene Stover , 02/20/2026 02:00:00 PM, [address] [place] [address] [address], [place], [address], Progress Notes * Sachin CARDOSODOB:1965 ( 60 yo M)Acc No.[id number]:03/04/2025 Progress Notes Patient: Sachin PINTO Provider: Carey Stover MD :1965 A ge:59 Y S ex:Male Date:03/04/2025 Address:[address] [place] [address], [address] , [id number] Subjective: * Chief Complaints: * 1 . [...] right flexible ureteroscopy, right ureteral stent 2017-05-31, Debridement diabetic pressure ulcer right first toe . * Hospitalization/Major Diagno stic Procedure: N o history . * Family History: Patient was adopted. * Social History: T obacco Use: T obacco Control (Standard) T obacco use: N onsmoker A dditional Findings: Tobacco non-user A ggressive nonsmoker Luca nye is single and lives in [place]. He is working. 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 He lives in a two-person condo with seven people, including his girlfriend's son and his family. He has cut out unhealthy foods from his diet, leading to significant weight loss. * Medications: T aking Atorvastatin Calcium 20 MG Tablet 1 tablet Orally Once a day , Taking Lisinopril 10 MG Tablet 1 tablet Orally Once a day , Taking BD Pen Needle Micro Ultrafine 32G X 6 MM Miscellaneous USE TWICE DAILY , Taking Lantus SoloStar 100 UNIT/ML Solution Pen-injector 30 units Subcutaneous daily , Taking metFORMIN HCl 1000 MG Tablet 1 tablet with a meal Orally twice a day , Medication List reviewed and reconciled with the patient * Allergies: N o Known Drug Allergy, Shellfish Protein-containing Drug Products. Objective: * Vitals: * Examination: G eneral [...] which will be in the near future. 2 . I mmunization not carried out because of patient refusal - Z28.21 ? N otes :He declined influenza vaccine today. 3 . D M (diabetes mellitus) - E11.9 N otes :His diabetes will be controlled as quickly as possible. I have increased his Lantus dose to 40 units once a day. I have referred him to endocrinology. I have discussed GLP-1 drugs with him today. He has been compliant with his other oral medications that was started last visit. Plan: * Treatment: 2. I mmunization not carried out because of patient refusal Continue Lantus SoloStar Solution Pen-injector, 100 UNIT/ML, 30 units, Subcutaneous, daily. ? 3. D M (diabetes mellitus) Continue metFORMIN HCl Tablet, 1000 MG, 1 tablet with a meal, Orally, Once a day. * Images: * The named appointment provid er may or may not be the originator of this progress note, and it is not deemed complete until electronically signed by the appointment provider. Sign off status: Pending * Provider: Carey Stover MD Date: 05/04/2024 Generated for Denny quiroga/Carline/Rudyitting on: 05/20/2024 01:17 PM EST History and Physical Notes * [...]
--- OUTSIDE RECORDS SUMMARY | 2025-03-11 06:30 | XMS_ITS ---
Author Organization Eugene Stover III, MD Address [address] [place] [address] Care Team Providers Care Aviation All Source Intelligence Name Role Phone Dr. Eugene Stover III Primary Care Provider Allergies Allergen (clinical drug ingredient) Drug/Non Drug Allergy documented on EMR Reaction Allergy Type Onset Date Status No Known Drug Allergy Unknown Drug Allergy Active Shellfish (FN) Shellfish Protein-containing Drug Products Unknown Drug Allergy Active REASON FOR VISIT follow up Medications Medication SIG (Take, Route, Frequency, [...] DAILY Acti ve Lantus SoloStar 100 UNIT/ML 30 units Subcutaneous daily 02/17/2025 Active Social History Tobacco Use: Social History Observation Description Date Details (start date - stop date) Never Smoker NA - NA Sex Assigned At : Social History Observation Description Sex Assigned At Male Tobacco Control (Standard) Question Answer Notes Tobacco use: Nonsmoker Additional Findings: Tobacco non-user Aggressive nonsmoker Encounters Encounter Location Date Provider Diagnosis Eugene Stover III, MD [address] [place] [address] [address] [place] [address] 03/11/2025 Eugene Stovre Hyperlipidemia E78.5 ; Immunization not carried out because of patient refusal Z28.21 and DM (diabetes mellitus) E11.9 Assessments Encounter Date Diagnosis (ICD Code) Assessment Notes Treat ment Notes Treatment Clinical Notes 03/11/2025 Hyperlipidemia (ICD-10 - E78.5) Comprehensive blood work [...] which will be in the near future. 03/11/2025 Immunization not carried out because of patient refusal (ICD-10 - Z28.21) He declined influenza vaccine today. 03/11/2025 DM (diabetes mellitus) (ICD-10 - E11.9) His [...] USE TWICE DAILY Lantus SoloStar 100 UNIT/ML 30 units Subcutaneous daily Next Appt Details Provider Name:Eugene Stover , 03/25/2025 11:00:00 AM, [address] [place] [address] [address], [place], [address], Provider Name:Eugene Stover , 02/20/2026 02:00:00 PM, [address] [place] [address] [address], [place], [address], Progress Notes * JANAESachinDOB:1965 ( 60 yo M)Acc No.[id number]:03/11/2025 Progress Notes Patient: Sachin PINTO Provider: Carey Stover MD :1965 A ge:59 Y S ex:Male Date:03/11/2025 Address:[address] [place] [address], [address] , [place], [id number] Subjective: * Chief Complaints: * 1 . [...] Luca nye is single and lives in [place]. He is working. 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 He lives in a two-person condo with [...] a meal Orally twice a day , Discontinued metFORMIN HCl 1000 MG Tablet 1 tablet with a meal Orally Once a day , Medication List reviewed and [...] UNIT/ML, 30 units, Subcutaneous, daily. ? * Images: * The named appointment provid er may or may not be the originator of this progress note, and it is not deemed complete until electronically signed by the appointment provider. Sign off status: Pending * Provider: Carey Stover MD Date: 05/11/2024 Generated for Denny quiroga/Carline/Rudyitting on: 05/20/2024 01:17 [...]
--- OUTSIDE RECORDS SUMMARY | 2025-03-18 06:00 | XMS_ITS ---
Author Organization Eugene Stover III, MD Address [address] [place] [address] [place] [address] Care Team Providers Care Desk Attendant Name Role Phone Dr. Eugene Stover III Primary Care Provider Allergies Allergen (clinical drug ingredient) Drug/Non Drug Allergy documented on EMR Reaction Allergy Type Onset Date Status No Known Drug Allergy Unknown Drug Allergy Active Shellfish (FN) Shellfish Protein-containing Drug Products Unknown Drug Allergy Active REASON FOR VISIT Follow up Medications Medication SIG (Take, Route, Frequency, Duration) Notes Start Date End Date Status Lantus SoloStar 100 UNIT/ML 30 units Subcutaneous daily 02/17/2025 Active metFORMIN HCl 1000 MG 1 tablet with a me al Orally twice a day 02/26/2025 Active Atorvastatin Calcium 20 MG 1 tablet Orally Once a day 12/06/2024 Active Lisinopril 10 MG 1 tablet Orally Once a day 2024 Active BD Pen Needle Micro Ultrafine 32G X 6 MM USE TWICE DAILY Acti ve Social History Tobacco Use: Social History Observation Description Date Details (start date - stop date) Never Smoker NA - NA Sex Assigned At : Social History Observation Description Sex Assigned At Male Tobacco Control (Standard) Question Answer Notes Tobacco use: Nonsmoker Additional Findings: Tobacco non-user Aggressive nonsmoker Encounters Encounter Location Date Provider Diagnosis Eugene Stover III, MD [address] [place] [address] [place] [address] 03/18/2025 Eugene Stover Hyperlipidemia E78.5 and Immunization not carried out because of patient refusal Z28.21 Assessments Encounter Date Diagnosis (ICD Code) Assessment Notes Treat ment Notes Treatment Clinical Notes 03/18/2025 Hyperlipidemia (ICD-10 - E78.5) Comprehensive blood work [...] which will be in the near future. 03/18/2025 Immunization not carried out because of patient refusal (ICD-10 - Z28.21) He declined influenza vaccine today. Plan Of Treatment Medication Medication Name Sig Start Date Stop Date Notes Lantus SoloStar 100 UNIT/ML 30 units Subcutaneous daily metFORMIN HCl 1000 MG 1 tablet with a me al Orally twice a day 02/26/2025 Atorvastatin Calcium 20 MG 1 tablet Orally Once a day 11/16 Lisinopril 10 MG 1 tablet Orally Once a day 12/06/2024 BD Pen Needle Micro Ultrafin e 32G X 6 MM USE TWICE DAILY Next Appt Details Provider Name:Eugene Stover , 03/25/2025 11:00:00 AM, [address] [place] [address] [address], [place], [address], Provider Name:Eugene Stover , 02/20/2026 02:00:00 PM, [address] [place] [address] [address], [place], [address], Progress Notes * Sachin CARDOSODOB:1965 ( 60 yo M)Acc No.[id number]:03/18/2025 Progress Notes Patient: Sachin PINTO Provider: Carey Stover MD :1965 A ge:60 Y S ex:Male Date:03/18/2025 Address:[address] [place] [address], [address] , [id number] Subjective: * Chief Complaints: * 1 . [...] Luca nye is single and lives in [place]. He is working. 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 He lives in a two-person condo with seven people, including his girlfriend's son and his family. He has cut out unhealthy foods from his diet, leading to significant weight loss. * Medications: T cinthia Atorvastatin Calcium 20 MG Tablet 1 tablet [...] N otes :He declined influenza vaccine today. Plan: * Treatment: 2. I mmunization not [...] Pending * Provider: Carey Stover MD Date: 05/19/2024 Generated for Denny quiroga/Carline/Shay on: 05/20/2024 01:18 PM EST History and [...]
--- NOTE | 2025-03-19 11:11 | A.OFFVIS_ITS ---
Vital Signs 03/19/25 11:12 Height 5 ft 6 in Weight 260 lb 2.327 oz BMI 42.0 BP 128/72 Blood Pressure Location Rt brachial Position Sitting Pulse 94 Pulse Source Pulse Oximeter Pulse Oximetry (%) 99 Oxygen Delivery Method Room Air Intake Visit Reasons: T2DM Intake Note: NEW Patient presents today to establish treatment for Type 2 Diabetes Mellitus: Last Diabetic eye exam was on: DUE Last Podiatry exam was on: Patient is seeing the Wound Care for foot infection Most recent HbA1c: 8.6%, 02/25/2025 Random Glucose: 123 mg/dL Health Insurance Specialist Required: No Accompanied by: Self / Same As Patient Allergies erythromycin base (ERYTHROMYCIN BASE) Allergy (Unknown, Verified 03/19/25 11:11) UNKNOWN HPI Comments Details: The patient is a 60 year old male presenting for type 2 diabetes consultation Medical history: Diabetic ulcers, neuropathy, HTN, SCOTT-on cpap Diagnosed [address] Stover Current medications Lantus 30 units (increased from 24 02/17) Metformin 1000mg daily Patient checks blood glucose 2x daily. Did not bring his meter. A1C 02/25 was 8.6% from 11.9% back in November +Neuropathy Referred to ophtho by primary care Diabetic ulcers, osteomyelitis- wound care, infectious disease ROS CONSTITUTIONAL: Denies weight loss, fever and chills. HEENT: Denies changes in vision and hearing. RESPIRATORY: Denies SOB and cough. CV: Denies palpitations and CP GI: Denies abdominal pain, nausea, vomiting and diarrhea. : Denies dysuria and urinary frequency. MSK: Denies new myalgia and joint pain. SKIN: Denies rash and pruritus. NEUROLOGICAL: Denies headache PSYCHIATRIC: Denies recent changes in mood. PHYSICAL EXAM: GENERAL: Alert and oriented x 3. NAD EYES: EOMI. Anicteric. HENT: Moist mucous membranes. No scleral icterus. No cervical lymphadenopathy. LUNGS: Clear to auscultation bilaterally. CARDIOVASCULAR: Regular rate and rhythm. No JVD. ABDOMEN: Soft, non-tender +bs EXTREMITIES: No edema. Non-tender. Right boot SKIN: No rashes or lesions. Warm. NEUROLOGIC: No focal neurological deficits. CN II-XII grossly intact PSYCHIATRIC: Cooperative. Appropriate mood and affect [facility] Medical History (Updated 03/19/25 @ 11:48 by Kori Bryan MD) History of hyperbaric oxygen therapy Class 3 obesity Type 2 diabetes mellitus Hypertension Neuropathy Surgical History (Updated 03/19/25 @ 11:39 by DINORA Segovia) History of surgery Family History (Updated 03/19/25 @ 11:11 by DINORA Segovia) Father No problems noted. Mother No problems noted. Social History Household Members: Significant Other Housing: Condominium Do you presently have visiting nurse or other home services: No Patient Tobacco Use Status: Never used Tobacco service: No Physical Exam Vital Signs: Last Vital Signs Pulse 94 03/19/25 11:12 BP 128/72 03/19/25 11:12 Pulse Ox 99 03/19/25 11:12 Oxygen Delivery Method Room Air 03/19/25 11:12 BMI result Body Mass Index 42.0 Results Reviewed Results Reviewed: Laboratory Last Values Glucose (Clinic) 123 mg/dL (60-115) H 03/19/25 11:19 Assessment & Plan Assessment & Plan (1) Type 2 diabetes mellitus with hyperglycemia: Code(s): E11.65 - Type 2 diabetes mellitus with hyperglycemia Category: Medical Qualifiers: Diabetes mellitus shelter insulin use: with shelter use Qualified Code(s): E11.65 - Type 2 diabetes mellitus with hyperglycemia; Z79.4 - correction (current) use of insulin (2) Insulin long-term use: Code(s): Z79.4 - correction (current) use of insulin Category: Medical (3) Osteomyelitis of foot, left, acute: Code(s): M86.172 - Other acute osteomyelitis, left ankle and foot Category: Medical (4) SCOTT (obstructive sleep apnea): Code(s): G47.33 - Obstructive sleep apnea (adult) (pediatric) Category: Medical Plan 60 year old male presenting for diabetic consultation Improved but still uncontrolled diabetes He is on insulin and should be using a CGM which is ordered Discussed treatment of hypoglycemia today. He has not had any hypoglycemia Continue lantus 30 units, metformin 1000 daily. Start GLP-mounjaro/zepbound-has SCOTT CDE referral placed, eye referral placed Return in 4-5 weeks for glucose monitoring Orders: Orders RT home sleep study Today G47.33 - Obstructive sleep apnea (adult) (pediatric) Referrals Diabetes Education Referral E11.65 - Type 2 diabetes mellitus with hyperglycemia Ophthalmology Referral E11.65 - Type 2 diabetes mellitus with hyperglycemia Medications: New FreeStyle Mandi 3 Plus Sensor (blood-glucose sensor) every 15 days 1 ea 0RF NS E11.65 - Type 2 diabetes mellitus with hyperglycemia, Z79.4 - correction (current) use of insulin FreeStyle Mandi 3 [place] (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-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,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,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) As directed 1 ea 0RF NS E11.65 - Type 2 diabetes mellitus with hyperglycemia, Z79.4 - 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 of insulin Mounjaro (tirzepatide) 2.5 mg (0.5 mL) subcut QWEEK 6 mL 3RF NS Changed From insulin glargine (Lantus Solostar U-100 Insulin) 12 units (0.12 mL) subcut DAILY 15 mL 11RF To insulin glargine (Lantus Solostar U-100 Insulin) 30 units (0.3 mL) subcut DAILY 15 mL 11RF Coding Level of Care Code Complex visit Add On G2211 Diagnoses Type 2 diabetes mellitus with hyperglycemia, with long-term current use of insulin E11.65; Z79.4 Diabetes mellitus 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
[2025-03-19 11:12] VITALS: BP 128/72; PULSE 94; O2SAT 99; BMI 42.0
[2025-03-19 11:23] LABS: Glucose, Whole Blood 123 mg/dL (60-115)
--- OUTSIDE RECORDS SUMMARY | 2025-03-19 13:16 | XMS_ITS | Patient Health Record ---
[facility] Address [address] [place] [address] Care Team Providers Care Scholarship Counselor Name Role Phone Eugene Stover MD Primary Care Provider Kasi Sood Unavailable [phone] Allergies Allergen (clinical drug ingredient) Drug/Non Drug [...] W/U Status Risk Notes Problem Tinea unguium (451891818) Tinea unguium (B35.1) Active confirmed Problem Neuropathy (092655668) Neuropathy (G62.9) Active confirmed Plan Of Treatment Pending Test Test Name Order Date [id number] NAIL, 6 OR MORE 12/29/2017 [id number] NAIL, 6 OR MORE 08/17/2018 [id number] SKIN LESIONS, 2 TO 4 08/18/19 19 Insurance Providers Payer Name Payer Address Payer Phone Subscriber Number Group Number Insured Name Patient Relationship to Insured Coverage Start Date Coverage End Date [facility] [address] [place] [address] [phone] [id number] Sachin Vides Self - patient is the insured Medical (General) History Medical History History ICD Code Numbness - unknown origin HTN Surgical History Surgery Date(Month/Year) kidney stones x3 toe surgery Hospitalization History Reason Date(Month/Year) [facility]
--- OUTSIDE RECORDS SUMMARY | 2025-03-19 13:17 | XMS_ITS | Patient Health Record ---
Author Organization Eugene Stover III, MD Address [address] [place] [address] Care Team Providers Care Electronics Engineering Technologist Name Role Phone Dr. Eugene Stover III Primary Care Provider [phone] Allergies Allergen (clinical drug ingredient) Drug/Non Drug Allergy documented on EMR Reaction Allergy Type Onset Date Status No Known Drug Allergy Unknown Drug Allergy Active Shellfish (FN) Shellfish Protein-containing Drug Products Unknown Drug Allergy Active Results Component Value Reference Range Notes RBS/Hemocue glucose Reviewed date:02/26/2025 02:29:10 PM Interpretation: Performing Lab: Notes/Report: RBS 240 Complete Blood Count Auto Di ff Reviewed date:10/18/2024 06:03:47 PM Interpretation: Performing Lab:[facility], [address] [place] [address] Notes/Report: White Blood Count 9.7 4.8-10.8 X10*3/uL [...] te Reviewed date:10/18/2024 06:03:47 PM Interpretation: Performing Lab:[address] [address] Notes/Report: Erythrocyte Sedimentation Rate 67 0-15 MM/HR Patients with polycythemia and many hemoglobin abnormalities may have depressed sed rates whereas patients with anemia may have elevated sed rates. Comprehensive Met. Panel Reviewed date:10/18/2024 06:03:47 PM Interpretation: Performing Lab:[address] [address] Notes/Report: Sodium 135 135-145 mmol/L Potassium 4.1 [...] to and read back by:MARY Person calling: GAGETemitopeCHELACarey Date: 10-14-24 Time: 1319 Calcium 9.2 8.4-10.2 mg/dL Bilirubin Total 0.7 0.0-1.0 mg/dL Aspartate Amino Transferase 35 5-37 U/L Alanine Aminotransferase 40 0-40 U/L Total Protein 7.3 6.5-8.0 g/dL Albumin Level 4.1 3.5-5.0 g/dL Alkaline Phosphatase 98 39-117 U/L C Reactive Protein Reviewed date:10/18/2024 06:03:47 PM Interpretation: Performing Lab:[address] [address] Notes/Report: C Reactive Protein 13.28 < or = 0.50 mg/dL Hemoglobin A1c Reviewed date:10/18/2024 06:03:47 PM Interpretation: Performing Lab:[address] [address] Notes/Report: Hemoglobin A1c % 11.2 <6.0 % [...] average glucose, using the formula of the F1R-Hshmaiv Average Glucose study (ADAG), Diabetes Care, Vol.31,#8, Nov. 2007 XR foot RT min 3V Reviewed date:10/18/2024 06:03:47 PM Interpretation: Performing Lab: Notes/Report: [address] [address] XRay Report Signed Patient: Sachin Vides MR#: [id number] 8 : 1965 Acct:[id number] Age/Sex: 59 / M ADM Date: 10/14/24 Loc: HO.ED Attending Dr: Ordering Physician: Elizabeth Weber Date of Service: 10/14/24 Procedure(s): XR foot RT min 3V Accession Number(s): [id number] cc: Eugene Stover MD; Elizabeth Weber EXAMINATION: [...] 10/14/24 1217 DD/ 1150 TD/TT: 10/14/24 1207 Global Technical Writer: [place] [address] XRay Report Signed Patient: Sachin Vides MR#: [id number] 8 : 1965 Acct:[id number] Age/Sex: 59 / M ADM Date: 10/14/24 Loc: .ED Attending Dr: Ordering Physician: Elizabeth Weber Date of Service: 10/14/24 Procedure(s): XR chele t RT min 3V Accession Number(s): [id number] cc: Eugene Stover MD; Elizabeth Weber EXAMINATION: [...] 10/14/24 1217 DD/ 1150 TD/TT: 10/14/24 1207 Global Technical Writer: Gram stain Reviewed date:12/08/2024 05:09:27 AM Interpretation: Performing Lab:[address] [address] Notes/Report: Gram stain Gram stain results: Gram stain No polys Gram stain 4+ red blood cells Gram stain 3+ Gram-positive cocci Gram stain 3+ Gram-negative rods Routine Culture Reviewed date:12/08/2024 05:09:27 AM Interpretation: Performing Lab:[address] [address] Notes/Report: Clindamycin <=0.25 Erythromycin <=0.25 Levofloxacin 0.25 Oxacillin 0.5 Penicillin-G >=0.5 Tetracycline <=1 Trimethoprim/Sulfamethox azole <=10 Anaerobic Culture Reviewed date:12/08/2024 05:09:27 AM Interpretation: Performing Lab:[address] [address] Notes/Report: Anaerobic Culture Report Anaerobic Culture 4+ Mixed anaerobic missy. Anaerobic Culture No Bacteroides or Clostridium species isolated. XR foot LT min 3V Reviewed date:03/02/2025 07:00:04 PM Interpretation: Performing Lab: Notes/Report: [facility] [address] [place] [id number] XRay Report Signed Patient: Sachin Vides MR#: [id number] 8 : 1965 Acct:[id number] Age/Sex: 59 / M ADM Date: 02/21/25 Loc: [facility] Attending Dr: Orlando Dueñas MD Ordering Physician: Orlando Dueñas MD Date of Service: 02/25/25 Procedure(s): XR foot LT min 3V Accession Number(s): [id number] cc: Eugene Stover MD; Orlando Dueñas MD Reason for Exam: LT FOOT, WOUND, NON HEALING EXAMINATION: XR FOOT, LEFT CLINICAL INFORMATION: LT FOOT, WOUND, NON HEALING , follow-up septic arthritis with osteomyelitis of the fifth metatarsal and proximal phalanx COMPARISON: December 12, 2024 TECHNIQUE: AP, lateral, and oblique views of the left foot. FINDINGS: There is increasing density with new bone formation involving the distal end of the fifth metatarsal and increasing density in the proximal phalanx of the fifth digit. There is irregularity of the contours of the distal metatarsal base of fifth proximal phalanx with loss of bone involving the lateral base of the proximal phalanx and periosteal new bone formation visible dorsal and plantar to the diaphysis of the proximal phalanx. There are destructive changes in the fifth metatarsal head with expansion of the remaining distal diaphysis of the fifth metatarsal. On the oblique view, there is ulceration in the soft tissues lateral to the distal end of the fifth metatarsal. There is stable mild osteoarthritis involving first MTP joint. XR/XR foot LT min 3V IMPRESSION: Increasing bone density and periosteal new bone formation is consistent with improving septic arthritis and osteomyelitis involving the fifth MTP joint, distal fifth metatarsal, and fifth proximal phalanx. Persistent skin ulceration is visible lateral to the distal end of the fifth metatarsal. Electronically signed by: Erasmo Downs MD 02/25/2025 12:54 PM [facility] Dictated By: Erasmo Downs MD Signed By: <Electronically signed by Erasmo Downs MD in OV> 02/25/25 1254 DD/ 1220 TD/TT: 02/25/25 1224 Global Technical Writer: [facility] [address] [place] [address] XRay Report Signed Patient: Sachin Vieds MR#: [id number] 8 : 1965 Acct:[id number] Age/Sex: 59 / M ADM Date: 02/21/25 Loc: [facility] Attending Dr: Orlando Dueñas MD Ordering Physician: Orlando Dueñas MD Date of Service: 02/25/25 Procedure(s): XR chele t LT min 3V Accession Number(s): [id number] cc: Eugene Stover MD; Orlando Dueñas MD Reason for Exam: LT FOOT, WOUND, NON HEALING EXAMINATION: XR FOOT, LEFT CLINICAL INFORMATION: LT FOOT, WOUND, NON HEALING , follow-up septic arthritis with osteomyelitis of the fifth metatarsal and proximal phalanx COMPARISON: December 12, 2024 TECHNIQUE: AP, lateral, and oblique views of the left foot. FINDINGS: There is increasing density with new bone formation involving the distal end of the fi fth metatarsal and increasing density in the proximal phalanx of the fifth digit. There is irregularit y of the contours of the distal metatarsal base of fifth proximal phala nx with loss of bone involving the lateral base of the proximal phalanx and periosteal new bone formation visible dorsal and plantar to the diaphysis of the proximal phalanx. There are destructiv e changes in the fifth metatarsal head with expansion of the remaining distal diaphysis of the fifth metatarsal. On the oblique view, there is ulceration in the soft tissues lateral to the distal end of th e fifth metatarsal. There is stable mild osteoarthritis involving first MTP joint. XR/XR foot LT min 3V IMPRESSION: Increasing bone dens ity and periosteal new bone formation is consistent with improving septi c arthritis and osteomyelitis involving the fifth MTP joint, distal fi fth metatarsal, and fifth proximal phalanx. Persistent skin ulceration is visible lateral to the distal end of the fifth metatarsal. Electronically ketan d by: Erasmo Downs MD 02/25/2025 12:54 PM EST Dictated By: Erasmo Downs MD Signed By: <Electronically signed by Erasmo Downs MD in OV> 02/25/25 1254 DD/ 1220 TD/TT: 02/25/25 1224 Global Technical Writer: Glucose, Whole Blood (Not ye t reviewed by provider) Interpretation: Performing Lab:[facility], [address] [place] [phone] Notes/Report: Glucose, Whole Blood 123 60-115 mg/dL METER #: [id number] Testing performed in the Endocrinology Department and [facility], [address] [place] [address] , [address], [place]. Reason For Referral Reason Consult and treat Needs Sleep Apnea Management Needs Cpap machine May need updated sleep study Diagnosis 1 Obstructive sleep ap shay (G47.33) Diagnosis 2 Obesity (E66.9) Referral Organization Eugene Stover III, MD Referring Provider First Name Eugene Referring Provider Last Name Stover Referring Provider Speciality Internal edicine Referred Provider [facility], Pulmonology Referred Provider Specialty Pulmonary Di seases General Notes Ivett Camarena 12/30/2024 11:04:10 AM > Referral Faxed with Progress Note Referral Priority Routine Referral Appointment Date 05/06/2025 Reason insulin dependent di abetic evaluate and treatment Diagnosis 1 Type 2 diabetes jorge l itus with foot ulcer (E11.621) Referral Organization Eugene Stover III, MD Referring Provider First Name Eugene Referring Provider Last Name Jolanta Referring Provider Speciality Internal edicine Referred Provider [facility], [facility] Referred Provider Specialty Endocrinolog y General Notes Dona Mccarthy CMA 02/19 09:12:37 AM > ref/demo/progress note /labs faxed to [facility] Fabio jenkins Suzanne CMA 02/27/2025 03:10:07 PM >I called [facility] they have pt scheduled for appt on 03/19/2025 at 11:15am Referral Priority Routine Referral Appointment Date 03/19/2025 Medications Medication SIG (Take, Route, Frequency, Duration) [...] 6 MM USE TWICE DAILY Acti ve Immunizations Vaccine Route Administration Date Status Comme nts Hepatitis B (20 and more) Unknown 05/12/2020 Administer ed COVID PFIZER Unknown 04/28/2020 Administered COVID PFIZER Unknown 10/07/2020 Administered Tdap Unknown 05/12/2020 Administered COVID PFIZER Unknown 09/09/2020 Administered Social History Tobacco Use: Social History Observation [...] Status W/U Status Risk Notes Problem Hyperlipidemia (87572553) Hyperlipidemia (E78.5) Active confirmed Comprehensive blood work [...] will be in the near future. Problem 519080842 Obesity (E66.9) Active confirmed He remains obese. He has lost 22 pounds since his last visit. His weight will be monitored carefully. Weight loss is likely partly from hyperglycemia Problem DM - Diabetes mellitus (40463515) DM (diabetes mellitus) (E11.9) Active confirmed His [...] appointment with endocrinology March 19, 2025. Problem [id number] Type 2 diabetes mellitus with foot ulcer (E11.621) Active confirmed I have increased his Lantus from 24-30 units daily with office visits every 14 days. I have referred him to endocrinology for aggressive diabetic teaching, Dexon sensor, And aggressive control of his diabetes. 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 He reports having no sensation in his feet. He was instructed on foot care today. He is seeing the wound clinic weekly. Problem 52086868 Ureterolithiasis (N20.1) Active confirmed He is had renal colic and no kidney stone since his last visit. He was advised to stay well hydrated. Problem Benign prostatic hyperplasia (571489751) BPH (benign prostatic hyperplasia) (N40.0) Active confirmed He rises from sleep once or twice a night to urinate. We discussed lifestyyle modifications he could make to reduce nocturia. Problem 44032930 Essential hypertension (I10) Active confirmed His blood pressure was elevated . We discussed his diet and sodium restriction. I recommended aggressive weight loss. He was given a follow-up appointment in the near future to check his blood pressure again. He will be treated if necessary. He will continue on the lisinopril. Problem 44378721 Obstructive sleep apnea (G47.33) Active confirmed I strongly recommend that he continue to use his CPAP. Problem 25782139 Peripheral neuropathy (G62.9) Active confirmed He continues to have a moderate diabetic neuropathy.He has a new ulcer on the volar surface of his left toe which is being treated in the wound clinic. He will have better control of his diabetes. Problem 234809587 Morbid obesity (E66.01) Active confirmed He has gained 7 pounds since his last visit. We have discussed the importance of weight loss and diet and activity. His weight will be followed carefully. He is going to consider GLP-1 medication. Problem 701332134 Type 2 diabetes mellitus without complication, without long-term current use of insulin (E11.9) Active confirmed He will resu me the metformin and his medications will be adjusted after blood work is available. He was counseled on compliance. He was referred to a stoker erector. He was referred to an ophthalmologis t. I recommended a statin drug. He will continue the lisinopril. We will try to reach a target A1c. He will have comprehensive blood work with fasting lipids, microalbumin, A1c and fasting glucose. He will be seen in the office frequently. Problem 55995358546045040 Subacute osteomyelitis of left foot (M86.272) Active confirmed There was an infection of the MTP joint and the phalanx and the metatarsal on the MRI of the foot. He is now on intravenous ertapenem and oral levofloxacin. This will continue for 6 weeks. He will be followed closely during that time by me in the wound clinic. Vital Signs Heart Rate 104 /min 03/04/2025 Temperature 97.2 degrees Fahrenheit 03/04/2025 Blood pressure diastolic 85 mm Hg 03/04/2025 Height 67 in 03/04/2025 Blood pressure systolic 125 mm Hg 03/04/2025 Weight 262 lbs 03/04/2025 BMI 41.03 kg/m2 03/04/2025 Encounters Encounter Location Date Provider Diagnosis Eugene Stover III, MD [address] [place] [address] [place] [address] 12/06/2024 Eugene Stover Hyperlipidemia E78.5 ; Type 2 diabetes mellitus with foot ulcer E11.621 ; Obesity E66.9 ; Peripheral neuropathy G62.9 ; Ureterolithiasis N20.1 ; Obstructive sleep apnea G47.33 ; Essential hypertension I10 ; 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 and BPH (benign prostatic hyperplasia) N40.0 Eugene Stover III, MD [address] [place] [address] [place] [address] 12/27/2024 Eugene Stover Hyperlipidemia E78.5 ; Type 2 diabetes mellitus with foot ulcer E11.621 ; Obesity E66.9 ; Peripheral neuropathy G62.9 ; Ureterolithiasis N20.1 ; Essential hypertension I10 and Subacute osteomyelitis of left foot M86.272 Eugene Stover III, MD [address] [place] [address] [place] [address] 02/17/2025 Eugene Stover Hyperlipidemia E78.5 ; Immunization [...] prostatic hyperplasia) N40.0 Eugene Stover III, MD [address] [place] [address] [place] [address] 02/26/2025 Eugene Stover DM (diabetes mellitu s) E11.9 ; 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 ; Hyperlipidemia E78.5 ; Immunization not carried out because of patient refusal Z28.21 ; Essential hypertension I10 ; Obstructive sleep apnea G47.33 ; Ureterolithiasis N20.1 and Morbid obesity E66.01 Eugene Stover III, MD [address] [place] [address] [place] [address] 03/04/2025 Eugene Stover Hyperlipidemia E78.5 ; 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 ; Immunization not carried out because of patient refusal Z28.21 ; DM (diabetes mellitus) E11.9 ; Peripheral neuropathy G62.9 ; Ureterolithiasis N20.1 ; Obstructive sleep apnea G47.33 ; Essential hypertension I10 and Obesity E66.9 Eugene Stover III, MD [address] [place] [address] [place] [address] 01/08/2025 Eugene Stover III, MD [address] [place] [address] [place] [address] 02/11/2025 Eugene Stover III, MD [address] [place] [address] [place] [address] 02/17/2025 Eugene Stover III, MD [address] [place] [address] [place] [address] 02/27/2025 Eugene Stover III, MD [address] [place] [address] [place] [address] 03/11/2025 Eugene Stover Assessments Encounter Date Diagnosis (ICD [...] medications with him on his next visit 02/17/2025 Hyperlipidemia (ICD- 10 - E78.5) Comprehensive [...] Z28.21) He declined influenza vaccine today. 02/26/2025 DM (diabetes mellitu s) (ICD-10 - [...] is seeing the wound clinic weekly. 03/04/2025 Hyperlipidemia (ICD- 10 - E78.5) Comprehensive [...] He is seeing the wound clinic weekly. 12/06/2024 Obesity (ICD-10 - E66.9) He remains obese. He has lost 22 pounds since his last visit. His weight will be monitored carefully. Weight loss is likely partly from hyperglycemia 12/27/2024 Obesity (ICD-10 - E66.9) He remains obese. He has lost 22 pounds since his last visit. His weight will be monitored carefully. Weight loss is likely partly from hyperglycemia 02/17/2025 Morbid obesity (ICD- 10 - E66.01) He has gained 7 pounds since his last visit. We have discussed the importance of weight loss and diet and activity. His weight will be followed carefully. He is going to consider GLP-1 medication. 02/26/2025 Hyperlipidemia (ICD- 10 - E78.5) Comprehensive [...] - Z28.21) He declined influenza vaccine today. 12/06/2024 Peripheral neuropath y (ICD-10 - G62.9) [...] have better control of his diabetes. 02/17/2025 Obstructive sleep apnea (ICD-10 - G47.33) I strongly recommend that he continue to use his CPAP. 02/26/2025 Immunization not carried out because of [...] an appointment with endocrinology March 19, 2025. 12/06/2024 Ureterolithiasis (ICD-10 - N20.1) He is had renal colic and no kidney stone since his last visit. He was advised to stay well hydrated. 12/27/2024 Ureterolithiasis (ICD-10 - N20.1) He is had renal colic and no kidney stone since his last visit. He was advised to stay well hydrated. 02/17/2025 Ureterolithiasis (ICD-10 - N20.1) He is had renal colic and no kidney stone since his last visit. He was advised to stay well hydrated. 02/26/2025 Essential hypertensi on (ICD-10 - I10) His blood pressure was elevated at 144/79. We discussed his diet and sodium restriction. I recommended aggressive weight loss. He was given a follow-up appointment in the near future to check his blood pressure again. He will be treated if necessary. He will continue on the lisinopril. 03/04/2025 Peripheral neuropath y (ICD-10 - G62.9) He continues to have a moderate diabetic neuropathy.He has a new ulcer on the volar surface of his left toe which is being treated in the wound clinic. He will have better control of his diabetes. 12/06/2024 Obstructive sleep apnea (ICD-10 - G47.33) [...] He will continue on the lisinopril. 02/17/2025 Peripheral neuropath y (ICD-10 - G62.9) He continues to have a moderate diabetic neuropathy.He has a new ulcer on the volar surface of his left toe which is being treated in the wound clinic. He will have better control of his diabetes. 02/26/2025 Obstructive sleep apnea (ICD-10 - G47.33) I strongly recommend that he continue to use his CPAP. 03/04/2025 Ureterolithiasis (ICD-10 - N20.1) He is had renal colic and no kidney stone since his last visit. He was advised to stay well hydrated. 12/06/2024 Essential hypertensi on (ICD-10 - I10) [...] time by me in the wound clinic. 02/17/2025 Essential hypertensi on (ICD-10 - I10) His blood pressure was elevated at 144/79. We discussed his diet and sodium restriction. I recommended aggressive weight loss. He was given a follow-up appointment in the near future to check his blood pressure again. He will be treated if necessary. He will continue on the lisinopril. 02/26/2025 Ureterolithiasis (ICD-10 - N20.1) He is had renal colic and no kidney stone since his last visit. He was advised to stay well hydrated. 03/04/2025 Obstructive sleep apnea (ICD-10 - G47.33) I strongly recommend that he continue to use his CPAP. 12/06/2024 Non-pressure chronic ulcer of other part [...] surface behind the fifth and fourth toes. 02/17/2025 Type 2 diabetes mellitus with foot ulcer (ICD-10 - E11.621) I have increased his Lantus from 24-30 units daily with office visits every 14 days. I have referred him to endocrinology for aggressive diabetic teaching, Dexon sensor, And aggressive control of his diabetes. 02/26/2025 Morbid obesity (ICD- 10 - E66.01) He has gained 7 pounds since his last visit. We have discussed the importance of weight loss and diet and activity. His weight will be followed carefully. He is going to consider GLP-1 medication. 03/04/2025 Essential hypertensi on (ICD-10 - I10) His blood pressure was elevated . We discussed his diet and sodium restriction. I recommended aggressive weight loss. He was given a follow-up appointment in the near future to check his blood pressure again. He will be treated if necessary. He will continue on the lisinopril. 12/06/2024 BPH (benign prostati c hyperplasia) (ICD-10 - N40.0) He rises from sleep once or twice a night to urinate. We discussed lifestyyle modifications he could make to reduce nocturia. 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 He reports having no sensation in his feet. He was instructed on foot care today. He is seeing the wound clinic weekly. 03/04/2025 Obesity (ICD-10 - E66.9) He remains obese. He has lost 22 pounds since his last visit. His weight will be monitored carefully. Weight loss is likely partly from hyperglycemia 02/17/2025 BPH (benign prostati c hyperplasia) (ICD-10 [...] 02/23/2024 Microalbumin, Random 12/06/2024 Microalbumin, Random 02/23/2024 Glucose, Whole Blood 03/19/2025 Hemoglobin A1c 12/06/2024 Hemoglobin A1c 02/23/2024 Next Appt Details Provider Name:Eugene Baldo Stover , 03/25/2025 11:00:00 AM, [address] [place] [address] [place], [place], [address], Provider Name:Eugene Nye Jolanta , 02/20/2026 02:00:00 PM, [address] [place] [address] [place], [place], [address], Insurance Providers Payer Name Payer Address Payer Phone Subscriber Number Group Number Insured Name Patient Relationship to Insured Coverage Start Date Coverage End Date [employer] [address] [address] [place] [address] [id number] Sachin Vides Self - patient is the [...]
--- OUTSIDE RECORDS SUMMARY | 2025-03-19 13:17 | XMS_ITS | Clinical Summary ---
Author Organization [facility] Address [address] [place] [phone] Phone Care Team Providers Care Tool Engineer Name Role Phone Unavailable Primary Care Provider [...] It is not the complete legal health record.[facility]
--- OUTSIDE RECORDS SUMMARY | 2025-03-19 13:17 | XMS_ITS | Clinical Summary ---
Author Organization [address] [facility] Address [address] [place] [address] Phone Care Team Providers Care Key Carrier Name Role Phone Eugene Stover MD Primary Care Provider [phone] Allergies Active Allergy Reactions Criticality Noted Date [...] to complete this topic Insurance [address] [place] [address] [employer] [place] [id number] Care Teams Key Carrier Relationship Specialty Start Date End Date Eugene Stover MD [address] [address] PCP - General Oncology 08/10/17
== END 2025-03-19 11:46 | disposition home or self-care (01) ==
LOC: HO.ENCR 11:09
PROVIDERS: PCP Internal Medicine Medical Oncology; Visit Provider Internal Medicine
DX: E11.65 Type 2 diabetes mellitus with hyperglycemia (principal); Z79.4 Long term (current) use of insulin; M86.172 Other acute osteomyelitis, left ankle and foot; G47.33 Obstructive sleep apnea (adult) (pediatric)

== ENCOUNTER → 2025-03-19 11:07 | Outpatient (BNVA) | payer OTHER, SELFPAY | PROVIDERS: PCP Internal Medicine Medical Oncology; Visit Provider Internal Medicine | DX: B35.1 Tinea unguium (principal); L60.3 Nail dystrophy; E11.621 Type 2 diabetes mellitus with foot ulcer; L97.512 Non-pressure chronic ulcer of other part of right foot with fat layer exposed; L97.522 Non-pressure chronic ulcer of other part of left foot with fat layer exposed; M86.672 Other chronic osteomyelitis, left ankle and foot; E11.40 Type 2 diabetes mellitus with diabetic neuropathy, unspecified; E11.65 Type 2 diabetes mellitus with hyperglycemia; E66.9 Obesity, unspecified; I73.9 Peripheral vascular disease, unspecified; I10 Essential (primary) hypertension; E78.5 Hyperlipidemia, unspecified; G47.33 Obstructive sleep apnea (adult) (pediatric); Z79.4 Long term (current) use of insulin | CPT/HCPCS: 11042; 11721; 82947; 99202; 99212 ==

== ENCOUNTER 2025-03-19 13:13 | Outpatient (AMB) | payer OTHER, SELFPAY ==
--- NOTE | 2025-03-19 13:19 | A.OFFVIS_ITS ---
Intake Visit Reasons: wound center referral Intake Note: Sachin is a 60 year old male who presents today with a off loading walking boot as a new patient for a evaluation of his right great toe wound. Patient reports ongoing callus development in his right great toe and blisters on in his right foot. patient has been wearing a off loading boot for 3 months. He is also mentioning that his nails are very thick to cut. Allergies erythromycin base (ERYTHROMYCIN BASE) Allergy (Unknown, Verified 03/19/25 13:25) UNKNOWN [facility] wound center referral: Details: 52-year-old male past medical history of diabetes mellitus type 2, hyperlipidemia, hypertension, presents for bilateral diabetic foot ulcers. He expresses frustration due to a chronic recurrent right hallux ulceration and infection for several years. Most recently, he has been treated for osteomyelitis for his left 5th metatarsal and toe. He notes overall improvement in his ulcer after antibiotic treatment and states it has improved significantly. The patient states he sees wound care at [facility] at least once or twice a week. He states he already saw wound care earlier this week. He states he is currently retired/ unemployed due to his ulceration / infections. [facility] Medical History (Updated 03/21/25 @ 18:53 by Thiago Hebert DPM) History of hyperbaric oxygen therapy Class 3 obesity Type 2 diabetes mellitus Hypertension Neuropathy Surgical History (Updated 03/19/25 @ 11:39 by DINORA Segovia) History of surgery Family History Father No problems noted. Mother No problems noted. Social History Household Members: Significant Other Housing: Condominium Do you presently have visiting nurse or other home services: No Patient Tobacco Use Status: Never used Tobacco service: No Review of Systems Const All systems reviewed & are unremarkable except as noted in HPI and below Physical Exam Extrem Other: *Bilateral Lower Extremity Focused Diabetic Foot Exam Vascular: DP/PT 2/4, CFT<3s to digits, TG warm to cool, mild left lateral pedal edema, pedal hair present Derm: Skin: 1. right sub-hallux approximately 2cm x 1.5cm ulceration with granular base, hyperkeratotic borders, depth subcutaneous tissue, no drainage or erythema. 2. left medial hallux hyperkeratotic lesion 3. left sub-5th MTP ulcer approximately 1.5cm x 1.2cm granular base, depth subcutaneous tissue. jessica-wound rubor. no increased warmth or drainage. Interdigital spaces: Clear, no maceration or fungal infection. Nails: Thickened elongated dystrophic discolored toenails x 10 with subungual debris. Neuro: protective sensation grossly diminished to bilateral lower extremities Msk: Deformities: Right 1st Metatarsal-phalangeal joint 30 degrees of dorsiflexion Moderate-high arch bilateral feet. Muscle strength: 5/5 in all muscle groups. Gait: Normal, no antalgic or steppage gait observed. Footwear Assessment: Shoes inspected; non-supportive/structural. Office Procedures AMB Debridement/Avulsion Podia Details: Procedure: Sharp excisional debridement Depth: subcutaneous layer Indication: right diabetic foot ulcer Anesthesia: N/A Description: The site was prepped using alcohol/cleanser. A #15 Blade was used to perform a sharp excisional wound debridement of the lesion to the level of subcutaneous tissue. The lesion measured 2.1cm x 1.6cm at the end of debridement. Dressings: betadine, 4x4 gauze, judit Tolerance: Patient tolerated procedure well, no immediate complications. Procedure: Nail debridement Location: bilateral feet (10 nails) Anesthesia: N/A Description: The affected toenails were cleansed with an antiseptic solution. Using sterile nail nippers and a rotary sharmin, dystrophic and mycotic nail material was carefully debrided and reduced in thickness. Care was taken to avoid trauma to the surrounding skin and nail bed. All debris was removed as tolerated. The area was inspected for signs of infection or ulceration. Patient tolerated the procedure well without complications. Tolerance: Patient tolerated procedure well, no immediate complications. Class B findings as per physical exam findings above. The patient has a diagnosis of diabetes mellitus and presents with elongated, thickened toenails. Due to underlying diabetic neuropathy and mild vascular disease findings, the patient is at increased risk for complications such as ulceration, infection, and difficulty with self-care. Debridement of elongated toenails is medically necessary to prevent development of pressure-related lesions, reduce risk of secondary infection, and maintain foot health in high- risk comorbidities. 53320-Okkuyttzfwf of Nail 6+ 55222-Vktxgsgicga of skin tissue Procedure code (CPT) selection complete Results Reviewed Results Reviewed: Date of Service: 12/19/24 Procedure(s): US arterial duplex LE BI IMPRESSION: No occlusion of the imaged arteries of the lower extremities by ultrasound. Laboratory Tests 02/25/25 11:54 Hemoglobin A1c % 8.6 H Assessment & Plan Assessment & Plan (1) Ulcer of right foot due to type 2 diabetes mellitus: Code(s): E11.621 - Type 2 diabetes mellitus with foot ulcer; L97.519 - Non-pressure chronic ulcer of other part of right foot with unspecified severity Category: Medical Plan: * Right hallux wound was debrided sharply. It was then dressed with Betadine, 4 x 4 gauze, Judit. * Continue cam boot. * Due to the chronicity of the patient's wound, he was recommended workup for possible surgical intervention in the form of hallux arthrodesis and selective plantar fascia band release. * Rx right foot weight-bearing x-rays to evaluate for hallux limitus/elevatus * Rx right foot MRI to evaluate for osteomyelitis for surgical planning. Osteomyelitis would be a contraindication to hardware placement. He may require a bone biopsy prior to surgical intervention if the MRI is suggestive of OM. * He was referred for diabetic shoes to offload the ulcerations first prior to any surgical intervention. * Follow up in 1 month to assess diabetic shoes and ulcer management (2) Osteomyelitis of left foot: Code(s): M86.9 - Osteomyelitis, unspecified Category: Medical Qualifiers: Osteomyelitis type: other chronic Qualified Code(s): M86.672 - Other chronic osteomyelitis, left ankle and foot Plan: * Reviewed left foot x-ray retreatment, MRI, and x-ray posttreatment with the patient. * Osteomyelitis appears to have mostly been treated/resolved as the x-rays shows excessive heterotrophic osseous formation of the 5th metatarsal, and due to the ulceration depth only to the level of subcutaneous tissue. * Recommended continuing nonsurgical care, as per the wound care team's current treatment plan. * He may require ostectomy of the 5th metatarsal stump if he has a recurrent chronic ulceration. (3) Onychomycosis: Code(s): B35.1 - Tinea unguium Category: Medical Plan: * Debrided elongated thickened nails x 10 with sterile nail nippers * Follow up in 2 months for repeat debridement Orders: Orders 2 AMB Debridement/Avulsion Podiatry 03/19/25 E11.621 - Type 2 diabetes mellitus with foot ulcer, L97.509 - Non-pressure chronic ulcer of other part of unspecified foot with unspecified severity MR foot RT wo con Today E11.621 - Type 2 diabetes mellitus with foot ulcer, L97.519 - Non-pressure chronic ulcer of other part of right foot with unspecified severity XR foot RT min 3V Today E11.621 - Type 2 diabetes mellitus with foot ulcer, L97.519 - Non-pressure chronic ulcer of other part of right foot with unspecified severity Medications: New 2 [Diabetic shoes] Please dispense diabetic shoes with 3 pairs of custom molded inserts. Please offload right hallux ulcer, left hallux pre-ulcer, and left 5th metatarsal head ulcer. 1 ea 0RF E11.43 - Type 2 diabetes mellitus with diabetic autonomic (poly)neuropathy, E11.9 - Type 2 diabetes mellitus without complications, M86.172 - Other acute osteomyelitis, left ankle and foot Coding Level of Care Code New Pt Level 4 (06970) Diagnoses Ulcer of right foot due to type 2 diabetes mellitus E11.621; L97.519 Other chronic osteomyelitis of left foot M86.672 Osteomyelitis type: other chronic Onychomycosis B35.1 CPT Codes Skin Debridement - CPT: 23827-Hpiyytioeed of Nail 6+ ([id number]) Skin Debridement - CPT: 79828-Hocywyvuhzz of skin tissue ([id number]) Time Spent (min) 35
== END 2025-03-19 14:00 | disposition home or self-care (01) ==
LOC: HO.HPODS 13:13
PROVIDERS: PCP Internal Medicine Medical Oncology; Visit Provider Student in an Organized Health Care Education/Training Program
DX: E11.621 Type 2 diabetes mellitus with foot ulcer (principal); L97.519 Non-pressure chronic ulcer of other part of right foot with unspecified severity; M86.672 Other chronic osteomyelitis, left ankle and foot; B35.1 Tinea unguium
CPT/HCPCS: 99204